=== PATIENT | male | born 1940 | race Two or more races ===

== ENCOUNTER 2020-05-15 23:28 | Inpatient (IN) | payer OTHER, MEDICAID ==
[~2020-05-15] VITALS: Ht 175.3 cm; Wt 99.8 kg
--- NOTE | 2020-05-15 23:41 | Emergency Room Report ---
History of Present Illness General Chief Complaint: Dyspnea/Respdistress Source: Patient, Medical Record, EMS Present Illness HPI 80-year-old male with a history of diabetes hypertension here with shortness of breath. Patient tested Positive for Covid 4 days ago. Says his initial s ymptoms were cough and congestion but says over the past 2 days he has been having worsening shortness of breath. He called paramedics because of shortness of breath acutely worsened tonight. When paramedics arrived patient had oxygen saturation of 80% on room air. He was placed on a nonrebreather at 15 L with resolution of his hypoxia. Patient also said that he felt subjectively better. Has had a productive cough. Denies headache, vision changes, focal numbness or weakness chills, chest pain, back pain, abdominal pain, nausea, vomiting, diarrhea, dysuria. Allergies: Coded Allergies: No Known Allergies (Unverified , 05/15/20) COVID-19 Screening Contact w/high risk pt: No Experienced COVID-19 symptoms?: Yes COVID-19 Testing performed TOE SEWER: No COVID-19 Screening: PUI COVID-19 Nursing Documentation-[facility] Past Medical History: No History, Except For Hx Hypertension: Yes Hx Diabetes: Yes Review of Systems All Other Systems: negative except mentioned in HPI Physical Exam Vital Signs Date Time Temp Pulse Resp B/P (MAP) Pulse Ox O2 Delivery O2 Flow Rate FiO2 05/15/20 23:31 99.9 116 22 149/61 (90) 96 Non-Rebreather 15.0 Sp02 EP Interpretation: reviewed, normal General Appearance: no apparent distress, alert, non-toxic Head: normocephalic, atraumatic Eyes: bilateral eye normal inspection, bilateral eye PERRL ENT: hearing grossly normal, normal pharynx, no angioedema, normal voice Neck: full range of motion, supple/symm/no masses Respiratory: chest non-tender, speaking full sentences, other - Diffuse rales in all lung zhang Cardiovascular #1: no edema, other - Tachycardic 105 bpm, regular rhythm Cardiovascular #2: 2+ carotid (R), 2+ carotid (L), 2+ radial (R), 2+ radial (L), 2+ dorsalis pedis (R), 2+ dorsalis pedis (L) Gastrointestinal: normal bowel sounds, non tender, soft, non-distended, no guarding, no rebound Rectal: deferred Genitourinary: normal inspection, no CVA tenderness Musculoskeletal: back normal, normal range of motion, gait/station normal, non- tender Neurologic: alert, motor strength/tone normal, oriented x3, sensory intact, responsive, speech normal Psychiatric: judgement/insight normal, memory normal, mood/affect normal, no suicidal/homicidal ideation Lymphatic: no adenopathy Medical Decision Making Diagnostic Impression: Primary Impression: Respiratory distress Additional Impressions: Dyspnea Pneumonia due to COVID-19 virus Septic shock ER Course Total critical care time: Approximately 45 minutes Due to a high probability of clinically significant, life threatening deterioration, the patient required the highest level of preparedness to intervene emergently and I personally spent this critical care time directly and personally managing the patient. This critical care time included obtaining a history, examining the patient, pulse oximetry, ordering and reviewing studies, ordering treatments, evaluating response to treatment and updating management plan as needed, frequent reassessment and discussion with other providers as well as arranging for ultimate disposition. This critical to care time was performed to assess and manage the high probability of life-threatening deterioration that could result in multiorgan failure. This critical care time is separate from the separately billable procedures and treating other patients. Chest x-ray: Diffuse infiltrates in all lung zhang worse in the right upper, right middle, right lower lobes. Right-sided pleural effusion. No pneumothorax. Cardiomegaly. No free air under diaphragm EKG: NSR, no ischemia, right bundle branch block. Rate 95 bpm. No ectopy Rhythm strip: patient monitored for arrhythmias - no malignant dysrhythmias, runs of PVCs, nor pauses noted 80-year-old male here with shortness of breath. Patient was found to be hypoxic on room air by paramedics and was placed on a nonrebreather. Patient was kept on nonrebreather and maintained a normal oxygen saturation throughout his stay in the emergency department. He said he felt subjectively much better. ABG l argely unremarkable. EKG showed right bundle branch block without any evidence of obvious acute ischemia. Lactate elevated 4.7. Patient received a 30 cc/kg fluid bolus based on ideal body weight. Repeat lactate pending. Patient Covid positive. Received azithromycin, ceftriaxone, Decadron, Lovenox in the emergency department. To be admitted to telemetry. Last Vital Signs Date Time Temp Pulse Resp B/P (MAP) Pulse Ox O2 Delivery O2 Flow Rate FiO2 05/15/20 23:31 99.9 116 22 149/61 (90) 96 Non-Rebreather 15.0 Michael Elizondo M.D. May 15, 2020 23:41
--- NOTE | 2020-05-15 23:58 | NUR ---
ED Nurse Note: Pt Brought by RA 29 due to Res distress. According the paramedics, pt wa satting 80% on RA. Pt is on 15L NRM at the moment and he is satting 97-98%. Pt stated; he got tested yesterday for covid and his result is postive. Pt is on Monitor, vitals are stable. Iv started; blood drawn and sent to the lab. All safty measures are met. We will keep monitoring the pt.
[2020-05-16] VITALS (7 sets, daily range): BP systolic 127–168; BP diastolic 61–89
[2020-05-16] MEDS ORDERED: GLIPIZIDE5 MG ORAL (00:05)
[2020-05-16] MEDS ORDERED: OMEPRAZOLE40 M1 ORAL (00:05)
[2020-05-16] MEDS ORDERED: DIOVAN HCT 1601 EACH ORAL (00:05)
[2020-05-16] MEDS ORDERED: CARVEDILOL3.125 MG ORAL (00:05)
[2020-05-16] MEDS ORDERED: AMLODIPINE BESYL5 MG ORAL (00:05)
[2020-05-16] MEDS ORDERED: FLOMAX0.4 MG ORAL (00:05)
[2020-05-16 00:15] LABS: HEMATOCRIT 40.5 % (42.0-52.0); HEMOGLOBIN 13.9 G/DL (14.2-18.0); MEAN CORPUSCULAR VOLUME 87 FL (80-99); PLATELET COUNT 259 K/UL (150-450); RED BLOOD COUNT 4.65 M/UL (4.70-6.10); RED CELL DISTRIBUTION WIDTH 11.1 % (11.6-14.8); WHITE BLOOD COUNT 14.9 K/UL (4.8-10.8)
[2020-05-16] MEDS ORDERED: Enoxaparin 40mg Inj SUBQ ONE (00:29)
[2020-05-16] MEDS ORDERED: Azithromycin 500 MG in NS 275 ML IVPB ONE (00:30)
[2020-05-16] MEDS ORDERED: cefTRIAXone 1 GM in NS 55 ML IV ONE (00:30)
[2020-05-16] MEDS ORDERED: dexAMETHasone 10mg/ml Inj IV ONE (00:30)
[2020-05-16 00:40] LABS: ALBUMIN 2.8 G/DL (3.4-5.0); ALBUMIN/GLOBULIN RATIO 0.8 (1.0-2.7); BILIRUBIN,TOTAL 0.7 MG/DL (0.2-1.0); CALCIUM 8.9 MG/DL (8.5-10.1); CKMB 4.3 NG/ML (0.0-3.6); CREATININE 1.3 MG/DL (0.55-1.30); POTASSIUM 3.5 MMOL/L (3.5-5.1)
--- NOTE | 2020-05-16 02:06 | NUR ---
ED Nurse Note: Pt is on the bed sleeping, no distress, and vitals are stable. We keep monitoring the pt
[2020-05-16 02:17] LABS: APPEARANCE,URINE SLIGHTLY CLOUDY; BILIRUBIN, URINE NEGATIVE (NEGATIVE); GLUCOSE, URINE (UA) 2+ (NEGATIVE); KETONES,URINE 1+ (NEGATIVE); LEUKOCYTE ESTERASE ,URINE 1+ (NEGATIVE); NITRITE,URINE NEGATIVE (NEGATIVE); PH,URINE 5 (4.5-8.0); PROTEIN,URINE 2+ (NEGATIVE); UROBILINOGEN,URINE NORMAL MG/DL (0.0-1.0)
[2020-05-16 02:32] LABS: COLOR,URINE PALE YELLOW
--- NOTE | 2020-05-16 05:35 | NUR ---
ED Nurse Note: pt is sleeping comfortably,vitals are stable, and no distress. We will keep monitoring the pt.
--- NOTE | 2020-05-16 06:20 | NUR ---
TRANSFER TO FLOOR: Patient transferred to [facility] as ordered, per Travon. Report given to Salazar Eagle. All Belongings and medications sent with the pt. RN transferred the pt on stable condition.
[2020-05-16] MEDS ORDERED: NovoLOG Insulin Flexpen SUBQ SCH ×2 (06:30)
--- NOTE | 2020-05-16 07:40 | NUR ---
NURSE HAND-OFF REPORT: Important Events on Shift:Pt admitted to tele. Oriented to room and admitting orders received. Patient Status: Stable Diet: CCHO Med Pending Orders: Pending Results/Labs: Pending MD notification: Latest Vital Signs: Temperature 98.5 , Pulse 83 , B/P 138 /75 , Respiratory Rate 23 , O2 SAT 99 , Non-Rebreather, O2 Flow Rate 15.0 . Vital Sign Comment: VSS EKG Rhythm: Sinus Rhythm Rhythm change?: MD Notified?: - MD Response: Latest Gregg Fall Score: Fall Risk: Safety Measures: Call light , Bed Alarm , Side Rails , Bed position . Fall Precautions: Report given to JADA Martínez.
--- NOTE | 2020-05-16 07:52 | NUR ---
NURSE NOTES: Patient seen in bed in semifowlers position on nonrebreather with oxygen saturation above 94%. The patient does not complain of any pain and is under no acuter signs of distress. The patient has a R 18G AC that is clean patent and intact and saline locked. All patients request have been met at this time. the patients bed is in lowest position, locked, side rails x3 and call light within reach. patient educated guest relations associate light for any further needs.
[2020-05-16] MEDS ORDERED: Enoxaparin 40mg Inj SUBQ SCH (09:00)
--- NOTE | 2020-05-16 09:30 | Diagnostic Imaging Report ---
EXAM: XR Chest, 1 View CLINICAL HISTORY: SOB TECHNIQUE: Frontal view of the chest. COMPARISON: No relevant prior studies available. FINDINGS/IMPRESSION: Extensive bilateral airspace consolidations, consistent with multifocal infiltrate. These findings preferentially involve the lower lung zhang. Follow-up 2 view chest radiograph recommended. No pneumothorax. Cardiomegaly.
[2020-05-16] MEDS: dexAMETHasone 10mg/ml Inj IV SCH (09:45)
[2020-05-16] MEDS: Enoxaparin 40mg Inj SUBQ SCH ×2 (10:00→17:57)
--- NOTE | 2020-05-16 12:25 | History & Physical ---
History and Physical History & Physicial Pulmonary Consultation HPI Patient is an 80-year-old male with a history of Diabetes Hypertension,admitted with Covid19 Pneumonia, complained of worsening shortness of breath for 2 days, cough and congestion. Tested positive for Covid 4 days ago. Noted to have oxygen saturation of 80% on room air, improved on a nonrebreather at 15 L with resolution of his hypoxia. Denies headache, vision changes, focal numbness or weakness chills, chest pain, back pain, abdominal pain, nausea, vomiting, diarrhea, dysuria. Past Medical History: Diabetes, Hypertension Allergies: No Known Allergies All Other Systems: negative except mentioned in HPI Physical Exam Vital SignsNoted Date Time Temp Pulse Resp B/P (MAP) Pulse Ox O2 Delivery O2 Flow Rate FiO2 05/15/20 23:31 99.9 116 22 149/61 (90) 96 Non-Rebreather 15.0 General Appearance: no apparent distress, alert, non-toxic Head: normocephalic, atraumatic Eyes: bilateral eye normal inspection, bilateral eye PERRL ENT: hearing grossly normal, normal pharynx, no angioedema, normal voice Neck: full range of motion, supple/symm/no masses Respiratory: chest non-tender, speaking full sentences, other - Diffuse rales in all lung zhang Cardiovascular: no edema, HS1,HS2 normal, regular rhythm Gastrointestinal: normal bowel sounds, non tender, soft, non-distended, no guarding, no rebound Genitourinary: normal inspection, no CVA tenderness Musculoskeletal: back normal, normal range of motion, gait/station normal, non- tender Neurologic: alert, motor strength/tone normal, oriented x3, sensory intact, responsive, speech normal Lymphatic: no adenopathy Impression: Pneumonia due to COVID-19 virus Hypoxic Respiratory Failure Hypertension Diabetes Septic shock Plan: -Dexamethasone -O2 PRN -IV AB -IVF -BD PRN -Monitor labs -[employer] medications -ST eval -ISS -PPX Chest x-ray: Diffuse infiltrates in all lung zhang worse in the right upper, right middle, right lower lobes. Right-sided pleural effusion. No pneumothorax. Cardiomegaly. No free air under diaphragm EKG: NSR, no ischemia, right bundle branch block. Rate 95 bpm. No ectopy Rhythm strip: patient monitored for arrhythmias - no malignant dysrhythmias, runs of PVCs, nor pauses noted Balfe,Tomas MD May 16, 2020 12:25
--- NOTE | 2020-05-16 12:55 | Consultation ---
History of Present Illness General Date patient seen: May 16, 2020 Reason for Hospitalization: Dyspnea/Respdistress Present Illness HPI 80-year-old male with a history of diabetes hypertension here with shortness of breath. Patient tested Positive for Covid 4 days ago. Says his initial symptoms were cough and congestion but says over the past 2 days he has been having worsening shortness of breath. He called paramedics because of shortness of breath acutely worsened tonight. When paramedics arrived patient had oxygen saturation of 80% on room air. He was placed on a nonrebreather at 15 L with resolution of his hypoxia. Patient also said that he felt subjectively better. Has had a productive cough. Denies headache, vision changes, focal numbness or weakness chills, chest pain, back pain, abdominal pain, nausea, vomiting, diarrhea, dysuria. leukocytosis lactic acidosis Allergies: Coded Allergies: No Known Allergies (Unverified , 05/15/20) COVID-19 Screening Contact w/high risk pt: No Experienced COVID-19 symptoms?: Yes Coronavirus symptoms experienc: Fatigue, Shortness of Breath, Cough, Diarrhea Medication History Scheduled Amlodipine Besylate* (Amlodipine Besylate*), 5 MG ORAL DAILY, (Reported) Carvedilol* (Carvedilol*), 3.125 MG ORAL EVERY 12 HOURS, (Reported) Glipizide* (Glipizide*), 5 MG ORAL BIDAC, (Reported) Omeprazole (Omeprazole), 40 MG ORAL DAILY, (Reported) Tamsulosin HCl (Flomax), 0.4 MG ORAL DAILY, (Reported) Valsartan/Hydrochlorothiazide 160-12.5MG (Diovan Hct 160-12.5 Mg Tab), 1 TAB ORAL DAILY, (Reported) Patient History History Provided By: Patient, Medical Record, PMD Healthcare decision maker Resuscitation status Advanced Directive on File Past Medical/Surgical History Past Medical/Surgical History: (1) Septic shock (2) Dyspnea (3) Respiratory distress (4) Pneumonia due to COVID-19 virus Review of Systems Review of Symptoms General ROS: no weight loss or fever Psychological ROS: no depression or mood changes, no memory loss Ophthalmic ROS: no visual changes or eye irritation ENT ROS: no nasal congestion, hearing loss, dizziness Allergy and Immunology ROS: no allergic symptoms or urticaria Hematological and Lymphatic ROS: no swollen glands, unusual bleeding or bruising Endocrine ROS: no polyuria, polydipsia, weight changes, temperature intolerance Respiratory ROS: no cough, shortness of breath, or wheezing Cardiovascular ROS: no chest pain or dyspnea on exertion Gastrointestinal ROS: denies abdominal pain, bright red blood in stool. Musculoskeletal ROS: no myalgias or arthralgias Neurological ROS: no TIA or stroke symptoms Dermatological ROS: no new or changing skin lesions, rashes or pruritis Physical Exam Physical Exam General appearance: alert, cooperative, no distress, appears stated age Head: Normocephalic, without obvious abnormality, atraumatic Eyes: conjunctivae/corneas clear. PERRL, EOM's intact. Fundi benign Throat: Lips, mucosa, and tongue normal. Teeth and gums normal Neck: supple, symmetrical, trachea midline, no adenopathy, thyroid: not enlarged, symmetric, no tenderness/mass/nodules, no carotid bruit and no JVD Lungs: clear to auscultation bilaterally Heart: regular rate and rhythm, S1, S2 normal, no murmur, click, rub or gallop Abdomen: soft, non-tender. Bowel sounds normal. No masses, no organomegaly Extremities: extremities normal, atraumatic, no cyanosis or edema Pulses: 2+ and symmetric Skin: Skin color, texture, turgor normal. No rashes or lesions Neurologic: Grossly normal Last 24 Hour Vital Signs Date Time Temp Pulse Resp B/P (MAP) Pulse Ox O2 Delivery O2 Flow Rate FiO2 05/16/20 10:27 Non-Rebreather 15.0 05/16/20 09:45 89 149/65 05/16/20 06:20 98.5 83 23 138/75 99 Non-Rebreather 15.0 05/16/20 05:40 98.1 82 23 132/69 98 Non-Rebreather 15.0 05/16/20 03:27 97.8 89 22 142/89 99 Non-Rebreather 15.0 05/16/20 02:40 97.9 98 22 139/78 99 Non-Rebreather 15.0 05/16/20 01:12 98.2 05/16/20 00:03 105 24 Non-Rebreather 15.0 05/16/20 00:03 99.8 105 24 149/61 97 Non-Rebreather 15.0 05/15/20 23:31 99.9 116 22 149/61 (90) 96 Non-Rebreather 15.0 Laboratory Tests Test 05/15/20 23:30 05/15/20 23:36 05/16/20 01:51 White Blood Count 14.9 K/UL (4.8-10.8) H Red Blood Count 4.65 M/UL (4.70-6.10) L Hemoglobin 13.9 G/DL (14.2-18.0) L Hematocrit 40.5 % (42.0-52.0) L Mean Corpuscular Volume 87 FL (80-99) Mean Corpuscular Hemoglobin 29.9 PG (27.0-31.0) Mean Corpuscular Hemoglobin Concent 34.2 G/DL (32.0-36.0) Red Cell Distribution Width 11.1 % (11.6-14.8) L Platelet Count 259 K/UL (150-450) Mean Platelet Volume 6.6 FL (6.5-10.1) Neutrophils (%) (Auto) % (45.0-75.0) Lymphocytes (%) (Auto) % (20.0-45.0) Monocytes (%) (Auto) % (1.0-10.0) Eosinophils (%) (Auto) % (0.0-3.0) Basophils (%) (Auto) % (0.0-2.0) Differential Total Cells Counted 100 Neutrophils % (Manual) 95 % (45-75) H Lymphocytes % (Manual) 2 % (20-45) L Monocytes % (Manual) 3 % (1-10) Eosinophils % (Manual) 0 % (0-3) Basophils % (Manual) 0 % (0-2) Band Neutrophils 0 % (0-8) Platelet Estimate Adequate Platelet Morphology Normal Red Blood Cell Morphology Normal Prothrombin Time 11.5 SEC (9.30-11.50) Prothromb Time International Ratio 1.0 (0.9-1.1) Activated Partial Thromboplast Time 33 SEC (23-33) D-Dimer 0.87 mg/L FEU (0.00-0.49) H Sodium Level 131 MMOL/L (136-145) L Potassium Level 3.5 MMOL/L (3.5-5.1) Chloride Level 93 MMOL/L (98-107) L Carbon Dioxide Level 23 MMOL/L (21-32) Anion Gap 15 mmol/L (5-15) Blood Urea Nitrogen 23 mg/dL (7-18) H Creatinine 1.3 MG/DL (0.55-1.30) Estimat Glomerular Filtration Rate 53.0 mL/min (>60) Glucose Level 229 MG/DL (74-106) H Lactic Acid Level 4.70 mmol/L (0.4-2.0) H 2.60 mmol/L (0.66-2.22) H Calcium Level 8.9 MG/DL (8.5-10.1) Magnesium Level 1.2 MG/DL (1.8-2.4) L Ferritin 373 NG/ML (8-388) Total Bilirubin 0.7 MG/DL (0.2-1.0) Aspartate Amino Transf (AST/SGOT) 34 U/L (15-37) Alanine Aminotransferase (ALT/SGPT) 22 U/L (12-78) Alkaline Phosphatase 87 U/L (46-116) Lactate Dehydrogenase 401 U/L (81-234) H Total Creatine Kinase 279 U/L (26-308) Creatine Kinase MB 4.3 NG/ML (0.0-3.6) H Creatine Kinase MB Relative Index 1.5 Troponin I 0.003 ng/mL (0.000-0.056) C-Reactive Protein, Quantitative Pending Pro-B-Type Natriuretic Peptide 500 pg/mL (0-125) H Total Protein 6.5 G/DL (6.4-8.2) Albumin 2.8 G/DL (3.4-5.0) L Globulin 3.7 g/dL Albumin/Globulin Ratio 0.8 (1.0-2.7) L Lipase 162 U/L (73-393) Arterial Blood pH 7.430 (7.350-7.450) Arterial Blood Partial Pressure CO2 29.1 mmHg (35.0-45.0) L Arterial Blood Partial Pressure O2 94.8 mmHg (75.0-100.0) Arterial Blood HCO3 18.9 mmol/L (22.0-26.0) L Arterial Blood Oxygen Saturation 97.0 % (95-100) Arterial Blood Base Excess -4.1 (-2-2) L Jose Test Positive Urine Color Pale yellow Urine Appearance Slightly cloudy Urine pH 5 (4.5-8.0) Urine Specific [place] 1.015 (1.005-1.035) Urine Protein 2+ (NEGATIVE) H Urine Glucose (UA) 2+ (NEGATIVE) H Urine Ketones 1+ (NEGATIVE) H Urine Blood 1+ (NEGATIVE) H Urine Nitrite Negative (NEGATIVE) Urine Bilirubin Negative (NEGATIVE) Urine Urobilinogen Normal MG/DL (0.0-1.0) Urine Leukocyte Esterase 1+ (NEGATIVE) H Urine RBC 0 /HPF (0 - 0) Urine WBC 0-2 /HPF (0 - 0) Urine Squamous Epithelial Cells Occasional /LPF Urine Amorphous Sediment Occasional /LPF (NONE) Urine Bacteria Many /HPF (NONE) H Urine Hyaline Casts 0-2 /LPF (NONE) H Microbiology Date/Time Source Procedure Growth Status 05/15/20 23:30 Nasopharynx SARS-CoV-2 RdRp Gene Assay - Final Complete Height (Feet): 5 Height (Inches): 9.00 Weight (Pounds): 220 Medications Current Medications Medications (Trade) Dose Ordered Sig/Baldo Route PRN Reason Start Time Stop Time Status Last Admin Dose Admin Acetaminophen (Tylenol) 650 mg EVERY 4 HOURS PRN ORAL fever/MINAYA 05/16/20 03:15 06/15/20 03:14 Acetaminophen (Tylenol) 650 mg Q4H PRN ORAL Mild Pain (Pain Scale 1-3) 05/16/20 12:15 06/15/20 12:14 Acetaminophen (Tylenol) 650 mg Q4H PRN ORAL fever 05/16/20 12:15 06/15/20 12:14 Albuterol Sulfate (Proventil MDI) 2 puff Q4H PRN INH Shortness of Breath 05/16/20 12:15 08/14/20 12:14 UNV Amlodipine Besylate (Norvasc) 5 mg DAILY ORAL 05/16/20 09:00 06/15/20 08:59 05/16/20 09:45 Azithromycin 500 mg/Dextrose 275 ml @ 275 mls/hr Q24H IV 05/16/20 13:15 05/21/20 13:14 UNV Ceftriaxone Sodium 1 gm/ Dextrose 55 ml @ 110 mls/hr Q24H IV 05/16/20 13:15 05/23/20 13:14 UNV Dexamethasone Sodium Phosphate (Decadron 10mg/ ml Inj) 6 mg DAILY IV 05/16/20 09:00 08/14/20 08:59 05/16/20 09:45 Dextrose (Dextrose 50%) 25 ml Q30M PRN IV Hypoglycemia 05/16/20 03:15 08/14/20 03:14 Dextrose (Dextrose 50%) 25 ml Q30M PRN IV Hypoglycemia 05/16/20 12:15 08/14/20 12:14 UNV Dextrose (Dextrose 50%) 50 ml Q30M PRN IV Hypoglycemia 05/16/20 03:15 08/14/20 03:14 Dextrose (Dextrose 50%) 50 ml Q30M PRN IV Hypoglycemia 05/16/20 12:15 08/14/20 12:14 UNV Enoxaparin Sodium (Lovenox) 40 mg BID SUBQ 05/16/20 10:00 08/14/20 09:59 Famotidine (Pepcid I.v.) 20 mg Q12HR IVP 05/16/20 21:00 06/15/20 20:59 UNV Insulin Aspart (NovoLOG) BEFORE MEALS AND HS SUBQ 05/16/20 06:30 08/14/20 06:29 Insulin Aspart (NovoLOG) BEFORE MEALS AND HS SUBQ 05/16/20 16:30 08/14/20 16:29 UNV Magnesium Sulfate 100 ml @ 100 mls/hr Q1H IVPB 05/16/20 11:30 05/16/20 15:29 05/16/20 11:30 Ondansetron HCl (Zofran) 4 mg Q6H PRN IVP Nausea & Vomiting 05/16/20 12:15 06/15/20 12:14 UNV Sodium Chloride 1,000 ml @ 75 mls/hr [id number] IV 05/16/20 06:00 06/15/20 05:59 Sodium Chloride 1,000 ml @ 75 mls/hr [id number] 05/16/20 13:15 06/15/20 13:14 UNV Assessment/Plan Problem List: (1) Septic shock Assessment & Plan: 80-year-old male Covid positive respiratory deficiency presented to [facility] for evaluation shortness of breath admitted care and manage identified to have leukocytosis lactic acidosis and shock. Resuscitation initiated. Full examination performed no acute infectious process noted inflammatory process likely related to respiratory. Continue with IV fluids. Hold on central line insertion. Labs noted imaging reviewed. Patient otherwise now stable under appropriate care plan. Continue with medications and antibiotics as ordered. Continue with IV fluid resuscitation. Trend labs. Will follow with recommendations. Thank you for let me participate patient's care ICD Codes: A41.9 - Sepsis, unspecified organism; R65.21 - Severe sepsis with septic shock SNOMED: 76200134 (2) Dyspnea ICD Codes: R06.00 - Dyspnea, unspecified SNOMED: 043144086 (3) Respiratory distress ICD Codes: R06.03 - Acute respiratory distress SNOMED: 159650383 (4) Pneumonia due to COVID-19 virus Assessment & Plan: ++ as per pulm and ID ICD Codes: U07.1 - COVID-19; J12.82 - Pneumonia due to coronavirus disease 2018 SNOMED: [id number] Gianni Guajardo May 16, 2020 12:55
--- NOTE | 2020-05-16 13:14 | Consultation ---
DATE OF CONSULTATION: 05/16/2020 INFECTIOUS DISEASES CONSULTATION This consult is for coverage of Dr. Buckner CONSULTING PHYSICIAN: Jamie Sullivan MD PRIMARY ATTENDING PHYSICIAN: Tomas Cool MD REASON FOR CONSULTATION: COVID-19 disease with pneumonia. HISTORY OF PRESENT ILLNESS: This is an 80-year-old male admitted today from home complaining of shortness of breath, cough, congestion for 4 days. When he was seen by paramedics, was very hypoxemic with O2 saturation of 80%, had tachycardia in the ER, had leukocytosis of 14.9. PAST MEDICAL HISTORY: Diabetes mellitus and hypertension. ALLERGIES: No known drug allergies. MEDICATIONS: Famotidine, insulin, ceftriaxone, azithromycin, sodium chloride, albuterol, Tylenol, dexamethasone, insulin aspart. SOCIAL HISTORY: Single. Nonsmoker. REVIEW OF SYSTEMS: Has shortness of breath, chest pain, dry cough, diarrhea. PHYSICAL EXAMINATION: VITAL SIGNS: Temperature is 98.5, pulse 89, blood pressure 149/65. GENERAL APPEARANCE: No acute distress, seems to be well developed, has some respiratory distress. HEAD AND NECK: [place] conjunctiva. HEART: Normal rate. LUNGS: The patient getting oxygen by non-rebreather mask 15 liters, has decreased sounds. ABDOMEN: Obese and soft. EXTREMITIES: No edema. NEUROLOGIC: Awake, alert, responsive. LABORATORY AND DIAGNOSTIC DATA: WBC 14.9, hemoglobin 13.9, hematocrit 40.5, platelets is 259. Lactic acid is 2.6. Lactic acid at the time of admission was 4.7. Sodium 131, potassium 3.5, chloride 93, bicarb 23, BUN 23, creatinine 1.3. LDH is 401. Albumin is 2.8. Chest x-ray showed bilateral infiltrate. COVID test was positive. IMPRESSION: Sepsis with tachycardia and leukocytosis, severe COVID-19 disease, has hypoxemia, diabetes mellitus with hyperglycemia, lactic acidosis, hyponatremia. RECOMMENDATION: Start Remdesivir. Continue dexamethasone. Continue Rocephin and Zithromax. If the patient has persistent diarrhea, we will stop Zithromax. We will follow up the clinical course. At the end of my exam, I thank Dr. Cool, for involving me in the care of this patient. Jamie Sullivan M.D. DR: Nadira JOB#: [id number] CC:
[2020-05-16] MEDS ORDERED: Enoxaparin 30mg Inj SUBQ SCH (13:15)
--- NOTE | 2020-05-16 13:30 | NUR ---
NURSE NOTES: Blood glucose level elevated at 450. Patient is asymptomatic and MD made aware of result. Insulin used to correct blood sugar and will be rechecked within 30 minutes.
[2020-05-16] MEDS ORDERED: Loading Dose:Remdesivir 200mg/NS 210ml IV SCH ×2 (16:00)
--- NOTE | 2020-05-16 16:00 | NUR ---
NURSE NOTES: Patient had elevated blood pressure 168/71 and MD was contacted and made aware. MD input orders for patients hypertension.
[2020-05-16] MEDS: Albuterol 90mcg Inhaler 8gm INH PRN (16:37)
[2020-05-16] MEDS: NovoLOG Insulin Flexpen SUBQ SCH ×2 (17:20→21:00)
--- NOTE | 2020-05-16 18:00 | History and Physical Report ---
DATE OF ADMISSION: 05/16/2020 REASON FOR ADMISSION: COVID-19 pneumonia with hypoxia. HISTORY OF PRESENT ILLNESS: This is an 80-year-old male who has had 2 days of progressive shortness of breath and congestion. He tested positive for COVID several days previously. He did not improve, rather worsened, came to the emergency room and was noted by paramedics en route to have an oxygen saturation of only 80% on room air. In the emergency room, he was given a nonrebreather mask and improved. He has not had any other constitutional symptoms. He does feel increasingly short of breath with chest tightness. PAST MEDICAL HISTORY: Type 2 diabetes mellitus and hypertension. MEDICATIONS: Reviewed. ALLERGIES: None. SOCIAL HISTORY: Nonsmoker. No alcohol or substance abuse. FAMILY HISTORY: Not contributory. REVIEW OF SYSTEMS: A 10-point review of systems was performed. All systems negative other than noted above. PHYSICAL EXAMINATION: VITAL SIGNS: Blood pressure 149/61, pulse 116, respirations 22, temperature 99.9. GENERAL: Moderately obese. Oropharynx clear. No thrush. NECK: Supple. Some accessory muscle use. LUNGS: Diminished breath sounds and rhonchi. CARDIAC: Regular rhythm. Rapid rate. Normal S1, S2 with no murmur. ABDOMEN: Soft, obese, and nontender. EXTREMITIES: Trace dependent edema. Good peripheral perfusion. NEUROLOGIC: Nonfocal. EKG with sinus rhythm at 95 and right bundle-branch block. Chest x-ray with bilateral infiltrates, right greater than left, and small pleural effusion. LABORATORY DATA: Reviewed with notable white count of 14.9, hemoglobin 13.9. Lactic acid 4.7, magnesium 1.2, sodium 131, potassium 3.5, chloride 92, bicarb 23, BUN 22, creatinine 1.3, albumin 2.8. Troponin negative and natriuretic peptide 500. IMPRESSION: 1. COVID-19 pneumonia. 2. Hypoxia. 3. Hyponatremia. 4. Hypochloremia. 5. Hypovolemia. 6. Lactic acidosis. 7. Type 2 diabetes mellitus. 8. Hypomagnesemia. 9. Acute diastolic congestive heart failure. 10. Moderate protein-calorie malnutrition. PLAN: 1. Cardiac monitoring. 2. Saline hydration. 3. IV steroids. 4. IV remdesivir. 5. Lovenox for anticoagulation. 6. Insulin coverage by sliding scale. 7. IV magnesium. 8. Follow up electrolytes, adjust saline hydration accordingly. 9. Monitor volume status and cardiovascular parameters. 10. Protein supplement as tolerated. 11. High risk. Tomas Cool M.D. DR: GLADIS JOB#: [id number] CC:
--- NOTE | 2020-05-16 19:34 | NUR ---
NURSE HAND-OFF REPORT: Important Events on Shift:[4Bags of Mag, started Remdesevir] Patient Status: [Full code] Diet: [CCHO medium low sodium] Pending Orders: [N/A] Pending Results/Labs:[N/A] Pending MD notification:[N/A] Latest Vital Signs: Temperature 99.5 , Pulse 102 , B/P 139 /71 , Respiratory Rate 21 , O2 SAT 91 , Non-Rebreather, O2 Flow Rate 15.0 . Vital Sign Comment: [] EKG Rhythm: ST with BBB Rhythm change?: N MD Notified?: Y -Dr. Travon MEJIA Response: Latest Gregg Fall Score: 45 Fall Risk: High Risk Safety Measures: Call light Within Reach, Bed Alarm Zone 1, Side Rails Side Rails x2, Bed position Low and Locked. Fall Precautions: Yellow Socks Patient Fall Education Report given to [Mega ELIAS].
--- NOTE | 2020-05-16 19:35 | NUR ---
NURSE NOTES: Important Events on Shift: Received report from Mauricio Henderson RN. Pt in stable condition since admission during AM shift. Pt admitted for respiratory distress r/t COVID +. Pt is Georgian speaking, denies pain, no signs or symptoms of distress noted at this time. Pt is to move from 212-1 to 220-1. All belongings accounted for per belongings list. COVID isolation precautions in place. Will continue plan of care and close monitoring. Patient Status: Full Code Diet: CCHO M Low Na Pending Orders: none Pending Results/Labs: cbc, cmp, HA1C Pending MD notification: none Latest Vital Signs: Temperature 97.4 , Pulse 102 , B/P 132 /72 , Respiratory Rate 18 , O2 SAT 91 , Non-Rebreather, O2 Flow Rate 15.0 . Vital Sign Comment: stable throughout shift per report. EKG Rhythm: ST w/BBB Rhythm change?: N Notified?: Matilde Cool MD Response: Latest Gregg Fall Score: 45 Fall Risk: High Risk Safety Measures: Call light Within Reach, Bed Alarm Zone 1, Side Rails Side Rails x2, Bed position Low and Locked. Fall Precautions: YES Yellow Socks YES Yellow Gown YES Door Sign YES Patient Fall Education YES
[2020-05-16] MEDS ORDERED: Levemir Flexpen SUBQ SCH (21:00)
[2020-05-17] VITALS: BP 132/72
[2020-05-17 04:00] VITALS: BP 130/65
[2020-05-17] MEDS: NovoLOG Insulin Flexpen SUBQ SCH ×4 (06:00→21:22)
--- NOTE | 2020-05-17 07:57 | NUR ---
NURSE HAND-OFF REPORT: Important Events on Shift: Pt to continue to titrate to >92% via NC 2 LPM. No complaints during shift. Endorsed plan of care and close monitoring. Patient Status: full code Diet: regular Pending Orders: none Pending Results/Labs: cbc, cmp, HA1C Pending MD notification: none Latest Vital Signs: Temperature 97.4 , Pulse 80 , B/P 132 /72 , Respiratory Rate 18 , O2 SAT 91 , Non-Rebreather, O2 Flow Rate 155.0 . Vital Sign Comment: EKG Rhythm: SR w/BBB Rhythm change?: N MD Notified?: Y -Dr. Travon MEJIA Response: Latest Gregg Fall Score: 45 Fall Risk: High Risk Safety Measures: Call light Within Reach, Bed Alarm Zone 1, Side Rails Side Rails x2, Bed position Low and Locked. Fall Precautions: YES Yellow Socks Yellow Gown Door Sign Patient Fall Education Report given to ALPHONSO Esqueda RN
[2020-05-17 08:00] VITALS: BP 152/68
--- NOTE | 2020-05-17 08:10 | NUR ---
NURSE NOTES: Received report from Debbie Radford RN. Patient sitting up at edge of bed, feet dangling, non-rebreather mask in place, IV in Right Antecubital in place, call light within reach, side rails up x2, bed in lowest position, call light within reach, awake and alert.
[2020-05-17 08:23] LABS: HEMATOCRIT 40.7 % (42.0-52.0); HEMOGLOBIN 13.6 G/DL (14.2-18.0); MEAN CORPUSCULAR VOLUME 88 FL (80-99); PLATELET COUNT 349 K/UL (150-450); RED BLOOD COUNT 4.61 M/UL (4.70-6.10); RED CELL DISTRIBUTION WIDTH 12.2 % (11.6-14.8); WHITE BLOOD COUNT 19.2 K/UL (4.8-10.8)
[2020-05-17 08:44] LABS: ALBUMIN 2.5 G/DL (3.4-5.0); ALBUMIN/GLOBULIN RATIO 0.6 (1.0-2.7); BILIRUBIN,TOTAL 0.4 MG/DL (0.2-1.0); CALCIUM 8.8 MG/DL (8.5-10.1); CREATININE 1.2 MG/DL (0.55-1.30); POTASSIUM 3.7 MMOL/L (3.5-5.1)
[2020-05-17] MEDS: dexAMETHasone 10mg/ml Inj IV SCH (09:25)
[2020-05-17] MEDS: Enoxaparin 40mg Inj SUBQ SCH ×2 (09:26→19:41)
[2020-05-17] MEDS: cefTRIAXone 1 GM in D5W 55 ML IVPB SCH (09:28)
--- NOTE | 2020-05-17 10:08 | Diagnostic Imaging Report ---
EXAM: XR Chest, 2 Views CLINICAL HISTORY: INFECT TECHNIQUE: Frontal and lateral views of the chest. COMPARISON: Chest radiograph May 16, 2020. FINDINGS/IMPRESSION: Multifocal airspace consolidations, consistent with severe multifocal infiltrate. Findings and increased when compared to May 16, 2020. Follow-up chest radiograph recommended. Small left effusion is suspected. No pneumothorax. Stable cardiomegaly. Calcified aorta.
[2020-05-17] MEDS: Azithromycin 500 MG in D5W 275 ML IV SCH (10:11)
[2020-05-17 12:00] VITALS: BP 153/81
--- NOTE | 2020-05-17 13:46 | Surgery Progress Note ---
Surgery Progress Note Subjective Additional Comments sitting up still requiring oxygen no n/v labs noted cxr reviewed worse Objective Last 24 Hour Vital Signs Date Time Temp Pulse Resp B/P (MAP) Pulse Ox O2 Delivery O2 Flow Rate FiO2 05/17/20 12:00 96 05/17/20 12:00 96.7 71 20 153/81 (105) 89 05/17/20 09:35 101 152/68 05/17/20 08:00 20 05/17/20 08:00 96.6 101 20 152/68 (96) 90 05/17/20 04:00 80 05/17/20 04:00 97.5 90 17 130/65 (86) 98 05/17/20 00:00 97.4 93 18 132/72 (92) 91 05/17/20 00:00 102 05/16/20 21:00 Non-Rebreather 155.0 05/16/20 20:14 97 Non-Rebreather 15.0 100 05/16/20 20:00 97.6 98 20 127/69 (88) 94 05/16/20 20:00 95 05/16/20 16:00 102 05/16/20 16:00 99.5 98 21 139/71 (93) 91 05/16/20 14:53 168/71 I&O Intake and Output 05/16/20 05/17/20 19:00 07:00 Intake Total 1125 ml 600 ml Balance 1125 ml 600 ml Intake Oral 750 ml 600 ml IV Total 375 ml # Voids 1 4 # Bowel Movements 4 Cardiovascular: RSR Respiratory: clear, decreased breath sounds, other Abdomen: soft, non-tender, present bowel sounds, non-distended Extremities: no edema, no tenderness, no cyanosis Laboratory Tests Test 05/16/20 23:22 05/17/20 05:45 05/17/20 07:35 05/17/20 11:26 POC Whole Blood Glucose 337 MG/DL (74-106) H 293 MG/DL (74-106) H 357 MG/DL (74-106) H White Blood Count 19.2 K/UL (4.8-10.8) H Red Blood Count 4.61 M/UL (4.70-6.10) L Hemoglobin 13.6 G/DL (14.2-18.0) L Hematocrit 40.7 % (42.0-52.0) L Mean Corpuscular Volume 88 FL (80-99) Mean Corpuscular Hemoglobin 29.5 PG (27.0-31.0) Mean Corpuscular Hemoglobin Concent 33.4 G/DL (32.0-36.0) Red Cell Distribution Width 12.2 % (11.6-14.8) Platelet Count 349 K/UL (150-450) Mean Platelet Volume 6.1 FL (6.5-10.1) L Neutrophils (%) (Auto) % (45.0-75.0) Lymphocytes (%) (Auto) % (20.0-45.0) Monocytes (%) (Auto) % (1.0-10.0) Eosinophils (%) (Auto) % (0.0-3.0) Basophils (%) (Auto) % (0.0-2.0) Differential Total Cells Counted 100 Neutrophils % (Manual) 95 % (45-75) H Lymphocytes % (Manual) 2 % (20-45) L Monocytes % (Manual) 3 % (1-10) Eosinophils % (Manual) 0 % (0-3) Basophils % (Manual) 0 % (0-2) Band Neutrophils 0 % (0-8) Platelet Estimate Adequate Platelet Morphology Normal Red Blood Cell Morphology Normal Sodium Level 133 MMOL/L (136-145) L Potassium Level 3.7 MMOL/L (3.5-5.1) Chloride Level 98 MMOL/L (98-107) Carbon Dioxide Level 25 MMOL/L (21-32) Anion Gap 10 mmol/L (5-15) Blood Urea Nitrogen 24 mg/dL (7-18) H Creatinine 1.2 MG/DL (0.55-1.30) Estimat Glomerular Filtration Rate 58.1 mL/min (>60) Glucose Level 303 MG/DL (74-106) H Calcium Level 8.8 MG/DL (8.5-10.1) Total Bilirubin 0.4 MG/DL (0.2-1.0) Aspartate Amino Transf (AST/SGOT) 31 U/L (15-37) Alanine Aminotransferase (ALT/SGPT) 24 U/L (12-78) Alkaline Phosphatase 91 U/L (46-116) Total Protein 6.7 G/DL (6.4-8.2) Albumin 2.5 G/DL (3.4-5.0) L Globulin 4.2 g/dL Albumin/Globulin Ratio 0.6 (1.0-2.7) L Plan Problems: (1) Septic shock Assessment & Plan: 80-year-old male Covid positive respiratory deficiency presented to [facility] for evaluation shortness of breath admitted care and manage identified to have leukocytosis lactic acidosis and shock. Resuscitation initiated. Full examination performed no acute infectious process noted inflammatory process likely related to respiratory. Continue with IV fluids. Hold on central line insertion. Labs noted imaging reviewed. Patient otherwise now stable under appropriate care plan. Continue with medications and antibiotics as ordered. Continue with IV fluid resuscitation. Trend labs. Will follow with recommendations. Thank you for let me participate patient's care Multifocal airspace consolidations, consistent with severe multifocal infiltrate. Findings and increased when compared to May 16, 2020. Follow-up chest radiograph recommended. Small left effusion is suspected. No pneumothorax. Stable cardiomegaly. Calcified aorta. (2) Dyspnea (3) Respiratory distress (4) Pneumonia due to COVID-19 virus Assessment & Plan: ++ as per pulm and Gianni Pal May 17, 2020 13:46
[2020-05-17] MEDS: Maintenance Dose:Remdesivir 100mg/NS 230ml x 4 Doses IV SCH ×2 (15:26)
[2020-05-17 16:00] VITALS: BP 151/70
--- NOTE | 2020-05-17 16:09 | Pulmonology Progress Note ---
Subjective ROS Limited/Unobtainable: No Allergies: Coded Allergies: No Known Allergies (Unverified , 05/15/20) Objective Last 24 Hour Vital Signs Date Time Temp Pulse Resp B/P (MAP) Pulse Ox O2 Delivery O2 Flow Rate FiO2 05/17/20 12:00 96 05/17/20 12:00 96.7 71 20 153/81 (105) 89 05/17/20 09:35 101 152/68 05/17/20 08:00 20 05/17/20 08:00 96.6 101 20 152/68 (96) 90 05/17/20 04:00 80 05/17/20 04:00 97.5 90 17 130/65 (86) 98 05/17/20 00:00 97.4 93 18 132/72 (92) 91 05/17/20 00:00 102 05/16/20 21:00 Non-Rebreather 155.0 05/16/20 20:14 97 Non-Rebreather 15.0 100 05/16/20 20:00 97.6 98 20 127/69 (88) 94 05/16/20 20:00 95 Intake and Output 05/16/20 05/17/20 19:00 07:00 Intake Total 1125 ml 600 ml Balance 1125 ml 600 ml Intake Oral 750 ml 600 ml IV Total 375 ml # Voids 1 4 # Bowel Movements 4 Microbiology Date/Time Source Procedure Growth Status 05/16/20 01:51 Urine,Clean Catch Urine Culture - Preliminary NO GROWTH Resulted 05/15/20 23:30 Nasopharynx SARS-CoV-2 RdRp Gene Assay - Final Complete 05/15/20 23:30 Blood Blood Culture - Preliminary NO GROWTH AFTER 24 HOURS Resulted 05/15/20 23:15 Blood Blood Culture - Preliminary NO GROWTH AFTER 24 HOURS Resulted Laboratory Tests 05/16/20 23:22: POC Whole Blood Glucose 337H 05/17/20 05:45: POC Whole Blood Glucose 293H 05/17/20 07:35: White Blood Count 19.2H, Red Blood Count 4.61L, Hemoglobin 13.6L, Hematocrit 40.7L, Mean Corpuscular Volume 88, Mean Corpuscular Hemoglobin 29.5, Mean Corpuscular Hemoglobin Concent 33.4, Red Cell Distribution Width 12.2, Platelet Count 349, Mean Platelet Volume 6.1L, Neutrophils (%) (Auto) , Lymphocytes (%) (Auto) , Monocytes (%) (Auto) , Eosinophils (%) (Auto) , Basophils (%) (Auto) , Differential Total Cells Counted 100, Neutrophils % (Manual) 95H, Lymphocytes % (Manual) 2L, Monocytes % (Manual) 3, Eosinophils % (Manual) 0, Basophils % (Manual) 0, Band Neutrophils 0, Platelet Estimate Adequate, Platelet Morphology Normal, Red Blood Cell Morphology Normal, Sodium Level 133L, Potassium Level 3.7, Chloride Level 98, Carbon Dioxide Level 25, Anion Gap 10, Blood Urea Nitrogen 24H, Creatinine 1.2, Estimat Glomerular Filtration Rate 58.1, Glucose Level 303H, Calcium Level 8.8, Total Bilirubin 0.4, Aspartate Amino Transf (AST/SGOT) 31, Alanine Aminotransferase (ALT/SGPT) 24, Alkaline Phosphatase 91, Total Protein 6.7, Albumin 2.5L, Globulin 4.2, Albumin/Globulin Ratio 0.6L 05/17/20 11:26: POC Whole Blood Glucose 357H Current Medications Medications (Trade) Dose Ordered Sig/Baldo Route PRN Reason Start Time Stop Time Status Last Admin Dose Admin Acetaminophen (Tylenol) 650 mg EVERY 4 HOURS PRN ORAL fever/MINAYA 05/16/20 03:15 06/15/20 03:14 Acetaminophen (Tylenol) 650 mg Q4H PRN ORAL Mild Pain (Pain Scale 1-3) 05/16/20 12:15 06/15/20 12:14 05/16/20 13:44 Acetaminophen (Tylenol) 650 mg Q4H PRN ORAL fever 05/16/20 12:15 06/15/20 12:14 Albuterol Sulfate (Proventil MDI) 2 puff Q4H PRN INH Shortness of Breath 05/16/20 14:00 08/14/20 13:59 05/16/20 16:37 Amlodipine Besylate (Norvasc) 5 mg DAILY ORAL 05/16/20 09:00 06/15/20 08:59 05/17/20 09:35 Azithromycin 500 mg/Dextrose 275 ml @ 275 mls/hr DAILY IV 05/17/20 09:00 05/22/20 08:59 05/17/20 10:11 Ceftriaxone Sodium 1 gm/ Dextrose 55 ml @ 110 mls/hr DAILY IVPB 05/17/20 09:00 05/24/20 08:59 05/17/20 09:28 Clonidine HCl (Catapres Tab) 0.1 mg Q4H PRN ORAL For High Blood Pressure 05/16/20 14:45 08/14/20 14:44 05/16/20 14:53 Dexamethasone Sodium Phosphate (Decadron 10mg/ ml Inj) 6 mg DAILY IV 05/16/20 09:00 05/25/20 12:00 05/17/20 09:25 Dextrose (Dextrose 50%) 25 ml Q30M PRN IV Hypoglycemia 05/16/20 12:15 08/14/20 12:14 Dextrose (Dextrose 50%) 50 ml Q30M PRN IV Hypoglycemia 05/16/20 12:15 08/14/20 12:14 Enoxaparin Sodium (Lovenox) 40 mg BID SUBQ 05/16/20 10:00 08/14/20 09:59 05/17/20 09:26 Famotidine (Pepcid I.v.) 20 mg DAILY IVP 05/17/20 09:00 06/16/20 08:59 05/17/20 09:26 Insulin Aspart (NovoLOG) BEFORE MEALS AND HS SUBQ 05/16/20 16:30 08/14/20 16:29 05/17/20 12:25 Ondansetron HCl (Zofran) 4 mg Q6H PRN IVP Nausea & Vomiting 05/16/20 12:15 06/15/20 12:14 Remdesivir 100 mg/ Sodium Chloride 250 ml @ 250 mls/hr Q24H IV 05/17/20 16:00 05/20/20 16:59 05/17/20 15:26 Sodium Chloride 1,000 ml @ 75 mls/hr [id number] IV 05/16/20 06:00 06/15/20 05:59 05/17/20 09:36 Sodium Chloride 1,000 ml @ 75 mls/hr [id number] IVLG 05/16/20 13:15 06/15/20 13:14 05/17/20 15:28 Assessment/Plan Assessment/Plan Pulmonary Progress Note HPI Patient is an 80-year-old male with a history of Diabetes Hypertension,admitted with Covid19 Pneumonia, complained of worsening shortness of breath for 2 days, cough,chest discomfort and congestion. Tested positive for Covid 4 days ago. Noted to have oxygen saturation of 80% on room air, improved on a nonrebreather at 15 L with resolution of his hypoxia. Remains on NRB - sats 90% Past Medical History: Diabetes, Hypertension Allergies: No Known Allergies All Other Systems: negative except mentioned in HPI Physical Exam Vital Signs Noted General Appearance: no apparent distress, alert, non-toxic Head: normocephalic, atraumatic Eyes: bilateral eye normal inspection, bilateral eye PERRL ENT: hearing grossly normal, normal pharynx, no angioedema, normal voice Neck: full range of motion, supple/symm/no masses Respiratory: chest non-tender, speaking full sentences, other - Diffuse rales in all lung zhang Cardiovascular: no edema, HS1,HS2 normal, regular rhythm Gastrointestinal: normal bowel sounds, non tender, soft, non-distended, no guarding, no rebound Genitourinary: normal inspection, no CVA tenderness Musculoskeletal: back normal, normal range of motion, gait/station normal, non- tender Neurologic: alert, motor strength/tone normal, oriented x3, sensory intact, responsive, speech normal Lymphatic: no adenopathy Impression: Pneumonia due to COVID-19 virus Hypoxic Respiratory Failure Hypertension Diabetes Septic shock Plan: -Dexamethasone -O2 PRN -IV AB -BD PRN -Monitor labs -[employer] medications -ST eval -ISS -PPX Chest x-ray: Diffuse infiltrates in all lung zhang worse in the right upper, right middle, right lower lobes. Right-sided pleural effusion. No pneumothorax. Cardiomegaly. Infiltrates worse on current CXR EKG: NSR, no ischemia, right bundle branch block. Rate 95 bpm. No ectopy Rhythm strip: patient monitored for arrhythmias - no malignant dysrhythmias, runs of PVCs, nor pauses noted Tomas Ye MD May 17, 2020 16:09
--- NOTE | 2020-05-17 19:15 | NUR ---
NURSE NOTES: Received patient from JADA Morel. Patient AAOx3, able to verbalize needs. IV site on RH#24, IVF running at a prescribed rate. On 15L nonbreather, saturating around 94%. Reinforced the importance of wearing the nonrebreather mask. No complaints of pain or discomfort at this time. Call light placed within reach. Bed in lowest position, brakes engaged and bed alarm on. will continue to monitor.
[2020-05-17 20:00] VITALS: BP 165/72
[2020-05-18] VITALS: BP 149/94
--- NOTE | 2020-05-18 00:23 | Cardiology Progress Note ---
Subjective DATE OF SERVICE: May 17, 2020 Remains SOB on high flow O2 CXR (05/17) worsening bilateral infiltrates Objective Last 24 Hour Vital Signs Date Time Temp Pulse Resp B/P (MAP) Pulse Ox O2 Delivery O2 Flow Rate FiO2 05/17/20 20:16 91 Non-Rebreather 15.0 100 05/17/20 20:00 98 05/17/20 20:00 97.7 94 20 165/72 (103) 88 05/17/20 19:00 Non-Rebreather 155.0 05/17/20 16:00 96 05/17/20 16:00 96.6 75 20 151/70 (97) 89 05/17/20 12:00 96 05/17/20 12:00 96.7 71 20 153/81 (105) 89 05/17/20 09:35 101 152/68 05/17/20 09:08 95 Non-Rebreather 15.0 100 05/17/20 08:00 20 05/17/20 08:00 96.6 101 20 152/68 (96) 90 05/17/20 04:00 80 05/17/20 04:00 97.5 90 17 130/65 (86) 98 ROS: unchanged from 05/16/20 HEENT: normal ENT inspection RHYTHM: NSR LUNGS: bilat. rhonchi and rales CARDIAC: normal rate, regular rhythm, normal S1 and S2 ABDOMEN: normal bowel sounds, non tender, soft, other - obese EXTREMITIES: normal range of motion, no calf tenderness, No edema Laboratory Tests Test 05/17/20 05:45 05/17/20 07:35 05/17/20 11:26 05/17/20 16:57 POC Whole Blood Glucose 293 MG/DL (74-106) H 357 MG/DL (74-106) H 397 MG/DL (74-106) H White Blood Count 19.2 K/UL (4.8-10.8) H Red Blood Count 4.61 M/UL (4.70-6.10) L Hemoglobin 13.6 G/DL (14.2-18.0) L Hematocrit 40.7 % (42.0-52.0) L Mean Corpuscular Volume 88 FL (80-99) Mean Corpuscular Hemoglobin 29.5 PG (27.0-31.0) Mean Corpuscular Hemoglobin Concent 33.4 G/DL (32.0-36.0) Red Cell Distribution Width 12.2 % (11.6-14.8) Platelet Count 349 K/UL (150-450) Mean Platelet Volume 6.1 FL (6.5-10.1) L Neutrophils (%) (Auto) % (45.0-75.0) Lymphocytes (%) (Auto) % (20.0-45.0) Monocytes (%) (Auto) % (1.0-10.0) Eosinophils (%) (Auto) % (0.0-3.0) Basophils (%) (Auto) % (0.0-2.0) Differential Total Cells Counted 100 Neutrophils % (Manual) 95 % (45-75) H Lymphocytes % (Manual) 2 % (20-45) L Monocytes % (Manual) 3 % (1-10) Eosinophils % (Manual) 0 % (0-3) Basophils % (Manual) 0 % (0-2) Band Neutrophils 0 % (0-8) Platelet Estimate Adequate Platelet Morphology Normal Red Blood Cell Morphology Normal Sodium Level 133 MMOL/L (136-145) L Potassium Level 3.7 MMOL/L (3.5-5.1) Chloride Level 98 MMOL/L (98-107) Carbon Dioxide Level 25 MMOL/L (21-32) Anion Gap 10 mmol/L (5-15) Blood Urea Nitrogen 24 mg/dL (7-18) H Creatinine 1.2 MG/DL (0.55-1.30) Estimat Glomerular Filtration Rate 58.1 mL/min (>60) Glucose Level 303 MG/DL (74-106) H Calcium Level 8.8 MG/DL (8.5-10.1) Total Bilirubin 0.4 MG/DL (0.2-1.0) Aspartate Amino Transf (AST/SGOT) 31 U/L (15-37) Alanine Aminotransferase (ALT/SGPT) 24 U/L (12-78) Alkaline Phosphatase 91 U/L (46-116) Total Protein 6.7 G/DL (6.4-8.2) Albumin 2.5 G/DL (3.4-5.0) L Globulin 4.2 g/dL Albumin/Globulin Ratio 0.6 (1.0-2.7) L Test 05/17/20 20:52 POC Whole Blood Glucose 348 MG/DL (74-106) H Microbiology Date/Time Source Procedure Growth Status 05/16/20 01:51 Urine,Clean Catch Urine Culture - Preliminary NO GROWTH Resulted 05/15/20 23:30 Nasopharynx SARS-CoV-2 RdRp Gene Assay - Final Complete 05/15/20 23:30 Blood Blood Culture - Preliminary NO GROWTH AFTER 24 HOURS Resulted 05/15/20 23:15 Blood Blood Culture - Preliminary NO GROWTH AFTER 24 HOURS Resulted Assessment/Plan Assessment/Plan Covid 19 PNA Hypoxia Steroid exacerbated diabetes mellitus Hypertension O2 Lovenox anticoag IV steroids Anti-viral rx Long acting insulin added to sliding scale cov'g Tomas Cool MD May 18, 2020 00:22
[2020-05-18] MEDS: Levemir Flexpen SUBQ SCH ×2 (00:30→21:23)
[2020-05-18 04:00] VITALS: BP 157/85
[2020-05-18] MEDS: NovoLOG Insulin Flexpen SUBQ SCH ×4 (06:06→21:23)
--- NOTE | 2020-05-18 07:27 | NUR ---
NURSE HAND-OFF REPORT: Important Events on Shift:[Patient desaturates to 88%. Reminded to keep his nonrebreather on] Patient Status: [Full code] Diet: [CCHo med, low NA] Pending Orders: [] Pending Results/Labs:[] Pending MD notification:[] Latest Vital Signs: Temperature 97.9 , Pulse 95 , B/P 157 /85 , Respiratory Rate 20 , O2 SAT 88 , Non-Rebreather, O2 Flow Rate 15.0 . Vital Sign Comment: [] EKG Rhythm: SR w/ BBB Rhythm change?: N MD Notified?: Y -Dr. Travon MEJIA Response: Latest Gregg Fall Score: 45 Fall Risk: High Risk Safety Measures: Call light Within Reach, Bed Alarm Zone 1, Side Rails Side Rails x2, Bed position Low and Locked. Fall Precautions: Yellow Socks Yellow Gown Door Sign Patient Fall Education Report given to [JADA Arana].
[2020-05-18 08:00] VITALS: BP 143/80
--- NOTE | 2020-05-18 08:30 | NUR ---
NURSE NOTES: Patient seen in bed in high fowlers position eating breakfast with no acute signs of distress and no complaints of pain. The patient is on NR with 15L and oxygen saturation is within normal limits. The patient has a right hand 24G IV receiving NS @75cc that is clean, patent and intact. The bed is in lowest position, locked, side rails x3, bed alarm in zone 1 and call light within reach.
--- NOTE | 2020-05-18 08:35 | Pulmonology Progress Note ---
Subjective ROS Limited/Unobtainable: No Allergies: Coded Allergies: No Known Allergies (Unverified , 05/15/20) Subjective care noted awake on NRB appears comfortable Objective Last 24 Hour Vital Signs Date Time Temp Pulse Resp B/P (MAP) Pulse Ox O2 Delivery O2 Flow Rate FiO2 05/18/20 04:00 75 05/18/20 04:00 97.9 95 20 157/85 (109) 88 05/18/20 00:00 91 05/18/20 00:00 98.0 108 20 149/94 (112) 94 05/17/20 20:16 91 Non-Rebreather 15.0 100 05/17/20 20:00 98 05/17/20 20:00 97.7 94 20 165/72 (103) 88 05/17/20 19:00 Non-Rebreather 155.0 05/17/20 16:00 96 05/17/20 16:00 96.6 75 20 151/70 (97) 89 05/17/20 12:00 96 05/17/20 12:00 96.7 71 20 153/81 (105) 89 05/17/20 09:35 101 152/68 05/17/20 09:08 95 Non-Rebreather 15.0 100 Intake and Output 05/17/20 05/18/20 19:00 07:00 Intake Total 4680 ml 360 ml Output Total 3200 ml Balance 1480 ml 360 ml Intake Oral 3200 ml IV Total 1480 ml Other 360 ml Output Urine Total 3200 ml # Voids 1 2 Objective deferred due to COVID Microbiology Date/Time Source Procedure Growth Status 05/16/20 01:51 Urine,Clean Catch Urine Culture - Preliminary NO GROWTH Resulted 05/15/20 23:30 Nasopharynx SARS-CoV-2 RdRp Gene Assay - Final Complete 05/15/20 23:30 Blood Blood Culture - Preliminary NO GROWTH AFTER 24 HOURS Resulted 05/15/20 23:15 Blood Blood Culture - Preliminary NO GROWTH AFTER 24 HOURS Resulted Laboratory Tests 05/17/20 11:26: POC Whole Blood Glucose 357H 05/17/20 16:57: POC Whole Blood Glucose 397H 05/17/20 20:52: POC Whole Blood Glucose 348H 05/18/20 04:00: Prothrombin Time 11.5, Prothromb Time International Ratio 1.0 Current Medications Medications (Trade) Dose Ordered Sig/Baldo Route PRN Reason Start Time Stop Time Status Last Admin Dose Admin Acetaminophen (Tylenol) 650 mg EVERY 4 HOURS PRN ORAL fever/MINAYA 05/16/20 03:15 06/15/20 03:14 Acetaminophen (Tylenol) 650 mg Q4H PRN ORAL Mild Pain (Pain Scale 1-3) 05/16/20 12:15 06/15/20 12:14 05/16/20 13:44 Acetaminophen (Tylenol) 650 mg Q4H PRN ORAL fever 05/16/20 12:15 06/15/20 12:14 Albuterol Sulfate (Proventil MDI) 2 puff Q4H PRN INH Shortness of Breath 05/16/20 14:00 08/14/20 13:59 05/16/20 16:37 Amlodipine Besylate (Norvasc) 5 mg DAILY ORAL 05/16/20 09:00 06/15/20 08:59 05/17/20 09:35 Azithromycin 500 mg/Dextrose 275 ml @ 275 mls/hr DAILY IV 05/17/20 09:00 05/22/20 08:59 05/17/20 10:11 Ceftriaxone Sodium 1 gm/ Dextrose 55 ml @ 110 mls/hr DAILY IVPB 05/17/20 09:00 05/24/20 08:59 05/17/20 09:28 Clonidine HCl (Catapres Tab) 0.1 mg Q4H PRN ORAL For High Blood Pressure 05/16/20 14:45 08/14/20 14:44 05/16/20 14:53 Dexamethasone Sodium Phosphate (Decadron 10mg/ ml Inj) 6 mg DAILY IV 05/16/20 09:00 05/25/20 12:00 05/17/20 09:25 Dextrose (Dextrose 50%) 25 ml Q30M PRN IV Hypoglycemia 05/16/20 12:15 08/14/20 12:14 Dextrose (Dextrose 50%) 50 ml Q30M PRN IV Hypoglycemia 05/16/20 12:15 08/14/20 12:14 Enoxaparin Sodium (Lovenox) 40 mg BID SUBQ 05/16/20 10:00 08/14/20 09:59 05/17/20 19:41 Famotidine (Pepcid I.v.) 20 mg DAILY IVP 05/17/20 09:00 2/9/21 08:59 05/17/20 09:26 Insulin Aspart (NovoLOG) BEFORE MEALS AND HS SUBQ 05/16/20 16:30 08/14/20 16:29 05/18/20 06:06 Insulin Detemir (Levemir) 10 units BEDTIME SUBQ 05/18/20 00:30 08/16/20 00:29 05/18/20 00:30 Insulin Detemir (Levemir) 10 units DAILY SUBQ 05/18/20 09:00 08/16/20 08:59 Ondansetron HCl (Zofran) 4 mg Q6H PRN IVP Nausea & Vomiting 05/16/20 12:15 06/15/20 12:14 Remdesivir 100 mg/ Sodium Chloride 250 ml @ 250 mls/hr Q24H IV 05/17/20 16:00 05/20/20 16:59 05/17/20 15:26 Sodium Chloride 1,000 ml @ 75 mls/hr [id number] IV 05/16/20 06:00 06/15/20 05:59 05/17/20 09:36 Sodium Chloride 1,000 ml @ 75 mls/hr [id number] IVLG 05/16/20 13:15 06/15/20 13:14 05/18/20 05:15 Assessment/Plan Assessment/Plan Impression: Pneumonia due to COVID-19 virus Hypoxic Respiratory Failure Hypertension Diabetes Septic shock Plan: -Dexamethasone -O2 taper as able -IV AB -albuterol PRN -Monitor labs -DVT prophylaxis -escalate care as needed -remains at risk for deterioration and intubation impression, plan, and exam edited and reviewed in detail care discussed with Rahul Dunn MD May 18, 2020 08:35
[2020-05-18] MEDS ORDERED: Levemir Flexpen SUBQ SCH (09:00)
[2020-05-18] MEDS: Azithromycin 500 MG in D5W 275 ML IV SCH (09:00)
[2020-05-18] MEDS: dexAMETHasone 10mg/ml Inj IV SCH (09:15)
[2020-05-18] MEDS: cefTRIAXone 1 GM in D5W 55 ML IVPB SCH (09:16)
[2020-05-18] MEDS: Enoxaparin 40mg Inj SUBQ SCH ×2 (09:16→18:03)
[2020-05-18 09:49] LABS: ANION GAP 10 mmol/L (5-15); BLOOD UREA NITROGEN 20 mg/dL (7-18); CALCIUM 7.9 MG/DL (8.5-10.1); CARBON DIOXIDE 24 MMOL/L (21-32); CHLORIDE 101 MMOL/L (98-107); CREATININE 0.9 MG/DL (0.55-1.30); POTASSIUM 4.2 MMOL/L (3.5-5.1); SODIUM 135 MMOL/L (136-145)
[2020-05-18 09:54] LABS: ALANINE AMINOTRANSFERASE 24 U/L (12-78); ALBUMIN 2.4 G/DL (3.4-5.0); ALBUMIN/GLOBULIN RATIO 0.8 (1.0-2.7); ALKALINE PHOSPHATASE 81 U/L (46-116); ASPARTATE AMINO TRANSFERASE 30 U/L (15-37); BILIRUBIN,DIRECT < 0.1 MG/DL (0.0-0.3); BILIRUBIN,TOTAL 0.4 MG/DL (0.2-1.0)
--- NOTE | 2020-05-18 10:17 | NUR ---
INSURANCE CLINICALS FAXED TO [facility] [phone]
[2020-05-18] MEDS ORDERED: METFORMIN HCL500 M1 ORAL (10:39)
--- NOTE | 2020-05-18 10:51 | Cardiology Report ---
APPROVED REPORT EKG Measurement Heart [id number] <Conclusion> Sinus tachycardia with premature atrial complexes Right bundle branch block Abnormal ECG
[2020-05-18 11:04] LABS: HEMATOCRIT 43.6 % (42.0-52.0); HEMOGLOBIN 14.5 G/DL (14.2-18.0); MEAN CORPUSCULAR VOLUME 88 FL (80-99); PLATELET COUNT 353 K/UL (150-450); RED BLOOD COUNT 4.93 M/UL (4.70-6.10); RED CELL DISTRIBUTION WIDTH 11.9 % (11.6-14.8); WHITE BLOOD COUNT 16.8 K/UL (4.8-10.8)
[2020-05-18 11:05] LABS: NEUTROPHILS % (AUTO) 92.5 % (45.0-75.0)
[2020-05-18 11:06] LABS: LYMPHOCYTES % (AUTO) 1.5 % (20.0-45.0)
--- NOTE | 2020-05-18 11:41 | Infectious Diseases Prog Note ---
Assessment/Plan Assessment/Plan antibiotics : ceftriaxone, azithromycin remdesivir A 1. covid 19 pneumonia on 15 liters O2 with 90 % saturation 2. diabetes mellitus 3. hypertension P 1. continue remdesivir day 3 2. continue dexamethasone day 3 3. continue isolation 4. d/c ceftriaxone, azithromycin Subjective Constitutional: Denies: fever, chills Respiratory: Reports: shortness of breath, dry cough Gastrointestinal/Abdominal: Denies: nausea, vomiting, diarrhea Musculoskeletal: Denies: pain Allergies: Coded Allergies: No Known Allergies (Unverified , 05/15/20) Objective Last 24 Hour Vital Signs Date Time Temp Pulse Resp B/P (MAP) Pulse Ox O2 Delivery O2 Flow Rate FiO2 05/18/20 09:17 100 143/68 05/18/20 09:00 Non-Rebreather 15.0 05/18/20 08:00 98.2 99 20 143/80 (101) 90 05/18/20 04:00 75 05/18/20 04:00 97.9 95 20 157/85 (109) 88 05/18/20 00:00 91 05/18/20 00:00 98.0 108 20 149/94 (112) 94 05/17/20 20:16 91 Non-Rebreather 15.0 100 05/17/20 20:00 98 05/17/20 20:00 97.7 94 20 165/72 (103) 88 05/17/20 19:00 Non-Rebreather 155.0 05/17/20 16:00 96 05/17/20 16:00 96.6 75 20 151/70 (97) 89 05/17/20 12:00 96 05/17/20 12:00 96.7 71 20 153/81 (105) 89 Height (Feet): 5 Height (Inches): 9.00 Weight (Pounds): 220 Microbiology Date/Time Source Procedure Growth Status 05/16/20 01:51 Urine,Clean Catch Urine Culture - Preliminary NO GROWTH Resulted 05/15/20 23:30 Nasopharynx SARS-CoV-2 RdRp Gene Assay - Final Complete 05/15/20 23:30 Blood Blood Culture - Preliminary NO GROWTH AFTER 24 HOURS Resulted 05/15/20 23:15 Blood Blood Culture - Preliminary NO GROWTH AFTER 24 HOURS Resulted Laboratory Tests Test 05/17/20 16:57 05/17/20 20:52 05/18/20 04:00 05/18/20 10:58 POC Whole Blood Glucose 397 MG/DL (74-106) H 348 MG/DL (74-106) H Prothrombin Time 11.5 SEC (9.30-11.50) Prothromb Time International Ratio 1.0 (0.9-1.1) Sodium Level 135 MMOL/L (136-145) L Potassium Level 4.2 MMOL/L (3.5-5.1) Chloride Level 101 MMOL/L (98-107) Carbon Dioxide Level 24 MMOL/L (21-32) Anion Gap 10 mmol/L (5-15) Blood Urea Nitrogen 20 mg/dL (7-18) H Creatinine 0.9 MG/DL (0.55-1.30) Estimat Glomerular Filtration Rate > 60 mL/min (>60) Glucose Level 250 MG/DL (74-106) H Calcium Level 7.9 MG/DL (8.5-10.1) L Total Bilirubin 0.4 MG/DL (0.2-1.0) Direct Bilirubin < 0.1 MG/DL (0.0-0.3) Aspartate Amino Transf (AST/SGOT) 30 U/L (15-37) Alanine Aminotransferase (ALT/SGPT) 24 U/L (12-78) Alkaline Phosphatase 81 U/L (46-116) Total Protein 5.4 G/DL (6.4-8.2) L Albumin 2.4 G/DL (3.4-5.0) L Globulin 3.0 g/dL Albumin/Globulin Ratio 0.8 (1.0-2.7) L White Blood Count 16.8 K/UL (4.8-10.8) H Red Blood Count 4.93 M/UL (4.70-6.10) Hemoglobin 14.5 G/DL (14.2-18.0) Hematocrit 43.6 % (42.0-52.0) Mean Corpuscular Volume 88 FL (80-99) Mean Corpuscular Hemoglobin 29.3 PG (27.0-31.0) Mean Corpuscular Hemoglobin Concent 33.2 G/DL (32.0-36.0) Red Cell Distribution Width 11.9 % (11.6-14.8) Platelet Count 353 K/UL (150-450) Mean Platelet Volume 5.7 FL (6.5-10.1) L Neutrophils (%) (Auto) 92.5 % (45.0-75.0) H Lymphocytes (%) (Auto) 1.5 % (20.0-45.0) L Monocytes (%) (Auto) 5.0 % (1.0-10.0) Eosinophils (%) (Auto) 0.0 % (0.0-3.0) Basophils (%) (Auto) 1.0 % (0.0-2.0) Test 05/18/20 11:28 POC Whole Blood Glucose 390 MG/DL (74-106) H Current Medications Medications (Trade) Dose Ordered Sig/Baldo Route PRN Reason Start Time Stop Time Status Last Admin Dose Admin Acetaminophen (Tylenol) 650 mg EVERY 4 HOURS PRN ORAL fever/MINAYA 05/16/20 03:15 06/15/20 03:14 Acetaminophen (Tylenol) 650 mg Q4H PRN ORAL Mild Pain (Pain Scale 1-3) 05/16/20 12:15 06/15/20 12:14 05/16/20 13:44 Acetaminophen (Tylenol) 650 mg Q4H PRN ORAL fever 05/16/20 12:15 06/15/20 12:14 Albuterol Sulfate (Proventil MDI) 2 puff Q4H PRN INH Shortness of Breath 05/16/20 14:00 08/14/20 13:59 05/16/20 16:37 Amlodipine Besylate (Norvasc) 5 mg DAILY ORAL 05/16/20 09:00 06/15/20 08:59 05/18/20 09:17 Azithromycin 500 mg/Dextrose 275 ml @ 275 mls/hr DAILY IV 05/17/20 09:00 05/22/20 08:59 05/18/20 09:00 Ceftriaxone Sodium 1 gm/ Dextrose 55 ml @ 110 mls/hr DAILY IVPB 05/17/20 09:00 05/24/20 08:59 05/18/20 09:16 Clonidine HCl (Catapres Tab) 0.1 mg Q4H PRN ORAL For High Blood Pressure 05/16/20 14:45 08/14/20 14:44 05/16/20 14:53 Dexamethasone Sodium Phosphate (Decadron 10mg/ ml Inj) 6 mg DAILY IV 05/16/20 09:00 05/25/20 12:00 05/18/20 09:15 Dextrose (Dextrose 50%) 25 ml Q30M PRN IV Hypoglycemia 05/16/20 12:15 08/14/20 12:14 Dextrose (Dextrose 50%) 50 ml Q30M PRN IV Hypoglycemia 05/16/20 12:15 08/14/20 12:14 Enoxaparin Sodium (Lovenox) 40 mg BID SUBQ 05/16/20 10:00 08/14/20 09:59 05/18/20 09:16 Famotidine (Pepcid I.v.) 20 mg DAILY IVP 05/17/20 09:00 06/16/20 08:59 05/18/20 09:16 Insulin Aspart (NovoLOG) BEFORE MEALS AND HS SUBQ 05/16/20 16:30 08/14/20 16:29 05/18/20 06:06 Insulin Detemir (Levemir) 10 units BEDTIME SUBQ 05/18/20 00:30 08/16/20 00:29 05/18/20 00:30 Insulin Detemir (Levemir) 10 units DAILY SUBQ 05/18/20 09:00 08/16/20 08:59 05/18/20 09:18 Ondansetron HCl (Zofran) 4 mg Q6H PRN IVP Nausea & Vomiting 05/16/20 12:15 06/15/20 12:14 Remdesivir 100 mg/ Sodium Chloride 250 ml @ 250 mls/hr Q24H IV 05/17/20 16:00 05/20/20 16:59 05/17/20 15:26 Sodium Chloride 1,000 ml @ 75 mls/hr [id number] IV 05/16/20 06:00 06/15/20 05:59 05/18/20 10:26 Sodium Chloride 1,000 ml @ 75 mls/hr [id number] IVLG 05/16/20 13:15 06/15/20 13:14 05/18/20 05:15 Ayaz Buckner MD May 18, 2020 11:41
[2020-05-18 12:00] VITALS: BP 152/74
--- NOTE | 2020-05-18 14:29 | NUR ---
CASE MANAGEMENT:INITIAL REVIEW 05/17/20 80 YR OLD MALE BIBA FROM HOME CC;DYSPNEA. RESPIRATORY DISTRESS. PMHx;DM. HTN. SI;HYPOXIA. COVID-19 VIRAL INFECTION. 99.3 116 22 149 /61 96% 15L NRB WBC 14.9 NA+ 131 BUN 23 GLU 229 LACTIC ACID 4.70 MAG 1.2 LDH 401 CK-2 4.3 CRP 291.3 BNP 500 ALB 2.5 D-DIMER 0.87 UA+ PROTEIN, GLU, KETONES, BLOOD, LEUKOCYTE ESTERASE, BACTERIA, HYALINE CASTS COVID RAPID ~ POSITIVE CXR ~ Extensive bilateral airspace consolidations, consistent with multifocal infiltrate. These findings preferentially involve the lower lung zhang. IS;IVF NS BOLUS ZITHROMAX IV LOVENOX SQ DECADRON IV ROCEPHIN IV TYLENOL PO ADMITTED TO TELEMETRY TELE STATUS DCP;FROM HOME CASE MANAGEMENT:CONCURRENT REVIEW 05/18/20 SI;COVID PNEUMONIA. 98.2 433 99 2859/85 88% 15L NRB WBC 16.8 NA+ 135 GLU 390 CA 7.9 ALB 2.4 IS;REMDESIVIR IV QD PEPCID IV QD ROCEPHIN IV QD ZITHROMAX IV QD IVF NS @ 75 ML/HR LOVENOX SQ BID IVF NS @ 75 ML/HR DECADRON IV QD TELE STATUS DCP;FROM HOME
[2020-05-18 16:00] VITALS: BP 166/85
[2020-05-18] MEDS: Maintenance Dose:Remdesivir 100mg/NS 230ml x 4 Doses IV SCH ×2 (16:37)
--- NOTE | 2020-05-18 18:59 | Surgery Progress Note ---
Surgery Progress Note Subjective Additional Comments leukocytosis improving pain resolved no n/v feels better Objective Last 24 Hour Vital Signs Date Time Temp Pulse Resp B/P (MAP) Pulse Ox O2 Delivery O2 Flow Rate FiO2 05/18/20 16:00 98.4 97 22 166/85 (112) 89 05/18/20 16:00 92 05/18/20 15:19 166/85 05/18/20 12:00 98.1 97 20 152/74 (100) 89 05/18/20 12:00 97 05/18/20 09:18 93 Non-Rebreather 15.0 100 05/18/20 09:17 100 143/68 05/18/20 09:00 Non-Rebreather 15.0 05/18/20 08:00 109 05/18/20 08:00 98.2 99 20 143/80 (101) 90 05/18/20 04:00 75 05/18/20 04:00 97.9 95 20 157/85 (109) 88 05/18/20 00:00 91 05/18/20 00:00 98.0 108 20 149/94 (112) 94 05/17/20 20:16 91 Non-Rebreather 15.0 100 05/17/20 20:00 98 05/17/20 20:00 97.7 94 20 165/72 (103) 88 05/17/20 19:00 Non-Rebreather 155.0 I&O Intake and Output 05/17/20 05/18/20 19:00 07:00 Intake Total 4680 ml 360 ml Output Total 3200 ml Balance 1480 ml 360 ml Intake Oral 3200 ml IV Total 1480 ml Other 360 ml Output Urine Total 3200 ml # Voids 1 2 Dressing: saturated Cardiovascular: RSR Respiratory: clear, decreased breath sounds Abdomen: soft, non-tender, present bowel sounds Extremities: no edema, no tenderness, no cyanosis Laboratory Tests Test 05/17/20 20:52 05/18/20 04:00 05/18/20 10:58 05/18/20 11:28 POC Whole Blood Glucose 348 MG/DL (74-106) H 390 MG/DL (74-106) H Prothrombin Time 11.5 SEC (9.30-11.50) Prothromb Time International Ratio 1.0 (0.9-1.1) Sodium Level 135 MMOL/L (136-145) L Potassium Level 4.2 MMOL/L (3.5-5.1) Chloride Level 101 MMOL/L (98-107) Carbon Dioxide Level 24 MMOL/L (21-32) Anion Gap 10 mmol/L (5-15) Blood Urea Nitrogen 20 mg/dL (7-18) H Creatinine 0.9 MG/DL (0.55-1.30) Estimat Glomerular Filtration Rate > 60 mL/min (>60) Glucose Level 250 MG/DL (74-106) H Calcium Level 7.9 MG/DL (8.5-10.1) L Total Bilirubin 0.4 MG/DL (0.2-1.0) Direct Bilirubin < 0.1 MG/DL (0.0-0.3) Aspartate Amino Transf (AST/SGOT) 30 U/L (15-37) Alanine Aminotransferase (ALT/SGPT) 24 U/L (12-78) Alkaline Phosphatase 81 U/L (46-116) Total Protein 5.4 G/DL (6.4-8.2) L Albumin 2.4 G/DL (3.4-5.0) L Globulin 3.0 g/dL Albumin/Globulin Ratio 0.8 (1.0-2.7) L White Blood Count 16.8 K/UL (4.8-10.8) H Red Blood Count 4.93 M/UL (4.70-6.10) Hemoglobin 14.5 G/DL (14.2-18.0) Hematocrit 43.6 % (42.0-52.0) Mean Corpuscular Volume 88 FL (80-99) Mean Corpuscular Hemoglobin 29.3 PG (27.0-31.0) Mean Corpuscular Hemoglobin Concent 33.2 G/DL (32.0-36.0) Red Cell Distribution Width 11.9 % (11.6-14.8) Platelet Count 353 K/UL (150-450) Mean Platelet Volume 5.7 FL (6.5-10.1) L Neutrophils (%) (Auto) 92.5 % (45.0-75.0) H Lymphocytes (%) (Auto) 1.5 % (20.0-45.0) L Monocytes (%) (Auto) 5.0 % (1.0-10.0) Eosinophils (%) (Auto) 0.0 % (0.0-3.0) Basophils (%) (Auto) 1.0 % (0.0-2.0) Test 05/18/20 15:38 POC Whole Blood Glucose 321 MG/DL (74-106) H Plan Problems: (1) Septic shock Assessment & Plan: 80-year-old male Covid positive respiratory deficiency presented to [facility] for evaluation shortness of breath admitted care and manage identified to have leukocytosis lactic acidosis and shock. Resuscitation initiated. Full examination performed no acute infectious process noted inflammatory process likely related to respiratory. Continue with IV fluids. Hold on central line insertion. Labs noted imaging reviewed. Patient otherwise now stable under appropriate care plan. Continue with medications and antibiotics as ordered. Continue with IV fluid resuscitation. Trend labs. Will follow with recommendations. Thank you for let me participate patient's care Multifocal airspace consolidations, consistent with severe multifocal infiltrate. Findings and increased when compared to May 16, 2020. Follow-up chest radiograph recommended. Small left effusion is suspected. No pneumothorax. Stable cardiomegaly. Calcified aorta. (2) Dyspnea (3) Respiratory distress (4) Pneumonia due to COVID-19 virus Assessment & Plan: ++ as per pulm and ID Gianni Guajardo May 18, 2020 18:59
--- NOTE | 2020-05-18 19:16 | NUR ---
NURSE NOTES: Received patient from JADA Martínez. AAO3, able to verbalize needs. IV site intact and flushed; On 15l nonrebreather, saturating between 90-92%. reinforced importance of keeping his mask on for his oxygenation. No complaints of pain at this time. Bed in lowest position, brakes engaged and bed alarm on. Call light placed within reach. Will continue to monitor.
[2020-05-18 20:00] VITALS: BP 150/72
--- NOTE | 2020-05-18 20:37 | NUR ---
NURSE HAND-OFF REPORT: Important Events on Shift:[ABX, remdesevir] Patient Status: [Full Code] Diet: [CCHO Medium low NA diet] Pending Orders: [N/A] Pending Results/Labs:[N/A] Pending MD notification:[N/A] Latest Vital Signs: Temperature 98.4 , Pulse 92 , B/P 166 /85 , Respiratory Rate 22 , O2 SAT 89 , Non-Rebreather, O2 Flow Rate 15.0 . Vital Sign Comment: [] EKG Rhythm: SR w/ BBB Rhythm change?: N MD Notified?: Y -Dr. Travon MEJIA Response: Latest Gregg Fall Score: 45 Fall Risk: High Risk Safety Measures: Call light Within Reach, Bed Alarm Zone 1, Side Rails Side Rails x2, Bed position Low and Locked. Fall Precautions: Yellow Socks Yellow Gown Door Sign Patient Fall Education Report given to [JADA Vallejo].
[2020-05-19] VITALS: BP 155/75
--- NOTE | 2020-05-19 00:27 | Cardiology Progress Note ---
Subjective DATE OF SERVICE: May 18, 2020 Appears more comfortable; still on high flow O2 CXR (05/17) worsening bilateral infiltrates Objective Last 24 Hour Vital Signs Date Time Temp Pulse Resp B/P (MAP) Pulse Ox O2 Delivery O2 Flow Rate FiO2 05/18/20 23:45 94 Non-Rebreather 15.0 100 05/18/20 21:00 Non-Rebreather 15.0 05/18/20 20:00 106 05/18/20 20:00 97.9 92 22 150/72 (98) 87 05/18/20 16:00 98.4 97 22 166/85 (112) 89 05/18/20 16:00 92 05/18/20 15:19 166/85 05/18/20 12:00 98.1 97 20 152/74 (100) 89 05/18/20 12:00 97 05/18/20 09:18 93 Non-Rebreather 15.0 100 05/18/20 09:17 100 143/68 05/18/20 09:00 Non-Rebreather 15.0 05/18/20 08:00 109 05/18/20 08:00 98.2 99 20 143/80 (101) 90 05/18/20 04:00 75 05/18/20 04:00 97.9 95 20 157/85 (109) 88 ROS: unchanged from 05/16/20 HEENT: normal ENT inspection RHYTHM: NSR LUNGS: bilat. rhonchi and rales CARDIAC: normal rate, regular rhythm, normal S1 and S2 ABDOMEN: normal bowel sounds, non tender, soft, other - obese EXTREMITIES: normal range of motion, no calf tenderness, No edema Laboratory Tests Test 05/18/20 04:00 05/18/20 10:58 05/18/20 11:28 05/18/20 15:38 Prothrombin Time 11.5 SEC (9.30-11.50) Prothromb Time International Ratio 1.0 (0.9-1.1) Sodium Level 135 MMOL/L (136-145) L Potassium Level 4.2 MMOL/L (3.5-5.1) Chloride Level 101 MMOL/L (98-107) Carbon Dioxide Level 24 MMOL/L (21-32) Anion Gap 10 mmol/L (5-15) Blood Urea Nitrogen 20 mg/dL (7-18) H Creatinine 0.9 MG/DL (0.55-1.30) Estimat Glomerular Filtration Rate > 60 mL/min (>60) Glucose Level 250 MG/DL (74-106) H Calcium Level 7.9 MG/DL (8.5-10.1) L Total Bilirubin 0.4 MG/DL (0.2-1.0) Direct Bilirubin < 0.1 MG/DL (0.0-0.3) Aspartate Amino Transf (AST/SGOT) 30 U/L (15-37) Alanine Aminotransferase (ALT/SGPT) 24 U/L (12-78) Alkaline Phosphatase 81 U/L (46-116) Total Protein 5.4 G/DL (6.4-8.2) L Albumin 2.4 G/DL (3.4-5.0) L Globulin 3.0 g/dL Albumin/Globulin Ratio 0.8 (1.0-2.7) L White Blood Count 16.8 K/UL (4.8-10.8) H Red Blood Count 4.93 M/UL (4.70-6.10) Hemoglobin 14.5 G/DL (14.2-18.0) Hematocrit 43.6 % (42.0-52.0) Mean Corpuscular Volume 88 FL (80-99) Mean Corpuscular Hemoglobin 29.3 PG (27.0-31.0) Mean Corpuscular Hemoglobin Concent 33.2 G/DL (32.0-36.0) Red Cell Distribution Width 11.9 % (11.6-14.8) Platelet Count 353 K/UL (150-450) Mean Platelet Volume 5.7 FL (6.5-10.1) L Neutrophils (%) (Auto) 92.5 % (45.0-75.0) H Lymphocytes (%) (Auto) 1.5 % (20.0-45.0) L Monocytes (%) (Auto) 5.0 % (1.0-10.0) Eosinophils (%) (Auto) 0.0 % (0.0-3.0) Basophils (%) (Auto) 1.0 % (0.0-2.0) POC Whole Blood Glucose 390 MG/DL (74-106) H 321 MG/DL (74-106) H Microbiology Date/Time Source Procedure Growth Status 05/16/20 01:51 Urine,Clean Catch Urine Culture - Final NO GROWTH AFTER 48 HOURS Complete Assessment/Plan Assessment/Plan Covid 19 PNA Hypoxia Steroid exacerbated diabetes mellitus Hypertension O2 Lovenox anticoag IV steroids Anti-viral rx Long acting insulin added to sliding scale cov'g Remains high risk for deterioration and intubation. Tomas Cool MD May 19, 2020 00:27
--- NOTE | 2020-05-19 00:37 | NUR ---
NURSE NOTES: Called RT regarding patient's oxygenation. Patient's on 15l nonrebreather saturating at 85%; Patient cannot tolerate being on prone; currently side lying. with flowmeter maxed. will continue to monitor.
[2020-05-19] MEDS ORDERED: Levemir Flexpen SUBQ ONE (00:45)
[2020-05-19] MEDS: Albuterol 90mcg Inhaler 8gm INH PRN (01:01)
--- NOTE | 2020-05-19 01:23 | NUR ---
NURSE NOTES: Patient still on side lying; flowmeter maxed per RT; 15l nonrebreather. SpO2: 92%
[2020-05-19 04:00] VITALS: BP 173/82
[2020-05-19 05:34] LABS: HEMATOCRIT 39.3 % (42.0-52.0); HEMOGLOBIN 13.4 G/DL (14.2-18.0); MEAN CORPUSCULAR VOLUME 87 FL (80-99); PLATELET COUNT 363 K/UL (150-450); RED BLOOD COUNT 4.53 M/UL (4.70-6.10); WHITE BLOOD COUNT 12.7 K/UL (4.8-10.8)
[2020-05-19] MEDS: NovoLOG Insulin Flexpen SUBQ SCH ×4 (05:46→20:23)
[2020-05-19 06:01] LABS: ALANINE AMINOTRANSFERASE 24 U/L (12-78); ALBUMIN 2.5 G/DL (3.4-5.0); ALBUMIN/GLOBULIN RATIO 0.6 (1.0-2.7); ALKALINE PHOSPHATASE 87 U/L (46-116); ANION GAP 9 mmol/L (5-15); ASPARTATE AMINO TRANSFERASE 28 U/L (15-37); BILIRUBIN,DIRECT 0.1 MG/DL (0.0-0.3); BILIRUBIN,TOTAL 0.4 MG/DL (0.2-1.0); BLOOD UREA NITROGEN 18 mg/dL (7-18); CALCIUM 8.3 MG/DL (8.5-10.1); CARBON DIOXIDE 26 MMOL/L (21-32); CHLORIDE 101 MMOL/L (98-107); POTASSIUM 3.8 MMOL/L (3.5-5.1); SODIUM 136 MMOL/L (136-145)
--- NOTE | 2020-05-19 07:38 | NUR ---
NURSE HAND-OFF REPORT: Important Events on Shift:[Pt desaturating; Maxed flowmeter; SpO2 range from 88-93%] Patient Status: [Full code] Diet: [CCHO medium, Low Na] Pending Orders: [] Pending Results/Labs:[] Pending MD notification:[] Latest Vital Signs: Temperature 97.9 , Pulse 95 , B/P 173 /82 , Respiratory Rate 32 , O2 SAT 91 , Non-Rebreather, O2 Flow Rate 15.0 . Vital Sign Comment: [] EKG Rhythm: ST w/ BBB Rhythm change?: N MD Notified?: Y -Dr. Travon MEJIA Response: Latest Gregg Fall Score: 45 Fall Risk: High Risk Safety Measures: Call light Within Reach, Bed Alarm Zone 1, Side Rails Side Rails x2, Bed position Low and Locked. Fall Precautions: Yellow Socks Yellow Gown Door Sign Patient Fall Education Report given to [Jacinda, RN].
[2020-05-19 08:00] VITALS: BP 133/76
[2020-05-19] MEDS ORDERED: Levemir Flexpen SUBQ SCH ×2 (09:00→21:00)
--- NOTE | 2020-05-19 09:48 | Cardiology Progress Note ---
Subjective DATE OF SERVICE: May 19, 2020 Appeared uncomfortable this morning while on high flow O2; now better on bipap. CXR (05/17) worsening bilateral infiltrates Objective Last 24 Hour Vital Signs Date Time Temp Pulse Resp B/P (MAP) Pulse Ox O2 Delivery O2 Flow Rate FiO2 05/19/20 04:33 173/82 05/19/20 04:00 97.9 95 32 173/82 (112) 91 05/19/20 03:34 103 05/19/20 00:00 100 05/19/20 00:00 97.7 94 32 155/75 (101) 87 05/18/20 23:45 94 Non-Rebreather 15.0 100 05/18/20 21:00 Non-Rebreather 15.0 05/18/20 20:00 106 05/18/20 20:00 97.9 92 22 150/72 (98) 87 05/18/20 16:00 98.4 97 22 166/85 (112) 89 05/18/20 16:00 92 05/18/20 15:19 166/85 05/18/20 12:00 98.1 97 20 152/74 (100) 89 05/18/20 12:00 97 ROS: unchanged from 05/16/20 HEENT: normal ENT inspection RHYTHM: NSR LUNGS: bilat. rhonchi and rales CARDIAC: normal rate, regular rhythm, normal S1 and S2 ABDOMEN: normal bowel sounds, non tender, soft, other - obese EXTREMITIES: normal range of motion, no calf tenderness, No edema Laboratory Tests Test 05/18/20 10:58 05/18/20 11:28 05/18/20 15:38 05/19/20 04:30 White Blood Count 16.8 K/UL (4.8-10.8) H 12.7 K/UL (4.8-10.8) H Red Blood Count 4.93 M/UL (4.70-6.10) 4.53 M/UL (4.70-6.10) L Hemoglobin 14.5 G/DL (14.2-18.0) 13.4 G/DL (14.2-18.0) L Hematocrit 43.6 % (42.0-52.0) 39.3 % (42.0-52.0) L Mean Corpuscular Volume 88 FL (80-99) 87 FL (80-99) Mean Corpuscular Hemoglobin 29.3 PG (27.0-31.0) 29.5 PG (27.0-31.0) Mean Corpuscular Hemoglobin Concent 33.2 G/DL (32.0-36.0) 34.0 G/DL (32.0-36.0) Red Cell Distribution Width 11.9 % (11.6-14.8) 12.0 % (11.6-14.8) Platelet Count 353 K/UL (150-450) 363 K/UL (150-450) Mean Platelet Volume 5.7 FL (6.5-10.1) L 6.0 FL (6.5-10.1) L Neutrophils (%) (Auto) 92.5 % (45.0-75.0) H % (45.0-75.0) Lymphocytes (%) (Auto) 1.5 % (20.0-45.0) L % (20.0-45.0) Monocytes (%) (Auto) 5.0 % (1.0-10.0) % (1.0-10.0) Eosinophils (%) (Auto) 0.0 % (0.0-3.0) % (0.0-3.0) Basophils (%) (Auto) 1.0 % (0.0-2.0) % (0.0-2.0) POC Whole Blood Glucose 390 MG/DL (74-106) H 321 MG/DL (74-106) H Prothrombin Time 11.5 SEC (9.30-11.50) Prothromb Time International Ratio 1.0 (0.9-1.1) Sodium Level 136 MMOL/L (136-145) Potassium Level 3.8 MMOL/L (3.5-5.1) Chloride Level 101 MMOL/L (98-107) Carbon Dioxide Level 26 MMOL/L (21-32) Anion Gap 9 mmol/L (5-15) Blood Urea Nitrogen 18 mg/dL (7-18) Creatinine 1.0 MG/DL (0.55-1.30) Estimat Glomerular Filtration Rate > 60 mL/min (>60) Glucose Level 215 MG/DL (74-106) H Calcium Level 8.3 MG/DL (8.5-10.1) L Total Bilirubin 0.4 MG/DL (0.2-1.0) Direct Bilirubin 0.1 MG/DL (0.0-0.3) Aspartate Amino Transf (AST/SGOT) 28 U/L (15-37) Alanine Aminotransferase (ALT/SGPT) 24 U/L (12-78) Alkaline Phosphatase 87 U/L (46-116) Total Protein 6.5 G/DL (6.4-8.2) Albumin 2.5 G/DL (3.4-5.0) L Globulin 4.0 g/dL Albumin/Globulin Ratio 0.6 (1.0-2.7) L Test 05/19/20 05:12 POC Whole Blood Glucose 185 MG/DL (74-106) H Assessment/Plan Assessment/Plan Covid 19 PNA Hypoxia Steroid exacerbated diabetes mellitus Hypertension O2 Bipap support Lovenox anticoag IV steroids Anti-viral rx Long acting insulin added to sliding scale cov'g Remains high risk for deterioration and intubation. Tomas Cool MD May 19, 2020 09:48
[2020-05-19] MEDS: Enoxaparin 40mg Inj SUBQ SCH ×2 (10:09→17:30)
[2020-05-19] MEDS: dexAMETHasone 10mg/ml Inj IV SCH (10:10)
--- NOTE | 2020-05-19 10:44 | NUR ---
NURSE NOTES: O2 going down to 81, RT Nicolle requesting for ABG. Dr Robles notified, left message, awaiting orders. Patient in pleasant disposition, SOB noted.
--- NOTE | 2020-05-19 11:45 | Infectious Diseases Prog Note ---
Assessment/Plan Assessment/Plan A 1. COVID19 pneumonia 2. diabetes mellitus 3. hypertension 4. Hypoxemia 5. Leukocytosis improving P 1. continue remdesivir day 4 2. continue dexamethasone day 4 3. continue isolation Subjective ROS Limited/Unobtainable: Yes Constitutional: Denies: fever Respiratory: Reports: shortness of breath, dry cough Allergies: Coded Allergies: No Known Allergies (Unverified , 05/15/20) Objective Last 24 Hour Vital Signs Date Time Temp Pulse Resp B/P (MAP) Pulse Ox O2 Delivery O2 Flow Rate FiO2 05/19/20 10:10 91 133/76 05/19/20 08:00 98.8 91 20 133/76 (95) 94 05/19/20 04:33 173/82 05/19/20 04:00 97.9 95 32 173/82 (112) 91 05/19/20 03:34 103 05/19/20 00:00 100 05/19/20 00:00 97.7 94 32 155/75 (101) 87 05/18/20 23:45 94 Non-Rebreather 15.0 100 05/18/20 21:00 Non-Rebreather 15.0 05/18/20 20:00 106 05/18/20 20:00 97.9 92 22 150/72 (98) 87 05/18/20 16:00 98.4 97 22 166/85 (112) 89 05/18/20 16:00 92 05/18/20 15:19 166/85 05/18/20 12:00 98.1 97 20 152/74 (100) 89 05/18/20 12:00 97 Height (Feet): 5 Height (Inches): 9.00 Weight (Pounds): 220 HEENT: mucous membranes moist Respiratory/Chest: other - Oxygen by NRB mask Cardiovascular: normal rate Abdomen: soft, non tender Extremities: no edema Neurologic/Psychiatric: alert, responsive Laboratory Tests Test 05/18/20 15:38 05/19/20 04:30 05/19/20 05:12 05/19/20 08:30 POC Whole Blood Glucose 321 MG/DL (74-106) H 185 MG/DL (74-106) H White Blood Count 12.7 K/UL (4.8-10.8) H Red Blood Count 4.53 M/UL (4.70-6.10) L Hemoglobin 13.4 G/DL (14.2-18.0) L Hematocrit 39.3 % (42.0-52.0) L Mean Corpuscular Volume 87 FL (80-99) Mean Corpuscular Hemoglobin 29.5 PG (27.0-31.0) Mean Corpuscular Hemoglobin Concent 34.0 G/DL (32.0-36.0) Red Cell Distribution Width 12.0 % (11.6-14.8) Platelet Count 363 K/UL (150-450) Mean Platelet Volume 6.0 FL (6.5-10.1) L Neutrophils (%) (Auto) % (45.0-75.0) Lymphocytes (%) (Auto) % (20.0-45.0) Monocytes (%) (Auto) % (1.0-10.0) Eosinophils (%) (Auto) % (0.0-3.0) Basophils (%) (Auto) % (0.0-2.0) Prothrombin Time 11.5 SEC (9.30-11.50) Prothromb Time International Ratio 1.0 (0.9-1.1) Sodium Level 136 MMOL/L (136-145) Potassium Level 3.8 MMOL/L (3.5-5.1) Chloride Level 101 MMOL/L (98-107) Carbon Dioxide Level 26 MMOL/L (21-32) Anion Gap 9 mmol/L (5-15) Blood Urea Nitrogen 18 mg/dL (7-18) Creatinine 1.0 MG/DL (0.55-1.30) Estimat Glomerular Filtration Rate > 60 mL/min (>60) Glucose Level 215 MG/DL (74-106) H Calcium Level 8.3 MG/DL (8.5-10.1) L Total Bilirubin 0.4 MG/DL (0.2-1.0) Direct Bilirubin 0.1 MG/DL (0.0-0.3) Aspartate Amino Transf (AST/SGOT) 28 U/L (15-37) Alanine Aminotransferase (ALT/SGPT) 24 U/L (12-78) Alkaline Phosphatase 87 U/L (46-116) Total Protein 6.5 G/DL (6.4-8.2) Albumin 2.5 G/DL (3.4-5.0) L Globulin 4.0 g/dL Albumin/Globulin Ratio 0.6 (1.0-2.7) L C-Reactive Protein, Quantitative 18.1 mg/dL (0.00-0.90) H Test 05/19/20 11:15 Arterial Blood pH 7.452 (7.350-7.450) Arterial Blood Partial Pressure CO2 36.3 mmHg (35.0-45.0) Arterial Blood Partial Pressure O2 46.7 mmHg (75.0-100.0) Arterial Blood HCO3 24.8 mmol/L (22.0-26.0) Arterial Blood Oxygen Saturation 83.7 % (95-100) *L Arterial Blood Base Excess 1.2 (-2-2) Jose Test Positive Current Medications Medications (Trade) Dose Ordered Sig/Baldo Route PRN Reason Start Time Stop Time Status Last Admin Dose Admin Acetaminophen (Tylenol) 650 mg EVERY 4 HOURS PRN ORAL fever/MINAYA 05/16/20 03:15 06/15/20 03:14 Acetaminophen (Tylenol) 650 mg Q4H PRN ORAL Mild Pain (Pain Scale 1-3) 05/16/20 12:15 06/15/20 12:14 05/16/20 13:44 Acetaminophen (Tylenol) 650 mg Q4H PRN ORAL fever 05/16/20 12:15 06/15/20 12:14 Albuterol Sulfate (Proventil MDI) 2 puff Q4H PRN INH Shortness of Breath 05/16/20 14:00 08/14/20 13:59 05/19/20 01:01 Amlodipine Besylate (Norvasc) 5 mg DAILY ORAL 05/16/20 09:00 06/15/20 08:59 05/19/20 10:10 Clonidine HCl (Catapres Tab) 0.1 mg Q4H PRN ORAL For High Blood Pressure 05/16/20 14:45 08/14/20 14:44 05/19/20 04:33 Dexamethasone Sodium Phosphate (Decadron 10mg/ ml Inj) 6 mg DAILY IV 05/16/20 09:00 05/25/20 12:00 05/19/20 10:10 Dextrose (Dextrose 50%) 25 ml Q30M PRN IV Hypoglycemia 05/16/20 12:15 08/14/20 12:14 Dextrose (Dextrose 50%) 50 ml Q30M PRN IV Hypoglycemia 05/16/20 12:15 08/14/20 12:14 Enoxaparin Sodium (Lovenox) 40 mg BID SUBQ 05/16/20 10:00 08/14/20 09:59 05/19/20 10:09 Famotidine (Pepcid I.v.) 20 mg DAILY IVP 05/17/20 09:00 06/16/20 08:59 05/19/20 10:08 Insulin Aspart (NovoLOG) BEFORE MEALS AND HS SUBQ 05/16/20 16:30 08/14/20 16:29 05/19/20 05:46 Insulin Detemir (Levemir) 18 units BEDTIME SUBQ 05/19/20 21:00 08/16/20 20:59 Insulin Detemir (Levemir) 18 units DAILY SUBQ 05/19/20 09:00 08/16/20 08:59 05/19/20 10:20 Ondansetron HCl (Zofran) 4 mg Q6H PRN IVP Nausea & Vomiting 05/16/20 12:15 06/15/20 12:14 Remdesivir 100 mg/ Sodium Chloride 250 ml @ 250 mls/hr Q24H IV 05/17/20 16:00 05/20/20 16:59 05/18/20 16:37 Sodium Chloride 1,000 ml @ 75 mls/hr [id number] IVLG 05/16/20 13:15 06/15/20 13:14 05/19/20 10:10 Jamie Sullivan MD May 19, 2020 11:45
--- NOTE | 2020-05-19 11:51 | NUR ---
NURSE NOTES: ABG result relayed to Dr Robles, orders for bipap noted and carried out. RT Foreign jain.
[2020-05-19 12:00] VITALS: BP 176/90
--- NOTE | 2020-05-19 14:57 | NUR ---
NURSE NOTES: Patient transferred to [facility]– [place], RT setting up bipap
[2020-05-19] MEDS: Maintenance Dose:Remdesivir 100mg/NS 230ml x 4 Doses IV SCH ×2 (15:29)
[2020-05-19 16:00] VITALS: BP 177/87
--- NOTE | 2020-05-19 16:32 | NUR ---
CASE MANAGEMENT:REVIEW 05/19/20 SI: COVID PNEUMONIA. RESPIRATORY FAILURE 97.9 102 30 176/90 93% ON BIPAP W/100% FIO2 WBC+12.7 IS: IV REMDESIVIR Q24 IV DECADRON QD IVF@75/HR IV PEPCID QD LEVEMIR SQ QHS LEVEMIR SQ QD LOVENOX SQ BID NORVASC PO QD : TELEMETRY STATUS DCP: FROM HOME
--- NOTE | 2020-05-19 16:44 | Pulmonology Progress Note ---
Subjective ROS Limited/Unobtainable: Yes Constitutional: Denies: fever Gastrointestinal/Abdominal: Denies: nausea, vomiting, diarrhea Musculoskeletal: Denies: pain Allergies: Coded Allergies: No Known Allergies (Unverified , 05/15/20) Subjective care noted awake on NRB when seen d/w nursing- now on BIPAP appears comfortable Objective Last 24 Hour Vital Signs Date Time Temp Pulse Resp B/P (MAP) Pulse Ox O2 Delivery O2 Flow Rate FiO2 05/19/20 14:55 75 30 100 100 05/19/20 14:55 75 30 100 Bi-Pap 100 05/19/20 12:00 104 05/19/20 12:00 97.9 102 20 176/90 (118) 93 05/19/20 10:10 91 133/76 05/19/20 09:00 Non-Rebreather 15.0 05/19/20 08:00 98.8 91 20 133/76 (95) 94 05/19/20 08:00 88 05/19/20 04:33 173/82 05/19/20 04:00 97.9 95 32 173/82 (112) 91 05/19/20 03:34 103 05/19/20 00:00 100 05/19/20 00:00 97.7 94 32 155/75 (101) 87 05/18/20 23:45 94 Non-Rebreather 15.0 100 05/18/20 21:00 Non-Rebreather 15.0 05/18/20 20:00 106 05/18/20 20:00 97.9 92 22 150/72 (98) 87 Intake and Output 05/18/20 05/19/20 19:00 07:00 Intake Total 1775 ml 1000 ml Output Total 1200 ml 900 ml Balance 575 ml 100 ml Intake Oral 800 ml 250 ml IV Total 975 ml 750 ml Output Urine Total 1200 ml 900 ml # Voids 3 3 Objective deferred due to COVID Laboratory Tests 05/19/20 04:30: White Blood Count 12.7H, Red Blood Count 4.53L, Hemoglobin 13.4L, Hematocrit 39.3L, Mean Corpuscular Volume 87, Mean Corpuscular Hemoglobin 29.5, Mean Corpuscular Hemoglobin Concent 34.0, Red Cell Distribution Width 12.0, Platelet Count 363, Mean Platelet Volume 6.0L, Neutrophils (%) (Auto) , Lymphocytes (%) ( Auto) , Monocytes (%) (Auto) , Eosinophils (%) (Auto) , Basophils (%) (Auto) , Prothrombin Time 11.5, Prothromb Time International Ratio 1.0, Sodium Level 136, Potassium Level 3.8, Chloride Level 101, Carbon Dioxide Level 26, Anion Gap 9, Blood Urea Nitrogen 18, Creatinine 1.0, Estimat Glomerular Filtration Rate > 60, Glucose Level 215H, Calcium Level 8.3L, Total Bilirubin 0.4, Direct Bilirubin 0.1, Aspartate Amino Transf (AST/SGOT) 28, Alanine Aminotransferase (ALT/SGPT) 24, Alkaline Phosphatase 87, Total Protein 6.5, Albumin 2.5L, Globulin 4.0, Albumin/Globulin Ratio 0.6L 05/19/20 05:12: POC Whole Blood Glucose 185H 05/19/20 08:30: C-Reactive Protein, Quantitative 18.1H 05/19/20 11:15: Arterial Blood pH 7.452H, Arterial Blood Partial Pressure CO2 36.3, Arterial Blood Partial Pressure O2 46.7*L, Arterial Blood HCO3 24.8, Arterial Blood Oxygen Saturation 83.7*L, Arterial Blood Base Excess 1.2, Jose Test Positive Current Medications Medications (Trade) Dose Ordered Sig/Baldo Route PRN Reason Start Time Stop Time Status Last Admin Dose Admin Acetaminophen (Tylenol) 650 mg EVERY 4 HOURS PRN ORAL fever/MINAYA 05/16/20 03:15 06/15/20 03:14 Acetaminophen (Tylenol) 650 mg Q4H PRN ORAL Mild Pain (Pain Scale 1-3) 05/16/20 12:15 06/15/20 12:14 05/16/20 13:44 Acetaminophen (Tylenol) 650 mg Q4H PRN ORAL fever 05/16/20 12:15 06/15/20 12:14 Albuterol Sulfate (Proventil MDI) 2 puff Q4H PRN INH Shortness of Breath 05/16/20 14:00 08/14/20 13:59 05/19/20 01:01 Amlodipine Besylate (Norvasc) 5 mg DAILY ORAL 05/16/20 09:00 06/15/20 08:59 05/19/20 10:10 Clonidine HCl (Catapres Tab) 0.1 mg Q4H PRN ORAL For High Blood Pressure 05/16/20 14:45 08/14/20 14:44 05/19/20 04:33 Dexamethasone Sodium Phosphate (Decadron 10mg/ ml Inj) 6 mg DAILY IV 05/16/20 09:00 05/25/20 12:00 05/19/20 10:10 Dextrose (Dextrose 50%) 25 ml Q30M PRN IV Hypoglycemia 05/16/20 12:15 08/14/20 12:14 Dextrose (Dextrose 50%) 50 ml Q30M PRN IV Hypoglycemia 05/16/20 12:15 08/14/20 12:14 Enoxaparin Sodium (Lovenox) 40 mg BID SUBQ 05/16/20 10:00 08/14/20 09:59 05/19/20 10:09 Famotidine (Pepcid I.v.) 20 mg DAILY IVP 05/17/20 09:00 06/16/20 08:59 05/19/20 10:08 Insulin Aspart (NovoLOG) BEFORE MEALS AND HS SUBQ 05/16/20 16:30 08/14/20 16:29 05/19/20 12:25 Insulin Detemir (Levemir) 18 units BEDTIME SUBQ 05/19/20 21:00 08/16/20 20:59 Insulin Detemir (Levemir) 18 units DAILY SUBQ 05/19/20 09:00 08/16/20 08:59 05/19/20 10:20 Ondansetron HCl (Zofran) 4 mg Q6H PRN IVP Nausea & Vomiting 05/16/20 12:15 06/15/20 12:14 Remdesivir 100 mg/ Sodium Chloride 250 ml @ 250 mls/hr Q24H IV 05/17/20 16:00 05/20/20 16:59 05/19/20 15:29 Sodium Chloride 1,000 ml @ 75 mls/hr [id number] IVLG 05/16/20 13:15 06/15/20 13:14 05/19/20 10:10 Assessment/Plan Assessment/Plan Impression: Pneumonia due to COVID-19 virus Hypoxic Respiratory Failure Hypertension Diabetes Septic shock Plan: -Dexamethasone -O2 at 100% and now on BIPAP -IV AB -albuterol PRN -Monitor labs -DVT prophylaxis -escalate care as needed to ICU if needed -remains at risk for deterioration and intubation impression, plan, and exam edited and reviewed in detail care discussed with Rahul Dunn MD May 19, 2020 16:44
--- NOTE | 2020-05-19 19:44 | NUR ---
NURSE HAND-OFF REPORT: Important Events on Shift:on bipap; moved to rm [id number] Patient Status: alert Diet: ccho med, low Na. Held meal due to high risk of aspiration on bipap Pending Orders: Pending Results/Labs: Pending MD notification: Latest Vital Signs: Temperature 96.3 , Pulse 98 , B/P 177 /87 , Respiratory Rate 26 , O2 SAT 92 , Non-Rebreather, O2 Flow Rate 15.0 . Vital Sign Comment: EKG Rhythm: SR w/ BBB Rhythm change?: N MD Notified?: MD Response: Latest Gregg Fall Score: 45 Fall Risk: High Risk Safety Measures: Call light Within Reach, Bed Alarm Zone 1, Side Rails Side Rails x2, Bed position Low and Locked. Fall Precautions: Yellow Socks Yellow Gown Door Sign Patient Fall Education Report given to Conchis ELIAS.
--- NOTE | 2020-05-19 19:49 | NUR ---
NURSE NOTES: Received report from JADA Monaco. Patient in bed, awake and able to make needs known. On Bipap at this time - O2 sat 91-94%. engine monitor in place. Sinus rhythm w/BBB. IV intact and patent. Bed locked and in lowest position. Call light in reach. Will continue plan of care.
[2020-05-19 20:00] VITALS: BP 171/81
--- NOTE | 2020-05-19 20:47 | Surgery Progress Note ---
Surgery Progress Note Subjective Additional Comments no acute events Objective Last 24 Hour Vital Signs Date Time Temp Pulse Resp B/P (MAP) Pulse Ox O2 Delivery O2 Flow Rate FiO2 05/19/20 20:41 171/81 05/19/20 19:58 96 Bi-Pap 100 05/19/20 19:58 79 26 96 100 05/19/20 16:00 98 05/19/20 16:00 96.3 105 26 177/87 (117) 92 05/19/20 14:55 75 30 100 100 05/19/20 14:55 75 30 100 Bi-Pap 100 05/19/20 12:00 104 05/19/20 12:00 97.9 102 20 176/90 (118) 93 05/19/20 10:10 91 133/76 05/19/20 09:00 Non-Rebreather 15.0 05/19/20 08:00 98.8 91 20 133/76 (95) 94 05/19/20 08:00 88 05/19/20 07:00 91 Non-Rebreather 15.0 100 05/19/20 04:33 173/82 05/19/20 04:00 97.9 95 32 173/82 (112) 91 05/19/20 03:34 103 05/19/20 00:00 100 05/19/20 00:00 97.7 94 32 155/75 (101) 87 05/18/20 23:45 94 Non-Rebreather 15.0 100 05/18/20 21:00 Non-Rebreather 15.0 I&O Intake and Output 05/18/20 05/19/20 19:00 07:00 Intake Total 1775 ml 1000 ml Output Total 1200 ml 900 ml Balance 575 ml 100 ml Intake Oral 800 ml 250 ml IV Total 975 ml 750 ml Output Urine Total 1200 ml 900 ml # Voids 3 3 Dressing: saturated Cardiovascular: RSR Respiratory: decreased breath sounds Abdomen: soft, non-tender, present bowel sounds, non-distended Extremities: no edema, no tenderness, no cyanosis Laboratory Tests Test 05/19/20 04:30 05/19/20 05:12 05/19/20 08:30 05/19/20 11:15 White Blood Count 12.7 K/UL (4.8-10.8) H Red Blood Count 4.53 M/UL (4.70-6.10) L Hemoglobin 13.4 G/DL (14.2-18.0) L Hematocrit 39.3 % (42.0-52.0) L Mean Corpuscular Volume 87 FL (80-99) Mean Corpuscular Hemoglobin 29.5 PG (27.0-31.0) Mean Corpuscular Hemoglobin Concent 34.0 G/DL (32.0-36.0) Red Cell Distribution Width 12.0 % (11.6-14.8) Platelet Count 363 K/UL (150-450) Mean Platelet Volume 6.0 FL (6.5-10.1) L Neutrophils (%) (Auto) % (45.0-75.0) Lymphocytes (%) (Auto) % (20.0-45.0) Monocytes (%) (Auto) % (1.0-10.0) Eosinophils (%) (Auto) % (0.0-3.0) Basophils (%) (Auto) % (0.0-2.0) Prothrombin Time 11.5 SEC (9.30-11.50) Prothromb Time International Ratio 1.0 (0.9-1.1) Sodium Level 136 MMOL/L (136-145) Potassium Level 3.8 MMOL/L (3.5-5.1) Chloride Level 101 MMOL/L (98-107) Carbon Dioxide Level 26 MMOL/L (21-32) Anion Gap 9 mmol/L (5-15) Blood Urea Nitrogen 18 mg/dL (7-18) Creatinine 1.0 MG/DL (0.55-1.30) Estimat Glomerular Filtration Rate > 60 mL/min (>60) Glucose Level 215 MG/DL (74-106) H Calcium Level 8.3 MG/DL (8.5-10.1) L Total Bilirubin 0.4 MG/DL (0.2-1.0) Direct Bilirubin 0.1 MG/DL (0.0-0.3) Aspartate Amino Transf (AST/SGOT) 28 U/L (15-37) Alanine Aminotransferase (ALT/SGPT) 24 U/L (12-78) Alkaline Phosphatase 87 U/L (46-116) Total Protein 6.5 G/DL (6.4-8.2) Albumin 2.5 G/DL (3.4-5.0) L Globulin 4.0 g/dL Albumin/Globulin Ratio 0.6 (1.0-2.7) L POC Whole Blood Glucose 185 MG/DL (74-106) H C-Reactive Protein, Quantitative 18.1 mg/dL (0.00-0.90) H Arterial Blood pH 7.452 (7.350-7.450) Arterial Blood Partial Pressure CO2 36.3 mmHg (35.0-45.0) Arterial Blood Partial Pressure O2 46.7 mmHg (75.0-100.0) Arterial Blood HCO3 24.8 mmol/L (22.0-26.0) Arterial Blood Oxygen Saturation 83.7 % (95-100) *L Arterial Blood Base Excess 1.2 (-2-2) Jose Test Positive Test 05/19/20 17:15 POC Whole Blood Glucose 244 MG/DL (74-106) H Plan Problems: (1) Septic shock Assessment & Plan: 80-year-old male Covid positive respiratory deficiency presented to [facility] for evaluation shortness of breath admitted care and manage identified to have leukocytosis lactic acidosis and shock. Resuscitation initiated. Full examination performed no acute infectious process noted inflammatory process likely related to respiratory. Continue with IV fluids. Hold on central line insertion. Labs noted imaging reviewed. Patient otherwise now stable under appropriate care plan. Continue with medications and antibiotics as ordered. Continue with IV fluid resuscitation. Trend labs. Will follow with recommendations. Thank you for let me participate patient's care Multifocal airspace consolidations, consistent with severe multifocal infiltrate. Findings and increased when compared to May 16, 2020. Follow-up chest radiograph recommended. Small left effusion is suspected. No pneumothorax. Stable cardiomegaly. Calcified aorta. (2) Dyspnea (3) Respiratory distress (4) Pneumonia due to COVID-19 virus Assessment & Plan: ++ as per pulm and ID iGanni Guajardo May 19, 2020 20:47
[2020-05-20] VITALS (7 sets, daily range): BP systolic 132–165; BP diastolic 69–95
--- NOTE | 2020-05-20 02:02 | Cardiology Progress Note ---
Subjective DATE OF SERVICE: May 20, 2020 Has been on bipap since yesterday due to respiratory distress. CXR (05/17) worsening bilateral infiltrates Insulin continues to be adjusted for high glucose Objective Last 24 Hour Vital Signs Date Time Temp Pulse Resp B/P (MAP) Pulse Ox O2 Delivery O2 Flow Rate FiO2 05/20/20 00:50 165/87 05/20/20 00:00 80 05/20/20 00:00 98.1 82 20 165/87 (113) 95 05/19/20 22:59 84 29 95 100 05/19/20 21:12 92 05/19/20 21:00 Non-Rebreather 15.0 05/19/20 20:41 171/81 05/19/20 20:00 98.1 85 26 171/81 (111) 94 05/19/20 19:58 96 Bi-Pap 100 05/19/20 19:58 79 26 96 100 05/19/20 16:00 98 05/19/20 16:00 96.3 105 26 177/87 (117) 92 05/19/20 14:55 75 30 100 100 05/19/20 14:55 75 30 100 Bi-Pap 100 05/19/20 12:00 104 05/19/20 12:00 97.9 102 20 176/90 (118) 93 05/19/20 10:10 91 133/76 05/19/20 09:00 Non-Rebreather 15.0 05/19/20 08:00 98.8 91 20 133/76 (95) 94 05/19/20 08:00 88 05/19/20 07:00 91 Non-Rebreather 15.0 100 05/19/20 04:33 173/82 05/19/20 04:00 97.9 95 32 173/82 (112) 91 05/19/20 03:34 103 ROS: unchanged from 05/16/20 HEENT: normal ENT inspection RHYTHM: NSR LUNGS: bilat. rhonchi and rales CARDIAC: normal rate, regular rhythm, normal S1 and S2 ABDOMEN: normal bowel sounds, non tender, soft, other - obese EXTREMITIES: normal range of motion, no calf tenderness, No edema Laboratory Tests Test 05/19/20 04:30 05/19/20 05:12 05/19/20 08:30 05/19/20 11:15 White Blood Count 12.7 K/UL (4.8-10.8) H Red Blood Count 4.53 M/UL (4.70-6.10) L Hemoglobin 13.4 G/DL (14.2-18.0) L Hematocrit 39.3 % (42.0-52.0) L Mean Corpuscular Volume 87 FL (80-99) Mean Corpuscular Hemoglobin 29.5 PG (27.0-31.0) Mean Corpuscular Hemoglobin Concent 34.0 G/DL (32.0-36.0) Red Cell Distribution Width 12.0 % (11.6-14.8) Platelet Count 363 K/UL (150-450) Mean Platelet Volume 6.0 FL (6.5-10.1) L Neutrophils (%) (Auto) % (45.0-75.0) Lymphocytes (%) (Auto) % (20.0-45.0) Monocytes (%) (Auto) % (1.0-10.0) Eosinophils (%) (Auto) % (0.0-3.0) Basophils (%) (Auto) % (0.0-2.0) Prothrombin Time 11.5 SEC (9.30-11.50) Prothromb Time International Ratio 1.0 (0.9-1.1) Sodium Level 136 MMOL/L (136-145) Potassium Level 3.8 MMOL/L (3.5-5.1) Chloride Level 101 MMOL/L (98-107) Carbon Dioxide Level 26 MMOL/L (21-32) Anion Gap 9 mmol/L (5-15) Blood Urea Nitrogen 18 mg/dL (7-18) Creatinine 1.0 MG/DL (0.55-1.30) Estimat Glomerular Filtration Rate > 60 mL/min (>60) Glucose Level 215 MG/DL (74-106) H Calcium Level 8.3 MG/DL (8.5-10.1) L Total Bilirubin 0.4 MG/DL (0.2-1.0) Direct Bilirubin 0.1 MG/DL (0.0-0.3) Aspartate Amino Transf (AST/SGOT) 28 U/L (15-37) Alanine Aminotransferase (ALT/SGPT) 24 U/L (12-78) Alkaline Phosphatase 87 U/L (46-116) Total Protein 6.5 G/DL (6.4-8.2) Albumin 2.5 G/DL (3.4-5.0) L Globulin 4.0 g/dL Albumin/Globulin Ratio 0.6 (1.0-2.7) L POC Whole Blood Glucose 185 MG/DL (74-106) H C-Reactive Protein, Quantitative 18.1 mg/dL (0.00-0.90) H Arterial Blood pH 7.452 (7.350-7.450) Arterial Blood Partial Pressure CO2 36.3 mmHg (35.0-45.0) Arterial Blood Partial Pressure O2 46.7 mmHg (75.0-100.0) Arterial Blood HCO3 24.8 mmol/L (22.0-26.0) Arterial Blood Oxygen Saturation 83.7 % (95-100) *L Arterial Blood Base Excess 1.2 (-2-2) Jose Test Positive Test 05/19/20 17:15 POC Whole Blood Glucose 244 MG/DL (74-106) H Assessment/Plan Assessment/Plan Covid 19 PNA Hypoxia Steroid exacerbated diabetes mellitus Hypertension O2 Bipap support Lovenox anticoag IV steroids Anti-viral rx Long acting insulin advanced, with cont'd sliding scale cov'g Remains high risk for deterioration and intubation. Tomas Cool MD May 20, 2020 02:02
[2020-05-20] MEDS: NovoLOG Insulin Flexpen SUBQ SCH ×4 (05:12→20:42)
[2020-05-20 06:03] LABS: HEMATOCRIT 39.7 % (42.0-52.0); HEMOGLOBIN 13.4 G/DL (14.2-18.0); MEAN CORPUSCULAR VOLUME 83 FL (80-99); PLATELET COUNT 302 K/UL (150-450); RED BLOOD COUNT 4.78 M/UL (4.70-6.10); RED CELL DISTRIBUTION WIDTH 11.9 % (11.6-14.8); WHITE BLOOD COUNT 13.1 K/UL (4.8-10.8)
[2020-05-20 06:09] LABS: INR 1.2 (0.9-1.1)
--- NOTE | 2020-05-20 06:38 | NUR ---
NURSE HAND-OFF REPORT: Important Events on Shift: On BiPAP @ 100% FIO2 - O2 sat 92% Patient Status: Stable Diet: [facility] [place]-soft chopped/Low sodium Pending Orders: N/A Pending Results/Labs: Bilirubin, CMP, CBC, PT, blood culture x2, urine culture Pending notification: N/A Latest Vital Signs: Temperature 98.0 , Pulse 80 , B/P 159 /79 , Respiratory Rate 19 , O2 SAT 92 , Non-Rebreather, O2 Flow Rate 15.0 . Vital Sign Comment: N/A EKG Rhythm: Sinus Rhythm Rhythm change?: N Notified?: Matilde Cool MD Response: Latest Gregg Fall Score: 45 Fall Risk: High Risk Safety Measures: Call light Within Reach, Bed Alarm Zone 1, Side Rails Side Rails x2, Bed position Low and Locked. Fall Precautions: Yellow Socks Yellow Gown Door Sign Patient Fall Education Addendum: 05/20/20 at 0717 by RIGO SAWANT RN Report given to JADA Kwok
[2020-05-20 06:39] LABS: ALANINE AMINOTRANSFERASE 19 U/L (12-78); ALBUMIN 2.1 G/DL (3.4-5.0); ALBUMIN/GLOBULIN RATIO 0.6 (1.0-2.7); ALKALINE PHOSPHATASE 72 U/L (46-116); ANION GAP 8 mmol/L (5-15); ASPARTATE AMINO TRANSFERASE 28 U/L (15-37); BILIRUBIN,DIRECT 0.2 MG/DL (0.0-0.3); BILIRUBIN,TOTAL 0.5 MG/DL (0.2-1.0); BLOOD UREA NITROGEN 16 mg/dL (7-18); CALCIUM 8.6 MG/DL (8.5-10.1); CARBON DIOXIDE 28 MMOL/L (21-32); CHLORIDE 102 MMOL/L (98-107); CREATININE 0.8 MG/DL (0.55-1.30); POTASSIUM 3.7 MMOL/L (3.5-5.1); SODIUM 138 MMOL/L (136-145)
--- NOTE | 2020-05-20 07:40 | NUR ---
NURSE NOTES: Report received from Yamilex/Conchis RN. Patient seen on rounds, awake and up in bed, on O2 via Bipap since yesterday settings Fio2 100%, 20/12, sats 92%. Pt has SOB and desats to low 80's. Dr. Mensah is aware, will clarify if patient needs to be transferred to SDU for continuous BIPAP monitoring. PIV on right hand patent and infusing NS @ 75ml/hr. Condom cath secured and draining well. Bed low and locked, siderails up x2, call light placed within reach and instructed to call nurse for assistance. Will continue to monitor.
--- NOTE | 2020-05-20 08:07 | NUR ---
NURSE NOTES: Left urgent message with Dr. Cool re: orders to transfer to SDU as patient has been on continuous BIPAP. Received orders to administer Lasix 20mg IV x1, and transfer to SDU once bed is available. Orders noted and carried out.
--- NOTE | 2020-05-20 08:18 | NUR ---
CASE MANAGEMENT:REVIEW 05/20/20 SI: COVID PNEUMONIA. RESPIRATORY FAILURE 98.0 82 19 159/79 92% ON BIPAP W/100% FIO2 WBC+13.1 IS: IV REMDESIVIR Q24 IV DECADRON QD IVF@75/HR IV PEPCID QD LEVEMIR SQ QHS LEVEMIR SQ QD LOVENOX SQ BID NORVASC PO QD : TELEMETRY STATUS DCP: FROM HOME PLAN: UPGRADE TO STEP DOWN UNIT
[2020-05-20] MEDS: dexAMETHasone 10mg/ml Inj IV SCH (08:26)
[2020-05-20] MEDS: Enoxaparin 40mg Inj SUBQ SCH ×2 (08:27→17:08)
[2020-05-20] MEDS: Levemir Flexpen SUBQ SCH ×2 (08:30→20:41)
--- NOTE | 2020-05-20 09:00 | NUR ---
NURSE NOTES: Received pt from agriculture instructorJADA Peters, pt is awake and alert, pt has bipap 15/8 fio2 100% spo2 89%, pt is on continues heart monitoring, pt has intact iv access RH 22G is running well. pt has condom cath in place is working well. all needs attended, bed is locked and is in the lowest position, call light within easy reach. will continue to monitor.
--- NOTE | 2020-05-20 09:05 | NUR ---
TRANSFER TO FLOOR: Patient transferred to SDU, per Dr. Cool. Report given to Afsoon. Belongings and medications given to Afsoon. Family and or S/O informed of transfer.
--- NOTE | 2020-05-20 10:15 | Infectious Diseases Prog Note ---
Assessment/Plan Assessment/Plan antibiotics : remdesivir A 1. covid 19 pneumonia on 100 FiO2 liters O2 with 92 % saturation 2. diabetes mellitus 3. hypertension P 1. complete remdesivir day 5 2. d/c dexamethasone 3. start solumedrol 4. continue isolation Subjective ROS Limited/Unobtainable: Yes Allergies: Coded Allergies: No Known Allergies (Unverified , 05/15/20) Objective Last 24 Hour Vital Signs Date Time Temp Pulse Resp B/P (MAP) Pulse Ox O2 Delivery O2 Flow Rate FiO2 05/20/20 08:26 80 159/79 05/20/20 08:00 91 05/20/20 08:00 98.3 80 22 155/73 (100) 92 05/20/20 07:30 90 28 92 100 05/20/20 04:00 98.0 80 19 159/79 (105) 92 05/20/20 04:00 98.0 82 19 159/79 (105) 92 05/20/20 03:16 80 26 93 100 05/20/20 03:12 82 05/20/20 00:50 165/87 05/20/20 00:00 80 05/20/20 00:00 98.1 82 20 165/87 (113) 95 05/19/20 22:59 84 29 95 100 05/19/20 21:12 92 05/19/20 21:00 Non-Rebreather 15.0 05/19/20 20:41 171/81 05/19/20 20:00 98.1 85 26 171/81 (111) 94 05/19/20 19:58 96 Bi-Pap 100 05/19/20 19:58 79 26 96 100 05/19/20 16:00 98 05/19/20 16:00 96.3 105 26 177/87 (117) 92 05/19/20 14:55 75 30 100 100 05/19/20 14:55 75 30 100 Bi-Pap 100 05/19/20 12:00 104 05/19/20 12:00 97.9 102 20 176/90 (118) 93 Height (Feet): 5 Height (Inches): 9.00 Weight (Pounds): 220 HEENT: other - bipap Laboratory Tests Test 05/19/20 11:15 05/19/20 17:15 05/20/20 04:00 05/20/20 05:11 Arterial Blood pH 7.452 (7.350-7.450) Arterial Blood Partial Pressure CO2 36.3 mmHg (35.0-45.0) Arterial Blood Partial Pressure O2 46.7 mmHg (75.0-100.0) Arterial Blood HCO3 24.8 mmol/L (22.0-26.0) Arterial Blood Oxygen Saturation 83.7 % (95-100) *L Arterial Blood Base Excess 1.2 (-2-2) Jose Test Positive POC Whole Blood Glucose 244 MG/DL (74-106) H 93 MG/DL (74-106) White Blood Count 13.1 K/UL (4.8-10.8) H Red Blood Count 4.78 M/UL (4.70-6.10) Hemoglobin 13.4 G/DL (14.2-18.0) L Hematocrit 39.7 % (42.0-52.0) L Mean Corpuscular Volume 83 FL (80-99) Mean Corpuscular Hemoglobin 28.1 PG (27.0-31.0) Mean Corpuscular Hemoglobin Concent 33.8 G/DL (32.0-36.0) Red Cell Distribution Width 11.9 % (11.6-14.8) Platelet Count 302 K/UL (150-450) Mean Platelet Volume 5.8 FL (6.5-10.1) L Neutrophils (%) (Auto) % (45.0-75.0) Lymphocytes (%) (Auto) % (20.0-45.0) Monocytes (%) (Auto) % (1.0-10.0) Eosinophils (%) (Auto) % (0.0-3.0) Basophils (%) (Auto) % (0.0-2.0) Differential Total Cells Counted 100 Neutrophils % (Manual) 93 % (45-75) H Lymphocytes % (Manual) 3 % (20-45) L Monocytes % (Manual) 4 % (1-10) Eosinophils % (Manual) 0 % (0-3) Basophils % (Manual) 0 % (0-2) Band Neutrophils 0 % (0-8) Platelet Estimate Adequate Platelet Morphology Normal Red Blood Cell Morphology Normal Prothrombin Time 12.9 SEC (9.30-11.50) H Prothromb Time International Ratio 1.2 (0.9-1.1) H Sodium Level 138 MMOL/L (136-145) Potassium Level 3.7 MMOL/L (3.5-5.1) Chloride Level 102 MMOL/L (98-107) Carbon Dioxide Level 28 MMOL/L (21-32) Anion Gap 8 mmol/L (5-15) Blood Urea Nitrogen 16 mg/dL (7-18) Creatinine 0.8 MG/DL (0.55-1.30) Estimat Glomerular Filtration Rate > 60 mL/min (>60) Glucose Level 90 MG/DL (74-106) # Calcium Level 8.6 MG/DL (8.5-10.1) Total Bilirubin 0.5 MG/DL (0.2-1.0) Direct Bilirubin 0.2 MG/DL (0.0-0.3) Aspartate Amino Transf (AST/SGOT) 28 U/L (15-37) Alanine Aminotransferase (ALT/SGPT) 19 U/L (12-78) Alkaline Phosphatase 72 U/L (46-116) Total Protein 5.7 G/DL (6.4-8.2) L Albumin 2.1 G/DL (3.4-5.0) L Globulin 3.6 g/dL Albumin/Globulin Ratio 0.6 (1.0-2.7) L Current Medications Medications (Trade) Dose Ordered Sig/Baldo Route PRN Reason Start Time Stop Time Status Last Admin Dose Admin Acetaminophen (Tylenol) 650 mg EVERY 4 HOURS PRN ORAL fever/MINAYA 05/16/20 03:15 06/15/20 03:14 Acetaminophen (Tylenol) 650 mg Q4H PRN ORAL Mild Pain (Pain Scale 1-3) 05/16/20 12:15 06/15/20 12:14 05/16/20 13:44 Acetaminophen (Tylenol) 650 mg Q4H PRN ORAL fever 05/16/20 12:15 06/15/20 12:14 Albuterol Sulfate (Proventil MDI) 2 puff Q4H PRN INH Shortness of Breath 05/16/20 14:00 08/14/20 13:59 05/19/20 01:01 Amlodipine Besylate (Norvasc) 5 mg DAILY ORAL 05/16/20 09:00 06/15/20 08:59 05/20/20 08:26 Clonidine HCl (Catapres Tab) 0.1 mg Q4H PRN ORAL For High Blood Pressure 05/16/20 14:45 08/14/20 14:44 05/20/20 00:50 Dexamethasone Sodium Phosphate (Decadron 10mg/ ml Inj) 6 mg DAILY IV 05/16/20 09:00 05/25/20 12:00 05/20/20 08:26 Dextrose (Dextrose 50%) 25 ml Q30M PRN IV Hypoglycemia 05/16/20 12:15 08/14/20 12:14 Dextrose (Dextrose 50%) 50 ml Q30M PRN IV Hypoglycemia 05/16/20 12:15 08/14/20 12:14 Enoxaparin Sodium (Lovenox) 40 mg BID SUBQ 05/16/20 10:00 08/14/20 09:59 05/20/20 08:27 Famotidine (Pepcid I.v.) 20 mg DAILY IVP 05/17/20 09:00 06/16/20 08:59 05/20/20 08:26 Insulin Aspart (NovoLOG) BEFORE MEALS AND HS SUBQ 05/16/20 16:30 08/14/20 16:29 05/19/20 20:23 Insulin Detemir (Levemir) 20 units BEDTIME SUBQ 05/20/20 21:00 08/16/20 20:59 Insulin Detemir (Levemir) 22 units DAILY SUBQ 05/20/20 09:00 08/16/20 08:59 Ondansetron HCl (Zofran) 4 mg Q6H PRN IVP Nausea & Vomiting 05/16/20 12:15 06/15/20 12:14 Remdesivir 100 mg/ Sodium Chloride 250 ml @ 250 mls/hr Q24H IV 05/17/20 16:00 05/20/20 16:59 05/19/20 15:29 Sodium Chloride 1,000 ml @ 75 mls/hr [id number] IVLG 05/16/20 13:15 06/15/20 13:14 05/20/20 02:00 Ayaz Buckner MD May 20, 2020 10:15
--- NOTE | 2020-05-20 10:26 | Pulmonology Progress Note ---
Subjective ROS Limited/Unobtainable: Yes Constitutional: Denies: fever Gastrointestinal/Abdominal: Denies: nausea, vomiting, diarrhea Musculoskeletal: Denies: pain Allergies: Coded Allergies: No Known Allergies (Unverified , 05/15/20) Subjective care noted awake on BIPAP on 100% Objective Last 24 Hour Vital Signs Date Time Temp Pulse Resp B/P (MAP) Pulse Ox O2 Delivery O2 Flow Rate FiO2 05/20/20 08:26 80 159/79 05/20/20 08:00 91 05/20/20 08:00 98.3 80 22 155/73 (100) 92 05/20/20 07:30 90 28 92 100 05/20/20 04:00 98.0 80 19 159/79 (105) 92 05/20/20 04:00 98.0 82 19 159/79 (105) 92 05/20/20 03:16 80 26 93 100 05/20/20 03:12 82 05/20/20 00:50 165/87 05/20/20 00:00 80 05/20/20 00:00 98.1 82 20 165/87 (113) 95 05/19/20 22:59 84 29 95 100 05/19/20 21:12 92 05/19/20 21:00 Non-Rebreather 15.0 05/19/20 20:41 171/81 05/19/20 20:00 98.1 85 26 171/81 (111) 94 05/19/20 19:58 96 Bi-Pap 100 05/19/20 19:58 79 26 96 100 05/19/20 16:00 98 05/19/20 16:00 96.3 105 26 177/87 (117) 92 05/19/20 14:55 75 30 100 100 05/19/20 14:55 75 30 100 Bi-Pap 100 05/19/20 12:00 104 05/19/20 12:00 97.9 102 20 176/90 (118) 93 Intake and Output 05/19/20 05/20/20 19:00 07:00 Intake Total 490 ml 240 ml Output Total 1800 ml 600 ml Balance -1310 ml -360 ml Intake Oral 490 ml 240 ml Output Urine Total 1800 ml 600 ml # Voids 2 Objective deferred due to COVID Laboratory Tests 05/19/20 11:15: Arterial Blood pH 7.452H, Arterial Blood Partial Pressure CO2 36.3, Arterial Blood Partial Pressure O2 46.7*L, Arterial Blood HCO3 24.8, Arterial Blood Oxygen Saturation 83.7*L, Arterial Blood Base Excess 1.2, Jose Test Positive 05/19/20 17:15: POC Whole Blood Glucose 244H 05/20/20 04:00: White Blood Count 13.1H, Red Blood Count 4.78, Hemoglobin 13.4L, Hematocrit 39.7L, Mean Corpuscular Volume 83, Mean Corpuscular Hemoglobin 28.1, Mean Corpuscular Hemoglobin Concent 33.8, Red Cell Distribution Width 11.9, Platelet Count 302, Mean Platelet Volume 5.8L, Neutrophils (%) (Auto) , Lymphocytes (%) (Auto) , Monocytes (%) (Auto) , Eosinophils (%) (Auto) , Basophils (%) (Auto) , Differential Total Cells Counted 100, Neutrophils % (Manual) 93H, Lymphocytes % (Manual) 3L, Monocytes % (Manual) 4, Eosinophils % (Manual) 0, Basophils % (Manu al) 0, Band Neutrophils 0, Platelet Estimate Adequate, Platelet Morphology Normal, Red Blood Cell Morphology Normal, Prothrombin Time 12.9H, Prothromb Time International Ratio 1.2H, Sodium Level 138, Potassium Level 3.7, Chloride Level 102, Carbon Dioxide Level 28, Anion Gap 8, Blood Urea Nitrogen 16, Creatinine 0.8, Estimat Glomerular Filtration Rate > 60, Glucose Level 90#, Calcium Level 8.6, Total Bilirubin 0.5, Direct Bilirubin 0.2, Aspartate Amino Transf (AST/S GOT) 28, Alanine Aminotransferase (ALT/SGPT) 19, Alkaline Phosphatase 72, Total Protein 5.7L, Albumin 2.1L, Globulin 3.6, Albumin/Globulin Ratio 0.6L 05/20/20 05:11: POC Whole Blood Glucose 93 Current Medications Medications (Trade) Dose Ordered Sig/Baldo Route PRN Reason Start Time Stop Time Status Last Admin Dose Admin Acetaminophen (Tylenol) 650 mg EVERY 4 HOURS PRN ORAL fever/MINAYA 05/16/20 03:15 06/15/20 03:14 Acetaminophen (Tylenol) 650 mg Q4H PRN ORAL Mild Pain (Pain Scale 1-3) 05/16/20 12:15 06/15/20 12:14 05/16/20 13:44 Acetaminophen (Tylenol) 650 mg Q4H PRN ORAL fever 05/16/20 12:15 06/15/20 12:14 Albuterol Sulfate (Proventil MDI) 2 puff Q4H PRN INH Shortness of Breath 05/16/20 14:00 08/14/20 13:59 05/19/20 01:01 Amlodipine Besylate (Norvasc) 5 mg DAILY ORAL 05/16/20 09:00 06/15/20 08:59 05/20/20 08:26 Clonidine HCl (Catapres Tab) 0.1 mg Q4H PRN ORAL For High Blood Pressure 05/16/20 14:45 08/14/20 14:44 05/20/20 00:50 Dextrose (Dextrose 50%) 25 ml Q30M PRN IV Hypoglycemia 05/16/20 12:15 08/14/20 12:14 Dextrose (Dextrose 50%) 50 ml Q30M PRN IV Hypoglycemia 05/16/20 12:15 08/14/20 12:14 Enoxaparin Sodium (Lovenox) 40 mg BID SUBQ 05/16/20 10:00 08/14/20 09:59 05/20/20 08:27 Famotidine (Pepcid I.v.) 20 mg DAILY IVP 05/17/20 09:00 06/16/20 08:59 05/20/20 08:26 Insulin Aspart (NovoLOG) BEFORE MEALS AND HS SUBQ 05/16/20 16:30 08/14/20 16:29 05/19/20 20:23 Insulin Detemir (Levemir) 20 units BEDTIME SUBQ 05/20/20 21:00 08/16/20 20:59 Insulin Detemir (Levemir) 22 units DAILY SUBQ 05/20/20 09:00 08/16/20 08:59 Methylprednisolone Sodium Succinate (Solu-MEDROL) 40 mg EVERY 12 HOURS IVP 05/20/20 10:15 08/18/20 10:14 UNV Ondansetron HCl (Zofran) 4 mg Q6H PRN IVP Nausea & Vomiting 05/16/20 12:15 06/15/20 12:14 Remdesivir 100 mg/ Sodium Chloride 250 ml @ 250 mls/hr Q24H IV 05/17/20 16:00 05/20/20 16:59 05/19/20 15:29 Sodium Chloride 1,000 ml @ 75 mls/hr [id number] IVLG 05/16/20 13:15 06/15/20 13:14 05/20/20 02:00 Assessment/Plan Assessment/Plan Impression: Pneumonia due to COVID-19 virus Hypoxic Respiratory Failure Hypertension Diabetes Septic shock Plan: -Dexamethasone -O2 at 100% and on BIPAP -IV AB -albuterol PRN -Monitor labs -DVT prophylaxis -escalate care as needed to ICU if needed -remains at risk for deterioration and intubation impression, plan, and exam edited and reviewed in detail care discussed with Rahul Dunn MD May 20, 2020 10:26
[2020-05-20] MEDS: Solu-MEDROL 40mg Inj IVP SCH ×2 (11:08→20:26)
[2020-05-20] MEDS: Maintenance Dose:Remdesivir 100mg/NS 230ml x 4 Doses IV SCH ×2 (15:46)
--- NOTE | 2020-05-20 16:12 | NUR ---
INSURANCE CLINICALS/REVIEWS FAXED TO [facility] (05/16-05/20) [phone]
--- NOTE | 2020-05-20 16:59 | Surgery Progress Note ---
Surgery Progress Note Subjective Additional Comments stable comfortable no n/v labs noted exam unchanged Objective Last 24 Hour Vital Signs Date Time Temp Pulse Resp B/P (MAP) Pulse Ox O2 Delivery O2 Flow Rate FiO2 05/20/20 16:00 96.8 100 19 132/69 (90) 93 05/20/20 15:15 99 05/20/20 14:49 89 26 94 100 05/20/20 12:00 97.9 100 20 149/80 (103) 90 05/20/20 11:42 103 05/20/20 10:55 86 24 93 100 05/20/20 09:00 97.7 96 21 158/89 (112) 90 05/20/20 09:00 Bi-pap 05/20/20 08:26 80 159/79 05/20/20 08:00 91 05/20/20 08:00 98.3 80 22 155/73 (100) 92 05/20/20 07:30 90 28 92 100 05/20/20 04:00 98.0 80 19 159/79 (105) 92 05/20/20 04:00 98.0 82 19 159/79 (105) 92 05/20/20 03:16 80 26 93 100 05/20/20 03:12 82 05/20/20 00:50 165/87 05/20/20 00:00 80 05/20/20 00:00 98.1 82 20 165/87 (113) 95 05/19/20 22:59 84 29 95 100 05/19/20 21:12 92 05/19/20 21:00 Non-Rebreather 15.0 05/19/20 20:41 171/81 05/19/20 20:00 98.1 85 26 171/81 (111) 94 05/19/20 19:58 96 Bi-Pap 100 05/19/20 19:58 79 26 96 100 I&O Intake and Output 05/19/20 05/20/20 19:00 07:00 Intake Total 490 ml 315 ml Output Total 1800 ml 600 ml Balance -1310 ml -285 ml Intake Oral 490 ml 240 ml IV Total 75 ml Output Urine Total 1800 ml 600 ml # Voids 2 Dressing: saturated Cardiovascular: RSR Respiratory: decreased breath sounds Abdomen: non-tender, present bowel sounds Extremities: no tenderness, no cyanosis Laboratory Tests Test 05/19/20 17:15 05/20/20 04:00 05/20/20 05:11 05/20/20 11:15 POC Whole Blood Glucose 244 MG/DL (74-106) H 93 MG/DL (74-106) Pending White Blood Count 13.1 K/UL (4.8-10.8) H Red Blood Count 4.78 M/UL (4.70-6.10) Hemoglobin 13.4 G/DL (14.2-18.0) L Hematocrit 39.7 % (42.0-52.0) L Mean Corpuscular Volume 83 FL (80-99) Mean Corpuscular Hemoglobin 28.1 PG (27.0-31.0) Mean Corpuscular Hemoglobin Concent 33.8 G/DL (32.0-36.0) Red Cell Distribution Width 11.9 % (11.6-14.8) Platelet Count 302 K/UL (150-450) Mean Platelet Volume 5.8 FL (6.5-10.1) L Neutrophils (%) (Auto) % (45.0-75.0) Lymphocytes (%) (Auto) % (20.0-45.0) Monocytes (%) (Auto) % (1.0-10.0) Eosinophils (%) (Auto) % (0.0-3.0) Basophils (%) (Auto) % (0.0-2.0) Differential Total Cells Counted 100 Neutrophils % (Manual) 93 % (45-75) H Lymphocytes % (Manual) 3 % (20-45) L Monocytes % (Manual) 4 % (1-10) Eosinophils % (Manual) 0 % (0-3) Basophils % (Manual) 0 % (0-2) Band Neutrophils 0 % (0-8) Platelet Estimate Adequate Platelet Morphology Normal Red Blood Cell Morphology Normal Prothrombin Time 12.9 SEC (9.30-11.50) H Prothromb Time International Ratio 1.2 (0.9-1.1) H Sodium Level 138 MMOL/L (136-145) Potassium Level 3.7 MMOL/L (3.5-5.1) Chloride Level 102 MMOL/L (98-107) Carbon Dioxide Level 28 MMOL/L (21-32) Anion Gap 8 mmol/L (5-15) Blood Urea Nitrogen 16 mg/dL (7-18) Creatinine 0.8 MG/DL (0.55-1.30) Estimat Glomerular Filtration Rate > 60 mL/min (>60) Glucose Level 90 MG/DL (74-106) # Calcium Level 8.6 MG/DL (8.5-10.1) Total Bilirubin 0.5 MG/DL (0.2-1.0) Direct Bilirubin 0.2 MG/DL (0.0-0.3) Aspartate Amino Transf (AST/SGOT) 28 U/L (15-37) Alanine Aminotransferase (ALT/SGPT) 19 U/L (12-78) Alkaline Phosphatase 72 U/L (46-116) Total Protein 5.7 G/DL (6.4-8.2) L Albumin 2.1 G/DL (3.4-5.0) L Globulin 3.6 g/dL Albumin/Globulin Ratio 0.6 (1.0-2.7) L Test 05/20/20 15:56 POC Whole Blood Glucose Pending Plan Problems: (1) Septic shock Assessment & Plan: 80-year-old male Covid positive respiratory deficiency presented to [facility] for evaluation shortness of breath admitted care and manage identified to have leukocytosis lactic acidosis and shock. Resuscitation initiated. Full examination performed no acute infectious process noted inflammatory process likely related to respiratory. Continue with IV fluids. Hold on central line insertion. Labs noted imaging reviewed. Patient otherwise now stable under appropriate care plan. Continue with medications and antibiotics as ordered. Continue with IV fluid resuscitation. Trend labs. Will follow with recommendations. Thank you for let me participate patient's care Multifocal airspace consolidations, consistent with severe multifocal infiltrate. Findings and increased when compared to May 16, 2020. Follow-up chest radiograph recommended. Small left effusion is suspected. No pneumothorax. Stable cardiomegaly. Calcified aorta. (2) Dyspnea (3) Respiratory distress (4) Pneumonia due to COVID-19 virus Assessment & Plan: ++ as per pulm and ID Gianni Guajardo May 20, 2020 16:59
--- NOTE | 2020-05-20 19:20 | NUR ---
NURSE NOTES: Received report from JADA Kapadia. Pt is alert, oriented x 3with confusion. Pt able to verbalized concern, pt on BIPAP 15/8 fio2-100%. Pt per AM nurse is on Consistent carb, but will clarify to if needed NPo as pt on BIPAP. Pt has Right hand g22 intact and patent. running NS @75ml/hr. With condom cath patent and intact. Pt is verbalizing to remove the BIPAP, education provided. o2 sat-94-95%. Bed in lowest position, call light within reach. call light within reach. Continue to plan of care.
--- NOTE | 2020-05-20 19:24 | NUR ---
NURSE HAND-OFF REPORT: Important Events on Shift: Patient Status: Diet: Pending Orders: Pending Results/Labs: Pending MD notification: Latest Vital Signs: Temperature 96.8 , Pulse 100 , B/P 132 /69 , Respiratory Rate 19 , O2 SAT 93 , Non-Rebreather, O2 Flow Rate 15.0 . Vital Sign Comment: EKG Rhythm: SR w/ BBB Rhythm change?: N MD Notified?: Y -Dr. Travon MEJIA Response: Latest Gregg Fall Score: 45 Fall Risk: High Risk Safety Measures: Call light Within Reach, Bed Alarm Zone 1, Side Rails Side Rails x2, Bed position Low and Locked. Fall Precautions: Yellow Socks Yellow Gown Door Sign Patient Fall Education Report given to . pt is sleeping and stable, no stress noted, endorsed plan of care, endorsed to monitor spo2. spo2 93% now.
--- NOTE | 2020-05-20 21:49 | NUR ---
NURSE NOTES: Sponge bath given, vomited x 1, pt on high membreno's position. ON IVF running at 75ml/ hr. oral care done. O2 sat- 94%. Large bowel movement noted x 1. Continue to monitor pt closely.
--- NOTE | 2020-05-20 23:53 | NUR ---
NURSE NOTES: Noted Bp- 172/78. No pain noted. Not in respiratory distress. o2 sast- 92%. Catapres given as ordered.
[2020-05-21] VITALS: BP 172/78
--- NOTE | 2020-05-21 01:15 | NUR ---
NURSE NOTES: Rechecked bP- 150/75. Pt o2 sat- 95%. Continue to monitor pt.
--- NOTE | 2020-05-21 01:56 | NUR ---
NURSE NOTES: Pt is sleeping with BIPAP on- o2 sat- 96%, not in any respiratory distress. Bed in lowest position, call light within reach. Continue to plan of care.
[2020-05-21 04:00] VITALS: BP 136/81
--- NOTE | 2020-05-21 04:05 | NUR ---
NURSE NOTES: Oral care done. BIPAP fixex by RT. 02 at 92% fio2- 100%. Pt is guarded and stable. Continue to monitor pt.
[2020-05-21] MEDS: NovoLOG Insulin Flexpen SUBQ SCH ×4 (05:37→21:00)
--- NOTE | 2020-05-21 05:38 | NUR ---
NURSE NOTES: Novolog not given, pt was put in NPO, pt vomited earlier and pt on BIPAP, risk for aspiration. Will notify MD. Will refer to AM.
[2020-05-21 05:56] LABS: HEMATOCRIT 41.6 % (42.0-52.0); HEMOGLOBIN 14.2 G/DL (14.2-18.0); MEAN CORPUSCULAR VOLUME 84 FL (80-99); PLATELET COUNT 235 K/UL (150-450); RED BLOOD COUNT 4.96 M/UL (4.70-6.10); RED CELL DISTRIBUTION WIDTH 11.6 % (11.6-14.8); WHITE BLOOD COUNT 16.1 K/UL (4.8-10.8)
[2020-05-21 06:38] LABS: ALANINE AMINOTRANSFERASE 24 U/L (12-78); ALBUMIN 1.9 G/DL (3.4-5.0); ALBUMIN/GLOBULIN RATIO 0.5 (1.0-2.7); ALKALINE PHOSPHATASE 83 U/L (46-116); ANION GAP 11 mmol/L (5-15); ASPARTATE AMINO TRANSFERASE 25 U/L (15-37); BILIRUBIN,TOTAL 0.6 MG/DL (0.2-1.0); BLOOD UREA NITROGEN 25 mg/dL (7-18); CALCIUM 8.4 MG/DL (8.5-10.1); CARBON DIOXIDE 26 MMOL/L (21-32); CHLORIDE 100 MMOL/L (98-107); CREATININE 0.9 MG/DL (0.55-1.30); POTASSIUM 3.9 MMOL/L (3.5-5.1); SODIUM 137 MMOL/L (136-145)
--- NOTE | 2020-05-21 07:11 | NUR ---
NURSE HAND-OFF REPORT: Important Events on Shift: Pt 1x vomited- Dr. leslie aware. O2 sat- 92-95% on BIPAP, high blood pressure 170's- meds given PRN Patient Status: Guarded and critical Diet: consistent carb Pending Orders: None Pending Results/Labs: None Pending MD notification: None Latest Vital Signs: Temperature 97.0 , Pulse 83 , B/P 136 /81 , Respiratory Rate 25 , O2 SAT 96 , Non-Rebreather, O2 Flow Rate 15.0 . Vital Sign Comment: WNL EKG Rhythm: SR w/ BBB Rhythm change?: N MD Notified?: Y -Dr. Travon MEJIA Response: Latest Gregg Fall Score: 45 Fall Risk: High Risk Safety Measures: Call light Within Reach, Bed Alarm Zone 1, Side Rails Side Rails x2, Bed position Low and Locked. Fall Precautions: Yellow Socks Yellow Gown Door Sign Patient Fall Education Report given to [Tru Smiley RN].
--- NOTE | 2020-05-21 07:30 | NUR ---
NURSE NOTES: Received patient in bed. Awake, A/O x3, chilean speaking only. On BiPAP with settings as ordered. IV in the Right hand, infusing IVf as ordered. Bed low and locked, side rails up x2, call light within reach with return demonstration.
--- NOTE | 2020-05-21 07:43 | NUR ---
NURSE NOTES: Seen by Dr. Mensah, informed that pt vomited x1, in moderate amount and made him aware pt on BIPAP with consistent carb diet, per Dr. Mensah okay to feed him in small amount and 1:1 feeding. pt has good gag reflex. Ordered noted.
[2020-05-21 08:00] VITALS: BP 139/82
--- NOTE | 2020-05-21 09:10 | NUR ---
RADIOLOGY DEPT., CHEST X-RAY DONE.-P.DYE
[2020-05-21] MEDS: Solu-MEDROL 40mg Inj IVP SCH ×2 (09:22→21:28)
[2020-05-21] MEDS: Levemir Flexpen SUBQ SCH ×2 (09:32→21:00)
[2020-05-21] MEDS: Enoxaparin 40mg Inj SUBQ SCH ×2 (09:32→17:39)
--- NOTE | 2020-05-21 10:02 | NUR ---
RD ASSESSMENT & RECOMMENDATIONS SEE CARE ACTIVITY FOR COMPLETE ASSESSMENT DAILY ESTIMATED NEEDS: Needs based on Pulmonary, DM/ 80kg abw 25-30 kcals/kg 3988-9080 total kcals 1-1.5 g protein/kg 80-120 g total protein 25-30 mL/kg 9794-7402 total fluid mLs NUTRITION DIAGNOSIS: Swallowing difficulty R/T respiratory status as evidenced by pt on mech soft chopped texture diet, now on BIPAP. CURRENT DIET:CCHO MED, LOW NA/ mech soft chopped PO DIET RECOMMENDATIONS: CCHO MED, LOW NA/ texture per MARKET RESEARCH EXECUTIVE ADDITIONAL RECOMMENDATIONS: * Calibrated bedscale wt * MARKET RESEARCH EXECUTIVE eval for appropriate texture while on BIPAP * Monitor PO tolerance while on BIPAP (on BIPAP since 05/19) -> Glucerna TID added at this time to maximize kcal/prot intake during limited time while off BIPAP * Monitor BGs closely for hypoglycemia w/ reduced Po intake, need to adjust insulin
--- NOTE | 2020-05-21 10:17 | Infectious Diseases Prog Note ---
Assessment/Plan Assessment/Plan A 1. COVID19 pneumonia 2. diabetes mellitus 3. hypertension 4. Hypoxemia 5. Leukocytosis P 1. Finished remdesivir course 2. continue Solumedrol 3. continue isolation Subjective ROS Limited/Unobtainable: Yes Respiratory: Reports: shortness of breath Allergies: Coded Allergies: No Known Allergies (Unverified , 05/15/20) Objective Last 24 Hour Vital Signs Date Time Temp Pulse Resp B/P (MAP) Pulse Ox O2 Delivery O2 Flow Rate FiO2 05/21/20 09:24 83 139/82 05/21/20 09:00 Bi-pap 05/21/20 08:00 97.6 75 22 139/82 (101) 95 05/21/20 07:47 89 05/21/20 07:25 84 27 96 100 05/21/20 04:00 97.0 82 25 136/81 (99) 96 05/21/20 04:00 83 05/21/20 03:30 86 33 93 100 05/21/20 00:00 85 05/21/20 00:00 98.2 81 23 172/78 (109) 95 05/20/20 23:36 172/70 05/20/20 23:30 91 27 94 100 05/20/20 21:00 Bi-pap 05/20/20 20:00 93 05/20/20 20:00 96.3 93 24 160/95 (116) 94 05/20/20 19:30 92 27 92 100 05/20/20 16:00 96.8 100 19 132/69 (90) 93 05/20/20 15:15 99 05/20/20 14:49 89 26 94 100 05/20/20 12:00 97.9 100 20 149/80 (103) 90 05/20/20 11:42 103 05/20/20 10:55 86 24 93 100 Height (Feet): 5 Height (Inches): 9.00 Weight (Pounds): 220 HEENT: mucous membranes moist Respiratory/Chest: other - on BIPAP, OAT3=596% Cardiovascular: normal rate Abdomen: soft, non tender Extremities: no edema Neurologic/Psychiatric: alert, responsive Laboratory Tests Test 05/20/20 11:15 05/20/20 15:56 05/21/20 03:00 05/21/20 04:00 POC Whole Blood Glucose Pending Pending White Blood Count 16.1 K/UL (4.8-10.8) H Red Blood Count 4.96 M/UL (4.70-6.10) Hemoglobin 14.2 G/DL (14.2-18.0) Hematocrit 41.6 % (42.0-52.0) L Mean Corpuscular Volume 84 FL (80-99) Mean Corpuscular Hemoglobin 28.5 PG (27.0-31.0) Mean Corpuscular Hemoglobin Concent 34.1 G/DL (32.0-36.0) Red Cell Distribution Width 11.6 % (11.6-14.8) Platelet Count 235 K/UL (150-450) Mean Platelet Volume 6.1 FL (6.5-10.1) L Neutrophils (%) (Auto) % (45.0-75.0) Lymphocytes (%) (Auto) % (20.0-45.0) Monocytes (%) (Auto) % (1.0-10.0) Eosinophils (%) (Auto) % (0.0-3.0) Basophils (%) (Auto) % (0.0-2.0) Differential Total Cells Counted 100 Neutrophils % (Manual) 96 % (45-75) H Lymphocytes % (Manual) 1 % (20-45) L Monocytes % (Manual) 3 % (1-10) Eosinophils % (Manual) 0 % (0-3) Basophils % (Manual) 0 % (0-2) Band Neutrophils 0 % (0-8) Platelet Estimate Adequate Platelet Morphology Normal Red Blood Cell Morphology Normal Sodium Level 137 MMOL/L (136-145) Potassium Level 3.9 MMOL/L (3.5-5.1) Chloride Level 100 MMOL/L (98-107) Carbon Dioxide Level 26 MMOL/L (21-32) Anion Gap 11 mmol/L (5-15) Blood Urea Nitrogen 25 mg/dL (7-18) H Creatinine 0.9 MG/DL (0.55-1.30) Estimat Glomerular Filtration Rate > 60 mL/min (>60) Glucose Level 245 MG/DL (74-106) #H Calcium Level 8.4 MG/DL (8.5-10.1) L Total Bilirubin 0.6 MG/DL (0.2-1.0) Aspartate Amino Transf (AST/SGOT) 25 U/L (15-37) Alanine Aminotransferase (ALT/SGPT) 24 U/L (12-78) Alkaline Phosphatase 83 U/L (46-116) Total Protein 5.7 G/DL (6.4-8.2) L Albumin 1.9 G/DL (3.4-5.0) L Globulin 3.8 g/dL Albumin/Globulin Ratio 0.5 (1.0-2.7) L Arterial Blood pH 7.457 (7.350-7.450) Arterial Blood Partial Pressure CO2 39.0 mmHg (35.0-45.0) Arterial Blood Partial Pressure O2 64.2 mmHg (75.0-100.0) L Arterial Blood HCO3 26.9 mmol/L (22.0-26.0) H Arterial Blood Oxygen Saturation 92.3 % (95-100) L Arterial Blood Base Excess 3 (-2-2) H Jose Test Positive Test 05/21/20 09:22 POC Whole Blood Glucose Pending Current Medications Medications (Trade) Dose Ordered Sig/Baldo Route PRN Reason Start Time Stop Time Status Last Admin Dose Admin Acetaminophen (Tylenol) 650 mg EVERY 4 HOURS PRN ORAL fever/MINAYA 05/16/20 03:15 06/15/20 03:14 Acetaminophen (Tylenol) 650 mg Q4H PRN ORAL Mild Pain (Pain Scale 1-3) 05/16/20 12:15 06/15/20 12:14 05/16/20 13:44 Acetaminophen (Tylenol) 650 mg Q4H PRN ORAL fever 05/16/20 12:15 06/15/20 12:14 Albuterol Sulfate (Proventil MDI) 2 puff Q4H PRN INH Shortness of Breath 05/16/20 14:00 08/14/20 13:59 05/19/20 01:01 Amlodipine Besylate (Norvasc) 5 mg DAILY ORAL 05/16/20 09:00 06/15/20 08:59 05/21/20 09:24 Clonidine HCl (Catapres Tab) 0.1 mg Q4H PRN ORAL For High Blood Pressure 05/16/20 14:45 08/14/20 14:44 05/20/20 23:36 Dextrose (Dextrose 50%) 25 ml Q30M PRN IV Hypoglycemia 05/16/20 12:15 08/14/20 12:14 Dextrose (Dextrose 50%) 50 ml Q30M PRN IV Hypoglycemia 05/16/20 12:15 08/14/20 12:14 Enoxaparin Sodium (Lovenox) 40 mg BID SUBQ 05/16/20 10:00 08/14/20 09:59 05/21/20 09:32 Famotidine (Pepcid I.v.) 20 mg DAILY IVP 05/17/20 09:00 06/16/20 08:59 05/21/20 09:22 Insulin Aspart (NovoLOG) BEFORE MEALS AND HS SUBQ 05/16/20 16:30 08/14/20 16:29 05/20/20 20:42 Insulin Detemir (Levemir) 20 units BEDTIME SUBQ 05/20/20 21:00 08/16/20 20:59 05/20/20 20:41 Insulin Detemir (Levemir) 22 units DAILY SUBQ 05/20/20 09:00 08/16/20 08:59 05/21/20 09:32 Methylprednisolone Sodium Succinate (Solu-MEDROL) 40 mg EVERY 12 HOURS IVP 05/20/20 11:00 08/18/20 10:59 05/21/20 09:22 Ondansetron HCl (Zofran) 4 mg Q6H PRN IVP Nausea & Vomiting 05/16/20 12:15 06/15/20 12:14 Sodium Chloride 1,000 ml @ 75 mls/hr [id number] IVLG 05/21/20 04:00 06/20/20 03:59 05/21/20 04:00 Jamie Sullivan MD May 21, 2020 10:17
[2020-05-21 12:00] VITALS: BP 156/88
--- NOTE | 2020-05-21 12:22 | General Progress Note ---
Subjective ROS Limited/Unobtainable: No Constitutional: Reports: malaise, weakness HEENT: Reports: no symptoms Cardiovascular: Reports: no symptoms Respiratory: Reports: cough Gastrointestinal/Abdominal: Reports: nausea, vomiting Genitourinary: Reports: no symptoms Neurologic/Psychiatric: Reports: no symptoms Endocrine: Reports: no symptoms Hematologic/Lymphatic: Reports: no symptoms Allergies: Coded Allergies: No Known Allergies (Unverified , 05/15/20) All Systems: reviewed and negative except above Subjective no change. remains on bipap. unable to wean. one episode of vomiting. Objective Last 24 Hour Vital Signs Date Time Temp Pulse Resp B/P (MAP) Pulse Ox O2 Delivery O2 Flow Rate FiO2 05/21/20 11:30 84 27 96 100 05/21/20 09:24 83 139/82 05/21/20 09:00 Bi-pap 05/21/20 08:00 97.6 75 22 139/82 (101) 95 05/21/20 07:47 89 05/21/20 07:25 84 27 96 100 05/21/20 04:00 97.0 82 25 136/81 (99) 96 05/21/20 04:00 83 05/21/20 03:30 86 33 93 100 05/21/20 00:00 85 05/21/20 00:00 98.2 81 23 172/78 (109) 95 05/20/20 23:36 172/70 05/20/20 23:30 91 27 94 100 05/20/20 21:00 Bi-pap 05/20/20 20:00 93 05/20/20 20:00 96.3 93 24 160/95 (116) 94 05/20/20 19:30 92 27 92 100 05/20/20 16:00 96.8 100 19 132/69 (90) 93 05/20/20 15:15 99 05/20/20 14:49 89 26 94 100 Intake and Output 05/20/20 05/21/20 19:00 07:00 Intake Total 1000 ml 950 ml Output Total 1450 ml 900 ml Balance -450 ml 50 ml Intake Oral 50 ml IV Total 1000 ml 900 ml Output Urine Total 1450 ml 900 ml # Bowel Movements 2 1 Laboratory Tests 05/20/20 15:56: POC Whole Blood Glucose [Pending] 05/21/20 03:00: White Blood Count 16.1H, Red Blood Count 4.96, Hemoglobin 14.2, Hematocrit 41.6L , Mean Corpuscular Volume 84, Mean Corpuscular Hemoglobin 28.5, Mean Corpuscular Hemoglobin Concent 34.1, Red Cell Distribution Width 11.6, Platelet Count 235, Mean Platelet Volume 6.1L, Neutrophils (%) (Auto) , Lymphocytes (%) (Auto) , Monocytes (%) (Auto) , Eosinophils (%) (Auto) , Basophils (%) (Auto) , Differential Total Cells Counted 100, Neutrophils % (Manual) 96H, Lymphocytes % (Manual) 1L, Monocytes % (Manual) 3, Eosinophils % (Manual) 0, Basophils % (Manual) 0, Band Neutrophils 0, Platelet Estimate Adequate, Platelet Morphology Normal, Red Blood Cell Morphology Normal, Sodium Level 137, Potassium Level 3.9, Chloride Level 100, Carbon Dioxide Level 26, Anion Gap 11, Blood Urea Nitrogen 25H, Creatinine 0.9, Estimat Glomerular Filtration Rate > 60, Glucose Level 245#H, Calcium Level 8.4L, Total Bilirubin 0.6, Aspartate Amino Transf (AST/SGOT) 25, Alanine Aminotransferase (ALT/SGPT) 24, Alkaline Phosphatase 83, Total Protein 5.7L, Albumin 1.9L, Globulin 3.8, Albumin/Globulin Ratio 0.5L 05/21/20 04:00: Arterial Blood pH 7.457H, Arterial Blood Partial Pressure CO2 39.0, Arterial Blood Partial Pressure O2 64.2L, Arterial Blood HCO3 26.9H, Arterial Blood Oxygen Saturation 92.3L, Arterial Blood Base Excess 3H, Jose Test Positive 05/21/20 09:22: POC Whole Blood Glucose [Pending] 05/21/20 12:06: POC Whole Blood Glucose 258H Height (Feet): 5 Height (Inches): 9.00 Weight (Pounds): 220 Objective deferred Assessment/Plan Status: stable, not improved Assessment/Plan: bipap wean as able remdesivir and steroids zofran for nausea monitor labs Job Mensah MD May 21, 2020 12:22
--- NOTE | 2020-05-21 12:44 | Surgery Progress Note ---
Surgery Progress Note Subjective Additional Comments leukocytosis on bipap lft's improving no n/v Objective Last 24 Hour Vital Signs Date Time Temp Pulse Resp B/P (MAP) Pulse Ox O2 Delivery O2 Flow Rate FiO2 05/21/20 11:30 84 27 96 100 05/21/20 09:24 83 139/82 05/21/20 09:00 Bi-pap 05/21/20 08:00 97.6 75 22 139/82 (101) 95 05/21/20 07:47 89 05/21/20 07:25 84 27 96 100 05/21/20 04:00 97.0 82 25 136/81 (99) 96 05/21/20 04:00 83 05/21/20 03:30 86 33 93 100 05/21/20 00:00 85 05/21/20 00:00 98.2 81 23 172/78 (109) 95 05/20/20 23:36 172/70 05/20/20 23:30 91 27 94 100 05/20/20 21:00 Bi-pap 05/20/20 20:00 93 05/20/20 20:00 96.3 93 24 160/95 (116) 94 05/20/20 19:30 92 27 92 100 05/20/20 16:00 96.8 100 19 132/69 (90) 93 05/20/20 15:15 99 05/20/20 14:49 89 26 94 100 I&O Intake and Output 05/20/20 05/21/20 19:00 07:00 Intake Total 1000 ml 950 ml Output Total 1450 ml 900 ml Balance -450 ml 50 ml Intake Oral 50 ml IV Total 1000 ml 900 ml Output Urine Total 1450 ml 900 ml # Bowel Movements 2 1 Dressing: other Wound: other Cardiovascular: RSR Respiratory: decreased breath sounds Abdomen: soft, non-tender, present bowel sounds Extremities: no tenderness, no cyanosis Laboratory Tests Test 05/20/20 15:56 05/21/20 03:00 05/21/20 04:00 05/21/20 09:22 POC Whole Blood Glucose Pending Pending White Blood Count 16.1 K/UL (4.8-10.8) H Red Blood Count 4.96 M/UL (4.70-6.10) Hemoglobin 14.2 G/DL (14.2-18.0) Hematocrit 41.6 % (42.0-52.0) L Mean Corpuscular Volume 84 FL (80-99) Mean Corpuscular Hemoglobin 28.5 PG (27.0-31.0) Mean Corpuscular Hemoglobin Concent 34.1 G/DL (32.0-36.0) Red Cell Distribution Width 11.6 % (11.6-14.8) Platelet Count 235 K/UL (150-450) Mean Platelet Volume 6.1 FL (6.5-10.1) L Neutrophils (%) (Auto) % (45.0-75.0) Lymphocytes (%) (Auto) % (20.0-45.0) Monocytes (%) (Auto) % (1.0-10.0) Eosinophils (%) (Auto) % (0.0-3.0) Basophils (%) (Auto) % (0.0-2.0) Differential Total Cells Counted 100 Neutrophils % (Manual) 96 % (45-75) H Lymphocytes % (Manual) 1 % (20-45) L Monocytes % (Manual) 3 % (1-10) Eosinophils % (Manual) 0 % (0-3) Basophils % (Manual) 0 % (0-2) Band Neutrophils 0 % (0-8) Platelet Estimate Adequate Platelet Morphology Normal Red Blood Cell Morphology Normal Sodium Level 137 MMOL/L (136-145) Potassium Level 3.9 MMOL/L (3.5-5.1) Chloride Level 100 MMOL/L (98-107) Carbon Dioxide Level 26 MMOL/L (21-32) Anion Gap 11 mmol/L (5-15) Blood Urea Nitrogen 25 mg/dL (7-18) H Creatinine 0.9 MG/DL (0.55-1.30) Estimat Glomerular Filtration Rate > 60 mL/min (>60) Glucose Level 245 MG/DL (74-106) #H Calcium Level 8.4 MG/DL (8.5-10.1) L Total Bilirubin 0.6 MG/DL (0.2-1.0) Aspartate Amino Transf (AST/SGOT) 25 U/L (15-37) Alanine Aminotransferase (ALT/SGPT) 24 U/L (12-78) Alkaline Phosphatase 83 U/L (46-116) Total Protein 5.7 G/DL (6.4-8.2) L Albumin 1.9 G/DL (3.4-5.0) L Globulin 3.8 g/dL Albumin/Globulin Ratio 0.5 (1.0-2.7) L Arterial Blood pH 7.457 (7.350-7.450) Arterial Blood Partial Pressure CO2 39.0 mmHg (35.0-45.0) Arterial Blood Partial Pressure O2 64.2 mmHg (75.0-100.0) L Arterial Blood HCO3 26.9 mmol/L (22.0-26.0) H Arterial Blood Oxygen Saturation 92.3 % (95-100) L Arterial Blood Base Excess 3 (-2-2) H Jose Test Positive Test 05/21/20 12:06 POC Whole Blood Glucose 258 MG/DL (74-106) H Plan Problems: (1) Septic shock Assessment & Plan: 80-year-old male Covid positive respiratory deficiency presented to [facility] for evaluation shortness of breath admitted care and manage identified to have leukocytosis lactic acidosis and shock. Resuscitation initiated. Full examination performed no acute infectious process noted inflammatory process likely related to respiratory. Continue with IV fluids. Hold on central line insertion. Labs noted imaging reviewed. Patient otherwise now stable under appropriate care plan. Continue with medications and antibiotics as ordered. Continue with IV fluid resuscitation. Trend labs. Will follow with recommendations. Thank you for let me participate patient's care Multifocal airspace consolidations, consistent with severe multifocal infiltrate. Findings and increased when compared to May 16, 2020. Follow-up chest radiograph recommended. Small left effusion is suspected. No pneumothorax. Stable cardiomegaly. Calcified aorta. (2) Dyspnea (3) Respiratory distress (4) Pneumonia due to COVID-19 virus Assessment & Plan: ++ as per pulm and ID Gianni Guajardo May 21, 2020 12:44
--- NOTE | 2020-05-21 13:25 | Diagnostic Imaging Report ---
Indication: Shortness of breath Technique: One view of the chest Comparison: 05/17/2020 Findings: Better inspiration currently. Bilateral infiltrates appear stable or minimally improved. The heart is borderline enlarged. Impression: Stable to slightly improved bilateral infiltrates.
--- NOTE | 2020-05-21 14:19 | NUR ---
CASE MANAGEMENT:REVIEW 05/21/20 SI: COVID PNEUMONIA. RESPIRATORY FAILURE 97.9 98 24 156/88 91% ON BIPAP W/100% FIO2 WBC+16.1 BUN+25 PH+7.45 PO2-64.2 HCO3+26.9 IS: IV SOLUMEDROL Q12 IV DECADRON QD IVF@75/HR IV PEPCID QD LEVEMIR SQ QHS LOVENOX SQ BID NORVASC PO QD : TELEMETRY STATUS DCP: FROM HOME PLAN: COMPLETED REMDESIVIR
[2020-05-21 16:00] VITALS: BP 143/82
--- NOTE | 2020-05-21 16:13 | Pulmonology Progress Note ---
Subjective ROS Limited/Unobtainable: Yes Constitutional: Denies: fever Gastrointestinal/Abdominal: Reports: nausea, vomiting, diarrhea Musculoskeletal: Reports: pain Allergies: Coded Allergies: No Known Allergies (Unverified , 05/15/20) All Systems: reviewed and negative except above Subjective care noted awake on BIPAP on 100% Objective Last 24 Hour Vital Signs Date Time Temp Pulse Resp B/P (MAP) Pulse Ox O2 Delivery O2 Flow Rate FiO2 05/21/20 14:40 80 21 92 100 05/21/20 12:00 97.9 98 24 156/88 (110) 91 05/21/20 11:30 84 27 96 100 05/21/20 11:27 79 05/21/20 09:24 83 139/82 05/21/20 09:00 Bi-pap 05/21/20 08:00 97.6 75 22 139/82 (101) 95 05/21/20 07:47 89 05/21/20 07:25 84 27 96 100 05/21/20 04:00 97.0 82 25 136/81 (99) 96 05/21/20 04:00 83 05/21/20 03:30 86 33 93 100 05/21/20 00:00 85 05/21/20 00:00 98.2 81 23 172/78 (109) 95 05/20/20 23:36 172/70 05/20/20 23:30 91 27 94 100 05/20/20 21:00 Bi-pap 05/20/20 20:00 93 05/20/20 20:00 96.3 93 24 160/95 (116) 94 05/20/20 19:30 92 27 92 100 Intake and Output 05/20/20 05/21/20 19:00 07:00 Intake Total 1000 ml 950 ml Output Total 1450 ml 900 ml Balance -450 ml 50 ml Intake Oral 50 ml IV Total 1000 ml 900 ml Output Urine Total 1450 ml 900 ml # Bowel Movements 2 1 Objective deferred due to COVID Laboratory Tests 05/21/20 03:00: White Blood Count 16.1H, Red Blood Count 4.96, Hemoglobin 14.2, Hematocrit 41.6L , Mean Corpuscular Volume 84, Mean Corpuscular Hemoglobin 28.5, Mean Corpuscular Hemoglobin Concent 34.1, Red Cell Distribution Width 11.6, Platelet Count 235, Mean Platelet Volume 6.1L, Neutrophils (%) (Auto) , Lymphocytes (%) (Auto) , Monocytes (%) (Auto) , Eosinophils (%) (Auto) , Basophils (%) (Auto) , Differential Total Cells Counted 100, Neutrophils % (Manual) 96H, Lymphocytes % (Manual) 1L, Monocytes % (Manual) 3, Eosinophils % (Manual) 0, Basophils % (Manual) 0, Band Neutrophils 0, Platelet Estimate Adequate, Platelet Morphology Normal, Red Blood Cell Morphology Normal, Sodium Level 137, Potassium Level 3.9, Chloride Level 100, Carbon Dioxide Level 26, Anion Gap 11, Blood Urea Nitrogen 25H, Creatinine 0.9, Estimat Glomerular Filtration Rate > 60, Glucose Level 245#H, Calcium Level 8.4L, Total Bilirubin 0.6, Aspartate Amino Transf (AST/SGOT) 25, Alanine Aminotransferase (ALT/SGPT) 24, Alkaline Phosphatase 83, Total Protein 5.7L, Albumin 1.9L, Globulin 3.8, Albumin/Globulin Ratio 0.5L 05/21/20 04:00: Arterial Blood pH 7.457H, Arterial Blood Partial Pressure CO2 39.0, Arterial Blood Partial Pressure O2 64.2L, Arterial Blood HCO3 26.9H, Arterial Blood Oxygen Saturation 92.3L, Arterial Blood Base Excess 3H, Jose Test Positive 05/21/20 09:22: POC Whole Blood Glucose [Pending] 05/21/20 12:06: POC Whole Blood Glucose 258H Current Medications Medications (Trade) Dose Ordered Sig/Baldo Route PRN Reason Start Time Stop Time Status Last Admin Dose Admin Acetaminophen (Tylenol) 650 mg EVERY 4 HOURS PRN ORAL fever/MINAYA 05/16/20 03:15 06/15/20 03:14 Acetaminophen (Tylenol) 650 mg Q4H PRN ORAL Mild Pain (Pain Scale 1-3) 05/16/20 12:15 06/15/20 12:14 05/16/20 13:44 Acetaminophen (Tylenol) 650 mg Q4H PRN ORAL fever 05/16/20 12:15 06/15/20 12:14 Albuterol Sulfate (Proventil MDI) 2 puff Q4H PRN INH Shortness of Breath 05/16/20 14:00 08/14/20 13:59 05/19/20 01:01 Amlodipine Besylate (Norvasc) 5 mg DAILY ORAL 05/16/20 09:00 06/15/20 08:59 05/21/20 09:24 Clonidine HCl (Catapres Tab) 0.1 mg Q4H PRN ORAL For High Blood Pressure 05/16/20 14:45 08/14/20 14:44 05/20/20 23:36 Dextrose (Dextrose 50%) 25 ml Q30M PRN IV Hypoglycemia 05/16/20 12:15 08/14/20 12:14 Dextrose (Dextrose 50%) 50 ml Q30M PRN IV Hypoglycemia 05/16/20 12:15 08/14/20 12:14 Enoxaparin Sodium (Lovenox) 40 mg BID SUBQ 05/16/20 10:00 08/14/20 09:59 05/21/20 09:32 Famotidine (Pepcid I.v.) 20 mg DAILY IVP 05/17/20 09:00 06/16/20 08:59 05/21/20 09:22 Insulin Aspart (NovoLOG) BEFORE MEALS AND HS SUBQ 05/16/20 16:30 08/14/20 16:29 05/21/20 13:15 Insulin Detemir (Levemir) 20 units BEDTIME SUBQ 05/20/20 21:00 08/16/20 20:59 05/20/20 20:41 Insulin Detemir (Levemir) 22 units DAILY SUBQ 05/20/20 09:00 08/16/20 08:59 05/21/20 09:32 Methylprednisolone Sodium Succinate (Solu-MEDROL) 40 mg EVERY 12 HOURS IVP 05/20/20 11:00 08/18/20 10:59 05/21/20 09:22 Ondansetron HCl (Zofran) 4 mg Q6H PRN IVP Nausea & Vomiting 05/21/20 12:30 06/20/20 12:29 Sodium Chloride 1,000 ml @ 75 mls/hr [id number] IVLG 05/21/20 04:00 06/20/20 03:59 05/21/20 04:00 Assessment/Plan Assessment/Plan Impression: Pneumonia due to COVID-19 virus Hypoxic Respiratory Failure Hypertension Diabetes Septic shock Plan: -Dexamethasone -O2 at 100% and on BIPAP -IV AB -albuterol PRN -Monitor labs -DVT prophylaxis -escalate care as needed to ICU if needed -remains at risk for deterioration and intubation impression, plan, and exam edited and reviewed in detail care discussed with Rahul Dunn MD May 21, 2020 16:13
--- NOTE | 2020-05-21 19:07 | NUR ---
NURSE HAND-OFF REPORT: Important Events on Shift:[] Patient Status: [FULL CODE/stable] Diet: [CCHO medium] Pending Orders: [] Pending Results/Labs:[] Pending MD notification:[] Latest Vital Signs: Temperature 97.6 , Pulse 80 , B/P 143 /82 , Respiratory Rate 25 , O2 SAT 94 , Non-Rebreather, O2 Flow Rate 15.0 . Vital Sign Comment: [] EKG Rhythm: SR,BBB Rhythm change?: N MD Notified?: Y -Dr. Travon MEJIA Response: Latest Gregg Fall Score: 45 Fall Risk: High Risk Safety Measures: Call light Within Reach, Bed Alarm Zone 1, Side Rails Side Rails x2, Bed position Low and Locked. Fall Precautions: Yellow Socks Yellow Gown Door Sign Patient Fall Education Report given to [Dante RN].
--- NOTE | 2020-05-21 19:54 | NUR ---
NURSE NOTES: Received report from Baljit Ott RN. pt is seen semi -membreno's position. Pt is alert x 3-4. No signs of confusion. With Right hand g22 patent and intact, running NS @75ml/hr. With condom cath intact and patent. Not in repsiratory distress. On BIPAP 15/8 fio2-100%.o2 sat-95%. No pain noted at this time. Bed in lowest position, call light within reach. Continue to plan of care.
[2020-05-21 20:00] VITALS: BP 133/73
[2020-05-22] VITALS: BP 141/82
--- NOTE | 2020-05-22 01:58 | NUR ---
NURSE NOTES: Sponge bath given, no BM noted. Oral care done. Able to sip apple juice with no problem in swallowing, but pt desat easily. No pain noted. Bed in lowest position, call light within reach. Continue to plan of care.
[2020-05-22 04:00] VITALS: BP 158/82
[2020-05-22 05:31] LABS: HEMATOCRIT 43.1 % (42.0-52.0); HEMOGLOBIN 14.5 G/DL (14.2-18.0); MEAN CORPUSCULAR VOLUME 85 FL (80-99); PLATELET COUNT 187 K/UL (150-450); RED BLOOD COUNT 5.09 M/UL (4.70-6.10); WHITE BLOOD COUNT 19.3 K/UL (4.8-10.8)
[2020-05-22 05:51] LABS: ALANINE AMINOTRANSFERASE 18 U/L (12-78); ALBUMIN 1.9 G/DL (3.4-5.0); ALBUMIN/GLOBULIN RATIO 0.5 (1.0-2.7); ALKALINE PHOSPHATASE 99 U/L (46-116); ANION GAP 8 mmol/L (5-15); ASPARTATE AMINO TRANSFERASE 18 U/L (15-37); BILIRUBIN,TOTAL 0.5 MG/DL (0.2-1.0); BLOOD UREA NITROGEN 28 mg/dL (7-18); CALCIUM 8.7 MG/DL (8.5-10.1); CARBON DIOXIDE 28 MMOL/L (21-32); CHLORIDE 104 MMOL/L (98-107); CREATININE 0.9 MG/DL (0.55-1.30); POTASSIUM 3.9 MMOL/L (3.5-5.1); SODIUM 140 MMOL/L (136-145)
[2020-05-22] MEDS: NovoLOG Insulin Flexpen SUBQ SCH ×4 (05:51→21:03)
--- NOTE | 2020-05-22 06:17 | NUR ---
NURSE NOTES: Oral care, Performed and offered Apple juice in small amount. Tolerated. O2 sat-90%. Rt Notified to checked BIPAP, reinforced BIPAP. Spoke to RT Rob.
--- NOTE | 2020-05-22 06:35 | NUR ---
NURSE NOTES: Called Rt to rpelace the BIPAP facemask. Called thrice.
--- NOTE | 2020-05-22 06:36 | NUR ---
NURSE NOTES: Re- inforce the the bipap. Rt is still not on bedside.
--- NOTE | 2020-05-22 06:40 | NUR ---
RESPIRATORY NOTE: PT received on BiPAP 20/12 RR:14 100%. Alarms are on and audible. PT was changed from full face mask to facial mask. Facial Tape was replaced and no wounds were found. Will continue to closely monitor.
--- NOTE | 2020-05-22 07:20 | NUR ---
NURSE HAND-OFF REPORT: Important Events on Shift: pt on fio2- 100% on BIPAP o2 sat- 93%, pt is restless. Patient Status: Critical and guarded Diet: Consistent carb,Dr. Mensah aware about the poor intake. Pending Orders: None Pending Results/Labs: None Pending MD notification: none Latest Vital Signs: Temperature 97.8 , Pulse 76 , B/P 158 /82 , Respiratory Rate 25 , O2 SAT 93 , Non-Rebreather, O2 Flow Rate 15.0 . Vital Sign Comment: WNL EKG Rhythm: SR,BBB Rhythm change?: Y MD Notified?: N -Dr. Travon MEJIA Response: Latest Gregg Fall Score: 45 Fall Risk: High Risk Safety Measures: Call light Within Reach, Bed Alarm Zone 2, Side Rails Side Rails x2, Bed position Low and Locked. Fall Precautions: Yellow Socks Yellow Gown Door Sign Patient Fall Education Report given to [Baljit OttRN].
[2020-05-22 08:00] VITALS: BP 164/85
[2020-05-22] MEDS: Solu-MEDROL 40mg Inj IVP SCH ×2 (09:08→20:40)
[2020-05-22] MEDS: Levemir Flexpen SUBQ SCH ×2 (09:12→21:02)
[2020-05-22] MEDS: Enoxaparin 40mg Inj SUBQ SCH ×2 (09:13→17:49)
--- NOTE | 2020-05-22 11:18 | Infectious Diseases Prog Note ---
Assessment/Plan Assessment/Plan antibiotics : none A 1. covid 19 pneumonia on 100 FiO2 liters O2 with 92 % saturation 2. diabetes mellitus 3. hypertension P 1. continue solumedrol 2. continue isolation Subjective ROS Limited/Unobtainable: Yes Allergies: Coded Allergies: No Known Allergies (Unverified , 05/15/20) Objective Last 24 Hour Vital Signs Date Time Temp Pulse Resp B/P (MAP) Pulse Ox O2 Delivery O2 Flow Rate FiO2 05/22/20 09:10 84 164/85 05/22/20 09:00 Bi-pap 05/22/20 08:00 100 05/22/20 08:00 96.8 84 24 164/85 (111) 92 05/22/20 08:00 87 05/22/20 04:00 100 05/22/20 04:00 76 05/22/20 04:00 97.8 86 25 158/82 (107) 93 05/22/20 03:25 98 33 92 100 05/22/20 00:00 86 05/22/20 00:00 97.5 86 25 141/82 (101) 94 05/21/20 23:30 78 38 94 100 05/21/20 21:00 Bi-pap 05/21/20 20:00 97.5 84 27 133/73 (93) 94 05/21/20 20:00 83 05/21/20 19:30 86 32 97 100 05/21/20 16:00 97.6 85 25 143/82 (102) 94 05/21/20 16:00 80 05/21/20 14:40 80 21 92 100 05/21/20 12:00 97.9 98 24 156/88 (110) 91 05/21/20 11:30 84 27 96 100 05/21/20 11:27 79 Height (Feet): 5 Height (Inches): 9.00 Weight (Pounds): 220 HEENT: other - on bipap Laboratory Tests Test 05/21/20 12:06 05/22/20 04:20 POC Whole Blood Glucose 258 MG/DL (74-106) H White Blood Count 19.3 K/UL (4.8-10.8) H Red Blood Count 5.09 M/UL (4.70-6.10) Hemoglobin 14.5 G/DL (14.2-18.0) Hematocrit 43.1 % (42.0-52.0) Mean Corpuscular Volume 85 FL (80-99) Mean Corpuscular Hemoglobin 28.5 PG (27.0-31.0) Mean Corpuscular Hemoglobin Concent 33.6 G/DL (32.0-36.0) Red Cell Distribution Width 12.0 % (11.6-14.8) Platelet Count 187 K/UL (150-450) Mean Platelet Volume 6.6 FL (6.5-10.1) Neutrophils (%) (Auto) % (45.0-75.0) Lymphocytes (%) (Auto) % (20.0-45.0) Monocytes (%) (Auto) % (1.0-10.0) Eosinophils (%) (Auto) % (0.0-3.0) Basophils (%) (Auto) % (0.0-2.0) Differential Total Cells Counted 100 Neutrophils % (Manual) 93 % (45-75) H Lymphocytes % (Manual) 3 % (20-45) L Monocytes % (Manual) 4 % (1-10) Eosinophils % (Manual) 0 % (0-3) Basophils % (Manual) 0 % (0-2) Band Neutrophils 0 % (0-8) Platelet Estimate Adequate Platelet Morphology Normal Red Blood Cell Morphology Normal Sodium Level 140 MMOL/L (136-145) Potassium Level 3.9 MMOL/L (3.5-5.1) Chloride Level 104 MMOL/L (98-107) Carbon Dioxide Level 28 MMOL/L (21-32) Anion Gap 8 mmol/L (5-15) Blood Urea Nitrogen 28 mg/dL (7-18) H Creatinine 0.9 MG/DL (0.55-1.30) Estimat Glomerular Filtration Rate > 60 mL/min (>60) Glucose Level 251 MG/DL (74-106) H Calcium Level 8.7 MG/DL (8.5-10.1) Total Bilirubin 0.5 MG/DL (0.2-1.0) Aspartate Amino Transf (AST/SGOT) 18 U/L (15-37) Alanine Aminotransferase (ALT/SGPT) 18 U/L (12-78) Alkaline Phosphatase 99 U/L (46-116) Total Protein 5.7 G/DL (6.4-8.2) L Albumin 1.9 G/DL (3.4-5.0) L Globulin 3.8 g/dL Albumin/Globulin Ratio 0.5 (1.0-2.7) L Current Medications Medications (Trade) Dose Ordered Sig/Baldo Route PRN Reason Start Time Stop Time Status Last Admin Dose Admin Acetaminophen (Tylenol) 650 mg EVERY 4 HOURS PRN ORAL fever/MINAYA 05/16/20 03:15 06/15/20 03:14 Acetaminophen (Tylenol) 650 mg Q4H PRN ORAL Mild Pain (Pain Scale 1-3) 05/16/20 12:15 06/15/20 12:14 05/16/20 13:44 Acetaminophen (Tylenol) 650 mg Q4H PRN ORAL fever 05/16/20 12:15 06/15/20 12:14 Albuterol Sulfate (Proventil MDI) 2 puff Q4H PRN INH Shortness of Breath 05/16/20 14:00 08/14/20 13:59 05/19/20 01:01 Amlodipine Besylate (Norvasc) 5 mg DAILY ORAL 05/16/20 09:00 06/15/20 08:59 05/22/20 09:10 Clonidine HCl (Catapres Tab) 0.1 mg Q4H PRN ORAL For High Blood Pressure 05/16/20 14:45 08/14/20 14:44 05/20/20 23:36 Dextrose (Dextrose 50%) 25 ml Q30M PRN IV Hypoglycemia 05/16/20 12:15 08/14/20 12:14 Dextrose (Dextrose 50%) 50 ml Q30M PRN IV Hypoglycemia 05/16/20 12:15 08/14/20 12:14 Enoxaparin Sodium (Lovenox) 40 mg BID SUBQ 05/16/20 10:00 08/14/20 09:59 05/22/20 09:13 Famotidine (Pepcid I.v.) 20 mg DAILY IVP 05/17/20 09:00 06/16/20 08:59 05/22/20 09:08 Insulin Aspart (NovoLOG) BEFORE MEALS AND HS SUBQ 05/16/20 16:30 08/14/20 16:29 05/22/20 05:51 Insulin Detemir (Levemir) 20 units BEDTIME SUBQ 05/20/20 21:00 08/16/20 20:59 05/20/20 20:41 Insulin Detemir (Levemir) 22 units DAILY SUBQ 05/20/20 09:00 08/16/20 08:59 05/22/20 09:12 Methylprednisolone Sodium Succinate (Solu-MEDROL) 40 mg EVERY 12 HOURS IVP 05/20/20 11:00 08/18/20 10:59 05/22/20 09:08 Ondansetron HCl (Zofran) 4 mg Q6H PRN IVP Nausea & Vomiting 05/21/20 12:30 06/20/20 12:29 Sodium Chloride 1,000 ml @ 75 mls/hr [id number] IVLG 05/21/20 04:00 06/20/20 03:59 05/22/20 05:52 Ayaz Buckner MD May 22, 2020 11:18
--- NOTE | 2020-05-22 11:37 | Pulmonology Progress Note ---
Subjective ROS Limited/Unobtainable: Yes Constitutional: Denies: fever Gastrointestinal/Abdominal: Reports: nausea, vomiting, diarrhea Musculoskeletal: Reports: pain Allergies: Coded Allergies: No Known Allergies (Unverified , 05/15/20) All Systems: reviewed and negative except above Subjective care noted awake and resting in bed on BIPAP on 100% Objective Last 24 Hour Vital Signs Date Time Temp Pulse Resp B/P (MAP) Pulse Ox O2 Delivery O2 Flow Rate FiO2 05/22/20 09:10 84 164/85 05/22/20 09:00 Bi-pap 05/22/20 08:00 100 05/22/20 08:00 96.8 84 24 164/85 (111) 92 05/22/20 08:00 87 05/22/20 04:00 100 05/22/20 04:00 76 05/22/20 04:00 97.8 86 25 158/82 (107) 93 05/22/20 03:25 98 33 92 100 05/22/20 00:00 86 05/22/20 00:00 97.5 86 25 141/82 (101) 94 05/21/20 23:30 78 38 94 100 05/21/20 21:00 Bi-pap 05/21/20 20:00 97.5 84 27 133/73 (93) 94 05/21/20 20:00 83 05/21/20 19:30 86 32 97 100 05/21/20 16:00 97.6 85 25 143/82 (102) 94 05/21/20 16:00 80 05/21/20 14:40 80 21 92 100 05/21/20 12:00 97.9 98 24 156/88 (110) 91 Intake and Output 05/21/20 05/22/20 19:00 07:00 Intake Total 1200 ml 925 ml Output Total 500 ml 200 ml Balance 700 ml 725 ml Intake Oral 300 ml 100 ml IV Total 900 ml 825 ml Output Urine Total 500 ml 200 ml # Voids 2 Objective deferred due to COVID Laboratory Tests 05/21/20 12:06: POC Whole Blood Glucose 258H 05/22/20 04:20: White Blood Count 19.3H, Red Blood Count 5.09, Hemoglobin 14.5, Hematocrit 43.1, Mean Corpuscular Volume 85, Mean Corpuscular Hemoglobin 28.5, Mean Corpuscular Hemoglobin Concent 33.6, Red Cell Distribution Width 12.0, Platelet Count 187, Mean Platelet Volume 6.6, Neutrophils (%) (Auto) , Lymphocytes (%) (Auto) , Monocytes (%) (Auto) , Eosinophils (%) (Auto) , Basophils (%) (Auto) , Differential Total Cells Counted 100, Neutrophils % (Manual) 93H, Lymphocytes % (Manual) 3L, Monocytes % (Manual) 4, Eosinophils % (Manual) 0, Basophils % (Manual) 0, Band Neutrophils 0, Platelet Estimate Adequate, Platelet Morphology Normal, Red Blood Cell Morphology Normal, Sodium Level 140, Potassium Level 3.9, Chloride Level 104, Carbon Dioxide Level 28, Anion Gap 8, Blood Urea Nitrogen 28H, Creatinine 0.9, Estimat Glomerular Filtration Rate > 60, Glucose Level 251H , Calcium Level 8.7, Total Bilirubin 0.5, Aspartate Amino Transf (AST/SGOT) 18, Alanine Aminotransferase (ALT/SGPT) 18, Alkaline Phosphatase 99, Total Protein 5.7L, Albumin 1.9L, Globulin 3.8, Albumin/Globulin Ratio 0.5L Current Medications Medications (Trade) Dose Ordered Sig/Baldo Route PRN Reason Start Time Stop Time Status Last Admin Dose Admin Acetaminophen (Tylenol) 650 mg EVERY 4 HOURS PRN ORAL fever/MNIAYA 05/16/20 03:15 06/15/20 03:14 Acetaminophen (Tylenol) 650 mg Q4H PRN ORAL Mild Pain (Pain Scale 1-3) 05/16/20 12:15 06/15/20 12:14 05/16/20 13:44 Acetaminophen (Tylenol) 650 mg Q4H PRN ORAL fever 05/16/20 12:15 06/15/20 12:14 Albuterol Sulfate (Proventil MDI) 2 puff Q4H PRN INH Shortness of Breath 05/16/20 14:00 08/14/20 13:59 05/19/20 01:01 Amlodipine Besylate (Norvasc) 5 mg DAILY ORAL 05/16/20 09:00 06/15/20 08:59 05/22/20 09:10 Clonidine HCl (Catapres Tab) 0.1 mg Q4H PRN ORAL For High Blood Pressure 05/16/20 14:45 08/14/20 14:44 05/20/20 23:36 Dextrose (Dextrose 50%) 25 ml Q30M PRN IV Hypoglycemia 05/16/20 12:15 08/14/20 12:14 Dextrose (Dextrose 50%) 50 ml Q30M PRN IV Hypoglycemia 05/16/20 12:15 08/14/20 12:14 Enoxaparin Sodium (Lovenox) 40 mg BID SUBQ 05/16/20 10:00 08/14/20 09:59 05/22/20 09:13 Famotidine (Pepcid I.v.) 20 mg DAILY IVP 05/17/20 09:00 06/16/20 08:59 05/22/20 09:08 Insulin Aspart (NovoLOG) BEFORE MEALS AND HS SUBQ 05/16/20 16:30 08/14/20 16:29 05/22/20 05:51 Insulin Detemir (Levemir) 20 units BEDTIME SUBQ 05/20/20 21:00 08/16/20 20:59 05/20/20 20:41 Insulin Detemir (Levemir) 22 units DAILY SUBQ 05/20/20 09:00 08/16/20 08:59 05/22/20 09:12 Methylprednisolone Sodium Succinate (Solu-MEDROL) 40 mg EVERY 12 HOURS IVP 05/20/20 11:00 08/18/20 10:59 05/22/20 09:08 Ondansetron HCl (Zofran) 4 mg Q6H PRN IVP Nausea & Vomiting 05/21/20 12:30 06/20/20 12:29 Sodium Chloride 1,000 ml @ 75 mls/hr [id number] IVLG 05/21/20 04:00 06/20/20 03:59 05/22/20 05:52 Assessment/Plan Assessment/Plan Impression: Pneumonia due to COVID-19 virus Hypoxic Respiratory Failure Hypertension Diabetes Septic shock Pulmonary infiltrates Plan: -Dexamethasone -O2 at 100% and on BIPAP -IV ABx per ID -albuterol PRN -Monitor labs -DVT prophylaxis -escalate care as needed to ICU if needed -remains at risk for deterioration and intubation impression, plan, and exam edited and reviewed in detail care discussed with Rahul Dunn MD May 22, 2020 11:37
[2020-05-22 12:00] VITALS: BP 161/93
--- NOTE | 2020-05-22 14:24 | NUR ---
CASE MANAGEMENT:REVIEW 05/22/20 SI: COVID PNEUMONIA. RESPIRATORY FAILURE 97.7 97 25 161/93 92% ON BIPAP W/100% FIO2 WBC+19.3 BUN+28 IS: IV SOLUMEDROL Q12 IVF@75/HR IV PEPCID QD LEVEMIR SQ QHS LOVENOX SQ BID NORVASC PO QD : TELEMETRY STATUS DCP: FROM HOME PLAN: COMPLETED REMDESIVIR WEAN OXYGEN IF ABLE
--- NOTE | 2020-05-22 14:46 | General Progress Note ---
Subjective ROS Limited/Unobtainable: No Constitutional: Reports: malaise, weakness HEENT: Reports: no symptoms Cardiovascular: Reports: no symptoms Respiratory: Reports: cough Gastrointestinal/Abdominal: Reports: no symptoms Genitourinary: Reports: no symptoms Neurologic/Psychiatric: Reports: no symptoms Endocrine: Reports: no symptoms Hematologic/Lymphatic: Reports: anemia Allergies: Coded Allergies: No Known Allergies (Unverified , 05/15/20) All Systems: reviewed and negative except above Subjective no change. remains on bipap. unable to wean. tolerating small meals. no vomiting Objective Last 24 Hour Vital Signs Date Time Temp Pulse Resp B/P (MAP) Pulse Ox O2 Delivery O2 Flow Rate FiO2 05/22/20 12:35 161/93 05/22/20 12:00 100 05/22/20 12:00 97.7 97 25 161/93 (115) 92 05/22/20 11:35 85 05/22/20 09:10 84 164/85 05/22/20 09:00 Bi-pap 05/22/20 08:00 100 05/22/20 08:00 96.8 84 24 164/85 (111) 92 05/22/20 08:00 87 05/22/20 04:00 100 05/22/20 04:00 76 05/22/20 04:00 97.8 86 25 158/82 (107) 93 05/22/20 03:25 98 33 92 100 05/22/20 00:00 86 05/22/20 00:00 97.5 86 25 141/82 (101) 94 05/21/20 23:30 78 38 94 100 05/21/20 21:00 Bi-pap 05/21/20 20:00 97.5 84 27 133/73 (93) 94 05/21/20 20:00 83 05/21/20 19:30 86 32 97 100 05/21/20 16:00 97.6 85 25 143/82 (102) 94 05/21/20 16:00 80 Intake and Output 05/21/20 05/22/20 19:00 07:00 Intake Total 1200 ml 1000 ml Output Total 500 ml 200 ml Balance 700 ml 800 ml Intake Oral 300 ml 100 ml IV Total 900 ml 900 ml Output Urine Total 500 ml 200 ml # Voids 2 Laboratory Tests 05/22/20 04:20: White Blood Count 19.3H, Red Blood Count 5.09, Hemoglobin 14.5, Hematocrit 43.1, Mean Corpuscular Volume 85, Mean Corpuscular Hemoglobin 28.5, Mean Corpuscular Hemoglobin Concent 33.6, Red Cell Distribution Width 12.0, Platelet Count 187, Mean Platelet Volume 6.6, Neutrophils (%) (Auto) , Lymphocytes (%) (Auto) , Monocytes (%) (Auto) , Eosinophils (%) (Auto) , Basophils (%) (Auto) , Differential Total Cells Counted 100, Neutrophils % (Manual) 93H, Lymphocytes % (Manual) 3L, Monocytes % (Manual) 4, Eosinophils % (Manual) 0, Basophils % (Manual) 0, Band Neutrophils 0, Platelet Estimate Adequate, Platelet Morphology Normal, Red Blood Cell Morphology Normal, Sodium Level 140, Potassium Level 3.9, Chloride Level 104, Carbon Dioxide Level 28, Anion Gap 8, Blood Urea Nitrogen 28H, Creatinine 0.9, Estimat Glomerular Filtration Rate > 60, Glucose Level 251H , Calcium Level 8.7, Total Bilirubin 0.5, Aspartate Amino Transf (AST/SGOT) 18, Alanine Aminotransferase (ALT/SGPT) 18, Alkaline Phosphatase 99, Total Protein 5.7L, Albumin 1.9L, Globulin 3.8, Albumin/Globulin Ratio 0.5L Height (Feet): 5 Height (Inches): 9.00 Weight (Pounds): 220 Objective deferred Assessment/Plan Status: stable, not improved Assessment/Plan: bipap wean as able remdesivir and steroids zofran for nausea monitor labs Job Mensah MD May 22, 2020 14:46
[2020-05-22 16:00] VITALS: BP 156/86
--- NOTE | 2020-05-22 16:45 | Surgery Progress Note ---
Surgery Progress Note Subjective Additional Comments no acute events Objective Last 24 Hour Vital Signs Date Time Temp Pulse Resp B/P (MAP) Pulse Ox O2 Delivery O2 Flow Rate FiO2 05/22/20 16:00 97.9 96 24 156/86 (109) 91 05/22/20 12:35 161/93 05/22/20 12:00 100 05/22/20 12:00 97.7 97 25 161/93 (115) 92 05/22/20 11:35 85 05/22/20 11:05 97 36 94 100 05/22/20 09:10 84 164/85 05/22/20 09:00 Bi-pap 05/22/20 08:00 100 05/22/20 08:00 96.8 84 24 164/85 (111) 92 05/22/20 08:00 87 05/22/20 06:40 96 34 92 100 05/22/20 04:00 100 05/22/20 04:00 76 05/22/20 04:00 97.8 86 25 158/82 (107) 93 05/22/20 03:25 98 33 92 100 05/22/20 00:00 86 05/22/20 00:00 97.5 86 25 141/82 (101) 94 05/21/20 23:30 78 38 94 100 05/21/20 21:00 Bi-pap 05/21/20 20:00 97.5 84 27 133/73 (93) 94 05/21/20 20:00 83 05/21/20 19:30 86 32 97 100 I&O Intake and Output 05/21/20 05/22/20 19:00 07:00 Intake Total 1200 ml 1000 ml Output Total 500 ml 200 ml Balance 700 ml 800 ml Intake Oral 300 ml 100 ml IV Total 900 ml 900 ml Output Urine Total 500 ml 200 ml # Voids 2 Dressing: saturated Cardiovascular: RSR Respiratory: decreased breath sounds Abdomen: soft, non-tender, present bowel sounds Extremities: no tenderness, no cyanosis Laboratory Tests Test 05/22/20 04:20 White Blood Count 19.3 K/UL (4.8-10.8) H Red Blood Count 5.09 M/UL (4.70-6.10) Hemoglobin 14.5 G/DL (14.2-18.0) Hematocrit 43.1 % (42.0-52.0) Mean Corpuscular Volume 85 FL (80-99) Mean Corpuscular Hemoglobin 28.5 PG (27.0-31.0) Mean Corpuscular Hemoglobin Concent 33.6 G/DL (32.0-36.0) Red Cell Distribution Width 12.0 % (11.6-14.8) Platelet Count 187 K/UL (150-450) Mean Platelet Volume 6.6 FL (6.5-10.1) Neutrophils (%) (Auto) % (45.0-75.0) Lymphocytes (%) (Auto) % (20.0-45.0) Monocytes (%) (Auto) % (1.0-10.0) Eosinophils (%) (Auto) % (0.0-3.0) Basophils (%) (Auto) % (0.0-2.0) Differential Total Cells Counted 100 Neutrophils % (Manual) 93 % (45-75) H Lymphocytes % (Manual) 3 % (20-45) L Monocytes % (Manual) 4 % (1-10) Eosinophils % (Manual) 0 % (0-3) Basophils % (Manual) 0 % (0-2) Band Neutrophils 0 % (0-8) Platelet Estimate Adequate Platelet Morphology Normal Red Blood Cell Morphology Normal Sodium Level 140 MMOL/L (136-145) Potassium Level 3.9 MMOL/L (3.5-5.1) Chloride Level 104 MMOL/L (98-107) Carbon Dioxide Level 28 MMOL/L (21-32) Anion Gap 8 mmol/L (5-15) Blood Urea Nitrogen 28 mg/dL (7-18) H Creatinine 0.9 MG/DL (0.55-1.30) Estimat Glomerular Filtration Rate > 60 mL/min (>60) Glucose Level 251 MG/DL (74-106) H Calcium Level 8.7 MG/DL (8.5-10.1) Total Bilirubin 0.5 MG/DL (0.2-1.0) Aspartate Amino Transf (AST/SGOT) 18 U/L (15-37) Alanine Aminotransferase (ALT/SGPT) 18 U/L (12-78) Alkaline Phosphatase 99 U/L (46-116) Total Protein 5.7 G/DL (6.4-8.2) L Albumin 1.9 G/DL (3.4-5.0) L Globulin 3.8 g/dL Albumin/Globulin Ratio 0.5 (1.0-2.7) L Plan Problems: (1) Septic shock Assessment & Plan: 80-year-old male Covid positive respiratory deficiency presented to [facility] for evaluation shortness of breath admitted care and manage identified to have leukocytosis lactic acidosis and shock. Resuscitation initiated. Full examination performed no acute infectious process noted inflammatory process likely related to respiratory. Continue with IV fluids. Hold on central line insertion. Labs noted imaging reviewed. Patient otherwise now stable under appropriate care plan. Continue with medications and antibiotics as ordered. Continue with IV fluid resuscitation. Trend labs. Will follow with recommendations. Thank you for let me participate patient's care Multifocal airspace consolidations, consistent with severe multifocal infiltrate. Findings and increased when compared to May 16, 2020. Follow-up chest radiograph recommended. Small left effusion is suspected. No pneumothorax. Stable cardiomegaly. Calcified aorta. (2) Dyspnea (3) Respiratory distress (4) Pneumonia due to COVID-19 virus Assessment & Plan: ++ as per pulm and ID Gianni Guajardo May 22, 2020 16:45
--- NOTE | 2020-05-22 19:15 | NUR ---
NURSE NOTES: Received report from JADA bills. Patient awake in bed, afebrile and no respiratory distress noted. on Bipap 15/8 and saturating at 993-94%. with left hand and right hand 22g IV lines intact, patent and asymptomatic. With Fc to urine bag via gravity below bladder draining yellowish urine. HOB elevated. Call light within reach. Bed wheels are locked and side rails are up. Alarm is on and working. Continue plan of care
--- NOTE | 2020-05-22 19:23 | NUR ---
NURSE HAND-OFF REPORT: Important Events on Shift:[] Patient Status: [FULL CODE] Diet: [CCHO medium, low sodium] Pending Orders: [] Pending Results/Labs:[] Pending MD notification:[] Latest Vital Signs: Temperature 97.9 , Pulse 86 , B/P 156 /86 , Respiratory Rate 24 , O2 SAT 91 , Non-Rebreather, O2 Flow Rate 15.0 . Vital Sign Comment: [] EKG Rhythm: SR,BBB Rhythm change?: N Notified?: N -Dr. Travon MEJIA Response: Latest Gregg Fall Score: 45 Fall Risk: High Risk Safety Measures: Call light Within Reach, Bed Alarm Zone 2, Side Rails Side Rails x2, Bed position Low and Locked. Fall Precautions: Yellow Socks Yellow Gown Door Sign Patient Fall Education Report given to [Alycia ELIAS].
[2020-05-22 20:00] VITALS: BP 164/80
[2020-05-23] VITALS: BP 152/64
--- NOTE | 2020-05-23 01:30 | NUR ---
NURSE NOTES: Pt asleep in bed. HOB elevated. Pt saturating 98% on Bipap. PT tolerated well. Gown and linen were changed as requested. Pt went back to sleep.
[2020-05-23 04:00] VITALS: BP 170/100
[2020-05-23] MEDS: NovoLOG Insulin Flexpen SUBQ SCH ×4 (06:02→20:43)
--- NOTE | 2020-05-23 07:10 | NUR ---
NURSE HAND-OFF REPORT: Important Events on Shift: stable oxygenation Patient Status: stable Diet: ccho medium Pending Orders: n Pending Results/Labs:n Pending notification:n Latest Vital Signs: Temperature 97.9 , Pulse 80 , B/P 170 /100 , Respiratory Rate 21 , O2 SAT 98 , Non-Rebreather, O2 Flow Rate 15.0 . Vital Sign Comment: n EKG Rhythm: SR,BBB Rhythm change?: N MD Notified?: N -Dr. Travon MEJIA Response: Latest Gregg Fall Score: 45 Fall Risk: High Risk Safety Measures: Call light Within Reach, Bed Alarm Zone 2, Side Rails Side Rails x2, Bed position Low and Locked. Fall Precautions: Yellow Socks Yellow Gown Door Sign Patient Fall Education Report given to JADA Mccallum. Pt stable in bed. pt saturating 96-97%
[2020-05-23 08:00] VITALS: BP 161/77
--- NOTE | 2020-05-23 08:00 | NUR ---
NURSE NOTES: Pt awake/alert in bed, breathing comfortably on BIPAP, denies pain at this time. Vital signs stable with SR @ 77 on monitor. IV access LW with NS @ 75 ml/hr. Condom cath in place. Pt asking for oral care due to severe mouth dryness. Bed left in low position, side rails up x 2 and call light left near pt's hand.
[2020-05-23] MEDS: Levemir Flexpen SUBQ SCH ×2 (09:00→20:43)
[2020-05-23] MEDS: Solu-MEDROL 40mg Inj IVP SCH ×2 (09:00→20:42)
[2020-05-23] MEDS: Enoxaparin 40mg Inj SUBQ SCH ×2 (09:00→18:00)
--- NOTE | 2020-05-23 11:49 | Surgery Progress Note ---
Surgery Progress Note Subjective Additional Comments no acute events labs noted exam stable dressings going well respiratory unchanged Objective Last 24 Hour Vital Signs Date Time Temp Pulse Resp B/P (MAP) Pulse Ox O2 Delivery O2 Flow Rate FiO2 05/23/20 09:00 78 161/77 05/23/20 08:00 97.5 77 30 161/77 (105) 92 05/23/20 08:00 100 05/23/20 08:00 78 05/23/20 08:00 Bi-pap 05/23/20 04:00 97.9 80 21 170/100 (123) 98 05/23/20 04:00 Bi-pap 05/23/20 04:00 100 05/23/20 03:53 86 05/23/20 03:48 170/100 05/23/20 01:15 66 21 96 100 05/23/20 00:00 Bi-pap 05/23/20 00:00 97.6 79 21 152/64 (93) 96 05/23/20 00:00 78 05/22/20 21:00 Bi-pap 05/22/20 20:40 164/80 05/22/20 20:00 97.5 80 21 164/80 (108) 96 05/22/20 20:00 100 05/22/20 20:00 Bi-pap 05/22/20 19:28 77 05/22/20 19:10 72 26 98 100 05/22/20 16:00 100 05/22/20 16:00 86 05/22/20 16:00 97.9 96 24 156/86 (109) 91 05/22/20 15:12 84 31 93 100 05/22/20 12:35 161/93 05/22/20 12:00 100 05/22/20 12:00 97.7 97 25 161/93 (115) 92 I&O Intake and Output 05/22/20 05/23/20 19:00 07:00 Intake Total 925 ml 1075 ml Output Total 400 ml 200 ml Balance 525 ml 875 ml Intake Oral 400 ml 250 ml IV Total 525 ml 825 ml Output Urine Total 400 ml 200 ml # Voids 1 2 # Bowel Movements 1 Dressing: saturated Cardiovascular: RSR Respiratory: decreased breath sounds Abdomen: non-tender, present bowel sounds, non-distended Extremities: no tenderness, no cyanosis Laboratory Tests Test 05/22/20 20:45 05/23/20 05:55 POC Whole Blood Glucose 181 MG/DL (74-106) H 209 MG/DL (74-106) H Plan Problems: (1) Septic shock Assessment & Plan: 80-year-old male Covid positive respiratory deficiency pres ented to [facility] for evaluation shortness of breath admitted care and manage identified to have leukocytosis lactic acidosis and shock. Resuscitation initiated. Full examination performed no acute infectious process noted inflammatory process likely related to respiratory. Continue with IV fluids. Hold on central line insertion. Labs noted imaging reviewed. Patient otherwise now stable under appropriate care plan. Continue with medications and antibiotics as ordered. Continue with IV fluid resuscitation. Trend labs. Will follow with recommendations. Thank you for let me participate patient's care Multifocal airspace consolidations, consistent with severe multifocal infiltrate. Findings and increased when compared to May 16, 2020. Follow-up chest radiograph recommended. Small left effusion is suspected. No pneumothorax. Stable cardiomegaly. Calcified aorta. (2) Dyspnea (3) Respiratory distress (4) Pneumonia due to COVID-19 virus Assessment & Plan: ++ as per pulm and Gianni Pal May 23, 2020 11:49
[2020-05-23 12:00] VITALS: BP 152/81
--- NOTE | 2020-05-23 14:19 | Infectious Diseases Prog Note ---
Assessment/Plan Assessment/Plan A 1. COVID19 pneumonia 2. diabetes mellitus 3. hypertension 4. Hypoxemia 5. Leukocytosis P 1. Finished remdesivir course 2. continue Solumedrol tapering 3. continue isolation Subjective ROS Limited/Unobtainable: Yes Constitutional: Denies: fever Allergies: Coded Allergies: No Known Allergies (Unverified , 05/15/20) Objective Last 24 Hour Vital Signs Date Time Temp Pulse Resp B/P (MAP) Pulse Ox O2 Delivery O2 Flow Rate FiO2 05/23/20 12:00 94 05/23/20 12:00 100 05/23/20 12:00 97.5 86 26 152/81 (104) 90 05/23/20 12:00 Bi-pap 05/23/20 09:00 78 161/77 05/23/20 08:00 97.5 77 30 161/77 (105) 92 05/23/20 08:00 100 05/23/20 08:00 78 05/23/20 08:00 Bi-pap 05/23/20 04:00 97.9 80 21 170/100 (123) 98 05/23/20 04:00 Bi-pap 05/23/20 04:00 100 05/23/20 03:53 86 05/23/20 03:48 170/100 05/23/20 01:15 66 21 96 100 05/23/20 00:00 Bi-pap 05/23/20 00:00 97.6 79 21 152/64 (93) 96 05/23/20 00:00 78 05/22/20 21:00 Bi-pap 05/22/20 20:40 164/80 05/22/20 20:00 97.5 80 21 164/80 (108) 96 05/22/20 20:00 100 05/22/20 20:00 Bi-pap 05/22/20 19:28 77 05/22/20 19:10 72 26 98 100 05/22/20 16:00 100 05/22/20 16:00 86 05/22/20 16:00 97.9 96 24 156/86 (109) 91 05/22/20 15:12 84 31 93 100 Height (Feet): 5 Height (Inches): 9.00 Weight (Pounds): 220 HEENT: mucous membranes moist Respiratory/Chest: other - on BIPAP, [id number]=099% Cardiovascular: normal rate Abdomen: soft, non tender Neurologic/Psychiatric: other - sleeping Laboratory Tests Test 05/22/20 20:45 05/23/20 05:55 POC Whole Blood Glucose 181 MG/DL (74-106) H 209 MG/DL (74-106) H Current Medications Medications (Trade) Dose Ordered Sig/Baldo Route PRN Reason Start Time Stop Time Status Last Admin Dose Admin Acetaminophen (Tylenol) 650 mg EVERY 4 HOURS PRN ORAL fever/MINAYA 05/16/20 03:15 06/15/20 03:14 Acetaminophen (Tylenol) 650 mg Q4H PRN ORAL Mild Pain (Pain Scale 1-3) 05/16/20 12:15 06/15/20 12:14 05/16/20 13:44 Acetaminophen (Tylenol) 650 mg Q4H PRN ORAL fever 05/16/20 12:15 06/15/20 12:14 Albuterol Sulfate (Proventil MDI) 2 puff Q4H PRN INH Shortness of Breath 05/16/20 14:00 08/14/20 13:59 05/19/20 01:01 Amlodipine Besylate (Norvasc) 5 mg DAILY ORAL 05/16/20 09:00 06/15/20 08:59 05/23/20 09:00 Clonidine HCl (Catapres Tab) 0.1 mg Q4H PRN ORAL For High Blood Pressure 05/16/20 14:45 08/14/20 14:44 05/23/20 03:48 Dextrose (Dextrose 50%) 25 ml Q30M PRN IV Hypoglycemia 05/16/20 12:15 08/14/20 12:14 Dextrose (Dextrose 50%) 50 ml Q30M PRN IV Hypoglycemia 05/16/20 12:15 08/14/20 12:14 Enoxaparin Sodium (Lovenox) 40 mg BID SUBQ 05/16/20 10:00 08/14/20 09:59 05/23/20 09:00 Famotidine (Pepcid I.v.) 20 mg DAILY IVP 05/17/20 09:00 06/16/20 08:59 05/23/20 09:00 Insulin Aspart (NovoLOG) BEFORE MEALS AND HS SUBQ 05/16/20 16:30 08/14/20 16:29 05/23/20 06:02 Insulin Detemir (Levemir) 20 units BEDTIME SUBQ 05/20/20 21:00 08/16/20 20:59 05/22/20 21:02 Insulin Detemir (Levemir) 22 units DAILY SUBQ 05/20/20 09:00 08/16/20 08:59 05/23/20 09:00 Methylprednisolone Sodium Succinate (Solu-MEDROL) 40 mg EVERY 12 HOURS IVP 05/20/20 11:00 08/18/20 10:59 05/23/20 09:00 Ondansetron HCl (Zofran) 4 mg Q6H PRN IVP Nausea & Vomiting 05/21/20 12:30 06/20/20 12:29 Sodium Chloride 1,000 ml @ 75 mls/hr [id number] IVLG 05/21/20 04:00 06/20/20 03:59 05/23/20 08:03 Jamie Sullivan MD May 23, 2020 14:19
--- NOTE | 2020-05-23 14:34 | General Progress Note ---
Subjective ROS Limited/Unobtainable: No Constitutional: Reports: malaise, weakness HEENT: Reports: no symptoms Cardiovascular: Reports: no symptoms Respiratory: Reports: shortness of breath Gastrointestinal/Abdominal: Reports: no symptoms Genitourinary: Reports: no symptoms Neurologic/Psychiatric: Reports: no symptoms Endocrine: Reports: no symptoms Hematologic/Lymphatic: Reports: no symptoms Allergies: Coded Allergies: No Known Allergies (Unverified , 05/15/20) All Systems: reviewed and negative except above Subjective no change. remains on bipap. unable to wean. tolerating small meals. no vomiting Objective Last 24 Hour Vital Signs Date Time Temp Pulse Resp B/P (MAP) Pulse Ox O2 Delivery O2 Flow Rate FiO2 05/23/20 12:00 94 05/23/20 12:00 100 05/23/20 12:00 97.5 86 26 152/81 (104) 90 05/23/20 12:00 Bi-pap 05/23/20 09:00 78 161/77 05/23/20 08:00 97.5 77 30 161/77 (105) 92 05/23/20 08:00 100 05/23/20 08:00 78 05/23/20 08:00 Bi-pap 05/23/20 04:00 97.9 80 21 170/100 (123) 98 05/23/20 04:00 Bi-pap 05/23/20 04:00 100 05/23/20 03:53 86 05/23/20 03:48 170/100 05/23/20 01:15 66 21 96 100 05/23/20 00:00 Bi-pap 05/23/20 00:00 97.6 79 21 152/64 (93) 96 05/23/20 00:00 78 05/22/20 21:00 Bi-pap 05/22/20 20:40 164/80 05/22/20 20:00 97.5 80 21 164/80 (108) 96 05/22/20 20:00 100 05/22/20 20:00 Bi-pap 05/22/20 19:28 77 05/22/20 19:10 72 26 98 100 05/22/20 16:00 100 05/22/20 16:00 86 05/22/20 16:00 97.9 96 24 156/86 (109) 91 1/15/21 15:12 84 31 93 100 Intake and Output 05/22/20 05/23/20 19:00 07:00 Intake Total 925 ml 1075 ml Output Total 400 ml 200 ml Balance 525 ml 875 ml Intake Oral 400 ml 250 ml IV Total 525 ml 825 ml Output Urine Total 400 ml 200 ml # Voids 1 2 # Bowel Movements 1 Laboratory Tests 05/22/20 20:45: POC Whole Blood Glucose 181H 05/23/20 05:55: POC Whole Blood Glucose 209H Height (Feet): 5 Height (Inches): 9.00 Weight (Pounds): 220 Objective deferred Assessment/Plan Status: stable, not improved Assessment/Plan: bipap wean as able remdesivir and steroids zofran for nausea monitor labs Job Mensah MD May 23, 2020 14:34
--- NOTE | 2020-05-23 15:34 | Pulmonology Progress Note ---
Subjective ROS Limited/Unobtainable: No Allergies: Coded Allergies: No Known Allergies (Unverified , 05/15/20) All Systems: reviewed and negative except above Subjective care noted awake and resting in bed on BIPAP on 100% not improved Objective Last 24 Hour Vital Signs Date Time Temp Pulse Resp B/P (MAP) Pulse Ox O2 Delivery O2 Flow Rate FiO2 05/23/20 12:00 94 05/23/20 12:00 100 05/23/20 12:00 97.5 86 26 152/81 (104) 90 05/23/20 12:00 Bi-pap 05/23/20 09:00 78 161/77 05/23/20 08:00 97.5 77 30 161/77 (105) 92 05/23/20 08:00 100 05/23/20 08:00 78 05/23/20 08:00 Bi-pap 05/23/20 07:16 79 34 94 100 05/23/20 04:00 97.9 80 21 170/100 (123) 98 05/23/20 04:00 Bi-pap 05/23/20 04:00 100 05/23/20 03:53 86 05/23/20 03:48 170/100 05/23/20 01:15 66 21 96 100 05/23/20 00:00 Bi-pap 05/23/20 00:00 97.6 79 21 152/64 (93) 96 05/23/20 00:00 78 05/22/20 21:00 Bi-pap 05/22/20 20:40 164/80 05/22/20 20:00 97.5 80 21 164/80 (108) 96 05/22/20 20:00 100 05/22/20 20:00 Bi-pap 05/22/20 19:28 77 05/22/20 19:10 72 26 98 100 05/22/20 16:00 100 05/22/20 16:00 86 05/22/20 16:00 97.9 96 24 156/86 (109) 91 Intake and Output 05/22/20 05/23/20 19:00 07:00 Intake Total 925 ml 1075 ml Output Total 400 ml 200 ml Balance 525 ml 875 ml Intake Oral 400 ml 250 ml IV Total 525 ml 825 ml Output Urine Total 400 ml 200 ml # Voids 1 2 # Bowel Movements 1 Objective deferred due to COVID Laboratory Tests 05/22/20 20:45: POC Whole Blood Glucose 181H 05/23/20 05:55: POC Whole Blood Glucose 209H Current Medications Medications (Trade) Dose Ordered Sig/Baldo Route PRN Reason Start Time Stop Time Status Last Admin Dose Admin Acetaminophen (Tylenol) 650 mg EVERY 4 HOURS PRN ORAL fever/MINAYA 05/16/20 03:15 06/15/20 03:14 Acetaminophen (Tylenol) 650 mg Q4H PRN ORAL Mild Pain (Pain Scale 1-3) 05/16/20 12:15 06/15/20 12:14 05/16/20 13:44 Acetaminophen (Tylenol) 650 mg Q4H PRN ORAL fever 05/16/20 12:15 06/15/20 12:14 Albuterol Sulfate (Proventil MDI) 2 puff Q4H PRN INH Shortness of Breath 05/16/20 14:00 08/14/20 13:59 05/19/20 01:01 Amlodipine Besylate (Norvasc) 5 mg DAILY ORAL 05/16/20 09:00 06/15/20 08:59 05/23/20 09:00 Clonidine HCl (Catapres Tab) 0.1 mg Q4H PRN ORAL For High Blood Pressure 05/16/20 14:45 08/14/20 14:44 05/23/20 03:48 Dextrose (Dextrose 50%) 25 ml Q30M PRN IV Hypoglycemia 05/16/20 12:15 08/14/20 12:14 Dextrose (Dextrose 50%) 50 ml Q30M PRN IV Hypoglycemia 05/16/20 12:15 08/14/20 12:14 Enoxaparin Sodium (Lovenox) 40 mg BID SUBQ 05/16/20 10:00 08/14/20 09:59 05/23/20 09:00 Famotidine (Pepcid I.v.) 20 mg DAILY IVP 05/17/20 09:00 06/16/20 08:59 05/23/20 09:00 Insulin Aspart (NovoLOG) BEFORE MEALS AND HS SUBQ 05/16/20 16:30 08/14/20 16:29 05/23/20 06:02 Insulin Detemir (Levemir) 20 units BEDTIME SUBQ 1/13/21 21:00 08/16/20 20:59 05/22/20 21:02 Insulin Detemir (Levemir) 22 units DAILY SUBQ 05/20/20 09:00 08/16/20 08:59 05/23/20 09:00 Methylprednisolone Sodium Succinate (Solu-MEDROL) 40 mg EVERY 12 HOURS IVP 05/20/20 11:00 08/18/20 10:59 05/23/20 09:00 Ondansetron HCl (Zofran) 4 mg Q6H PRN IVP Nausea & Vomiting 05/21/20 12:30 06/20/20 12:29 Sodium Chloride 1,000 ml @ 75 mls/hr [id number] IVLG 05/21/20 04:00 06/20/20 03:59 05/23/20 08:03 Assessment/Plan Assessment/Plan Impression: Pneumonia due to COVID-19 virus Hypoxic Respiratory Failure Hypertension Diabetes Septic shock Pulmonary infiltrates Plan: -Dexamethasone -O2 at 100% and on BIPAP -IV ABx currently off ??? need for coverage -albuterol PRN -Monitor labs -DVT prophylaxis; obtain venous US -escalate care as needed to ICU if needed -remains at risk for deterioration and intubation - repeat CXR and ABG impression, plan, and exam edited and reviewed in detail care discussed with Rahul Dunn MD May 23, 2020 15:34
[2020-05-23 16:00] VITALS: BP 144/88
--- NOTE | 2020-05-23 16:14 | Diagnostic Imaging Report ---
History: DVT Exam: US VENOUS BILATERAL LOWER EXTREMITIES Comparison: FINDINGS: The deep venous system of the right and left lower extremity appear patent and compressible with spontaneous flow without intraluminal echoes. IMPRESSION: No evidence of DVT within the right or left lower extremity.
--- NOTE | 2020-05-23 19:49 | NUR ---
NURSE NOTES: Received report from JADA Mccallum. Pt is A/O x3 and verbally responsive. Pt shows no signs of pain noted. Pt is on Bipap 15/8 with Fio 100% with saturation of 97%. Pt has IV on LW 22G with NS @ 75 ml which is patent. Pt has a condom cath in place which is draining well. Pt asking for oral care due to severe mouth dryness. Will do as much as possible as patient tolerates. Bed left in low position, side rails up x 2 and bed alarm on. Placed call light within in reach. Will continue plan of care.
[2020-05-23 20:00] VITALS: BP 151/80
--- NOTE | 2020-05-23 23:00 | NUR ---
NURSE NOTES: Pt requested oral care which was completed and pt tolerated well. PM care was also done and linens and gown were changed. Will continue to monitor.
[2020-05-24] VITALS: BP 142/84
--- NOTE | 2020-05-24 02:00 | NUR ---
NURSE NOTES: Oral care completed again and pt tolerated well.
[2020-05-24 04:00] VITALS: BP 146/85
--- NOTE | 2020-05-24 05:25 | NUR ---
NURSE NOTES: Contacted Dr. Robles regarding pt keeps desaturating and changing the setting from 15/8 to 15/10 with Fio still at 100%. Dr Robles agreed but additionally ordered ABG and CXR for the pt. Which were carried out and RT was informed.
[2020-05-24] MEDS: NovoLOG Insulin Flexpen SUBQ SCH ×4 (05:49→20:32)
--- NOTE | 2020-05-24 06:52 | NUR ---
NURSE HAND-OFF REPORT: Important Events on Shift: Continues to want Oral Care. Bipap settings changed from 20/12 to 19/02. CXR and ABg ordered. Patient Status: Stable Diet: Cardiac Pending Orders: Pending Results/Labs: Pending MD notification: Latest Vital Signs: Temperature 97.9 , Pulse 68 , B/P 146 /85 , Respiratory Rate 22 , O2 SAT 93 , Non-Rebreather, O2 Flow Rate 15.0 . Vital Sign Comment: EKG Rhythm: SR,BBB Rhythm change?: N MD Notified?: N -Dr. Travon MEJIA Response: Latest Gregg Fall Score: 45 Fall Risk: High Risk Safety Measures: Call light Within Reach, Bed Alarm Zone 2, Side Rails Side Rails x2, Bed position Low and Locked. Fall Precautions: Yellow Socks Yellow Gown Door Sign Patient Fall Education Report given to
[2020-05-24 07:29] LABS: HEMATOCRIT 43.3 % (42.0-52.0); HEMOGLOBIN 14.3 G/DL (14.2-18.0); MEAN CORPUSCULAR VOLUME 85 FL (80-99); PLATELET COUNT 151 K/UL (150-450); RED BLOOD COUNT 5.11 M/UL (4.70-6.10); WHITE BLOOD COUNT 18.2 K/UL (4.8-10.8)
[2020-05-24 07:56] LABS: ALANINE AMINOTRANSFERASE 13 U/L (12-78); ALBUMIN 1.9 G/DL (3.4-5.0); ALBUMIN/GLOBULIN RATIO 0.5 (1.0-2.7); ALKALINE PHOSPHATASE 108 U/L (46-116); ANION GAP 8 mmol/L (5-15); ASPARTATE AMINO TRANSFERASE 25 U/L (15-37); BILIRUBIN,TOTAL 0.4 MG/DL (0.2-1.0); BLOOD UREA NITROGEN 22 mg/dL (7-18); CALCIUM 8.5 MG/DL (8.5-10.1); CARBON DIOXIDE 27 MMOL/L (21-32); CHLORIDE 107 MMOL/L (98-107); CREATININE 0.7 MG/DL (0.55-1.30); POTASSIUM 3.7 MMOL/L (3.5-5.1); SODIUM 142 MMOL/L (136-145)
[2020-05-24 08:00] VITALS: BP 181/86
[2020-05-24] MEDS: Solu-MEDROL 40mg Inj IVP SCH ×2 (08:30→20:16)
[2020-05-24] MEDS: Enoxaparin 40mg Inj SUBQ SCH ×2 (08:30→17:05)
[2020-05-24] MEDS: Levemir Flexpen SUBQ SCH ×2 (08:47→20:32)
--- NOTE | 2020-05-24 09:25 | General Progress Note ---
Subjective ROS Limited/Unobtainable: No Constitutional: Reports: malaise, weakness HEENT: Reports: no symptoms Cardiovascular: Reports: irregular heart rate Respiratory: Reports: shortness of breath Gastrointestinal/Abdominal: Reports: no symptoms Genitourinary: Reports: no symptoms Neurologic/Psychiatric: Reports: no symptoms Endocrine: Reports: no symptoms Hematologic/Lymphatic: Reports: no symptoms Allergies: Coded Allergies: No Known Allergies (Unverified , 05/15/20) All Systems: reviewed and negative except above Subjective svt/afib last might. improved currently- hr low 100s. remains on bipap. unable to wean. tolerating small meals. no vomiting Objective Last 24 Hour Vital Signs Date Time Temp Pulse Resp B/P (MAP) Pulse Ox O2 Delivery O2 Flow Rate FiO2 05/24/20 09:06 181/87 05/24/20 08:31 68 146/85 05/24/20 08:00 97.7 88 25 181/86 (117) 98 05/24/20 08:00 100 05/24/20 08:00 Bi-pap 05/24/20 04:00 68 05/24/20 04:00 100 05/24/20 04:00 97.9 84 22 146/85 (105) 93 05/24/20 04:00 Bi-pap 05/24/20 03:00 68 25 98 100 05/24/20 00:00 97.8 86 22 142/84 (103) 94 05/24/20 00:00 Bi-pap 05/24/20 00:00 67 05/24/20 00:00 100 05/23/20 23:00 79 25 93 100 05/23/20 20:00 100 05/23/20 20:00 97.9 82 24 151/80 (103) 92 05/23/20 20:00 Bi-pap 05/23/20 20:00 74 05/23/20 19:00 93 31 95 100 05/23/20 16:00 86 05/23/20 16:00 97.9 87 24 144/88 (106) 92 05/23/20 16:00 100 05/23/20 16:00 Bi-pap 05/23/20 15:32 88 34 90 100 05/23/20 12:00 94 05/23/20 12:00 100 05/23/20 12:00 97.5 86 26 152/81 (104) 90 05/23/20 12:00 Bi-pap 05/23/20 11:15 79 34 94 100 05/23/20 11:15 94 33 90 100 Intake and Output 05/23/20 05/24/20 19:00 07:00 Intake Total 315 ml 450 ml Output Total 500 ml 500 ml Balance -185 ml -50 ml Intake Oral 240 ml IV Total 75 ml 450 ml Output Urine Total 500 ml 500 ml Laboratory Tests 05/23/20 20:33: POC Whole Blood Glucose 211H 05/24/20 04:48: White Blood Count 18.2H, Red Blood Count 5.11, Hemoglobin 14.3, Hematocrit 43.3, Mean Corpuscular Volume 85, Mean Corpuscular Hemoglobin 27.9, Mean Corpuscular Hemoglobin Concent 32.9, Red Cell Distribution Width 12.0, Platelet Count 151, Mean Platelet Volume 6.8, Neutrophils (%) (Auto) , Lymphocytes (%) (Auto) , Monocytes (%) (Auto) , Eosinophils (%) (Auto) , Basophils (%) (Auto) , Differential Total Cells Counted 100, Neutrophils % (Manual) 95H, Lymphocytes % (Manual) 1L, Monocytes % (Manual) 4, Eosinophils % (Manual) 0, Basophils % (Manual) 0, Band Neutrophils 0, Platelet Estimate Adequate, Platelet Morphology Normal, Red Blood Cell Morphology Normal, Sodium Level 142, Potassium Level 3.7, Chloride Level 107, Carbon Dioxide Level 27, Anion Gap 8, Blood Urea Nitrogen 22H, Creatinine 0.7, Estimat Glomerular Filtration Rate > 60, Glucose Level 78, Calcium Level 8.5, Total Bilirubin 0.4, Aspartate Amino Transf (AST/SGOT) 25, Alanine Aminotransferase (ALT/SGPT) 13, Alkaline Phosphatase 108, Total Protein 5.7L, Albumin 1.9L, Globulin 3.8, Albumin/Globulin Ratio 0.5L 05/24/20 05:28: POC Whole Blood Glucose 135H 05/24/20 07:02: Arterial Blood pH 7.482H, Arterial Blood Partial Pressure CO2 40.4, Arterial Blood Partial Pressure O2 47.2*L, Arterial Blood HCO3 29.5H, Arterial Blood Oxygen Saturation 84.5*L, Arterial Blood Base Excess 5.6H, Jose Test Positive 05/24/20 08:42: POC Whole Blood Glucose 110H Height (Feet): 5 Height (Inches): 9.00 Weight (Pounds): 220 Objective deferred Assessment/Plan Status: stable, not improved Assessment/Plan: bipap wean as able remdesivir and steroids zofran for nausea monitor labs Job Mensah MD May 24, 2020 09:25
--- NOTE | 2020-05-24 10:29 | Diagnostic Imaging Report ---
EXAM: XR Chest, 1 View CLINICAL HISTORY: SOB TECHNIQUE: Frontal view of the chest. COMPARISON: Chest radiograph on 05/21/2020 FINDINGS: Hardware: None. Lungs/pleura: Slightly increased opacities in right greater than left lungs. Possible small left pleural effusion. Heart/mediastinum: Stable enlargement of the cardiac silhouette. Soft tissues: Unremarkable. Bones: No acute fracture. Degenerative changes of the spine. Upper abdomen: Normal. IMPRESSION: Slightly increased opacities in right greater than left lungs. Possible small left pleural effusion.
[2020-05-24 12:00] VITALS: BP 145/79
--- NOTE | 2020-05-24 13:33 | Pulmonology Progress Note ---
Subjective ROS Limited/Unobtainable: Yes Allergies: Coded Allergies: No Known Allergies (Unverified , 05/15/20) All Systems: reviewed and negative except above Subjective care noted awake and resting in bed on BIPAP on 100% not improved Objective Last 24 Hour Vital Signs Date Time Temp Pulse Resp B/P (MAP) Pulse Ox O2 Delivery O2 Flow Rate FiO2 05/24/20 12:00 96.9 98 28 145/79 (101) 92 05/24/20 12:00 97 05/24/20 12:00 Bi-pap 05/24/20 12:00 100 05/24/20 11:00 102 32 92 100 05/24/20 09:06 181/87 05/24/20 08:31 68 146/85 05/24/20 08:00 97.7 88 25 181/86 (117) 98 05/24/20 08:00 90 05/24/20 08:00 100 05/24/20 08:00 Bi-pap 05/24/20 07:00 102 32 88 100 05/24/20 04:00 68 05/24/20 04:00 100 05/24/20 04:00 97.9 84 22 146/85 (105) 93 05/24/20 04:00 Bi-pap 05/24/20 03:00 68 25 98 100 05/24/20 00:00 97.8 86 22 142/84 (103) 94 05/24/20 00:00 Bi-pap 05/24/20 00:00 67 05/24/20 00:00 100 05/23/20 23:00 79 25 93 100 05/23/20 20:00 100 05/23/20 20:00 97.9 82 24 151/80 (103) 92 05/23/20 20:00 Bi-pap 05/23/20 20:00 74 05/23/20 19:00 93 31 95 100 05/23/20 16:00 86 05/23/20 16:00 97.9 87 24 144/88 (106) 92 05/23/20 16:00 100 05/23/20 16:00 Bi-pap 05/23/20 15:32 88 34 90 100 Intake and Output 05/23/20 05/24/20 19:00 07:00 Intake Total 315 ml 450 ml Output Total 500 ml 500 ml Balance -185 ml -50 ml Intake Oral 240 ml IV Total 75 ml 450 ml Output Urine Total 500 ml 500 ml Objective deferred due to COVID Laboratory Tests 05/23/20 20:33: POC Whole Blood Glucose 211H 05/24/20 04:48: White Blood Count 18.2H, Red Blood Count 5.11, Hemoglobin 14.3, Hematocrit 43.3, Mean Corpuscular Volume 85, Mean Corpuscular Hemoglobin 27.9, Mean Corpuscular Hemoglobin Concent 32.9, Red Cell Distribution Width 12.0, Platelet Count 151, Mean Platelet Volume 6.8, Neutrophils (%) (Auto) , Lymphocytes (%) (Auto) , Monocytes (%) (Auto) , Eosinophils (%) (Auto) , Basophils (%) (Auto) , Differential Total Cells Counted 100, Neutrophils % (Manual) 95H, Lymphocytes % (Manual) 1L, Monocytes % (Manual) 4, Eosinophils % (Manual) 0, Basophils % (Manual) 0, Band Neutrophils 0, Platelet Estimate Adequate, Platelet Morphology Normal, Red Blood Cell Morphology Normal, Sodium Level 142, Potassium Level 3.7, Chloride Level 107, Carbon Dioxide Level 27, Anion Gap 8, Blood Urea Nitrogen 22H, Creatinine 0.7, Estimat Glomerular Filtration Rate > 60, Glucose Level 78, Calcium Level 8.5, Total Bilirubin 0.4, Aspartate Amino Transf (AST/SGOT) 25, Alanine Aminotransferase (ALT/SGPT) 13, Alkaline Phosphatase 108, Total Protein 5.7L, Albumin 1.9L, Globulin 3.8, Albumin/Globulin Ratio 0.5L 05/24/20 05:28: POC Whole Blood Glucose 135H 05/24/20 07:02: Arterial Blood pH 7.482H, Arterial Blood Partial Pressure CO2 40.4, Arterial Blood Partial Pressure O2 47.2*L, Arterial Blood HCO3 29.5H, Arterial Blood Oxygen Saturation 84.5*L, Arterial Blood Base Excess 5.6H, Jose Test Positive 05/24/20 08:42: POC Whole Blood Glucose 110H 05/24/20 11:17: POC Whole Blood Glucose 129H 05/24/20 11:35: Arterial Blood pH 7.451H, Arterial Blood Partial Pressure CO2 42.3, Arterial Blood Partial Pressure O2 58.7L, Arterial Blood HCO3 28.8H, Arterial Blood Oxygen Saturation 90.4L, Arterial Blood Base Excess 4.3H, Jose Test Positive Current Medications Medications (Trade) Dose Ordered Sig/Baldo Route PRN Reason Start Time Stop Time Status Last Admin Dose Admin Acetaminophen (Tylenol) 650 mg EVERY 4 HOURS PRN ORAL fever/MINAYA 05/16/20 03:15 06/15/20 03:14 Acetaminophen (Tylenol) 650 mg Q4H PRN ORAL Mild Pain (Pain Scale 1-3) 05/16/20 12:15 06/15/20 12:14 05/16/20 13:44 Acetaminophen (Tylenol) 650 mg Q4H PRN ORAL fever 05/16/20 12:15 06/15/20 12:14 Albuterol Sulfate (Proventil MDI) 2 puff Q4H PRN INH Shortness of Breath 05/16/20 14:00 08/14/20 13:59 05/19/20 01:01 Amlodipine Besylate (Norvasc) 5 mg DAILY ORAL 05/16/20 09:00 06/15/20 08:59 05/24/20 08:31 Clonidine HCl (Catapres Tab) 0.1 mg Q4H PRN ORAL For High Blood Pressure 05/16/20 14:45 08/14/20 14:44 05/24/20 09:06 Dextrose (Dextrose 50%) 25 ml Q30M PRN IV Hypoglycemia 05/16/20 12:15 08/14/20 12:14 Dextrose (Dextrose 50%) 50 ml Q30M PRN IV Hypoglycemia 05/16/20 12:15 08/14/20 12:14 Enoxaparin Sodium (Lovenox) 40 mg BID SUBQ 05/16/20 10:00 08/14/20 09:59 05/24/20 08:30 Famotidine (Pepcid I.v.) 20 mg DAILY IVP 05/17/20 09:00 06/16/20 08:59 05/24/20 08:30 Insulin Aspart (NovoLOG) BEFORE MEALS AND HS SUBQ 05/16/20 16:30 08/14/20 16:29 05/23/20 20:43 Insulin Detemir (Levemir) 20 units BEDTIME SUBQ 05/20/20 21:00 08/16/20 20:59 05/23/20 20:43 Insulin Detemir (Levemir) 22 units DAILY SUBQ 05/20/20 09:00 08/16/20 08:59 05/24/20 08:47 Methylprednisolone Sodium Succinate (Solu-MEDROL) 40 mg EVERY 12 HOURS IVP 05/20/20 11:00 08/18/20 10:59 05/24/20 08:30 Ondansetron HCl (Zofran) 4 mg Q6H PRN IVP Nausea & Vomiting 05/21/20 12:30 06/20/20 12:29 05/24/20 09:06 Sodium Chloride 1,000 ml @ 75 mls/hr [id number] IVLG 05/21/20 04:00 06/20/20 03:59 05/24/20 11:14 Assessment/Plan Assessment/Plan Impression: Pneumonia due to COVID-19 virus Hypoxic Respiratory Failure Hypertension Diabetes Septic shock Pulmonary infiltrates Plan: -Dexamethasone -O2 at 100% and on BIPAP -IV ABx currently off ??? need for coverage -albuterol PRN -Monitor labs -DVT prophylaxis; obtain venous US -escalate care as needed to ICU if needed -remains at risk for deterioration and intubation and may need ICU - repeat CXR and ABG impression, plan, and exam edited and reviewed in detail care discussed with Rahul Dunn MD May 24, 2020 13:33
--- NOTE | 2020-05-24 13:44 | Surgery Progress Note ---
Surgery Progress Note Subjective Additional Comments no acute events Objective Last 24 Hour Vital Signs Date Time Temp Pulse Resp B/P (MAP) Pulse Ox O2 Delivery O2 Flow Rate FiO2 05/24/20 12:00 96.9 98 28 145/79 (101) 92 05/24/20 12:00 97 05/24/20 12:00 Bi-pap 05/24/20 12:00 100 05/24/20 11:00 102 32 92 100 05/24/20 09:06 181/87 05/24/20 08:31 68 146/85 05/24/20 08:00 97.7 88 25 181/86 (117) 98 05/24/20 08:00 90 05/24/20 08:00 100 05/24/20 08:00 Bi-pap 05/24/20 07:00 102 32 88 100 05/24/20 04:00 68 05/24/20 04:00 100 05/24/20 04:00 97.9 84 22 146/85 (105) 93 05/24/20 04:00 Bi-pap 05/24/20 03:00 68 25 98 100 05/24/20 00:00 97.8 86 22 142/84 (103) 94 05/24/20 00:00 Bi-pap 05/24/20 00:00 67 05/24/20 00:00 100 05/23/20 23:00 79 25 93 100 05/23/20 20:00 100 05/23/20 20:00 97.9 82 24 151/80 (103) 92 05/23/20 20:00 Bi-pap 05/23/20 20:00 74 05/23/20 19:00 93 31 95 100 05/23/20 16:00 86 05/23/20 16:00 97.9 87 24 144/88 (106) 92 05/23/20 16:00 100 05/23/20 16:00 Bi-pap 05/23/20 15:32 88 34 90 100 I&O Intake and Output 05/23/20 05/24/20 19:00 07:00 Intake Total 315 ml 450 ml Output Total 500 ml 500 ml Balance -185 ml -50 ml Intake Oral 240 ml IV Total 75 ml 450 ml Output Urine Total 500 ml 500 ml Dressing: saturated Cardiovascular: RSR Respiratory: decreased breath sounds Abdomen: soft, non-tender, present bowel sounds Extremities: no tenderness, no cyanosis Laboratory Tests Test 05/23/20 20:33 05/24/20 04:48 05/24/20 05:28 05/24/20 07:02 POC Whole Blood Glucose 211 MG/DL (74-106) H 135 MG/DL (74-106) H White Blood Count 18.2 K/UL (4.8-10.8) H Red Blood Count 5.11 M/UL (4.70-6.10) Hemoglobin 14.3 G/DL (14.2-18.0) Hematocrit 43.3 % (42.0-52.0) Mean Corpuscular Volume 85 FL (80-99) Mean Corpuscular Hemoglobin 27.9 PG (27.0-31.0) Mean Corpuscular Hemoglobin Concent 32.9 G/DL (32.0-36.0) Red Cell Distribution Width 12.0 % (11.6-14.8) Platelet Count 151 K/UL (150-450) Mean Platelet Volume 6.8 FL (6.5-10.1) Neutrophils (%) (Auto) % (45.0-75.0) Lymphocytes (%) (Auto) % (20.0-45.0) Monocytes (%) (Auto) % (1.0-10.0) Eosinophils (%) (Auto) % (0.0-3.0) Basophils (%) (Auto) % (0.0-2.0) Differential Total Cells Counted 100 Neutrophils % (Manual) 95 % (45-75) H Lymphocytes % (Manual) 1 % (20-45) L Monocytes % (Manual) 4 % (1-10) Eosinophils % (Manual) 0 % (0-3) Basophils % (Manual) 0 % (0-2) Band Neutrophils 0 % (0-8) Platelet Estimate Adequate Platelet Morphology Normal Red Blood Cell Morphology Normal Sodium Level 142 MMOL/L (136-145) Potassium Level 3.7 MMOL/L (3.5-5.1) Chloride Level 107 MMOL/L (98-107) Carbon Dioxide Level 27 MMOL/L (21-32) Anion Gap 8 mmol/L (5-15) Blood Urea Nitrogen 22 mg/dL (7-18) H Creatinine 0.7 MG/DL (0.55-1.30) Estimat Glomerular Filtration Rate > 60 mL/min (>60) Glucose Level 78 MG/DL (74-106) Calcium Level 8.5 MG/DL (8.5-10.1) Total Bilirubin 0.4 MG/DL (0.2-1.0) Aspartate Amino Transf (AST/SGOT) 25 U/L (15-37) Alanine Aminotransferase (ALT/SGPT) 13 U/L (12-78) Alkaline Phosphatase 108 U/L (46-116) Total Protein 5.7 G/DL (6.4-8.2) L Albumin 1.9 G/DL (3.4-5.0) L Globulin 3.8 g/dL Albumin/Globulin Ratio 0.5 (1.0-2.7) L Arterial Blood pH 7.482 (7.350-7.450) Arterial Blood Partial Pressure CO2 40.4 mmHg (35.0-45.0) Arterial Blood Partial Pressure O2 47.2 mmHg (75.0-100.0) Arterial Blood HCO3 29.5 mmol/L (22.0-26.0) H Arterial Blood Oxygen Saturation 84.5 % (95-100) *L Arterial Blood Base Excess 5.6 (-2-2) H Jose Test Positive Test 05/24/20 08:42 05/24/20 11:17 05/24/20 11:35 POC Whole Blood Glucose 110 MG/DL (74-106) H 129 MG/DL (74-106) H Arterial Blood pH 7.451 (7.350-7.450) Arterial Blood Partial Pressure CO2 42.3 mmHg (35.0-45.0) Arterial Blood Partial Pressure O2 58.7 mmHg (75.0-100.0) L Arterial Blood HCO3 28.8 mmol/L (22.0-26.0) H Arterial Blood Oxygen Saturation 90.4 % (95-100) L Arterial Blood Base Excess 4.3 (-2-2) H Jose Test Positive Plan Problems: (1) Septic shock Assessment & Plan: 80-year-old male Covid positive respiratory deficiency presented to [facility] for evaluation shortness of breath admitted care and manage identified to have leukocytosis lactic acidosis and shock. Resuscitation initiated. Full examination performed no acute infectious process noted inflammatory process likely related to respiratory. Continue with IV fluids. Hold on central line insertion. Labs noted imaging reviewed. Patient otherwise now stable under appropriate care plan. Continue with medications and antibiotics as ordered. Continue with IV fluid resuscitation. Trend labs. Will follow with recommendations. Thank you for let me participate patient's c are Multifocal airspace consolidations, consistent with severe multifocal infiltrate. Findings and increased when compared to May 16, 2020. Follow-up chest radiograph recommended. Small left effusion is suspected. No pneumothorax. Stable cardiomegaly. Calcified aorta. (2) Dyspnea (3) Respiratory distress (4) Pneumonia due to COVID-19 virus Assessment & Plan: ++ as per pulm and ID Gianni Guajardo May 24, 2020 13:44
[2020-05-24 16:00] VITALS: BP 158/67
--- NOTE | 2020-05-24 19:12 | NUR ---
NURSE HAND-OFF REPORT: Important Events on Shift:stable Patient Status: full code Diet: ccho sec Pending Orders: [] Pending Results/Labs:[] Pending MD notification:[] Latest Vital Signs: Temperature 96.8 , Pulse 70 , B/P 158 /67 , Respiratory Rate 24 , O2 SAT 93 , Non-Rebreather, O2 Flow Rate 15.0 . Vital Sign Comment: stable EKG Rhythm: SR,BBB Rhythm change?: N MD Notified?: N -Dr. Travon MEJIA Response: Latest Gregg Fall Score: 45 Fall Risk: High Risk Safety Measures: Call light Within Reach, Bed Alarm Zone 2, Side Rails Side Rails x2, Bed position Low and Locked. Fall Precautions: Yellow Socks Yellow Gown Door Sign Patient Fall Education Report given to tiara schultz. Addendum: 05/24/20 at 1916 by YADIRA AGUILAR RN disregard note above
--- NOTE | 2020-05-24 19:17 | NUR ---
NURSE HAND-OFF REPORT: Important Events on Shift:stabel Patient Status: full code Diet: ccho sec Pending Orders: [] Pending Results/Labs:[] Pending MD notification:[] Latest Vital Signs: Temperature 96.8 , Pulse 70 , B/P 158 /67 , Respiratory Rate 24 , O2 SAT 93 , Non-Rebreather, O2 Flow Rate 15.0 . Vital Sign Comment: [] EKG Rhythm: SR,BBB Rhythm change?: N MD Notified?: N -Dr. Travon MEJIA Response: Latest Gregg Fall Score: 45 Fall Risk: High Risk Safety Measures: Call light Within Reach, Bed Alarm Zone 2, Side Rails Side Rails x2, Bed position Low and Locked. Fall Precautions: Yellow Socks Yellow Gown Door Sign Patient Fall Education Report given to princess schultz.
--- NOTE | 2020-05-24 19:20 | NUR ---
NURSE NOTES: Received report from JADA Gandhi. Pt is alert oriented x 3, anxious. Pt is on BIPAP with 20/12 fio2 -100%, not in respiratory distress at this time. Oral care done. O2 sat- 93%. Pt is continent. With Right hand g22 running NS at 75ml/hr, patent and intact. Pt denies pain. Bed in lowest position, call light within reach. Continue to plan of care.
[2020-05-24 20:00] VITALS: BP 151/78
[2020-05-25] VITALS (7 sets, daily range): BP systolic 140–152; BP diastolic 68–83
--- NOTE | 2020-05-25 01:33 | NUR ---
NURSE NOTES: Sponge bath given, pt desat easily when turned and exerting effort. When at rest o2 sat- 93%. No bowel movement noted. No bowel distention noted. Bed in lowest position, call light within reach. Continue to plan of care.
[2020-05-25] MEDS: NovoLOG Insulin Flexpen SUBQ SCH ×4 (05:55→21:00)
--- NOTE | 2020-05-25 06:07 | NUR ---
NURSE NOTES: Pt sleeping in calm and comfortable manner, o2 sat- 94%. Will continue to monitor.
--- NOTE | 2020-05-25 06:36 | NUR ---
NURSE NOTES: Changed pt, 1x BM noted. large amount brown in color.
--- NOTE | 2020-05-25 07:15 | NUR ---
NURSE HAND-OFF REPORT: Important Events on Shift: pt is anxious, still on BIPAP o2 sat- 93%. ABG o2 sat- 90.4 Patient Status: Critical and guarded Diet: CCHO diet Pending Orders: None Pending Results/Labs: None Pending MD notification: None Latest Vital Signs: Temperature 98.1 , Pulse 97 , B/P 143 /72 , Respiratory Rate 16 , O2 SAT 91 , Non-Rebreather, O2 Flow Rate 15.0 . Vital Sign Comment: WNL EKG Rhythm: Sinus Rhythm Rhythm change?: N Notified?: N -Dr. Travon MEJIA Response: Latest Gregg Fall Score: 45 Fall Risk: High Risk Safety Measures: Call light Within Reach, Bed Alarm Zone 2, Side Rails Side Rails x2, Bed position Low and Locked. Fall Precautions: Yellow Socks Yellow Gown Door Sign Patient Fall Education Report given to [JADA Kapadia].
[2020-05-25] MEDS: Solu-MEDROL 40mg Inj IVP SCH ×2 (09:01→22:43)
[2020-05-25] MEDS: Enoxaparin 40mg Inj SUBQ SCH ×2 (09:02→17:28)
[2020-05-25] MEDS: Levemir Flexpen SUBQ SCH ×2 (09:10→21:00)
--- NOTE | 2020-05-25 09:32 | NUR ---
CASE MANAGEMENT:REVIEW 05/25/20 SI: COVID PNEUMONIA. RESPIRATORY FAILURE 97.9 21 142/83 92% ON BIPAP W/100% FIO2 WBC+18.2 BUN+22 IS: IV SOLUMEDROL Q12 IVF@75/HR IV PEPCID QD LEVEMIR SQ QHS LOVENOX SQ BID NORVASC PO QD : TELEMETRY STATUS DCP: FROM HOME PLAN: COMPLETED REMDESIVIR WEAN OXYGEN IF ABLE
--- NOTE | 2020-05-25 11:11 | Infectious Diseases Prog Note ---
Assessment/Plan Assessment/Plan antibiotics : none A 1. covid 19 pneumonia on 100 FiO2 with 92 % saturation 2. diabetes mellitus 3. hypertension P 1. continue solumedrol 2. continue isolation Subjective ROS Limited/Unobtainable: Yes Allergies: Coded Allergies: No Known Allergies (Unverified , 05/15/20) Objective Last 24 Hour Vital Signs Date Time Temp Pulse Resp B/P (MAP) Pulse Ox O2 Delivery O2 Flow Rate FiO2 05/25/20 09:01 97 143/72 05/25/20 08:00 97.9 21 142/83 (102) 92 05/25/20 08:00 Bi-pap 05/25/20 07:55 100 05/25/20 07:28 102 05/25/20 07:15 97 33 92 100 05/25/20 04:00 98.1 16 143/72 (95) 91 05/25/20 04:00 100 05/25/20 04:00 Bi-pap 05/25/20 04:00 97 05/25/20 03:00 92 33 91 100 05/25/20 01:32 97.7 24 140/75 (96) 91 05/25/20 00:00 99 05/25/20 00:00 100 05/25/20 00:00 98.1 98 22 151/78 (102) 93 05/25/20 00:00 Bi-pap 05/24/20 22:30 103 29 94 100 05/24/20 20:00 98.1 98 22 151/78 (102) 93 05/24/20 20:00 Bi-pap 05/24/20 20:00 100 05/24/20 20:00 101 05/24/20 19:00 96 32 93 100 05/24/20 16:01 70 05/24/20 16:00 96.8 96 24 158/67 (97) 93 05/24/20 16:00 Bi-pap 05/24/20 16:00 100 05/24/20 15:03 98 30 95 Bi-Pap 100 05/24/20 15:00 98 20 95 100 05/24/20 12:00 96.9 98 28 145/79 (101) 92 05/24/20 12:00 97 05/24/20 12:00 Bi-pap 05/24/20 12:00 100 Height (Feet): 5 Height (Inches): 9.00 Weight (Pounds): 220 HEENT: other - on bipap Laboratory Tests Test 05/24/20 11:17 05/24/20 11:35 05/24/20 17:14 05/25/20 09:08 POC Whole Blood Glucose 129 MG/DL (74-106) H Pending Pending Arterial Blood pH 7.451 (7.350-7.450) Arterial Blood Partial Pressure CO2 42.3 mmHg (35.0-45.0) Arterial Blood Partial Pressure O2 58.7 mmHg (75.0-100.0) L Arterial Blood HCO3 28.8 mmol/L (22.0-26.0) H Arterial Blood Oxygen Saturation 90.4 % (95-100) L Arterial Blood Base Excess 4.3 (-2-2) H Jose Test Positive Current Medications Medications (Trade) Dose Ordered Sig/Baldo Route PRN Reason Start Time Stop Time Status Last Admin Dose Admin Acetaminophen (Tylenol) 650 mg EVERY 4 HOURS PRN ORAL fever/MINAYA 05/16/20 03:15 06/15/20 03:14 05/24/20 22:08 Acetaminophen (Tylenol) 650 mg Q4H PRN ORAL Mild Pain (Pain Scale 1-3) 05/16/20 12:15 06/15/20 12:14 05/16/20 13:44 Acetaminophen (Tylenol) 650 mg Q4H PRN ORAL fever 05/16/20 12:15 06/15/20 12:14 Albuterol Sulfate (Proventil MDI) 2 puff Q4H PRN INH Shortness of Breath 05/16/20 14:00 08/14/20 13:59 05/19/20 01:01 Amlodipine Besylate (Norvasc) 5 mg DAILY ORAL 05/16/20 09:00 06/15/20 08:59 05/25/20 09:01 Clonidine HCl (Catapres Tab) 0.1 mg Q4H PRN ORAL For High Blood Pressure 05/16/20 14:45 08/14/20 14:44 05/24/20 09:06 Dextrose (Dextrose 50%) 25 ml Q30M PRN IV Hypoglycemia 05/16/20 12:15 08/14/20 12:14 Dextrose (Dextrose 50%) 50 ml Q30M PRN IV Hypoglycemia 05/16/20 12:15 08/14/20 12:14 Enoxaparin Sodium (Lovenox) 40 mg BID SUBQ 05/16/20 10:00 08/14/20 09:59 05/25/20 09:02 Famotidine (Pepcid I.v.) 20 mg DAILY IVP 05/17/20 09:00 06/16/20 08:59 05/25/20 09:03 Insulin Aspart (NovoLOG) BEFORE MEALS AND HS SUBQ 05/16/20 16:30 08/14/20 16:29 05/23/20 20:43 Insulin Detemir (Levemir) 20 units BEDTIME SUBQ 05/20/20 21:00 08/16/20 20:59 05/23/20 20:43 Insulin Detemir (Levemir) 22 units DAILY SUBQ 05/20/20 09:00 08/16/20 08:59 05/25/20 09:10 Methylprednisolone Sodium Succinate (Solu-MEDROL) 40 mg EVERY 12 HOURS IVP 05/20/20 11:00 08/18/20 10:59 05/25/20 09:01 Ondansetron HCl (Zofran) 4 mg Q6H PRN IVP Nausea & Vomiting 05/21/20 12:30 06/20/20 12:29 05/24/20 22:08 Sodium Chloride 1,000 ml @ 75 mls/hr [id number] IVLG 05/21/20 04:00 06/20/20 03:59 05/25/20 00:25 Ayaz Buckner MD May 25, 2020 11:11
--- NOTE | 2020-05-25 12:08 | Surgery Progress Note ---
Surgery Progress Note Subjective Additional Comments persistent leukocytosis cxr noted small effusion worsening infiltrates Objective Last 24 Hour Vital Signs Date Time Temp Pulse Resp B/P (MAP) Pulse Ox O2 Delivery O2 Flow Rate FiO2 05/25/20 11:48 96.2 28 152/74 (100) 91 05/25/20 09:01 97 143/72 05/25/20 08:00 97.9 21 142/83 (102) 92 05/25/20 08:00 Bi-pap 05/25/20 07:55 100 05/25/20 07:28 102 05/25/20 07:15 97 33 92 100 05/25/20 04:00 98.1 16 143/72 (95) 91 05/25/20 04:00 100 05/25/20 04:00 Bi-pap 05/25/20 04:00 97 05/25/20 03:00 92 33 91 100 05/25/20 01:32 97.7 24 140/75 (96) 91 05/25/20 00:00 99 05/25/20 00:00 100 05/25/20 00:00 98.1 98 22 151/78 (102) 93 05/25/20 00:00 Bi-pap 05/24/20 22:30 103 29 94 100 05/24/20 20:00 98.1 98 22 151/78 (102) 93 05/24/20 20:00 Bi-pap 05/24/20 20:00 100 05/24/20 20:00 101 05/24/20 19:00 96 32 93 100 05/24/20 16:01 70 05/24/20 16:00 96.8 96 24 158/67 (97) 93 05/24/20 16:00 Bi-pap 05/24/20 16:00 100 05/24/20 15:03 98 30 95 Bi-Pap 100 05/24/20 15:00 98 20 95 100 I&O Intake and Output 05/24/20 05/25/20 19:00 07:00 Intake Total 775 ml 1325 ml Balance 775 ml 1325 ml Intake Oral 250 ml 500 ml IV Total 525 ml 825 ml # Voids 5 3 # Bowel Movements 1 1 Dressing: saturated Cardiovascular: RSR Respiratory: decreased breath sounds Abdomen: soft, non-tender, present bowel sounds Extremities: no tenderness, no cyanosis Laboratory Tests Test 05/24/20 17:14 05/25/20 09:08 05/25/20 11:32 POC Whole Blood Glucose Pending Pending 163 MG/DL (74-106) H Plan Problems: (1) Septic shock Assessment & Plan: 80-year-old male Covid positive respiratory deficiency presented to [facility] for evaluation shortness of breath admitted care and manage identified to have leukocytosis lactic acidosis and shock. Resuscitation initiated. Full examination performed no acute infectious process noted inflammatory process likely related to respiratory. Continue with IV fluids. Hold on central line insertion. Labs noted imaging reviewed. Patient otherwise now stable under appropriate care plan. Continue with medications and antibiotics as ordered. Continue with IV fluid resuscitation. Trend labs. Will follow with recommendations. Thank you for let me participate patient's care Multifocal airspace consolidations, consistent with severe multifocal infiltrate. Findings and increased when compared to May 16, 2020. Follow-up chest radiograph recommended. Small left effusion is suspected. No pneumothorax. Stable cardiomegaly. Calcified aorta. (2) Dyspnea (3) Respiratory distress (4) Pneumonia due to COVID-19 virus Assessment & Plan: ++ as per pulm and ID Gianni Guajardo May 25, 2020 12:08
--- NOTE | 2020-05-25 14:10 | Pulmonology Progress Note ---
Subjective ROS Limited/Unobtainable: Yes Allergies: Coded Allergies: No Known Allergies (Unverified , 05/15/20) All Systems: reviewed and negative except above Subjective care noted awake and resting in bed on BIPAP on 100% not improved Objective Last 24 Hour Vital Signs Date Time Temp Pulse Resp B/P (MAP) Pulse Ox O2 Delivery O2 Flow Rate FiO2 05/25/20 12:00 Bi-pap 05/25/20 12:00 100 05/25/20 11:48 96.2 28 152/74 (100) 91 05/25/20 09:01 97 143/72 05/25/20 08:00 97.9 21 142/83 (102) 92 05/25/20 08:00 Bi-pap 05/25/20 07:55 100 05/25/20 07:28 102 05/25/20 07:15 97 33 92 100 05/25/20 04:00 98.1 16 143/72 (95) 91 05/25/20 04:00 100 05/25/20 04:00 Bi-pap 05/25/20 04:00 97 05/25/20 03:00 92 33 91 100 05/25/20 01:32 97.7 24 140/75 (96) 91 05/25/20 00:00 99 05/25/20 00:00 100 05/25/20 00:00 98.1 98 22 151/78 (102) 93 05/25/20 00:00 Bi-pap 05/24/20 22:30 103 29 94 100 05/24/20 20:00 98.1 98 22 151/78 (102) 93 05/24/20 20:00 Bi-pap 05/24/20 20:00 100 05/24/20 20:00 101 05/24/20 19:00 96 32 93 100 05/24/20 16:01 70 05/24/20 16:00 96.8 96 24 158/67 (97) 93 05/24/20 16:00 Bi-pap 05/24/20 16:00 100 05/24/20 15:03 98 30 95 Bi-Pap 100 05/24/20 15:00 98 20 95 100 Intake and Output 05/24/20 05/25/20 19:00 07:00 Intake Total 775 ml 1325 ml Balance 775 ml 1325 ml Intake Oral 250 ml 500 ml IV Total 525 ml 825 ml # Voids 5 3 # Bowel Movements 1 1 Objective deferred due to COVID Laboratory Tests 05/24/20 17:14: POC Whole Blood Glucose [Pending] 05/25/20 09:08: POC Whole Blood Glucose [Pending] 05/25/20 11:32: POC Whole Blood Glucose 163H Current Medications Medications (Trade) Dose Ordered Sig/Baldo Route PRN Reason Start Time Stop Time Status Last Admin Dose Admin Acetaminophen (Tylenol) 650 mg EVERY 4 HOURS PRN ORAL fever/MINAYA 05/16/20 03:15 06/15/20 03:14 05/24/20 22:08 Acetaminophen (Tylenol) 650 mg Q4H PRN ORAL Mild Pain (Pain Scale 1-3) 05/16/20 12:15 06/15/20 12:14 05/16/20 13:44 Acetaminophen (Tylenol) 650 mg Q4H PRN ORAL fever 05/16/20 12:15 06/15/20 12:14 Albuterol Sulfate (Proventil MDI) 2 puff Q4H PRN INH Shortness of Breath 05/16/20 14:00 08/14/20 13:59 05/19/20 01:01 Amlodipine Besylate (Norvasc) 5 mg DAILY ORAL 05/16/20 09:00 06/15/20 08:59 05/25/20 09:01 Clonidine HCl (Catapres Tab) 0.1 mg Q4H PRN ORAL For High Blood Pressure 05/16/20 14:45 08/14/20 14:44 05/24/20 09:06 Dextrose (Dextrose 50%) 25 ml Q30M PRN IV Hypoglycemia 05/16/20 12:15 08/14/20 12:14 Dextrose (Dextrose 50%) 50 ml Q30M PRN IV Hypoglycemia 05/16/20 12:15 08/14/20 12:14 Enoxaparin Sodium (Lovenox) 40 mg BID SUBQ 05/16/20 10:00 08/14/20 09:59 05/25/20 09:02 Famotidine (Pepcid I.v.) 20 mg DAILY IVP 05/17/20 09:00 06/16/20 08:59 05/25/20 09:03 Insulin Aspart (NovoLOG) BEFORE MEALS AND HS SUBQ 05/16/20 16:30 08/14/20 16:29 05/25/20 11:52 Insulin Detemir (Levemir) 20 units BEDTIME SUBQ 05/20/20 21:00 08/16/20 20:59 05/23/20 20:43 Insulin Detemir (Levemir) 22 units DAILY SUBQ 05/20/20 09:00 08/16/20 08:59 05/25/20 09:10 Methylprednisolone Sodium Succinate (Solu-MEDROL) 40 mg EVERY 12 HOURS IVP 05/20/20 11:00 08/18/20 10:59 05/25/20 09:01 Ondansetron HCl (Zofran) 4 mg Q6H PRN IVP Nausea & Vomiting 05/21/20 12:30 06/20/20 12:29 05/25/20 12:58 Sodium Chloride 1,000 ml @ 75 mls/hr [id number] IVLG 05/21/20 04:00 06/20/20 03:59 05/25/20 13:34 Assessment/Plan Assessment/Plan Impression: Pneumonia due to COVID-19 virus Hypoxic Respiratory Failure Hypertension Diabetes Septic shock Pulmonary infiltrates Plan: -Dexamethasone -O2 at 100% and on BIPAP -IV ABx currently off ??? need for coverage -albuterol PRN -Monitor labs -DVT prophylaxis; obtain venous US -escalate care as needed to ICU if needed -remains at risk for deterioration and intubation and may need ICU - repeat CXR and ABG impression, plan, and exam edited and reviewed in detail care discussed with Rahul Dunn MD May 25, 2020 14:10
--- NOTE | 2020-05-25 14:22 | General Progress Note ---
Subjective ROS Limited/Unobtainable: No Constitutional: Reports: malaise, weakness HEENT: Reports: no symptoms Cardiovascular: Reports: no symptoms Respiratory: Reports: cough, shortness of breath Gastrointestinal/Abdominal: Reports: no symptoms Genitourinary: Reports: no symptoms Neurologic/Psychiatric: Reports: no symptoms Endocrine: Reports: no symptoms Hematologic/Lymphatic: Reports: no symptoms Allergies: Coded Allergies: No Known Allergies (Unverified , 05/15/20) All Systems: reviewed and negative except above Subjective no events. stable on bipap. staff unable to wean. no svt. Objective Last 24 Hour Vital Signs Date Time Temp Pulse Resp B/P (MAP) Pulse Ox O2 Delivery O2 Flow Rate FiO2 05/25/20 14:11 89 34 94 100 05/25/20 12:00 Bi-pap 05/25/20 12:00 100 05/25/20 11:48 96.2 28 152/74 (100) 91 05/25/20 11:40 61 05/25/20 09:01 97 143/72 05/25/20 08:00 97.9 21 142/83 (102) 92 05/25/20 08:00 Bi-pap 05/25/20 07:55 100 05/25/20 07:28 102 05/25/20 07:15 97 33 92 100 05/25/20 04:00 98.1 16 143/72 (95) 91 05/25/20 04:00 100 05/25/20 04:00 Bi-pap 05/25/20 04:00 97 05/25/20 03:00 92 33 91 100 05/25/20 01:32 97.7 24 140/75 (96) 91 05/25/20 00:00 99 05/25/20 00:00 100 05/25/20 00:00 98.1 98 22 151/78 (102) 93 05/25/20 00:00 Bi-pap 05/24/20 22:30 103 29 94 100 05/24/20 20:00 98.1 98 22 151/78 (102) 93 05/24/20 20:00 Bi-pap 05/24/20 20:00 100 05/24/20 20:00 101 05/24/20 19:00 96 32 93 100 05/24/20 16:01 70 05/24/20 16:00 96.8 96 24 158/67 (97) 93 05/24/20 16:00 Bi-pap 05/24/20 16:00 100 05/24/20 15:03 98 30 95 Bi-Pap 100 05/24/20 15:00 98 20 95 100 Intake and Output 05/24/20 05/25/20 19:00 07:00 Intake Total 775 ml 1325 ml Balance 775 ml 1325 ml Intake Oral 250 ml 500 ml IV Total 525 ml 825 ml # Voids 5 3 # Bowel Movements 1 1 Laboratory Tests 05/24/20 17:14: POC Whole Blood Glucose [Pending] 05/25/20 09:08: POC Whole Blood Glucose [Pending] 05/25/20 11:32: POC Whole Blood Glucose 163H Height (Feet): 5 Height (Inches): 9.00 Weight (Pounds): 220 Objective deferred Assessment/Plan Status: stable, not improved Assessment/Plan: bipap wean as able remdesivir and steroids zofran for nausea monitor labs Job Mensah MD May 25, 2020 14:22
--- NOTE | 2020-05-25 19:30 | NUR ---
NURSE HAND-OFF REPORT: Important Events on Shift: Received report from Whitney Holland RN. Will continue to monitor closely. Will continue plan of care. Patient Status: FC Diet: CCHO SEC Pending Orders: NONE Pending Results/Labs: NONE Pending MD notification: NONE Latest Vital Signs: Temperature 98.1 , Pulse 95 , B/P 147 /80 , Respiratory Rate 24 , O2 SAT 90 , Non-Rebreather, O2 Flow Rate 15.0 . Vital Sign Comment: EKG Rhythm: SR Rhythm change?: N Notified?: N -Dr. Travon MEJIA Response: Latest Gregg Fall Score: 45 Fall Risk: High Risk Safety Measures: Call light Within Reach, Bed Alarm Zone 2, Side Rails Side Rails x2, Bed position Low and Locked. Fall Precautions: YES Yellow Socks Yellow Gown Door Sign Patient Fall Education
--- NOTE | 2020-05-25 19:31 | NUR ---
NURSE HAND-OFF REPORT: Important Events on Shift:stable Patient Status: full code Diet: tube feeds Pending Orders: [] Pending Results/Labs:[] Pending MD notification:[] Latest Vital Signs: Temperature 97.2 , Pulse 95 , B/P 147 /68 , Respiratory Rate 28 , O2 SAT 93 , Non-Rebreather, O2 Flow Rate 15.0 . Vital Sign Comment: stable EKG Rhythm: sr with BBB Rhythm change?: N MD Notified?: N -Dr. Travon MEJIA Response: Latest Gregg Fall Score: 45 Fall Risk: High Risk Safety Measures: Call light Within Reach, Bed Alarm Zone 2, Side Rails Side Rails x2, Bed position Low and Locked. Fall Precautions: Yellow Socks Yellow Gown Door Sign Patient Fall Education Report given to denae schultz.
[2020-05-26] VITALS (7 sets, daily range): BP systolic 147–169; BP diastolic 65–88
--- NOTE | 2020-05-26 01:11 | Cardiology Progress Note ---
Subjective DATE OF SERVICE: May 25, 2020 Remains on bipap due to hypoxia. CXR (05/24) bilateral infiltrates with sm left eff'n Insulin continues to be adjusted for high glucose Objective Last 24 Hour Vital Signs Date Time Temp Pulse Resp B/P (MAP) Pulse Ox O2 Delivery O2 Flow Rate FiO2 05/26/20 00:00 97.5 89 25 151/78 (102) 97 05/26/20 00:00 100 05/26/20 00:00 Bi-pap 05/25/20 23:05 91 32 92 100 05/25/20 20:00 97.5 82 25 149/71 (97) 96 05/25/20 20:00 102 05/25/20 20:00 100 05/25/20 20:00 Bi-pap 05/25/20 19:26 95 28 93 100 05/25/20 16:00 97.2 25 147/68 (94) 93 05/25/20 16:00 100 05/25/20 16:00 95 05/25/20 16:00 Bi-pap 05/25/20 14:11 89 34 94 100 05/25/20 12:00 Bi-pap 05/25/20 12:00 100 05/25/20 11:48 96.2 28 152/74 (100) 91 05/25/20 11:40 61 05/25/20 09:01 97 143/72 05/25/20 08:00 97.9 21 142/83 (102) 92 05/25/20 08:00 Bi-pap 05/25/20 07:55 100 05/25/20 07:28 102 05/25/20 07:15 97 33 92 100 05/25/20 04:00 98.1 16 143/72 (95) 91 05/25/20 04:00 100 05/25/20 04:00 Bi-pap 05/25/20 04:00 97 05/25/20 03:00 92 33 91 100 05/25/20 01:32 97.7 24 140/75 (96) 91 ROS: unchanged from 05/16/20 HEENT: normal ENT inspection RHYTHM: NSR LUNGS: bilat. rhonchi and rales CARDIAC: normal rate, regular rhythm, normal S1 and S2 ABDOMEN: normal bowel sounds, non tender, soft, other - obese EXTREMITIES: normal range of motion, no calf tenderness, No edema Laboratory Tests Test 05/25/20 09:08 05/25/20 11:32 05/25/20 16:09 05/25/20 22:23 POC Whole Blood Glucose Pending 163 MG/DL (74-106) H Pending 261 MG/DL (74-106) H Assessment/Plan Assessment/Plan Covid 19 PNA Hypoxia Steroid exacerbated diabetes mellitus Hypertension O2 Bipap support Lovenox anticoag IV steroids with taper Anti-viral rx completed. Long acting insulin advanced, with cont'd sliding scale cov'g Remains high risk for deterioration and intubation. Tomas Cool MD May 26, 2020 01:11
[2020-05-26] MEDS: NovoLOG Insulin Flexpen SUBQ SCH ×4 (06:26→21:00)
[2020-05-26 06:54] LABS: HEMATOCRIT 42.8 % (42.0-52.0); HEMOGLOBIN 13.8 G/DL (14.2-18.0); MEAN CORPUSCULAR VOLUME 86 FL (80-99); PLATELET COUNT 135 K/UL (150-450); RED BLOOD COUNT 4.95 M/UL (4.70-6.10); RED CELL DISTRIBUTION WIDTH 11.9 % (11.6-14.8); WHITE BLOOD COUNT 21.6 K/UL (4.8-10.8)
--- NOTE | 2020-05-26 06:55 | NUR ---
CASE MANAGEMENT:REVIEW 05/26/20 SI: COVID PNEUMONIA. RESPIRATORY FAILURE 98.1 87 30 147/80 97% ON BIPAP W/100% FIO2 LABS PENDING AT THIS TIME IS: IV SOLUMEDROL 40MG Q12 IVF@75/HR IV PEPCID QD LEVEMIR SQ QHS IV PEPCID QD SS INSULIN AC+HS LOVENOX SQ BID NORVASC PO QD : TELEMETRY STATUS DCP: FROM HOME PLAN: COMPLETED REMDESIVIR WEAN OXYGEN TOLERATED TAPER STEROIDS
[2020-05-26 07:52] LABS: ALANINE AMINOTRANSFERASE 19 U/L (12-78); ALBUMIN 1.8 G/DL (3.4-5.0); ALBUMIN/GLOBULIN RATIO 0.5 (1.0-2.7); ALKALINE PHOSPHATASE 115 U/L (46-116); ANION GAP 7 mmol/L (5-15); ASPARTATE AMINO TRANSFERASE 22 U/L (15-37); BILIRUBIN,TOTAL 0.7 MG/DL (0.2-1.0); BLOOD UREA NITROGEN 26 mg/dL (7-18); CARBON DIOXIDE 29 MMOL/L (21-32); CHLORIDE 102 MMOL/L (98-107); CREATININE 0.8 MG/DL (0.55-1.30); POTASSIUM 4.3 MMOL/L (3.5-5.1); SODIUM 138 MMOL/L (136-145)
--- NOTE | 2020-05-26 08:01 | NUR ---
NURSE HAND-OFF REPORT: Important Events on Shift: [place] made aware of increased pain in R arm with IV infiltrattion, new tender lump noted on R bicep. Increase in upper ABD pain. Patient Status: FC Diet: ccho SEC Pending Orders: none Pending Results/Labs: none Pending MD notification: none Latest Vital Signs: Temperature 98.1 , Pulse 95 , B/P 147 /80 , Respiratory Rate 24 , O2 SAT 90 , Non-Rebreather, O2 Flow Rate 15.0 . Vital Sign Comment: EKG Rhythm: SR Rhythm change?: N Notified?: N -Dr. Travon MEJIA Response: Latest Gregg Fall Score: 45 Fall Risk: High Risk Safety Measures: Call light Within Reach, Bed Alarm Zone 2, Side Rails Side Rails x2, Bed position Low and Locked. Fall Precautions: YES Yellow Socks Yellow Gown Door Sign Patient Fall Education Report given to Kang Pimentel RN.
--- NOTE | 2020-05-26 08:04 | NUR ---
NURSE NOTES: Received pt from JADA Burnham, pt is awake and alert and anxious, Dr Cool is aware waiting to call back. pt has Bipap 20/12 fio2 100%, Pt is on continues heart monitoring. pt has intact iv access LH 22G is running well. All needs attended, bed is locked and is in the lowest position, call light within easy reach. will continue to monitor.
--- NOTE | 2020-05-26 08:20 | Surgery Progress Note ---
Surgery Progress Note Subjective Additional Comments leukocytosis on steroids bipap abg ordered pending cxr ? trach Objective Last 24 Hour Vital Signs Date Time Temp Pulse Resp B/P (MAP) Pulse Ox O2 Delivery O2 Flow Rate FiO2 05/26/20 07:51 95 24 90 100 05/26/20 04:00 98.1 87 25 147/80 (102) 97 05/26/20 04:00 100 05/26/20 04:00 91 05/26/20 04:00 Bi-pap 05/26/20 03:05 94 30 94 100 05/26/20 00:00 97.5 89 25 151/78 (102) 97 05/26/20 00:00 100 05/26/20 00:00 86 05/26/20 00:00 Bi-pap 05/25/20 23:05 91 32 92 100 05/25/20 20:00 97.5 82 25 149/71 (97) 96 05/25/20 20:00 102 05/25/20 20:00 100 05/25/20 20:00 Bi-pap 05/25/20 19:26 95 28 93 100 05/25/20 16:00 97.2 25 147/68 (94) 93 05/25/20 16:00 100 05/25/20 16:00 95 05/25/20 16:00 Bi-pap 05/25/20 14:11 89 34 94 100 05/25/20 12:00 Bi-pap 05/25/20 12:00 100 05/25/20 11:48 96.2 28 152/74 (100) 91 05/25/20 11:40 61 05/25/20 09:01 97 143/72 I&O Intake and Output 05/25/20 05/26/20 19:00 07:00 Intake Total 375 ml 450 ml Balance 375 ml 450 ml Intake Oral 300 ml 450 ml IV Total 75 ml # Voids 3 3 Dressing: saturated Cardiovascular: RSR Respiratory: decreased breath sounds Abdomen: soft, non-tender, present bowel sounds, non-distended Extremities: no edema, no tenderness, no cyanosis Laboratory Tests Test 05/25/20 09:08 05/25/20 11:32 05/25/20 16:09 05/25/20 22:23 POC Whole Blood Glucose Pending 163 MG/DL (74-106) H Pending 261 MG/DL (74-106) H Test 05/26/20 05:08 05/26/20 06:06 White Blood Count 21.6 K/UL (4.8-10.8) H Red Blood Count 4.95 M/UL (4.70-6.10) Hemoglobin 13.8 G/DL (14.2-18.0) L Hematocrit 42.8 % (42.0-52.0) Mean Corpuscular Volume 86 FL (80-99) Mean Corpuscular Hemoglobin 27.8 PG (27.0-31.0) Mean Corpuscular Hemoglobin Concent 32.2 G/DL (32.0-36.0) Red Cell Distribution Width 11.9 % (11.6-14.8) Platelet Count 135 K/UL (150-450) L Mean Platelet Volume 6.8 FL (6.5-10.1) Neutrophils (%) (Auto) % (45.0-75.0) Lymphocytes (%) (Auto) % (20.0-45.0) Monocytes (%) (Auto) % (1.0-10.0) Eosinophils (%) (Auto) % (0.0-3.0) Basophils (%) (Auto) % (0.0-2.0) Neutrophils % (Manual) Pending Lymphocytes % (Manual) Pending Platelet Estimate Pending Platelet Morphology Pending Sodium Level Pending Potassium Level Pending Chloride Level Pending Carbon Dioxide Level Pending Blood Urea Nitrogen Pending Creatinine Pending Estimat Glomerular Filtration Rate Pending Glucose Level Pending Calcium Level Pending Total Bilirubin Pending Aspartate Amino Transf (AST/SGOT) Pending Alanine Aminotransferase (ALT/SGPT) Pending Alkaline Phosphatase Pending Total Protein Pending Albumin Pending Globulin Pending POC Whole Blood Glucose 327 MG/DL (74-106) H Plan Problems: (1) Septic shock Assessment & Plan: 80-year-old male Covid positive respiratory deficiency presented to [facility] for evaluation shortness of breath admitted care and manage identified to have leukocytosis lactic acidosis and shock. Resuscitation initiated. Full examination performed no acute infectious process noted inflammatory process likely related to respiratory. Continue with IV fluids. Hold on central line insertion. Labs noted imaging reviewed. Patient otherwise now stable under appropriate care plan. Continue with medications and antibiotics as ordered. Continue with IV fluid resuscitation. Trend labs. Will follow with recommendations. Thank you for let me participate patient's care on support not able to wean may need intubation may need trach? Multifocal airspace consolidations, consistent with severe multifocal infiltrate. Findings and increased when compared to May 16, 2020. Follow-up chest radiograph recommended. Small left effusion is suspected. No pneumothorax. Stable cardiomegaly. Calcified aorta. (2) Dyspnea (3) Respiratory distress (4) Pneumonia due to COVID-19 virus Assessment & Plan: ++ as per pulm and ID Gianni Guajardo May 26, 2020 08:20
[2020-05-26] MEDS: Enoxaparin 40mg Inj SUBQ SCH ×2 (09:00→17:01)
[2020-05-26] MEDS: Levemir Flexpen SUBQ SCH ×2 (09:00→20:57)
[2020-05-26] MEDS: Solu-MEDROL 40mg Inj IVP SCH ×2 (09:08→20:57)
--- NOTE | 2020-05-26 09:34 | NUR ---
RD ASSESSMENT & RECOMMENDATIONS SEE CARE ACTIVITY FOR COMPLETE ASSESSMENT DAILY ESTIMATED NEEDS: Needs based on Pulmonary, DM/ 80kg abw 25-30 kcals/kg 9630-6544 total kcals 1-1.5 g protein/kg 80-120 g total protein 25-30 mL/kg 7291-8281 total fluid mLs NUTRITION DIAGNOSIS: Swallowing difficulty R/T respiratory status as evidenced by pt on mech soft chopped texture diet, now on BIPAP. CURRENT DIET:CCHO MED, LOW NA/ mech soft chopped PO DIET RECOMMENDATIONS: Liberalized Regular diet w/ current poor po intake (texture per LUMBER PRESS OPERATOR) ADDITIONAL RECOMMENDATIONS: * Calibrated bedscale wt * LUMBER PRESS OPERATOR eval for appropriate texture while on BIPAP * Monitor PO tolerance while on BIPAP (on BIPAP since 05/19) -> Glucerna TID added at this time to maximize kcal/prot intake during limited time while off BIPAP * Monitor BGs closely for hypoglycemia w/ reduced Po intake, need to adjust insulin
--- NOTE | 2020-05-26 10:00 | NUR ---
NURSE NOTES: Dr Jay Sullivan visited pt and is aware about WBC 21.6 and other lab results and V/S, NNO. Will continue to monitor.
--- NOTE | 2020-05-26 10:48 | Pulmonology Progress Note ---
Subjective ROS Limited/Unobtainable: No Allergies: Coded Allergies: No Known Allergies (Unverified , 05/15/20) All Systems: reviewed and negative except above Subjective care noted awake and resting in bed on BIPAP on 100% and not doing well not improved Objective Last 24 Hour Vital Signs Date Time Temp Pulse Resp B/P (MAP) Pulse Ox O2 Delivery O2 Flow Rate FiO2 05/26/20 09:47 169/86 05/26/20 09:00 92 169/86 05/26/20 08:39 92 05/26/20 08:00 97.0 96 25 169/86 (113) 90 05/26/20 07:51 95 24 90 100 05/26/20 04:00 98.1 87 25 147/80 (102) 97 05/26/20 04:00 100 05/26/20 04:00 91 05/26/20 04:00 Bi-pap 05/26/20 03:05 94 30 94 100 05/26/20 00:00 97.5 89 25 151/78 (102) 97 05/26/20 00:00 100 05/26/20 00:00 86 05/26/20 00:00 Bi-pap 05/25/20 23:05 91 32 92 100 05/25/20 20:00 97.5 82 25 149/71 (97) 96 05/25/20 20:00 102 05/25/20 20:00 100 05/25/20 20:00 Bi-pap 05/25/20 19:26 95 28 93 100 05/25/20 16:00 97.2 25 147/68 (94) 93 05/25/20 16:00 100 05/25/20 16:00 95 05/25/20 16:00 Bi-pap 05/25/20 14:11 89 34 94 100 05/25/20 12:00 Bi-pap 05/25/20 12:00 100 05/25/20 11:48 96.2 28 152/74 (100) 91 05/25/20 11:40 61 Intake and Output 05/25/20 05/26/20 19:00 07:00 Intake Total 375 ml 450 ml Balance 375 ml 450 ml Intake Oral 300 ml 450 ml IV Total 75 ml # Voids 3 3 Objective deferred due to COVID Laboratory Tests 05/25/20 11:32: POC Whole Blood Glucose 163H 05/25/20 16:09: POC Whole Blood Glucose [Pending] 05/25/20 22:23: POC Whole Blood Glucose 261H 05/26/20 05:08: White Blood Count 21.6H, Red Blood Count 4.95, Hemoglobin 13.8L, Hematocrit 42.8, Mean Corpuscular Volume 86, Mean Corpuscular Hemoglobin 27.8, Mean Corpuscular Hemoglobin Concent 32.2, Red Cell Distribution Width 11.9, Platelet Count 135L, Mean Platelet Volume 6.8, Neutrophils (%) (Auto) , Lymphocytes (%) (Auto) , Monocytes (%) (Auto) , Eosinophils (%) (Auto) , Basophils (%) (Auto) , Differential Total Cells Counted 100, Neutrophils % (Manual) 97H, Lymphocytes % (Manual) 2L, Monocytes % (Manual) 1, Eosinophils % (Manual) 0, Basophils % (Ma nual) 0, Band Neutrophils 0, Platelet Estimate DecreasedL, Platelet Morphology Normal, Red Blood Cell Morphology Normal, Sodium Level 138, Potassium Level 4.3, Chloride Level 102, Carbon Dioxide Level 29, Anion Gap 7, Blood Urea Nitrogen 26H, Creatinine 0.8, Estimat Glomerular Filtration Rate > 60, Glucose Level 327H , Calcium Level 8.0L, Total Bilirubin 0.7, Aspartate Amino Transf (AST/SGOT) 22, Alanine Aminotransferase (ALT/SGPT) 19, Alkaline Phosphatase 115, Total Protein 5.6L, Albumin 1.8L, Globulin 3.8, Albumin/Globulin Ratio 0.5L 05/26/20 06:06: POC Whole Blood Glucose 327H 05/26/20 09:49: Arterial Blood pH 7.436, Arterial Blood Partial Pressure CO2 42.2, Arterial Blood Partial Pressure O2 49.2*L, Arterial Blood HCO3 27.8H, Arterial Blood Oxygen Saturation 85.0*L, Arterial Blood Base Excess 3.2H, Jose Test Positive Current Medications Medications (Trade) Dose Ordered Sig/Baldo Route PRN Reason Start Time Stop Time Status Last Admin Dose Admin Acetaminophen (Tylenol) 650 mg EVERY 4 HOURS PRN ORAL fever/MINAYA 05/16/20 03:15 06/15/20 03:14 05/24/20 22:08 Acetaminophen (Tylenol) 650 mg Q4H PRN ORAL Mild Pain (Pain Scale 1-3) 05/16/20 12:15 06/15/20 12:14 05/26/20 08:59 Acetaminophen (Tylenol) 650 mg Q4H PRN ORAL fever 05/16/20 12:15 06/15/20 12:14 Albuterol Sulfate (Proventil MDI) 2 puff Q4H PRN INH Shortness of Breath 05/16/20 14:00 08/14/20 13:59 05/19/20 01:01 Amlodipine Besylate (Norvasc) 5 mg DAILY ORAL 05/16/20 09:00 06/15/20 08:59 05/26/20 09:00 Clonidine HCl (Catapres Tab) 0.1 mg Q4H PRN ORAL For High Blood Pressure 05/16/20 14:45 08/14/20 14:44 05/26/20 09:47 Dextrose (Dextrose 50%) 25 ml Q30M PRN IV Hypoglycemia 05/16/20 12:15 08/14/20 12:14 Dextrose (Dextrose 50%) 50 ml Q30M PRN IV Hypoglycemia 05/16/20 12:15 08/14/20 12:14 Enoxaparin Sodium (Lovenox) 40 mg BID SUBQ 05/16/20 10:00 08/14/20 09:59 05/26/20 09:00 Famotidine (Pepcid I.v.) 20 mg DAILY IVP 05/17/20 09:00 06/16/20 08:59 05/26/20 08:59 Insulin Aspart (NovoLOG) BEFORE MEALS AND HS SUBQ 05/16/20 16:30 08/14/20 16:29 05/26/20 06:26 Insulin Detemir (Levemir) 26 units BEDTIME SUBQ 05/26/20 21:00 08/16/20 20:59 Insulin Detemir (Levemir) 28 units DAILY SUBQ 05/27/20 09:00 08/16/20 08:59 Methylprednisolone Sodium Succinate (Solu-MEDROL) 40 mg EVERY 12 HOURS IVP 05/20/20 11:00 08/18/20 10:59 05/26/20 09:08 Ondansetron HCl (Zofran) 4 mg Q6H PRN IVP Nausea & Vomiting 05/21/20 12:30 2/13/21 12:29 05/25/20 12:58 Sodium Chloride 1,000 ml @ 75 mls/hr [id number] IVLG 05/21/20 04:00 06/20/20 03:59 05/26/20 04:00 Assessment/Plan Assessment/Plan Impression: Pneumonia due to COVID-19 virus Hypoxic Respiratory Failure Hypertension Diabetes Septic shock Pulmonary infiltrates Plan: -Dexamethasone -O2 at 100% and on BIPAP -IV ABx currently off ??? need for coverage -albuterol PRN -Monitor labs -DVT prophylaxis; obtain venous US -escalate care as needed to ICU if needed -remains at risk for deterioration and intubation and may need ICU; borderline oxygen saturations at present - repeat CXR and ABG noted impression, plan, and exam edited and reviewed in detail care discussed with Rahul Dunn MD May 26, 2020 10:48
--- NOTE | 2020-05-26 11:01 | NUR ---
NURSE NOTES: Dr Cool and Travis are notified about ABG result, waiting to call back. will continue to monitor.
--- NOTE | 2020-05-26 12:18 | NUR ---
NURSE NOTES: Dr Robles called back regarding ABG result, no new order received. will continue to close monitoring.
--- NOTE | 2020-05-26 12:23 | Infectious Diseases Prog Note ---
Assessment/Plan Assessment/Plan A 1. COVID19 pneumonia 2. diabetes mellitus 3. hypertension 4. Hypoxemia 5. Leukocytosis P 1. Finished remdesivir course 2. continue Solumedrol tapering 3. continue isolation Subjective ROS Limited/Unobtainable: Yes Constitutional: Denies: fever Allergies: Coded Allergies: No Known Allergies (Unverified , 05/15/20) Objective Last 24 Hour Vital Signs Date Time Temp Pulse Resp B/P (MAP) Pulse Ox O2 Delivery O2 Flow Rate FiO2 05/26/20 11:44 106 24 90 100 05/26/20 09:47 169/86 05/26/20 09:00 92 169/86 05/26/20 08:39 92 05/26/20 08:00 97.0 96 25 169/86 (113) 90 05/26/20 07:51 95 24 90 100 05/26/20 04:00 98.1 87 25 147/80 (102) 97 05/26/20 04:00 100 05/26/20 04:00 91 05/26/20 04:00 Bi-pap 05/26/20 03:05 94 30 94 100 05/26/20 00:00 97.5 89 25 151/78 (102) 97 05/26/20 00:00 100 05/26/20 00:00 86 05/26/20 00:00 Bi-pap 05/25/20 23:05 91 32 92 100 05/25/20 20:00 97.5 82 25 149/71 (97) 96 05/25/20 20:00 102 05/25/20 20:00 100 05/25/20 20:00 Bi-pap 05/25/20 19:26 95 28 93 100 05/25/20 16:00 97.2 25 147/68 (94) 93 05/25/20 16:00 100 05/25/20 16:00 95 05/25/20 16:00 Bi-pap 05/25/20 14:11 89 34 94 100 Height (Feet): 5 Height (Inches): 9.00 Weight (Pounds): 220 HEENT: mucous membranes moist Respiratory/Chest: other - on BIPAP, EQS3=141% Cardiovascular: tachycardia Abdomen: soft, non tender Extremities: no edema Neurologic/Psychiatric: other - sleeping Laboratory Tests Test 05/25/20 16:09 05/25/20 22:23 05/26/20 05:08 05/26/20 06:06 POC Whole Blood Glucose Pending 261 MG/DL (74-106) H 327 MG/DL (74-106) H White Blood Count 21.6 K/UL (4.8-10.8) H Red Blood Count 4.95 M/UL (4.70-6.10) Hemoglobin 13.8 G/DL (14.2-18.0) L Hematocrit 42.8 % (42.0-52.0) Mean Corpuscular Volume 86 FL (80-99) Mean Corpuscular Hemoglobin 27.8 PG (27.0-31.0) Mean Corpuscular Hemoglobin Concent 32.2 G/DL (32.0-36.0) Red Cell Distribution Width 11.9 % (11.6-14.8) Platelet Count 135 K/UL (150-450) L Mean Platelet Volume 6.8 FL (6.5-10.1) Neutrophils (%) (Auto) % (45.0-75.0) Lymphocytes (%) (Auto) % (20.0-45.0) Monocytes (%) (Auto) % (1.0-10.0) Eosinophils (%) (Auto) % (0.0-3.0) Basophils (%) (Auto) % (0.0-2.0) Differential Total Cells Counted 100 Neutrophils % (Manual) 97 % (45-75) H Lymphocytes % (Manual) 2 % (20-45) L Monocytes % (Manual) 1 % (1-10) Eosinophils % (Manual) 0 % (0-3) Basophils % (Manual) 0 % (0-2) Band Neutrophils 0 % (0-8) Platelet Estimate Decreased L Platelet Morphology Normal Red Blood Cell Morphology Normal Sodium Level 138 MMOL/L (136-145) Potassium Level 4.3 MMOL/L (3.5-5.1) Chloride Level 102 MMOL/L (98-107) Carbon Dioxide Level 29 MMOL/L (21-32) Anion Gap 7 mmol/L (5-15) Blood Urea Nitrogen 26 mg/dL (7-18) H Creatinine 0.8 MG/DL (0.55-1.30) Estimat Glomerular Filtration Rate > 60 mL/min (>60) Glucose Level 327 MG/DL (74-106) H Calcium Level 8.0 MG/DL (8.5-10.1) L Total Bilirubin 0.7 MG/DL (0.2-1.0) Aspartate Amino Transf (AST/SGOT) 22 U/L (15-37) Alanine Aminotransferase (ALT/SGPT) 19 U/L (12-78) Alkaline Phosphatase 115 U/L (46-116) Total Protein 5.6 G/DL (6.4-8.2) L Albumin 1.8 G/DL (3.4-5.0) L Globulin 3.8 g/dL Albumin/Globulin Ratio 0.5 (1.0-2.7) L Test 05/26/20 09:49 05/26/20 11:49 Arterial Blood pH 7.436 (7.350-7.450) Arterial Blood Partial Pressure CO2 42.2 mmHg (35.0-45.0) Arterial Blood Partial Pressure O2 49.2 mmHg (75.0-100.0) Arterial Blood HCO3 27.8 mmol/L (22.0-26.0) H Arterial Blood Oxygen Saturation 85.0 % (95-100) *L Arterial Blood Base Excess 3.2 (-2-2) H Jose Test Positive POC Whole Blood Glucose Pending Current Medications Medications (Trade) Dose Ordered Sig/Baldo Route PRN Reason Start Time Stop Time Status Last Admin Dose Admin Acetaminophen (Tylenol) 650 mg EVERY 4 HOURS PRN ORAL fever/MINAYA 05/16/20 03:15 06/15/20 03:14 05/24/20 22:08 Acetaminophen (Tylenol) 650 mg Q4H PRN ORAL Mild Pain (Pain Scale 1-3) 05/16/20 12:15 06/15/20 12:14 05/26/20 08:59 Acetaminophen (Tylenol) 650 mg Q4H PRN ORAL fever 05/16/20 12:15 06/15/20 12:14 Albuterol Sulfate (Proventil MDI) 2 puff Q4H PRN INH Shortness of Breath 05/16/20 14:00 08/14/20 13:59 05/19/20 01:01 Amlodipine Besylate (Norvasc) 5 mg DAILY ORAL 05/16/20 09:00 06/15/20 08:59 05/26/20 09:00 Clonidine HCl (Catapres Tab) 0.1 mg Q4H PRN ORAL For High Blood Pressure 05/16/20 14:45 08/14/20 14:44 05/26/20 09:47 Dextrose (Dextrose 50%) 25 ml Q30M PRN IV Hypoglycemia 05/16/20 12:15 08/14/20 12:14 Dextrose (Dextrose 50%) 50 ml Q30M PRN IV Hypoglycemia 05/16/20 12:15 08/14/20 12:14 Enoxaparin Sodium (Lovenox) 40 mg BID SUBQ 05/16/20 10:00 08/14/20 09:59 05/26/20 09:00 Famotidine (Pepcid I.v.) 20 mg DAILY IVP 05/17/20 09:00 06/16/20 08:59 05/26/20 08:59 Insulin Aspart (NovoLOG) BEFORE MEALS AND HS SUBQ 05/16/20 16:30 08/14/20 16:29 05/26/20 06:26 Insulin Detemir (Levemir) 26 units BEDTIME SUBQ 05/26/20 21:00 08/16/20 20:59 Insulin Detemir (Levemir) 28 units DAILY SUBQ 05/27/20 09:00 08/16/20 08:59 Methylprednisolone Sodium Succinate (Solu-MEDROL) 40 mg EVERY 12 HOURS IVP 05/20/20 11:00 08/18/20 10:59 05/26/20 09:08 Ondansetron HCl (Zofran) 4 mg Q6H PRN IVP Nausea & Vomiting 05/21/20 12:30 06/20/20 12:29 05/25/20 12:58 Sodium Chloride 1,000 ml @ 75 mls/hr [id number] IVLG 05/21/20 04:00 06/20/20 03:59 05/26/20 04:00 Jamie Sullivan MD May 26, 2020 12:23
--- NOTE | 2020-05-26 19:19 | NUR ---
NURSE HAND-OFF REPORT: Important Events on Shift: Patient Status: Diet: Pending Orders: Pending Results/Labs: Pending MD notification: Latest Vital Signs: Temperature 97.5 , Pulse 97 , B/P 157 /65 , Respiratory Rate 19 , O2 SAT 90 , Non-Rebreather, O2 Flow Rate 15.0 . Vital Sign Comment: EKG Rhythm: Sinus Rhythm Rhythm change?: N MD Notified?: N -Dr. Travon MEJIA Response: Latest Gregg Fall Score: 45 Fall Risk: High Risk Safety Measures: Call light Within Reach, Bed Alarm Zone 2, Side Rails Side Rails x2, Bed position Low and Locked. Fall Precautions: Yellow Socks Yellow Gown Door Sign Patient Fall Education Report given to . Pt is sleeping, no stress noted, spo2 89% HR 92, endorsed plan of care, endorsed to monitor spo2 and if he starting to desat, let Dr Robles know.
--- NOTE | 2020-05-26 19:35 | NUR ---
NURSE NOTES: Received report from JADA Kapadia. Pt is awake, fatigued, A/Ox4. SpO2 90% on BiPAP 20/12 FiO2 100%, RR 27. library monitor shows SR. Denies pain. No signs of acute distress noted. Condom cath on, draining well to gravity. L hand 22g running NS 75ml/hr, flushing well, L wrist 22g saline locked, flushing well. HOB elevated, call light within reach, side rails x2, bed alarmed, locked, and in lowest position. Will continue plan of care. WIll continue to monitor.
--- NOTE | 2020-05-26 21:37 | NUR ---
NURSE NOTES: Administered PM meds. SpO2 currently at 93% on BiPAP 20/12 FiO2 100%. No acute distress noted. Will continue to closely monitor.
--- NOTE | 2020-05-26 22:25 | Cardiology Progress Note ---
Subjective DATE OF SERVICE: May 26, 2020 Remains on bipap; increasingly hypoxic today. ABG (05/26) 7.44/42/49 CXR (05/24) bilateral infiltrates with sm left eff'n Insulin continues to be adjusted for high glucose Objective Last 24 Hour Vital Signs Date Time Temp Pulse Resp B/P (MAP) Pulse Ox O2 Delivery O2 Flow Rate FiO2 05/26/20 20:00 96.8 86 27 148/77 (100) 90 05/26/20 20:00 100 05/26/20 20:00 Bi-pap 05/26/20 20:00 84 05/26/20 19:29 96 27 86 100 05/26/20 18:00 157/65 (95) 05/26/20 16:54 169/69 05/26/20 16:06 97 05/26/20 16:00 100 05/26/20 16:00 97.5 94 19 169/69 (102) 90 05/26/20 16:00 Bi-pap 05/26/20 15:30 108 25 93 100 05/26/20 12:08 104 05/26/20 12:00 Bi-pap 05/26/20 12:00 100 05/26/20 12:00 96.8 95 20 152/88 (109) 92 05/26/20 11:44 106 24 90 100 05/26/20 09:47 169/86 05/26/20 09:00 92 169/86 05/26/20 08:39 92 05/26/20 08:00 100 05/26/20 08:00 97.0 96 25 169/86 (113) 90 05/26/20 08:00 Bi-pap 05/26/20 07:51 95 24 90 100 05/26/20 04:00 98.1 87 25 147/80 (102) 97 05/26/20 04:00 100 05/26/20 04:00 91 05/26/20 04:00 Bi-pap 05/26/20 03:05 94 30 94 100 05/26/20 00:00 97.5 89 25 151/78 (102) 97 05/26/20 00:00 100 05/26/20 00:00 86 05/26/20 00:00 Bi-pap 05/25/20 23:05 91 32 92 100 ROS: unchanged from 05/16/20 HEENT: normal ENT inspection RHYTHM: NSR LUNGS: bilat. rhonchi and rales CARDIAC: normal rate, regular rhythm, normal S1 and S2 ABDOMEN: normal bowel sounds, non tender, soft, other - obese EXTREMITIES: normal range of motion, no calf tenderness, No edema Laboratory Tests Test 05/25/20 22:23 05/26/20 05:08 05/26/20 06:06 05/26/20 09:49 POC Whole Blood Glucose 261 MG/DL (74-106) H 327 MG/DL (74-106) H White Blood Count 21.6 K/UL (4.8-10.8) H Red Blood Count 4.95 M/UL (4.70-6.10) Hemoglobin 13.8 G/DL (14.2-18.0) L Hematocrit 42.8 % (42.0-52.0) Mean Corpuscular Volume 86 FL (80-99) Mean Corpuscular Hemoglobin 27.8 PG (27.0-31.0) Mean Corpuscular Hemoglobin Concent 32.2 G/DL (32.0-36.0) Red Cell Distribution Width 11.9 % (11.6-14.8) Platelet Count 135 K/UL (150-450) L Mean Platelet Volume 6.8 FL (6.5-10.1) Neutrophils (%) (Auto) % (45.0-75.0) Lymphocytes (%) (Auto) % (20.0-45.0) Monocytes (%) (Auto) % (1.0-10.0) Eosinophils (%) (Auto) % (0.0-3.0) Basophils (%) (Auto) % (0.0-2.0) Differential Total Cells Counted 100 Neutrophils % (Manual) 97 % (45-75) H Lymphocytes % (Manual) 2 % (20-45) L Monocytes % (Manual) 1 % (1-10) Eosinophils % (Manual) 0 % (0-3) Basophils % (Manual) 0 % (0-2) Band Neutrophils 0 % (0-8) Platelet Estimate Decreased L Platelet Morphology Normal Red Blood Cell Morphology Normal Sodium Level 138 MMOL/L (136-145) Potassium Level 4.3 MMOL/L (3.5-5.1) Chloride Level 102 MMOL/L (98-107) Carbon Dioxide Level 29 MMOL/L (21-32) Anion Gap 7 mmol/L (5-15) Blood Urea Nitrogen 26 mg/dL (7-18) H Creatinine 0.8 MG/DL (0.55-1.30) Estimat Glomerular Filtration Rate > 60 mL/min (>60) Glucose Level 327 MG/DL (74-106) H Calcium Level 8.0 MG/DL (8.5-10.1) L Total Bilirubin 0.7 MG/DL (0.2-1.0) Aspartate Amino Transf (AST/SGOT) 22 U/L (15-37) Alanine Aminotransferase (ALT/SGPT) 19 U/L (12-78) Alkaline Phosphatase 115 U/L (46-116) Total Protein 5.6 G/DL (6.4-8.2) L Albumin 1.8 G/DL (3.4-5.0) L Globulin 3.8 g/dL Albumin/Globulin Ratio 0.5 (1.0-2.7) L Arterial Blood pH 7.436 (7.350-7.450) Arterial Blood Partial Pressure CO2 42.2 mmHg (35.0-45.0) Arterial Blood Partial Pressure O2 49.2 mmHg (75.0-100.0) Arterial Blood HCO3 27.8 mmol/L (22.0-26.0) H Arterial Blood Oxygen Saturation 85.0 % (95-100) *L Arterial Blood Base Excess 3.2 (-2-2) H Jose Test Positive Test 05/26/20 11:49 05/26/20 16:39 05/26/20 20:52 POC Whole Blood Glucose Pending Pending 230 MG/DL (74-106) H Assessment/Plan Assessment/Plan Covid 19 PNA Hypoxia Steroid exacerbated diabetes mellitus Hypertension O2 Bipap support Lovenox anticoag IV steroids with taper Anti-viral rx completed. Long acting insulin advanced, with cont'd sliding scale cov'g Remains high risk for deterioration and intubation. Tomas Cool MD May 26, 2020 22:25
[2020-05-27] VITALS: BP 158/74
--- NOTE | 2020-05-27 01:44 | NUR ---
NURSE NOTES: Pt is asleep, SpO2 90% on BiPAP FiO2 100%. radiation monitor shows SR. Will continue to closely monitor.
[2020-05-27 04:00] VITALS: BP 162/96
[2020-05-27 04:09] LABS: HEMATOCRIT 41.8 % (42.0-52.0); HEMOGLOBIN 13.6 G/DL (14.2-18.0); MEAN CORPUSCULAR VOLUME 85 FL (80-99); PLATELET COUNT 146 K/UL (150-450); RED BLOOD COUNT 4.92 M/UL (4.70-6.10); RED CELL DISTRIBUTION WIDTH 11.8 % (11.6-14.8)
--- NOTE | 2020-05-27 04:10 | NUR ---
NURSE NOTES: Gave pt bed bath. No BM noted, urine output is good. Pt desaturates to 80% when turning. Changed linens and gown. SBP >160, clonidine PRN given. Pt complained of nausea, zofran PRN given. No other complaints from pt. Will continue to closely monitor. Will continue plan of care.
[2020-05-27 04:37] LABS: WHITE BLOOD COUNT 22.2 K/UL (4.8-10.8)
[2020-05-27 04:39] LABS: ALANINE AMINOTRANSFERASE 15 U/L (12-78); ALBUMIN 1.7 G/DL (3.4-5.0); ALBUMIN/GLOBULIN RATIO 0.5 (1.0-2.7); ALKALINE PHOSPHATASE 106 U/L (46-116); ANION GAP 4 mmol/L (5-15); ASPARTATE AMINO TRANSFERASE 23 U/L (15-37); BILIRUBIN,TOTAL 0.5 MG/DL (0.2-1.0); BLOOD UREA NITROGEN 25 mg/dL (7-18); CALCIUM 8.2 MG/DL (8.5-10.1); CARBON DIOXIDE 31 MMOL/L (21-32); CHLORIDE 106 MMOL/L (98-107); CREATININE 0.6 MG/DL (0.55-1.30); SODIUM 141 MMOL/L (136-145)
[2020-05-27] MEDS: NovoLOG Insulin Flexpen SUBQ SCH ×4 (05:38→21:00)
--- NOTE | 2020-05-27 06:54 | NUR ---
CASE MANAGEMENT:REVIEW 05/27/20 SI: COVID PNEUMONIA. RESPIRATORY FAILURE 97.0 88 27 162/96 SATS 89% ON 100% FIO2 VIA BIPAP WBC+22.2 BUN+25 GLUCOSE+172 BNP+1054 IS: IV SOLUMEDROL 40MG Q12 IV PEPCID QD LEVEMIR SQ QHS AND QD IV PEPCID QD SS INSULIN AC+HS LOVENOX SQ BID NORVASC PO QD : TELEMETRY STATUS DCP: FROM HOME PLAN: COMPLETED REMDESIVIR MONITOR OXYGEN NEEDS AND ADJUST ACCORDINGLY TAPER STEROIDS
--- NOTE | 2020-05-27 07:18 | NUR ---
NURSE HAND-OFF REPORT: Important Events on Shift:[Desats to 70s when BiPAP is off within 10s] Patient Status: [Poor] Diet: [CCHO medium, Low salt] Pending Orders: [NA] Pending Results/Labs:[NA] Pending MD notification:[NA] Latest Vital Signs: Temperature 97.0 , Pulse 80 , B/P 162 /96 , Respiratory Rate 27 , O2 SAT 89 , Non-Rebreather, O2 Flow Rate 15.0 . Vital Sign Comment: [Stable] EKG Rhythm: SR, BBB Rhythm change?: N Notified?: N -Dr. Travon MEJIA Response: Latest Gregg Fall Score: 45 Fall Risk: High Risk Safety Measures: Call light Within Reach, Bed Alarm Zone 2, Side Rails Side Rails x2, Bed position Low and Locked. Fall Precautions: Yellow Socks Yellow Gown Door Sign Patient Fall Education Report given to [JADA Ott].
--- NOTE | 2020-05-27 07:20 | NUR ---
NURSE NOTES: Received patient in bed. Awake, A/O x4. On BiPAP. Patient denies pain at this time. IV in the Left hand, site intact. Bed low and locked, side rails up x2, call light within reach with return demonstration.
[2020-05-27 08:00] VITALS: BP 157/85
[2020-05-27] MEDS: Solu-MEDROL 40mg Inj IVP SCH (09:14)
[2020-05-27] MEDS: Levemir Flexpen SUBQ SCH ×2 (09:36→21:00)
[2020-05-27] MEDS: Enoxaparin 40mg Inj SUBQ SCH ×2 (09:37→17:20)
--- NOTE | 2020-05-27 11:07 | Infectious Diseases Prog Note ---
Assessment/Plan Assessment/Plan antibiotics : none A 1. covid 19 pneumonia on 100 FiO2 with 90 % saturation 2. diabetes mellitus 3. hypertension P 1. continue solumedrol taper dose 2. continue isolation Subjective ROS Limited/Unobtainable: Yes Allergies: Coded Allergies: No Known Allergies (Unverified , 05/15/20) Objective Last 24 Hour Vital Signs Date Time Temp Pulse Resp B/P (MAP) Pulse Ox O2 Delivery O2 Flow Rate FiO2 05/27/20 09:21 89 157/85 05/27/20 08:00 Bi-pap 05/27/20 08:00 100 05/27/20 08:00 97.8 89 25 157/85 (109) 91 05/27/20 07:44 82 05/27/20 07:15 96 27 86 100 05/27/20 04:00 Bi-pap 05/27/20 04:00 100 05/27/20 04:00 80 05/27/20 04:00 97.0 88 27 162/96 (118) 89 05/27/20 03:40 161/96 05/27/20 03:19 94 29 90 100 05/27/20 00:00 96 05/27/20 00:00 100 05/27/20 00:00 Bi-pap 05/27/20 00:00 96.6 95 26 158/74 (102) 92 05/26/20 23:25 76 23 90 100 05/26/20 20:00 96.8 86 27 148/77 (100) 90 05/26/20 20:00 100 05/26/20 20:00 Bi-pap 05/26/20 20:00 84 05/26/20 19:29 96 27 86 100 05/26/20 18:00 157/65 (95) 05/26/20 16:54 169/69 05/26/20 16:06 97 05/26/20 16:00 100 05/26/20 16:00 97.5 94 19 169/69 (102) 90 05/26/20 16:00 Bi-pap 05/26/20 15:30 108 25 93 100 05/26/20 12:08 104 05/26/20 12:00 Bi-pap 05/26/20 12:00 100 05/26/20 12:00 96.8 95 20 152/88 (109) 92 05/26/20 11:44 106 24 90 100 Height (Feet): 5 Height (Inches): 9.00 Weight (Pounds): 220 HEENT: other - on bipap Laboratory Tests Test 05/26/20 11:49 05/26/20 16:39 05/26/20 20:52 05/27/20 02:40 POC Whole Blood Glucose Pending Pending 230 MG/DL (74-106) H White Blood Count 22.2 K/UL (4.8-10.8) *H Red Blood Count 4.92 M/UL (4.70-6.10) Hemoglobin 13.6 G/DL (14.2-18.0) L Hematocrit 41.8 % (42.0-52.0) L Mean Corpuscular Volume 85 FL (80-99) Mean Corpuscular Hemoglobin 27.7 PG (27.0-31.0) Mean Corpuscular Hemoglobin Concent 32.6 G/DL (32.0-36.0) Red Cell Distribution Width 11.8 % (11.6-14.8) Platelet Count 146 K/UL (150-450) L Mean Platelet Volume 6.9 FL (6.5-10.1) Neutrophils (%) (Auto) % (45.0-75.0) Lymphocytes (%) (Auto) % (20.0-45.0) Monocytes (%) (Auto) % (1.0-10.0) Eosinophils (%) (Auto) % (0.0-3.0) Basophils (%) (Auto) % (0.0-2.0) Differential Total Cells Counted 100 Neutrophils % (Manual) 97 % (45-75) H Lymphocytes % (Manual) 1 % (20-45) L Monocytes % (Manual) 2 % (1-10) Eosinophils % (Manual) 0 % (0-3) Basophils % (Manual) 0 % (0-2) Band Neutrophils 0 % (0-8) Platelet Estimate Decreased L Platelet Morphology Normal Red Blood Cell Morphology Normal Sodium Level 141 MMOL/L (136-145) Potassium Level 4.0 MMOL/L (3.5-5.1) Chloride Level 106 MMOL/L (98-107) Carbon Dioxide Level 31 MMOL/L (21-32) Anion Gap 4 mmol/L (5-15) L Blood Urea Nitrogen 25 mg/dL (7-18) H Creatinine 0.6 MG/DL (0.55-1.30) Estimat Glomerular Filtration Rate > 60 mL/min (>60) Glucose Level 187 MG/DL (74-106) #H Calcium Level 8.2 MG/DL (8.5-10.1) L Magnesium Level 2.1 MG/DL (1.8-2.4) Total Bilirubin 0.5 MG/DL (0.2-1.0) Aspartate Amino Transf (AST/SGOT) 23 U/L (15-37) Alanine Aminotransferase (ALT/SGPT) 15 U/L (12-78) Alkaline Phosphatase 106 U/L (46-116) C-Reactive Protein, Quantitative 9.0 mg/dL (0.00-0.90) H Pro-B-Type Natriuretic Peptide 1054 pg/mL (0-125) H Total Protein 5.3 G/DL (6.4-8.2) L Albumin 1.7 G/DL (3.4-5.0) L Globulin 3.6 g/dL Albumin/Globulin Ratio 0.5 (1.0-2.7) L Test 05/27/20 05:36 05/27/20 09:16 POC Whole Blood Glucose 172 MG/DL (74-106) H Pending Current Medications Medications (Trade) Dose Ordered Sig/Baldo Route PRN Reason Start Time Stop Time Status Last Admin Dose Admin Acetaminophen (Tylenol) 650 mg EVERY 4 HOURS PRN ORAL fever/MINAYA 05/16/20 03:15 06/15/20 03:14 05/24/20 22:08 Acetaminophen (Tylenol) 650 mg Q4H PRN ORAL Mild Pain (Pain Scale 1-3) 05/16/20 12:15 06/15/20 12:14 05/26/20 08:59 Acetaminophen (Tylenol) 650 mg Q4H PRN ORAL fever 05/16/20 12:15 06/15/20 12:14 Albuterol Sulfate (Proventil MDI) 2 puff Q4H PRN INH Shortness of Breath 05/16/20 14:00 08/14/20 13:59 05/19/20 01:01 Amlodipine Besylate (Norvasc) 5 mg DAILY ORAL 05/16/20 09:00 06/15/20 08:59 05/27/20 09:21 Clonidine HCl (Catapres Tab) 0.1 mg Q4H PRN ORAL For High Blood Pressure 05/16/20 14:45 08/14/20 14:44 05/27/20 03:40 Dextrose (Dextrose 50%) 25 ml Q30M PRN IV Hypoglycemia 05/16/20 12:15 08/14/20 12:14 Dextrose (Dextrose 50%) 50 ml Q30M PRN IV Hypoglycemia 05/16/20 12:15 08/14/20 12:14 Enoxaparin Sodium (Lovenox) 40 mg BID SUBQ 05/16/20 10:00 08/14/20 09:59 05/27/20 09:37 Famotidine (Pepcid I.v.) 20 mg DAILY IVP 05/17/20 09:00 06/16/20 08:59 05/27/20 09:17 Insulin Aspart (NovoLOG) BEFORE MEALS AND HS SUBQ 05/16/20 16:30 08/14/20 16:29 05/27/20 05:38 Insulin Detemir (Levemir) 26 units BEDTIME SUBQ 05/26/20 21:00 08/16/20 20:59 05/26/20 20:57 Insulin Detemir (Levemir) 28 units DAILY SUBQ 05/27/20 09:00 08/16/20 08:59 05/27/20 09:36 Methylprednisolone Sodium Succinate (Solu-MEDROL) 40 mg EVERY 12 HOURS IVP 05/20/20 11:00 08/18/20 10:59 05/27/20 09:14 Ondansetron HCl (Zofran) 4 mg Q6H PRN IVP Nausea & Vomiting 05/21/20 12:30 06/20/20 12:29 05/27/20 03:40 Ayaz Buckner MD May 27, 2020 11:07
[2020-05-27 12:00] VITALS: BP 133/85
--- NOTE | 2020-05-27 12:44 | Surgery Progress Note ---
Surgery Progress Note Subjective Additional Comments leukocytosis abg noted on bipap not doing well may need intubation Objective Last 24 Hour Vital Signs Date Time Temp Pulse Resp B/P (MAP) Pulse Ox O2 Delivery O2 Flow Rate FiO2 05/27/20 09:21 89 157/85 05/27/20 08:00 Bi-pap 05/27/20 08:00 100 05/27/20 08:00 97.8 89 25 157/85 (109) 91 05/27/20 07:44 82 05/27/20 07:15 96 27 86 100 05/27/20 04:00 Bi-pap 05/27/20 04:00 100 05/27/20 04:00 80 05/27/20 04:00 97.0 88 27 162/96 (118) 89 05/27/20 03:40 161/96 05/27/20 03:19 94 29 90 100 05/27/20 00:00 96 05/27/20 00:00 100 05/27/20 00:00 Bi-pap 05/27/20 00:00 96.6 95 26 158/74 (102) 92 05/26/20 23:25 76 23 90 100 05/26/20 20:00 96.8 86 27 148/77 (100) 90 05/26/20 20:00 100 05/26/20 20:00 Bi-pap 05/26/20 20:00 84 05/26/20 19:29 96 27 86 100 05/26/20 18:00 157/65 (95) 05/26/20 16:54 169/69 05/26/20 16:06 97 05/26/20 16:00 100 05/26/20 16:00 97.5 94 19 169/69 (102) 90 05/26/20 16:00 Bi-pap 05/26/20 15:30 108 25 93 100 I&O Intake and Output 05/26/20 05/27/20 19:00 07:00 Intake Total 1005 ml 250 ml Output Total 350 ml 450 ml Balance 655 ml -200 ml Intake Oral 180 ml 250 ml IV Total 825 ml Output Urine Total 350 ml 450 ml # Bowel Movements 1 Dressing: saturated Cardiovascular: RSR Respiratory: decreased breath sounds Abdomen: soft, non-tender, present bowel sounds, non-distended Extremities: no edema, no tenderness, no cyanosis Laboratory Tests Test 05/26/20 16:39 05/26/20 20:52 05/27/20 02:40 05/27/20 05:36 POC Whole Blood Glucose Pending 230 MG/DL (74-106) H 172 MG/DL (74-106) H White Blood Count 22.2 K/UL (4.8-10.8) *H Red Blood Count 4.92 M/UL (4.70-6.10) Hemoglobin 13.6 G/DL (14.2-18.0) L Hematocrit 41.8 % (42.0-52.0) L Mean Corpuscular Volume 85 FL (80-99) Mean Corpuscular Hemoglobin 27.7 PG (27.0-31.0) Mean Corpuscular Hemoglobin Concent 32.6 G/DL (32.0-36.0) Red Cell Distribution Width 11.8 % (11.6-14.8) Platelet Count 146 K/UL (150-450) L Mean Platelet Volume 6.9 FL (6.5-10.1) Neutrophils (%) (Auto) % (45.0-75.0) Lymphocytes (%) (Auto) % (20.0-45.0) Monocytes (%) (Auto) % (1.0-10.0) Eosinophils (%) (Auto) % (0.0-3.0) Basophils (%) (Auto) % (0.0-2.0) Differential Total Cells Counted 100 Neutrophils % (Manual) 97 % (45-75) H Lymphocytes % (Manual) 1 % (20-45) L Monocytes % (Manual) 2 % (1-10) Eosinophils % (Manual) 0 % (0-3) Basophils % (Manual) 0 % (0-2) Band Neutrophils 0 % (0-8) Platelet Estimate Decreased L Platelet Morphology Normal Red Blood Cell Morphology Normal Sodium Level 141 MMOL/L (136-145) Potassium Level 4.0 MMOL/L (3.5-5.1) Chloride Level 106 MMOL/L (98-107) Carbon Dioxide Level 31 MMOL/L (21-32) Anion Gap 4 mmol/L (5-15) L Blood Urea Nitrogen 25 mg/dL (7-18) H Creatinine 0.6 MG/DL (0.55-1.30) Estimat Glomerular Filtration Rate > 60 mL/min (>60) Glucose Level 187 MG/DL (74-106) #H Calcium Level 8.2 MG/DL (8.5-10.1) L Magnesium Level 2.1 MG/DL (1.8-2.4) Total Bilirubin 0.5 MG/DL (0.2-1.0) Aspartate Amino Transf (AST/SGOT) 23 U/L (15-37) Alanine Aminotransferase (ALT/SGPT) 15 U/L (12-78) Alkaline Phosphatase 106 U/L (46-116) C-Reactive Protein, Quantitative 9.0 mg/dL (0.00-0.90) H Pro-B-Type Natriuretic Peptide 1054 pg/mL (0-125) H Total Protein 5.3 G/DL (6.4-8.2) L Albumin 1.7 G/DL (3.4-5.0) L Globulin 3.6 g/dL Albumin/Globulin Ratio 0.5 (1.0-2.7) L Test 05/27/20 09:16 POC Whole Blood Glucose Pending Plan Problems: (1) Septic shock Assessment & Plan: 80-year-old male Covid positive respiratory deficiency presented to [facility] for evaluation shortness of breath admitted care and manage identified to have leukocytosis lactic acidosis and shock. Resuscitation initiated. Full examination performed no acute infectious process noted inflammatory process likely related to respiratory. Continue with IV fluids. Hold on central line insertion. Labs noted imaging reviewed. Patient otherwise now stable under appropriate care plan. Continue with medications and antibiotics as ordered. Continue with IV fluid resuscitation. Trend labs. Will follow with recommendations. Thank you for let me participate patient's care on support not able to wean may need intubation may need trach? Multifocal airspace consolidations, consistent with severe multifocal infiltrate. Findings and increased when compared to May 16, 2020. Follow-up chest radiograph recommended. Small left effusion is suspected. No pneumothorax. Stable cardiomegaly. Calcified aorta. (2) Dyspnea (3) Respiratory distress (4) Pneumonia due to COVID-19 virus Assessment & Plan: ++ as per pulm and ID Gianni Guajardo May 27, 2020 12:44
--- NOTE | 2020-05-27 12:50 | Diagnostic Imaging Report ---
Indication: Bilateral upper extremity edema Technique: Grayscale and duplex images of the bilateral upper extremity veins Comparison: none Findings: Bilaterally, grayscale and duplex images demonstrate no evidence of intraluminal thrombus. Normal phasic Doppler waveforms and normal compressibility. Impression: Negative for evidence of upper extremity venous thrombosis
--- NOTE | 2020-05-27 13:02 | Diagnostic Imaging Report ---
Indication: Dyspnea Technique: One view of the chest Comparison: 05/24/2020 Findings: Interim slight worsening of previously demonstrated bilateral infiltrates. The left lung base appears increasingly obscured, suspect developing pleural fluid. There may be a small amount of pleural fluid on the right as well. Impression: Increasing bilateral infiltrates, likely new or increasing bilateral pleural fluid
--- NOTE | 2020-05-27 13:07 | NUR ---
RADIOLOGY DEPT., CHEST X-RAY DONE.-P.DYE
[2020-05-27 16:00] VITALS: BP 138/79
--- NOTE | 2020-05-27 16:55 | Pulmonology Progress Note ---
Subjective ROS Limited/Unobtainable: Yes Constitutional: Denies: fever Allergies: Coded Allergies: No Known Allergies (Unverified , 05/15/20) All Systems: reviewed and negative except above Subjective care noted awake and resting in bed on BIPAP on 100% and not doing well with borderline oxygen saturation not improved Objective Last 24 Hour Vital Signs Date Time Temp Pulse Resp B/P (MAP) Pulse Ox O2 Delivery O2 Flow Rate FiO2 05/27/20 16:00 100 05/27/20 16:00 Bi-pap 05/27/20 12:00 Bi-pap 05/27/20 12:00 100 05/27/20 12:00 97.5 89 26 133/85 (101) 91 05/27/20 11:38 89 05/27/20 11:20 89 28 91 100 05/27/20 09:21 89 157/85 05/27/20 08:00 Bi-pap 05/27/20 08:00 100 05/27/20 08:00 97.8 89 25 157/85 (109) 91 05/27/20 07:44 82 05/27/20 07:15 96 27 92 100 05/27/20 04:00 Bi-pap 05/27/20 04:00 100 05/27/20 04:00 80 05/27/20 04:00 97.0 88 27 162/96 (118) 89 05/27/20 03:40 161/96 05/27/20 03:19 94 29 90 100 05/27/20 00:00 96 05/27/20 00:00 100 05/27/20 00:00 Bi-pap 05/27/20 00:00 96.6 95 26 158/74 (102) 92 05/26/20 23:25 76 23 90 100 05/26/20 20:00 96.8 86 27 148/77 (100) 90 05/26/20 20:00 100 05/26/20 20:00 Bi-pap 05/26/20 20:00 84 05/26/20 19:29 96 27 86 100 05/26/20 18:00 157/65 (95) 05/26/20 16:54 169/69 Intake and Output 05/26/20 05/27/20 19:00 07:00 Intake Total 1005 ml 250 ml Output Total 350 ml 450 ml Balance 655 ml -200 ml Intake Oral 180 ml 250 ml IV Total 825 ml Output Urine Total 350 ml 450 ml # Bowel Movements 1 Objective deferred due to COVID Microbiology Date/Time Source Procedure Growth Status 05/26/20 17:45 Sputum Gram Stain - Final Resulted 05/26/20 17:45 Sputum Sputum Culture Pending Resulted Laboratory Tests 05/26/20 20:52: POC Whole Blood Glucose 230H 05/27/20 02:40: White Blood Count 22.2*H, Red Blood Count 4.92, Hemoglobin 13.6L, Hematocrit 41.8L, Mean Corpuscular Volume 85, Mean Corpuscular Hemoglobin 27.7, Mean Corpuscular Hemoglobin Concent 32.6, Red Cell Distribution Width 11.8, Platelet Count 146L, Mean Platelet Volume 6.9, Neutrophils (%) (Auto) , Lymphocytes (%) (Auto) , Monocytes (%) (Auto) , Eosinophils (%) (Auto) , Basophils (%) (Auto) , Differential Total Cells Counted 100, Neutrophils % (Manual) 97H, Lymphocytes % (Manual) 1L, Monocytes % (Manual) 2, Eosinophils % (Manual) 0, Basophils % (Manual) 0, Band Neutrophils 0, Platelet Estimate DecreasedL, Platelet Morphology Normal, Red Blood Cell Morphology Normal, Sodium Level 141, Potassium Level 4.0, Chloride Level 106, Carbon Dioxide Level 31, Anion Gap 4L, Blood Urea Nitrogen 25H, Creatinine 0.6, Estimat Glomerular Filtration Rate > 60, Glucose Level 187#H, Calcium Level 8.2L, Magnesium Level 2.1, Total Bilirubin 0.5, Aspartate Amino Transf (AST/SGOT) 23, Alanine Aminotransferase (ALT/SGPT) 15, Alkaline Phosphatase 106, C-Reactive Protein, Quantitative 9.0H, Pro-B-Type Natriuretic Peptide 1054H, Total Protein 5.3L, Albumin 1.7L, Globulin 3.6, Albumin/Globulin Ratio 0.5L 05/27/20 05:36: POC Whole Blood Glucose 172H 05/27/20 09:16: POC Whole Blood Glucose [Pending] 05/27/20 15:39: Arterial Blood pH 7.449, Arterial Blood Partial Pressure CO2 46.6H, Arterial Blood Partial Pressure O2 52.2L, Arterial Blood HCO3 31.6H, Arterial Blood Oxygen Saturation 88.0*L, Arterial Blood Base Excess 6.6H, Jose Test Positive Current Medications Medications (Trade) Dose Ordered Sig/Baldo Route PRN Reason Start Time Stop Time Status Last Admin Dose Admin Acetaminophen (Tylenol) 650 mg EVERY 4 HOURS PRN ORAL fever/MINAYA 05/16/20 03:15 06/15/20 03:14 05/24/20 22:08 Acetaminophen (Tylenol) 650 mg Q4H PRN ORAL Mild Pain (Pain Scale 1-3) 05/16/20 12:15 06/15/20 12:14 05/26/20 08:59 Acetaminophen (Tylenol) 650 mg Q4H PRN ORAL fever 05/16/20 12:15 06/15/20 12:14 Albuterol Sulfate (Proventil MDI) 2 puff Q4H PRN INH Shortness of Breath 05/16/20 14:00 08/14/20 13:59 05/19/20 01:01 Amlodipine Besylate (Norvasc) 5 mg DAILY ORAL 05/16/20 09:00 06/15/20 08:59 05/27/20 09:21 Clonidine HCl (Catapres Tab) 0.1 mg Q4H PRN ORAL For High Blood Pressure 05/16/20 14:45 08/14/20 14:44 05/27/20 03:40 Dextrose (Dextrose 50%) 25 ml Q30M PRN IV Hypoglycemia 05/16/20 12:15 08/14/20 12:14 Dextrose (Dextrose 50%) 50 ml Q30M PRN IV Hypoglycemia 05/16/20 12:15 08/14/20 12:14 Enoxaparin Sodium (Lovenox) 40 mg BID SUBQ 05/16/20 10:00 08/14/20 09:59 05/27/20 09:37 Famotidine (Pepcid I.v.) 20 mg DAILY IVP 05/17/20 09:00 06/16/20 08:59 05/27/20 09:17 Insulin Aspart (NovoLOG) BEFORE MEALS AND HS SUBQ 05/16/20 16:30 08/14/20 16:29 05/27/20 05:38 Insulin Detemir (Levemir) 26 units BEDTIME SUBQ 05/26/20 21:00 08/16/20 20:59 05/26/20 20:57 Insulin Detemir (Levemir) 28 units DAILY SUBQ 05/27/20 09:00 08/16/20 08:59 05/27/20 09:36 Methylprednisolone Sodium Succinate (Solu-MEDROL) 40 mg DAILY IVP 05/28/20 09:00 08/26/20 08:59 Ondansetron HCl (Zofran) 4 mg Q6H PRN IVP Nausea & Vomiting 05/21/20 12:30 06/20/20 12:29 05/27/20 03:40 Assessment/Plan Assessment/Plan Impression: Pneumonia due to COVID-19 virus Hypoxic Respiratory Failure Hypertension Diabetes Septic shock Pulmonary infiltrates Plan: -O2 at 100% and on BIPAP -albuterol PRN -Monitor labs -DVT prophylaxis; obtain venous US -escalate care as needed to ICU if needed -remains at risk for deterioration and intubation and may need ICU; borderline oxygen saturations at present - repeat CXR and ABG noted impression, plan, and exam edited and reviewed in detail care discussed with Rahul Dunn MD May 27, 2020 16:55
--- NOTE | 2020-05-27 19:28 | NUR ---
NURSE HAND-OFF REPORT: Important Events on Shift:[STAT ABG] Patient Status: [FULL CODE] Diet: [CCHO, Low sodium] Pending Orders: [] Pending Results/Labs:[] Pending MD notification:[] Latest Vital Signs: Temperature 97.5 , Pulse 88 , B/P 138 /79 , Respiratory Rate 26 , O2 SAT 91 , Non-Rebreather, O2 Flow Rate 15.0 . Vital Sign Comment: [] EKG Rhythm: SR, BBB Rhythm change?: N Notified?: N -Dr. Travon MEJIA Response: Latest Gregg Fall Score: 45 Fall Risk: High Risk Safety Measures: Call light Within Reach, Bed Alarm Zone 1, Side Rails Side Rails x2, Bed position Low and Locked. Fall Precautions: Yellow Socks Yellow Gown Door Sign Patient Fall Education Report given to [Linn ELIAS].
--- NOTE | 2020-05-27 19:29 | NUR ---
NURSE NOTES: Received patient from [facility] under the care of Dr. Cool for the admitting dx. of hypoxia and Covid(+). No allergies noted. Full code. Aspiration and isolation precautions observed and maintained at all times. Patient noted awake and alert and oriented x 4 able to communicate in [place]. Tolerating O2 settings well. Will continue with current plan of care.
[2020-05-27 20:00] VITALS: BP 146/77
--- NOTE | 2020-05-27 21:00 | NUR ---
NURSE NOTES: Patient awake, No distress noted. Assisted patient with drinking. Denies pain at this time. Will continue to monitor.
--- NOTE | 2020-05-27 21:29 | Cardiology Progress Note ---
Subjective DATE OF SERVICE: May 27, 2019 Remains on bipap; increasingly hypoxic today. ABG (05/27) 7.45/46/52 CXR (05/27) worsening bilateral infiltrates and eff'ns Insulin continues to be adjusted for high glucose Objective Last 24 Hour Vital Signs Date Time Temp Pulse Resp B/P (MAP) Pulse Ox O2 Delivery O2 Flow Rate FiO2 05/27/20 20:00 Bi-pap 05/27/20 20:00 100 05/27/20 20:00 97.3 97 26 146/77 (100) 97 05/27/20 16:00 100 05/27/20 16:00 88 05/27/20 16:00 97.5 94 26 138/79 (98) 91 05/27/20 16:00 Bi-pap 05/27/20 14:45 90 24 92 100 05/27/20 12:00 Bi-pap 05/27/20 12:00 100 05/27/20 12:00 97.5 89 26 133/85 (101) 91 05/27/20 11:38 89 05/27/20 11:20 89 28 91 100 05/27/20 09:21 89 157/85 05/27/20 08:00 Bi-pap 05/27/20 08:00 100 05/27/20 08:00 97.8 89 25 157/85 (109) 91 05/27/20 07:44 82 05/27/20 07:15 96 27 92 100 05/27/20 04:00 Bi-pap 05/27/20 04:00 100 05/27/20 04:00 80 05/27/20 04:00 97.0 88 27 162/96 (118) 89 05/27/20 03:40 161/96 05/27/20 03:19 94 29 90 100 05/27/20 00:00 96 05/27/20 00:00 100 05/27/20 00:00 Bi-pap 05/27/20 00:00 96.6 95 26 158/74 (102) 92 05/26/20 23:25 76 23 90 100 ROS: unchanged from 05/16/20 HEENT: normal ENT inspection RHYTHM: NSR LUNGS: bilat. rhonchi and rales CARDIAC: normal rate, regular rhythm, normal S1 and S2 ABDOMEN: normal bowel sounds, non tender, soft, other - obese EXTREMITIES: normal range of motion, no calf tenderness, No edema Laboratory Tests Test 05/27/20 02:40 05/27/20 05:36 05/27/20 09:16 05/27/20 15:39 White Blood Count 22.2 K/UL (4.8-10.8) *H Red Blood Count 4.92 M/UL (4.70-6.10) Hemoglobin 13.6 G/DL (14.2-18.0) L Hematocrit 41.8 % (42.0-52.0) L Mean Corpuscular Volume 85 FL (80-99) Mean Corpuscular Hemoglobin 27.7 PG (27.0-31.0) Mean Corpuscular Hemoglobin Concent 32.6 G/DL (32.0-36.0) Red Cell Distribution Width 11.8 % (11.6-14.8) Platelet Count 146 K/UL (150-450) L Mean Platelet Volume 6.9 FL (6.5-10.1) Neutrophils (%) (Auto) % (45.0-75.0) Lymphocytes (%) (Auto) % (20.0-45.0) Monocytes (%) (Auto) % (1.0-10.0) Eosinophils (%) (Auto) % (0.0-3.0) Basophils (%) (Auto) % (0.0-2.0) Differential Total Cells Counted 100 Neutrophils % (Manual) 97 % (45-75) H Lymphocytes % (Manual) 1 % (20-45) L Monocytes % (Manual) 2 % (1-10) Eosinophils % (Manual) 0 % (0-3) Basophils % (Manual) 0 % (0-2) Band Neutrophils 0 % (0-8) Platelet Estimate Decreased L Platelet Morphology Normal Red Blood Cell Morphology Normal Sodium Level 141 MMOL/L (136-145) Potassium Level 4.0 MMOL/L (3.5-5.1) Chloride Level 106 MMOL/L (98-107) Carbon Dioxide Level 31 MMOL/L (21-32) Anion Gap 4 mmol/L (5-15) L Blood Urea Nitrogen 25 mg/dL (7-18) H Creatinine 0.6 MG/DL (0.55-1.30) Estimat Glomerular Filtration Rate > 60 mL/min (>60) Glucose Level 187 MG/DL (74-106) #H Calcium Level 8.2 MG/DL (8.5-10.1) L Magnesium Level 2.1 MG/DL (1.8-2.4) Total Bilirubin 0.5 MG/DL (0.2-1.0) Aspartate Amino Transf (AST/SGOT) 23 U/L (15-37) Alanine Aminotransferase (ALT/SGPT) 15 U/L (12-78) Alkaline Phosphatase 106 U/L (46-116) C-Reactive Protein, Quantitative 9.0 mg/dL (0.00-0.90) H Pro-B-Type Natriuretic Peptide 1054 pg/mL (0-125) H Total Protein 5.3 G/DL (6.4-8.2) L Albumin 1.7 G/DL (3.4-5.0) L Globulin 3.6 g/dL Albumin/Globulin Ratio 0.5 (1.0-2.7) L POC Whole Blood Glucose 172 MG/DL (74-106) H Pending Arterial Blood pH 7.449 (7.350-7.450) Arterial Blood Partial Pressure CO2 46.6 mmHg (35.0-45.0) H Arterial Blood Partial Pressure O2 52.2 mmHg (75.0-100.0) L Arterial Blood HCO3 31.6 mmol/L (22.0-26.0) H Arterial Blood Oxygen Saturation 88.0 % (95-100) *L Arterial Blood Base Excess 6.6 (-2-2) H Jose Test Positive Microbiology Date/Time Source Procedure Growth Status 05/26/20 17:45 Sputum Gram Stain - Final Resulted 05/26/20 17:45 Sputum Sputum Culture Pending Resulted Assessment/Plan Assessment/Plan Covid 19 PNA Hypoxia worse Steroid exacerbated diabetes mellitus Hypertension Ac diast CHF component with pleural effn's O2 Bipap support Lovenox anticoag IV steroids with taper Anti-viral rx completed. Long acting insulin advanced, with cont'd sliding scale cov'g Diuresis trial Remains high risk for deterioration and intubation. Tomas Cool MD May 27, 2020 21:29
[2020-05-28] VITALS (8 sets, daily range): BP systolic 134–158; BP diastolic 62–85
--- NOTE | 2020-05-28 | NUR ---
NURSE NOTES: Patient requested orange juice and water. Assisted with drinking, and repositioned BiPAP. Oral care performed. Will continue to monitor.
--- NOTE | 2020-05-28 03:00 | NUR ---
NURSE NOTES: Patient noted asleep. No acute distress noted. Tolerating O2 settings well. Will continue to monitor.
[2020-05-28 05:34] LABS: HEMATOCRIT 41.6 % (42.0-52.0); HEMOGLOBIN 13.7 G/DL (14.2-18.0); MEAN CORPUSCULAR VOLUME 85 FL (80-99); PLATELET COUNT 173 K/UL (150-450); RED CELL DISTRIBUTION WIDTH 11.8 % (11.6-14.8); WHITE BLOOD COUNT 18.5 K/UL (4.8-10.8)
[2020-05-28 05:54] LABS: ALANINE AMINOTRANSFERASE 16 U/L (12-78); ALBUMIN 1.8 G/DL (3.4-5.0); ALBUMIN/GLOBULIN RATIO 0.5 (1.0-2.7); ALKALINE PHOSPHATASE 100 U/L (46-116); ANION GAP 3 mmol/L (5-15); ASPARTATE AMINO TRANSFERASE 23 U/L (15-37); BILIRUBIN,TOTAL 0.6 MG/DL (0.2-1.0); BLOOD UREA NITROGEN 24 mg/dL (7-18); CARBON DIOXIDE 35 MMOL/L (21-32); CHLORIDE 102 MMOL/L (98-107); CREATININE 0.7 MG/DL (0.55-1.30); POTASSIUM 3.1 MMOL/L (3.5-5.1); SODIUM 140 MMOL/L (136-145)
[2020-05-28] MEDS: NovoLOG Insulin Flexpen SUBQ SCH ×4 (06:30→20:39)
--- NOTE | 2020-05-28 07:07 | NUR ---
NURSE HAND-OFF REPORT: Important Events on Shift: Patient Status: Diet: CCHO Pending Orders: Pending Results/Labs: Pending MD notification: Latest Vital Signs: Temperature 97.9 , Pulse 89 , B/P 140 /74 , Respiratory Rate 28 , O2 SAT 95 , Non-Rebreather, O2 Flow Rate 15.0 . Vital Sign Comment: EKG Rhythm: Sinus Rhythm Rhythm change?: N MD Notified?: N -Dr. Travon MEJIA Response: Latest Gregg Fall Score: 45 Fall Risk: High Risk Safety Measures: Call light Within Reach, Bed Alarm Zone 1, Side Rails Side Rails x2, Bed position Low and Locked. Fall Precautions: Yellow Socks Yellow Gown Door Sign Patient Fall Education Report given to JADA Kapadia.
--- NOTE | 2020-05-28 07:30 | NUR ---
NURSE NOTES: Received pt from JADA Burnham, pt is awake and alert. pt has Bipap 20/12 fio2 100%, Pt is on continues heart monitoring. pt has intact iv access LH 22G is running well. pt is complaining CP, Dr Mensah is visiting pt and ordered ECG, noted and ECG sent to Dr Cool, waiting to call back. Dr Mensah is aware about K 3.1, F/U. All needs attended, bed is locked and is in the lowest position, call light within easy reach. will continue to monitor.
[2020-05-28] MEDS: Solu-MEDROL 40mg Inj IVP SCH (08:42)
[2020-05-28] MEDS: Levemir Flexpen SUBQ SCH ×2 (08:44→20:40)
[2020-05-28] MEDS: Enoxaparin 40mg Inj SUBQ SCH ×2 (08:44→18:35)
--- NOTE | 2020-05-28 08:47 | NUR ---
NURSE NOTES: 14unit levemir given to pt as order to NPO.
--- NOTE | 2020-05-28 09:02 | NUR ---
NURSE NOTES: still waiting for Dr Cool, Dr Mensah is aware and ordered nitroglycerin SL, noted and carried out. will continue to monitor.
[2020-05-28] MEDS: Nitroglycerin Subl 0.4mg tab SL PRN ×2 (09:23→09:29)
--- NOTE | 2020-05-28 10:33 | Pulmonology Progress Note ---
Subjective ROS Limited/Unobtainable: Yes Constitutional: Denies: fever Allergies: Coded Allergies: No Known Allergies (Unverified , 05/15/20) All Systems: reviewed and negative except above Subjective care noted in bed on BIPAP on 100% not improved Objective Last 24 Hour Vital Signs Date Time Temp Pulse Resp B/P (MAP) Pulse Ox O2 Delivery O2 Flow Rate FiO2 05/28/20 09:29 140/75 05/28/20 09:23 145/74 05/28/20 09:23 100 145/74 05/28/20 08:00 97.9 100 28 145/74 (97) 90 05/28/20 07:43 90 05/28/20 04:00 97.9 89 28 140/74 (96) 95 05/28/20 04:00 83 05/28/20 04:00 100 05/28/20 04:00 Bi-pap 05/28/20 03:34 85 27 100 100 05/28/20 03:30 88 21 91 100 05/28/20 00:00 95 05/28/20 00:00 100 05/28/20 00:00 Bi-pap 05/28/20 00:00 96.6 89 28 147/70 (95) 92 05/27/20 20:16 83 05/27/20 20:00 Bi-pap 05/27/20 20:00 100 05/27/20 20:00 97.3 97 26 146/77 (100) 97 05/27/20 19:30 82 26 95 100 05/27/20 16:00 100 05/27/20 16:00 88 05/27/20 16:00 97.5 94 26 138/79 (98) 91 05/27/20 16:00 Bi-pap 05/27/20 14:45 90 24 92 100 05/27/20 12:00 Bi-pap 05/27/20 12:00 100 05/27/20 12:00 97.5 89 26 133/85 (101) 91 05/27/20 11:38 89 05/27/20 11:20 89 28 91 100 Intake and Output 05/27/20 05/28/20 19:00 07:00 Intake Total 500 ml 450 ml Output Total 200 ml Balance 300 ml 450 ml Intake Oral 500 ml 450 ml Output Urine Total 200 ml # Voids 2 2 Objective deferred due to COVID Microbiology Date/Time Source Procedure Growth Status 05/26/20 17:45 Sputum Gram Stain - Final Resulted 05/26/20 17:45 Sputum Sputum Culture Pending Resulted Laboratory Tests 05/27/20 15:39: Arterial Blood pH 7.449, Arterial Blood Partial Pressure CO2 46.6H, Arterial Blood Partial Pressure O2 52.2L, Arterial Blood HCO3 31.6H, Arterial Blood Oxygen Saturation 88.0*L, Arterial Blood Base Excess 6.6H, Jose Test Positive 05/27/20 21:27: POC Whole Blood Glucose 143H 05/28/20 02:42: White Blood Count 18.5H, Red Blood Count 4.90, Hemoglobin 13.7L, Hematocrit 41.6L, Mean Corpuscular Volume 85, Mean Corpuscular Hemoglobin 27.9, Mean Corpuscular Hemoglobin Concent 32.9, Red Cell Distribution Width 11.8, Platelet Count 173, Mean Platelet Volume 6.9, Neutrophils (%) (Auto) , Lymphocytes (%) (Auto) , Monocytes (%) (Auto) , Eosinophils (%) (Auto) , Basophils (%) (Auto) , Differential Total Cells Counted 100, Neutrophils % (Manual) 94H, Lymphocytes % (Manual) 3L, Monocytes % (Manual) 3, Eosinophils % (Manual) 0, Basophils % (Manual) 0, Band Neutrophils 0, Platelet Estimate Adequate, Platelet Morphology Normal, Red Blood Cell Morphology Normal, Sodium Level 140, Potassium Level 3.1L , Chloride Level 102, Carbon Dioxide Level 35H, Anion Gap 3L, Blood Urea Nitrogen 24H, Creatinine 0.7, Estimat Glomerular Filtration Rate > 60, Glucose Level 102, Calcium Level 8.0L, Total Bilirubin 0.6, Aspartate Amino Transf (A ST/SGOT) 23, Alanine Aminotransferase (ALT/SGPT) 16, Alkaline Phosphatase 100, Total Protein 5.4L, Albumin 1.8L, Globulin 3.6, Albumin/Globulin Ratio 0.5L 05/28/20 06:43: POC Whole Blood Glucose 109H Current Medications Medications (Trade) Dose Ordered Sig/Baldo Route PRN Reason Start Time Stop Time Status Last Admin Dose Admin Acetaminophen (Tylenol) 650 mg EVERY 4 HOURS PRN ORAL fever/MINAYA 05/16/20 03:15 06/15/20 03:14 05/24/20 22:08 Acetaminophen (Tylenol) 650 mg Q4H PRN ORAL Mild Pain (Pain Scale 1-3) 05/16/20 12:15 06/15/20 12:14 05/26/20 08:59 Acetaminophen (Tylenol) 650 mg Q4H PRN ORAL fever 05/16/20 12:15 06/15/20 12:14 Albuterol Sulfate (Proventil MDI) 2 puff Q4H PRN INH Shortness of Breath 05/16/20 14:00 08/14/20 13:59 05/19/20 01:01 Amlodipine Besylate (Norvasc) 5 mg DAILY ORAL 05/16/20 09:00 06/15/20 08:59 05/28/20 09:23 Clonidine HCl (Catapres Tab) 0.1 mg Q4H PRN ORAL For High Blood Pressure 05/16/20 14:45 08/14/20 14:44 05/27/20 03:40 Dextrose (Dextrose 50%) 25 ml Q30M PRN IV Hypoglycemia 05/16/20 12:15 08/14/20 12:14 Dextrose (Dextrose 50%) 50 ml Q30M PRN IV Hypoglycemia 05/16/20 12:15 08/14/20 12:14 Enoxaparin Sodium (Lovenox) 40 mg BID SUBQ 05/16/20 10:00 08/14/20 09:59 05/28/20 08:44 Famotidine (Pepcid I.v.) 20 mg DAILY IVP 05/17/20 09:00 06/16/20 08:59 05/28/20 08:42 Insulin Aspart (NovoLOG) BEFORE MEALS AND HS SUBQ 05/16/20 16:30 08/14/20 16:29 05/27/20 21:00 Insulin Detemir (Levemir) 26 units BEDTIME SUBQ 05/26/20 21:00 08/16/20 20:59 05/27/20 21:00 Insulin Detemir (Levemir) 28 units DAILY SUBQ 05/27/20 09:00 08/16/20 08:59 05/28/20 08:44 Methylprednisolone Sodium Succinate (Solu-MEDROL) 40 mg DAILY IVP 05/28/20 09:00 08/26/20 08:59 05/28/20 08:42 Nitroglycerin (Ntg) 0.4 mg Q5M PRN SL Prn Chest Pain 05/28/20 08:45 06/27/20 08:44 05/28/20 09:29 Ondansetron HCl (Zofran) 4 mg Q6H PRN IVP Nausea & Vomiting 05/21/20 12:30 06/20/20 12:29 05/27/20 03:40 Assessment/Plan Assessment/Plan Impression: Pneumonia due to COVID-19 virus Hypoxic Respiratory Failure Hypertension Diabetes Septic shock Pulmonary infiltrates Plan: - no new changes -O2 at 100% and on BIPAP -albuterol PRN -Monitor labs -DVT prophylaxis; negative venous US -escalate care as needed to ICU if needed -remains at risk for deterioration and intubation and may need ICU; borderline oxygen saturations at present - repeat CXR and ABG as able impression, plan, and exam edited and reviewed in detail care discussed with Rahul Dunn MD May 28, 2020 10:33
--- NOTE | 2020-05-28 10:51 | Infectious Diseases Prog Note ---
Assessment/Plan Assessment/Plan A 1. COVID19 pneumonia 2. diabetes mellitus 3. hypertension 4. Hypoxemia 5. Leukocytosis P 1. Finished remdesivir course 2. continue Solumedrol tapering 3. continue isolation Subjective ROS Limited/Unobtainable: Yes Constitutional: Denies: fever Cardiovascular: Reports: chest pain Allergies: Coded Allergies: No Known Allergies (Unverified , 05/15/20) Objective Last 24 Hour Vital Signs Date Time Temp Pulse Resp B/P (MAP) Pulse Ox O2 Delivery O2 Flow Rate FiO2 05/28/20 09:29 140/75 05/28/20 09:23 145/74 05/28/20 09:23 100 145/74 05/28/20 08:00 100 05/28/20 08:00 Bi-pap 05/28/20 08:00 97.9 100 28 145/74 (97) 90 05/28/20 07:43 90 05/28/20 04:00 97.9 89 28 140/74 (96) 95 05/28/20 04:00 83 05/28/20 04:00 100 05/28/20 04:00 Bi-pap 05/28/20 03:34 85 27 100 100 05/28/20 03:30 88 21 91 100 05/28/20 00:00 95 05/28/20 00:00 100 05/28/20 00:00 Bi-pap 05/28/20 00:00 96.6 89 28 147/70 (95) 92 05/27/20 20:16 83 05/27/20 20:00 Bi-pap 05/27/20 20:00 100 05/27/20 20:00 97.3 97 26 146/77 (100) 97 05/27/20 19:30 82 26 95 100 05/27/20 16:00 100 05/27/20 16:00 88 05/27/20 16:00 97.5 94 26 138/79 (98) 91 05/27/20 16:00 Bi-pap 05/27/20 14:45 90 24 92 100 05/27/20 12:00 Bi-pap 05/27/20 12:00 100 05/27/20 12:00 97.5 89 26 133/85 (101) 91 05/27/20 11:38 89 05/27/20 11:20 89 28 91 100 Height (Feet): 5 Height (Inches): 9.00 Weight (Pounds): 220 HEENT: mucous membranes moist Respiratory/Chest: other - on BIPAP, WFn5=184% Cardiovascular: tachycardia Abdomen: soft, non tender Extremities: other - legs edema Neurologic/Psychiatric: other - sleeping Microbiology Date/Time Source Procedure Growth Status 05/26/20 17:45 Sputum Gram Stain - Final Resulted 05/26/20 17:45 Sputum Sputum Culture Pending Resulted Laboratory Tests Test 05/27/20 15:39 05/27/20 21:27 05/28/20 02:42 05/28/20 06:43 Arterial Blood pH 7.449 (7.350-7.450) Arterial Blood Partial Pressure CO2 46.6 mmHg (35.0-45.0) H Arterial Blood Partial Pressure O2 52.2 mmHg (75.0-100.0) L Arterial Blood HCO3 31.6 mmol/L (22.0-26.0) H Arterial Blood Oxygen Saturation 88.0 % (95-100) *L Arterial Blood Base Excess 6.6 (-2-2) H Jose Test Positive POC Whole Blood Glucose 143 MG/DL (74-106) H 109 MG/DL (74-106) H White Blood Count 18.5 K/UL (4.8-10.8) H Red Blood Count 4.90 M/UL (4.70-6.10) Hemoglobin 13.7 G/DL (14.2-18.0) L Hematocrit 41.6 % (42.0-52.0) L Mean Corpuscular Volume 85 FL (80-99) Mean Corpuscular Hemoglobin 27.9 PG (27.0-31.0) Mean Corpuscular Hemoglobin Concent 32.9 G/DL (32.0-36.0) Red Cell Distribution Width 11.8 % (11.6-14.8) Platelet Count 173 K/UL (150-450) Mean Platelet Volume 6.9 FL (6.5-10.1) Neutrophils (%) (Auto) % (45.0-75.0) Lymphocytes (%) (Auto) % (20.0-45.0) Monocytes (%) (Auto) % (1.0-10.0) Eosinophils (%) (Auto) % (0.0-3.0) Basophils (%) (Auto) % (0.0-2.0) Differential Total Cells Counted 100 Neutrophils % (Manual) 94 % (45-75) H Lymphocytes % (Manual) 3 % (20-45) L Monocytes % (Manual) 3 % (1-10) Eosinophils % (Manual) 0 % (0-3) Basophils % (Manual) 0 % (0-2) Band Neutrophils 0 % (0-8) Platelet Estimate Adequate Platelet Morphology Normal Red Blood Cell Morphology Normal Sodium Level 140 MMOL/L (136-145) Potassium Level 3.1 MMOL/L (3.5-5.1) L Chloride Level 102 MMOL/L (98-107) Carbon Dioxide Level 35 MMOL/L (21-32) H Anion Gap 3 mmol/L (5-15) L Blood Urea Nitrogen 24 mg/dL (7-18) H Creatinine 0.7 MG/DL (0.55-1.30) Estimat Glomerular Filtration Rate > 60 mL/min (>60) Glucose Level 102 MG/DL (74-106) Calcium Level 8.0 MG/DL (8.5-10.1) L Total Bilirubin 0.6 MG/DL (0.2-1.0) Aspartate Amino Transf (AST/SGOT) 23 U/L (15-37) Alanine Aminotransferase (ALT/SGPT) 16 U/L (12-78) Alkaline Phosphatase 100 U/L (46-116) Total Protein 5.4 G/DL (6.4-8.2) L Albumin 1.8 G/DL (3.4-5.0) L Globulin 3.6 g/dL Albumin/Globulin Ratio 0.5 (1.0-2.7) L Current Medications Medications (Trade) Dose Ordered Sig/Baldo Route PRN Reason Start Time Stop Time Status Last Admin Dose Admin Acetaminophen (Tylenol) 650 mg EVERY 4 HOURS PRN ORAL fever/MINAYA 05/16/20 03:15 06/15/20 03:14 05/24/20 22:08 Acetaminophen (Tylenol) 650 mg Q4H PRN ORAL Mild Pain (Pain Scale 1-3) 05/16/20 12:15 06/15/20 12:14 05/26/20 08:59 Acetaminophen (Tylenol) 650 mg Q4H PRN ORAL fever 05/16/20 12:15 06/15/20 12:14 Albuterol Sulfate (Proventil MDI) 2 puff Q4H PRN INH Shortness of Breath 05/16/20 14:00 08/14/20 13:59 05/19/20 01:01 Amlodipine Besylate (Norvasc) 5 mg DAILY ORAL 05/16/20 09:00 06/15/20 08:59 05/28/20 09:23 Clonidine HCl (Catapres Tab) 0.1 mg Q4H PRN ORAL For High Blood Pressure 05/16/20 14:45 08/14/20 14:44 05/27/20 03:40 Dextrose (Dextrose 50%) 25 ml Q30M PRN IV Hypoglycemia 05/16/20 12:15 08/14/20 12:14 Dextrose (Dextrose 50%) 50 ml Q30M PRN IV Hypoglycemia 05/16/20 12:15 08/14/20 12:14 Enoxaparin Sodium (Lovenox) 40 mg BID SUBQ 05/16/20 10:00 08/14/20 09:59 05/28/20 08:44 Famotidine (Pepcid I.v.) 20 mg DAILY IVP 05/17/20 09:00 06/16/20 08:59 05/28/20 08:42 Furosemide (Lasix) 40 mg ONCE IV 05/28/20 10:45 05/28/20 11:30 Insulin Aspart (NovoLOG) BEFORE MEALS AND HS SUBQ 05/16/20 16:30 08/14/20 16:29 05/27/20 21:00 Insulin Detemir (Levemir) 26 units BEDTIME SUBQ 05/26/20 21:00 08/16/20 20:59 05/27/20 21:00 Insulin Detemir (Levemir) 28 units DAILY SUBQ 05/27/20 09:00 08/16/20 08:59 05/28/20 08:44 Methylprednisolone Sodium Succinate (Solu-MEDROL) 40 mg DAILY IVP 05/28/20 09:00 08/26/20 08:59 05/28/20 08:42 Nitroglycerin (Ntg) 0.4 mg Q5M PRN SL Prn Chest Pain 05/28/20 08:45 06/27/20 08:44 05/28/20 09:29 Ondansetron HCl (Zofran) 4 mg Q6H PRN IVP Nausea & Vomiting 05/21/20 12:30 06/20/20 12:29 05/27/20 03:40 Jamie Sullivan MD May 28, 2020 10:50
--- NOTE | 2020-05-28 11:30 | NUR ---
NURSE NOTES: Dr Cool visited pt and is aware about ECG and CP and Nitro SL, no new order received. will continue to monitor. Addendum: 05/28/20 at 1135 by Kang Moses RN and also Dr Cool is aware about spo2 between 85-90% and if take off mask for oral care spo2 decreases to 50%, nno.
--- NOTE | 2020-05-28 14:58 | NUR ---
[facility] SI: Respiratory Failure, COVID PNA T-97.3, HR 99, RR 25, BP 139/62, O2 sat 88% Bi-pap FiO2 100% WBC 18.5, K+ 3.1, BUN 24, Anion Gap 3, cxray-increasing bilateral infiltrates 05-27-20 IS: Solu-medrol IV QD Levemir SQ QD Pepcid IV QD Lovenox SQ BID Norvasc PO QD Step Down Status
--- NOTE | 2020-05-28 15:01 | NUR ---
NURSE NOTES: ABG result sent to Dr Robles, waiting to call back. will continue to close monitoring.
--- NOTE | 2020-05-28 15:15 | NUR ---
NURSE NOTES: Dr Robles called back and ordered to transfer pt to icu and intubate pt, noted and carried out, ED MD and RT are aware.
--- NOTE | 2020-05-28 15:48 | NUR ---
NURSE NOTES: Report given to JADA Mathews, waiting for ED MD to intubate pt, HR 99 SPO2 84%. Addendum: 05/28/20 at 1616 by Kang Moses RN Dr Cool is aware about intubation.
--- NOTE | 2020-05-28 15:50 | NUR ---
NURSE NOTES:RECEIVED REPORT FROM [employer]AY [employer] C[employer]. PT IS ICU STATUS . DR WALTON ORDER TO TRANSFER THE PT ICU AND HE CALL ANGELINA WADE TO INTUBATE THE PT . DR JIMENEZ ORDER TO REPEAT ABG,S STAT. ABG,STILL ABNORMAL BUT THE ED DR JIMENEZ ORDER BREATHING TX,S X3 STAT.BREATHING TX,S GIVEN BY RT. WILL CONT TO MONITOR.
--- NOTE | 2020-05-28 16:00 | NUR ---
NURSE NOTES:FANY ELIAS ZINC CHLORIDE OPERATOR MADE AWARE AND NOTIFIED REGARDING DR WALTON ORDER TO TRANSFER THE PT TO ICU AND WILL BE INTUBATED BY ED DR LENZ. BAN ELIAS STED " NO BED AVAILABLE AT THIS TIME." PLACED A TELEPHONE CALL TO DR WALTON AND MADE HIM AWARE AND NOTIFIED REGARDING NO BED AVAILABLE IN ICU AT THIS TIME AND WE WILL CONT MONITORING THE PT IN [place]. WILL CONT TO MONITOR.
[2020-05-28] MEDS: Albuterol/Ipratropium 3ml neb HHN SCH ×3 (16:48→16:50)
--- NOTE | 2020-05-28 17:20 | NUR ---
NURSE NOTES: ANGELINA WADE CAME TO SEE THE PT AND EXPLAINED REGARDING INTUBATION. PT REFUSED TO GET INTUBATED AT THIS TIME. PT STATING " I FEEL BETTER ". PT AWAKE AND ALERT AND ABLE TO VERBALIZED HIS NEEDS AT THIS TIME ACCURATELY. WILL CONT TO MONITOR.
--- NOTE | 2020-05-28 17:41 | Consultation ---
History of Present Illness General Chief Complaint: Dyspnea/Respdistress Present Illness HPI I was asked to see this patient who is admitted with COVID-19 and hypoxia. Patient is on BiPAP. Patient's physician Dr. Segal was concerned that the patient was hypoxic on his blood gas. Although pH was normal. Patient is reportedly receiving IV steroids. Patient was given some duo nebs. When I went to the room patient was satting in the mid to high 80s and low 90s. He is awake alert and conversive. He is in no acute respiratory distress he states that he feels fine and is not concerned about his breathing. Due to the current recommendations for treatment of hypoxia in COVID-19 patients I do not believe this patient needs to be intubated at this time as he is in no respiratory distress and awake and alert. We will continue to monitor the patient's respiratory status. Bedside nurse and respiratory therapist were both in agreement with the current treatment plan. Allergies: Coded Allergies: No Known Allergies (Unverified , 05/15/20) Medication History Scheduled Amlodipine Besylate* (Amlodipine Besylate*), 5 MG ORAL DAILY, (Reported) Carvedilol* (Carvedilol*), 3.125 MG ORAL EVERY 12 HOURS, (Reported) Glipizide* (Glipizide*), 5 MG ORAL BIDAC, (Reported) Omeprazole (Omeprazole), 40 MG ORAL DAILY, (Reported) Tamsulosin HCl (Flomax), 0.4 MG ORAL DAILY, (Reported) Valsartan/Hydrochlorothiazide 160-12.5MG (Diovan Hct 160-12.5 Mg Tab), 1 TAB ORAL DAILY, (Reported) Miscellaneous Medications Metformin Hcl* (Metformin Hcl*), Unknown Dose ORAL, (Reported) Patient History Healthcare decision maker Resuscitation status Advanced Directive on File Physical Exam Last 24 Hour Vital Signs Date Time Temp Pulse Resp B/P (MAP) Pulse Ox O2 Delivery O2 Flow Rate FiO2 05/28/20 16:45 119 38 70 Bi-Pap 100 05/28/20 16:00 105 05/28/20 15:45 120 38 77 100 05/28/20 12:00 97.3 99 25 139/62 (87) 88 05/28/20 12:00 100 05/28/20 12:00 Bi-pap 05/28/20 11:35 95 05/28/20 11:35 105 29 91 100 05/28/20 09:29 140/75 05/28/20 09:23 145/74 05/28/20 09:23 100 145/74 05/28/20 08:00 100 05/28/20 08:00 Bi-pap 05/28/20 08:00 97.9 100 28 145/74 (97) 90 05/28/20 07:43 90 05/28/20 07:38 100 27 90 100 05/28/20 04:00 97.9 89 28 140/74 (96) 95 05/28/20 04:00 83 05/28/20 04:00 100 05/28/20 04:00 Bi-pap 05/28/20 03:34 85 27 100 100 05/28/20 03:30 88 21 91 100 05/28/20 00:00 95 05/28/20 00:00 100 05/28/20 00:00 Bi-pap 05/28/20 00:00 96.6 89 28 147/70 (95) 92 05/27/20 20:16 83 05/27/20 20:00 Bi-pap 05/27/20 20:00 100 05/27/20 20:00 97.3 97 26 146/77 (100) 97 05/27/20 19:30 82 26 95 100 Intake and Output 05/27/20 05/28/20 19:00 07:00 Intake Total 500 ml 450 ml Output Total 200 ml Balance 300 ml 450 ml Intake Oral 500 ml 450 ml Output Urine Total 200 ml # Voids 2 2 Laboratory Tests Test 05/27/20 21:27 05/28/20 02:42 05/28/20 06:43 05/28/20 11:21 POC Whole Blood Glucose 143 MG/DL (74-106) H 109 MG/DL (74-106) H Pending White Blood Count 18.5 K/UL (4.8-10.8) H Red Blood Count 4.90 M/UL (4.70-6.10) Hemoglobin 13.7 G/DL (14.2-18.0) L Hematocrit 41.6 % (42.0-52.0) L Mean Corpuscular Volume 85 FL (80-99) Mean Corpuscular Hemoglobin 27.9 PG (27.0-31.0) Mean Corpuscular Hemoglobin Concent 32.9 G/DL (32.0-36.0) Red Cell Distribution Width 11.8 % (11.6-14.8) Platelet Count 173 K/UL (150-450) Mean Platelet Volume 6.9 FL (6.5-10.1) Neutrophils (%) (Auto) % (45.0-75.0) Lymphocytes (%) (Auto) % (20.0-45.0) Monocytes (%) (Auto) % (1.0-10.0) Eosinophils (%) (Auto) % (0.0-3.0) Basophils (%) (Auto) % (0.0-2.0) Differential Total Cells Counted 100 Neutrophils % (Manual) 94 % (45-75) H Lymphocytes % (Manual) 3 % (20-45) L Monocytes % (Manual) 3 % (1-10) Eosinophils % (Manual) 0 % (0-3) Basophils % (Manual) 0 % (0-2) Band Neutrophils 0 % (0-8) Platelet Estimate Adequate Platelet Morphology Normal Red Blood Cell Morphology Normal Sodium Level 140 MMOL/L (136-145) Potassium Level 3.1 MMOL/L (3.5-5.1) L Chloride Level 102 MMOL/L (98-107) Carbon Dioxide Level 35 MMOL/L (21-32) H Anion Gap 3 mmol/L (5-15) L Blood Urea Nitrogen 24 mg/dL (7-18) H Creatinine 0.7 MG/DL (0.55-1.30) Estimat Glomerular Filtration Rate > 60 mL/min (>60) Glucose Level 102 MG/DL (74-106) Calcium Level 8.0 MG/DL (8.5-10.1) L Total Bilirubin 0.6 MG/DL (0.2-1.0) Aspartate Amino Transf (AST/SGOT) 23 U/L (15-37) Alanine Aminotransferase (ALT/SGPT) 16 U/L (12-78) Alkaline Phosphatase 100 U/L (46-116) Total Protein 5.4 G/DL (6.4-8.2) L Albumin 1.8 G/DL (3.4-5.0) L Globulin 3.6 g/dL Albumin/Globulin Ratio 0.5 (1.0-2.7) L Test 05/28/20 14:50 05/28/20 16:00 Arterial Blood pH 7.475 (7.350-7.450) 7.493 (7.350-7.450) Arterial Blood Partial Pressure CO2 46.5 mmHg (35.0-45.0) H 44.1 mmHg (35.0-45.0) Arterial Blood Partial Pressure O2 35.1 mmHg (75.0-100.0) 38.9 mmHg (75.0-100.0) Arterial Blood HCO3 33.5 mmol/L (22.0-26.0) H 33.1 mmol/L (22.0-26.0) H Arterial Blood Oxygen Saturation 70.6 % (95-100) *L 77.1 % (95-100) *L Arterial Blood Base Excess 8.6 (-2-2) H 8.7 (-2-2) H Jose Test Positive Positive Height (Feet): 5 Height (Inches): 9.00 Weight (Pounds): 220 Medications Current Medications Medications (Trade) Dose Ordered Sig/Baldo Route PRN Reason Start Time Stop Time Status Last Admin Dose Admin Acetaminophen (Tylenol) 650 mg EVERY 4 HOURS PRN ORAL fever/MINAYA 05/16/20 03:15 06/15/20 03:14 05/24/20 22:08 Acetaminophen (Tylenol) 650 mg Q4H PRN ORAL Mild Pain (Pain Scale 1-3) 05/16/20 12:15 06/15/20 12:14 05/26/20 08:59 Acetaminophen (Tylenol) 650 mg Q4H PRN ORAL fever 05/16/20 12:15 06/15/20 12:14 Albuterol Sulfate (Proventil MDI) 2 puff Q4H PRN INH Shortness of Breath 05/16/20 14:00 08/14/20 13:59 05/19/20 01:01 Amlodipine Besylate (Norvasc) 5 mg DAILY ORAL 05/16/20 09:00 06/15/20 08:59 05/28/20 09:23 Clonidine HCl (Catapres Tab) 0.1 mg Q4H PRN ORAL For High Blood Pressure 05/16/20 14:45 08/14/20 14:44 05/27/20 03:40 Dextrose (Dextrose 50%) 25 ml Q30M PRN IV Hypoglycemia 05/16/20 12:15 08/14/20 12:14 Dextrose (Dextrose 50%) 50 ml Q30M PRN IV Hypoglycemia 05/16/20 12:15 08/14/20 12:14 Enoxaparin Sodium (Lovenox) 40 mg BID SUBQ 05/16/20 10:00 08/14/20 09:59 05/28/20 08:44 Famotidine (Pepcid I.v.) 20 mg DAILY IVP 05/17/20 09:00 06/16/20 08:59 05/28/20 08:42 Insulin Aspart (NovoLOG) BEFORE MEALS AND HS SUBQ 05/16/20 16:30 08/14/20 16:29 05/27/20 21:00 Insulin Detemir (Levemir) 26 units BEDTIME SUBQ 05/26/20 21:00 08/16/20 20:59 05/27/20 21:00 Insulin Detemir (Levemir) 28 units DAILY SUBQ 05/27/20 09:00 08/16/20 08:59 05/28/20 08:44 Methylprednisolone Sodium Succinate (Solu-MEDROL) 40 mg DAILY IVP 05/28/20 09:00 08/26/20 08:59 05/28/20 08:42 Nitroglycerin (Ntg) 0.4 mg Q5M PRN SL Prn Chest Pain 05/28/20 08:45 06/27/20 08:44 05/28/20 09:29 Ondansetron HCl (Zofran) 4 mg Q6H PRN IVP Nausea & Vomiting 05/21/20 12:30 06/20/20 12:29 05/27/20 03:40 Yarelis Ortiz M.D. May 28, 2020 17:41
--- NOTE | 2020-05-28 17:50 | NUR ---
NURSE NOTES: PLACED A TELEPHONE CALL TO PT DAO AND MADE HER AWARE AND NOTIFIED REGARDING HER BREATHING STATUS IS GETTING WORSE AND HE ALMOST GOT INTUBATED BUT AFTER HE HAD A BREATHING TX,S HIS RESPIRATORY STATUS IMPROVED AND HE WAS ABLE TO SAID THAT HE FEEL BETTER AND REFUSED TO GET INTUBATED ALSO PT PEDRO LUIS COLLIER WAS INFORMED REGARDING PT CONDITIONS. WILL CONT TO MONITOR.
--- NOTE | 2020-05-28 18:05 | Surgery Progress Note ---
Surgery Progress Note Subjective Additional Comments ill appearing on suppor t Objective Last 24 Hour Vital Signs Date Time Temp Pulse Resp B/P (MAP) Pulse Ox O2 Delivery O2 Flow Rate FiO2 05/28/20 16:45 119 38 70 Bi-Pap 100 05/28/20 16:00 105 05/28/20 15:45 120 38 77 100 05/28/20 12:00 97.3 99 25 139/62 (87) 88 05/28/20 12:00 100 05/28/20 12:00 Bi-pap 05/28/20 11:35 95 05/28/20 11:35 105 29 91 100 05/28/20 09:29 140/75 05/28/20 09:23 145/74 05/28/20 09:23 100 145/74 05/28/20 08:00 100 05/28/20 08:00 Bi-pap 05/28/20 08:00 97.9 100 28 145/74 (97) 90 05/28/20 07:43 90 05/28/20 07:38 100 27 90 100 05/28/20 04:00 97.9 89 28 140/74 (96) 95 05/28/20 04:00 83 05/28/20 04:00 100 05/28/20 04:00 Bi-pap 05/28/20 03:34 85 27 100 100 05/28/20 03:30 88 21 91 100 05/28/20 00:00 95 05/28/20 00:00 100 05/28/20 00:00 Bi-pap 05/28/20 00:00 96.6 89 28 147/70 (95) 92 05/27/20 20:16 83 05/27/20 20:00 Bi-pap 05/27/20 20:00 100 05/27/20 20:00 97.3 97 26 146/77 (100) 97 05/27/20 19:30 82 26 95 100 I&O Intake and Output 05/27/20 05/28/20 19:00 07:00 Intake Total 500 ml 450 ml Output Total 200 ml Balance 300 ml 450 ml Intake Oral 500 ml 450 ml Output Urine Total 200 ml # Voids 2 2 Cardiovascular: RSR Respiratory: decreased breath sounds, other Abdomen: non-tender, present bowel sounds, other Extremities: no edema, no tenderness, no cyanosis Laboratory Tests Test 05/27/20 21:27 1/21/21 02:42 05/28/20 06:43 05/28/20 11:21 POC Whole Blood Glucose 143 MG/DL (74-106) H 109 MG/DL (74-106) H Pending White Blood Count 18.5 K/UL (4.8-10.8) H Red Blood Count 4.90 M/UL (4.70-6.10) Hemoglobin 13.7 G/DL (14.2-18.0) L Hematocrit 41.6 % (42.0-52.0) L Mean Corpuscular Volume 85 FL (80-99) Mean Corpuscular Hemoglobin 27.9 PG (27.0-31.0) Mean Corpuscular Hemoglobin Concent 32.9 G/DL (32.0-36.0) Red Cell Distribution Width 11.8 % (11.6-14.8) Platelet Count 173 K/UL (150-450) Mean Platelet Volume 6.9 FL (6.5-10.1) Neutrophils (%) (Auto) % (45.0-75.0) Lymphocytes (%) (Auto) % (20.0-45.0) Monocytes (%) (Auto) % (1.0-10.0) Eosinophils (%) (Auto) % (0.0-3.0) Basophils (%) (Auto) % (0.0-2.0) Differential Total Cells Counted 100 Neutrophils % (Manual) 94 % (45-75) H Lymphocytes % (Manual) 3 % (20-45) L Monocytes % (Manual) 3 % (1-10) Eosinophils % (Manual) 0 % (0-3) Basophils % (Manual) 0 % (0-2) Band Neutrophils 0 % (0-8) Platelet Estimate Adequate Platelet Morphology Normal Red Blood Cell Morphology Normal Sodium Level 140 MMOL/L (136-145) Potassium Level 3.1 MMOL/L (3.5-5.1) L Chloride Level 102 MMOL/L (98-107) Carbon Dioxide Level 35 MMOL/L (21-32) H Anion Gap 3 mmol/L (5-15) L Blood Urea Nitrogen 24 mg/dL (7-18) H Creatinine 0.7 MG/DL (0.55-1.30) Estimat Glomerular Filtration Rate > 60 mL/min (>60) Glucose Level 102 MG/DL (74-106) Calcium Level 8.0 MG/DL (8.5-10.1) L Total Bilirubin 0.6 MG/DL (0.2-1.0) Aspartate Amino Transf (AST/SGOT) 23 U/L (15-37) Alanine Aminotransferase (ALT/SGPT) 16 U/L (12-78) Alkaline Phosphatase 100 U/L (46-116) Total Protein 5.4 G/DL (6.4-8.2) L Albumin 1.8 G/DL (3.4-5.0) L Globulin 3.6 g/dL Albumin/Globulin Ratio 0.5 (1.0-2.7) L Test 05/28/20 14:50 05/28/20 16:00 Arterial Blood pH 7.475 (7.350-7.450) 7.493 (7.350-7.450) Arterial Blood Partial Pressure CO2 46.5 mmHg (35.0-45.0) H 44.1 mmHg (35.0-45.0) Arterial Blood Partial Pressure O2 35.1 mmHg (75.0-100.0) 38.9 mmHg (75.0-100.0) Arterial Blood HCO3 33.5 mmol/L (22.0-26.0) H 33.1 mmol/L (22.0-26.0) H Arterial Blood Oxygen Saturation 70.6 % (95-100) *L 77.1 % (95-100) *L Arterial Blood Base Excess 8.6 (-2-2) H 8.7 (-2-2) H Jose Test Positive Positive Plan Problems: (1) Septic shock Assessment & Plan: 80-year-old male Covid positive respiratory deficiency presented to [facility] for evaluation shortness of breath admitted care and manage identified to have leukocytosis lactic acidosis and shock. Resuscitation initiated. Full examination performed no acute infectious process noted inflammatory process likely related to respiratory. Continue with IV fluids. Hold on central line insertion. Labs noted imaging reviewed. Patient otherwise now stable under appropriate care plan. Continue with medications and antibiotics as ordered. Continue with IV fluid resuscitation. Trend labs. Will follow with recommendations. Thank you for let me participate patient's care on support not able to wean may need intubation may need trach? Multifocal airspace consolidations, consistent with severe multifocal infiltrate. Findings and increased when compared to May 16, 2020. Follow-up chest radiograph recommended. Small left effusion is suspected. No pneumothorax. Stable cardiomegaly. Calcified aorta. (2) Dyspnea (3) Respiratory distress (4) Pneumonia due to COVID-19 virus Assessment & Plan: ++ as per pulm and ID Gianni Guajardo May 28, 2020 18:04
--- NOTE | 2020-05-28 19:10 | NUR ---
NURSE NOTES: pt report received form RADHA Mack RN. pt condition remains unchanged. pt is alert and oriented times 4, able to respond to simple commands. pt is on BIPAP sating 85% O2. doctors are aware, pt is aware, refuses ICU transfer. pt is on secured entrance monitor showing ST, 110 HR, no further cardiac distress. pt bed is low, locked, armed, call light within reach, bed rails up times 3. will follow plan of care.
--- NOTE | 2020-05-28 19:35 | NUR ---
HAND-OFF: Report given to .ELOISA ELIAS.
--- NOTE | 2020-05-28 21:34 | NUR ---
NURSE NOTES: pts 9 PM meds passed. pts blood sugar noted to be 194. insulin held, pt is on BIPAP.
--- NOTE | 2020-05-28 23:30 | NUR ---
NURSE NOTES: with RT in room. changed pts BIPAP face mask.
[2020-05-29] VITALS (12 sets, daily range): BP systolic 123–182; BP diastolic 61–104
--- NOTE | 2020-05-29 01:09 | Cardiology Progress Note ---
Subjective DATE OF SERVICE: May 28, 2020 Increasingly hypoxic and tachycardic - and being considered for intubation and mechanical ventilation. ABG (05/27) 7.45/46/52 CXR (05/27) worsening bilateral infiltrates and eff'ns Insulin continues to be adjusted for high glucose Objective Last 24 Hour Vital Signs Date Time Temp Pulse Resp B/P (MAP) Pulse Ox O2 Delivery O2 Flow Rate FiO2 05/29/20 00:00 100 05/29/20 00:00 97.3 71 26 142/81 (101) 85 05/29/20 00:00 89 05/29/20 00:00 Bi-pap 05/28/20 23:46 97 24 91 100 05/28/20 20:00 100 05/28/20 20:00 112 05/28/20 20:00 Bi-pap 05/28/20 20:00 97.9 98 25 134/85 (101) 90 05/28/20 19:20 80 27 93 100 05/28/20 18:00 97.7 106 25 151/73 (99) 90 05/28/20 17:00 110 27 149/71 (97) 86 05/28/20 16:45 119 38 70 Bi-Pap 100 05/28/20 16:00 105 05/28/20 16:00 100 05/28/20 16:00 96.8 95 28 158/82 (107) 84 05/28/20 16:00 Bi-pap 05/28/20 15:45 120 38 77 100 05/28/20 12:00 97.3 99 25 139/62 (87) 88 05/28/20 12:00 100 05/28/20 12:00 Bi-pap 05/28/20 11:35 95 05/28/20 11:35 105 29 91 100 05/28/20 09:29 140/75 05/28/20 09:23 145/74 05/28/20 09:23 100 145/74 05/28/20 08:00 100 05/28/20 08:00 Bi-pap 05/28/20 08:00 97.9 100 28 145/74 (97) 90 05/28/20 07:43 90 05/28/20 07:38 100 27 90 100 05/28/20 04:00 97.9 89 28 140/74 (96) 95 05/28/20 04:00 83 1/21/21 04:00 100 05/28/20 04:00 Bi-pap 05/28/20 03:34 85 27 100 100 05/28/20 03:30 88 21 91 100 ROS: unchanged from 05/16/20 RHYTHM: NSR LUNGS: bilat. rhonchi and rales CARDIAC: normal rate, regular rhythm, normal S1 and S2 ABDOMEN: normal bowel sounds, non tender, soft, other - obese EXTREMITIES: normal range of motion, no calf tenderness, No edema Laboratory Tests Test 05/28/20 02:42 05/28/20 06:43 05/28/20 11:21 05/28/20 14:50 White Blood Count 18.5 K/UL (4.8-10.8) H Red Blood Count 4.90 M/UL (4.70-6.10) Hemoglobin 13.7 G/DL (14.2-18.0) L Hematocrit 41.6 % (42.0-52.0) L Mean Corpuscular Volume 85 FL (80-99) Mean Corpuscular Hemoglobin 27.9 PG (27.0-31.0) Mean Corpuscular Hemoglobin Concent 32.9 G/DL (32.0-36.0) Red Cell Distribution Width 11.8 % (11.6-14.8) Platelet Count 173 K/UL (150-450) Mean Platelet Volume 6.9 FL (6.5-10.1) Neutrophils (%) (Auto) % (45.0-75.0) Lymphocytes (%) (Auto) % (20.0-45.0) Monocytes (%) (Auto) % (1.0-10.0) Eosinophils (%) (Auto) % (0.0-3.0) Basophils (%) (Auto) % (0.0-2.0) Differential Total Cells Counted 100 Neutrophils % (Manual) 94 % (45-75) H Lymphocytes % (Manual) 3 % (20-45) L Monocytes % (Manual) 3 % (1-10) Eosinophils % (Manual) 0 % (0-3) Basophils % (Manual) 0 % (0-2) Band Neutrophils 0 % (0-8) Platelet Estimate Adequate Platelet Morphology Normal Red Blood Cell Morphology Normal Sodium Level 140 MMOL/L (136-145) Potassium Level 3.1 MMOL/L (3.5-5.1) L Chloride Level 102 MMOL/L (98-107) Carbon Dioxide Level 35 MMOL/L (21-32) H Anion Gap 3 mmol/L (5-15) L Blood Urea Nitrogen 24 mg/dL (7-18) H Creatinine 0.7 MG/DL (0.55-1.30) Estimat Glomerular Filtration Rate > 60 mL/min (>60) Glucose Level 102 MG/DL (74-106) Calcium Level 8.0 MG/DL (8.5-10.1) L Total Bilirubin 0.6 MG/DL (0.2-1.0) Aspartate Amino Transf (AST/SGOT) 23 U/L (15-37) Alanine Aminotransferase (ALT/SGPT) 16 U/L (12-78) Alkaline Phosphatase 100 U/L (46-116) Total Protein 5.4 G/DL (6.4-8.2) L Albumin 1.8 G/DL (3.4-5.0) L Globulin 3.6 g/dL Albumin/Globulin Ratio 0.5 (1.0-2.7) L POC Whole Blood Glucose 109 MG/DL (74-106) H Pending Arterial Blood pH 7.475 (7.350-7.450) Arterial Blood Partial Pressure CO2 46.5 mmHg (35.0-45.0) H Arterial Blood Partial Pressure O2 35.1 mmHg (75.0-100.0) Arterial Blood HCO3 33.5 mmol/L (22.0-26.0) H Arterial Blood Oxygen Saturation 70.6 % (95-100) *L Arterial Blood Base Excess 8.6 (-2-2) H Jose Test Positive Test 05/28/20 16:00 Arterial Blood pH 7.493 (7.350-7.450) Arterial Blood Partial Pressure CO2 44.1 mmHg (35.0-45.0) Arterial Blood Partial Pressure O2 38.9 mmHg (75.0-100.0) Arterial Blood HCO3 33.1 mmol/L (22.0-26.0) H Arterial Blood Oxygen Saturation 77.1 % (95-100) *L Arterial Blood Base Excess 8.7 (-2-2) H Jose Test Positive Microbiology Date/Time Source Procedure Growth Status 05/26/20 17:45 Sputum Gram Stain - Final Resulted 05/26/20 17:45 Sputum Sputum Culture Pending Resulted Assessment/Plan Assessment/Plan Covid 19 PNA Hypoxia Respiratroy failure Steroid exacerbated diabetes mellitus Hypertension Ac diast CHF component with pleural effn's O2 May need Vent support soon Lovenox anticoag IV steroids with taper Anti-viral rx completed. Long acting insulin advanced, with cont'd sliding scale cov'g Diuresis based on clinical parameters Tomas Cool MD May 29, 2020 01:09
--- NOTE | 2020-05-29 01:41 | NUR ---
NURSE NOTES: pt resting in bed watching TV. pt still sating 87% O2.
--- NOTE | 2020-05-29 03:26 | NUR ---
NURSE NOTES: pt cleaned and repositioned. BIPAP on. pt sating 87% O2.
[2020-05-29 05:23] LABS: HEMATOCRIT 41.3 % (42.0-52.0); HEMOGLOBIN 13.5 G/DL (14.2-18.0); MEAN CORPUSCULAR VOLUME 85 FL (80-99); PLATELET COUNT 184 K/UL (150-450); RED BLOOD COUNT 4.84 M/UL (4.70-6.10); RED CELL DISTRIBUTION WIDTH 11.9 % (11.6-14.8)
--- NOTE | 2020-05-29 05:30 | NUR ---
NURSE NOTES: fed pt orange juice with RT luke in room. BIPAP positioned properly.
[2020-05-29] MEDS: NovoLOG Insulin Flexpen SUBQ SCH ×4 (05:48→19:54)
[2020-05-29 06:06] LABS: ALANINE AMINOTRANSFERASE 16 U/L (12-78); ALBUMIN 1.7 G/DL (3.4-5.0); ALBUMIN/GLOBULIN RATIO 0.5 (1.0-2.7); ALKALINE PHOSPHATASE 86 U/L (46-116); ANION GAP 4 mmol/L (5-15); ASPARTATE AMINO TRANSFERASE 23 U/L (15-37); BILIRUBIN,TOTAL 0.4 MG/DL (0.2-1.0); BLOOD UREA NITROGEN 29 mg/dL (7-18); CALCIUM 8.5 MG/DL (8.5-10.1); CARBON DIOXIDE 35 MMOL/L (21-32); CHLORIDE 103 MMOL/L (98-107); CREATININE 0.7 MG/DL (0.55-1.30); POTASSIUM 3.4 MMOL/L (3.5-5.1); SODIUM 142 MMOL/L (136-145)
--- NOTE | 2020-05-29 07:17 | NUR ---
NURSE HAND-OFF REPORT: Important Events on Shift:[monitor O2 sat.] Patient Status: [monitor O2 sat] Diet: [NPO/ due to Bipap] Pending Orders: [NA] Pending Results/Labs:[NA] Pending MD notification:[NA] Latest Vital Signs: Temperature 97.3 , Pulse 82 , B/P 132 /75 , Respiratory Rate 27 , O2 SAT 86 , Non-Rebreather, O2 Flow Rate 15.0 . Vital Sign Comment: [monitor O2] EKG Rhythm: SR, BBB Rhythm change?: N Notified?: N -Dr. Travon MEJIA Response: Latest Gregg Fall Score: 45 Fall Risk: High Risk Safety Measures: Call light Within Reach, Bed Alarm Zone 2, Side Rails Side Rails x2, Bed position Low and Locked. Fall Precautions: Yellow Socks Yellow Gown Door Sign Patient Fall Education Report given to [Corina Glass RN].
--- NOTE | 2020-05-29 07:20 | NUR ---
NURSE NOTES: Pt is awake, resting on high membreno position. On continous BiPap 20/12 100% FiO2 with O2 saturation 87-90%. VSS. With condom catheter draining froylan-colored urine. Skin tear in the nose is noted. Left hand G22 peripheral IV is intact and patent. Bed is locked and in lowest position, bed alarm on, call light is with the pt. Fall precautions in place. Pt said to have refused intubation yesterday. Will have pt sign POLST today. Recent labs, medication and MD orders reviewed. Will continue to monitor pt. Will continue with the plan of care.
--- NOTE | 2020-05-29 08:30 | NUR ---
NURSE NOTES: Bed bath given, linens and gown changed. Pt is repositioned. Oral care done. Pt cannot tolerate off BiPap. Condom catheter is replaced. Will continue to closely monitor pt.
--- NOTE | 2020-05-29 08:37 | Pulmonology Progress Note ---
Subjective ROS Limited/Unobtainable: Yes Constitutional: Denies: fever Allergies: Coded Allergies: No Known Allergies (Unverified , 05/15/20) All Systems: reviewed and negative except above Subjective care noted in bed on BIPAP on 100% not improved refusing intubation Objective Last 24 Hour Vital Signs Date Time Temp Pulse Resp B/P (MAP) Pulse Ox O2 Delivery O2 Flow Rate FiO2 05/29/20 07:48 101 25 86 100 05/29/20 04:00 97.3 82 27 132/75 (94) 86 05/29/20 04:00 Bi-pap 05/29/20 04:00 100 05/29/20 03:37 93 05/29/20 00:00 100 05/29/20 00:00 97.3 71 26 142/81 (101) 85 05/29/20 00:00 89 05/29/20 00:00 Bi-pap 05/28/20 23:46 97 24 91 100 05/28/20 20:00 100 05/28/20 20:00 112 05/28/20 20:00 Bi-pap 05/28/20 20:00 97.9 98 25 134/85 (101) 90 05/28/20 19:20 80 27 93 100 05/28/20 18:00 97.7 106 25 151/73 (99) 90 05/28/20 17:00 110 27 149/71 (97) 86 05/28/20 16:45 119 38 70 Bi-Pap 100 05/28/20 16:00 105 05/28/20 16:00 100 05/28/20 16:00 96.8 95 28 158/82 (107) 84 05/28/20 16:00 Bi-pap 05/28/20 15:45 120 38 77 100 05/28/20 12:00 97.3 99 25 139/62 (87) 88 05/28/20 12:00 100 05/28/20 12:00 Bi-pap 05/28/20 11:35 95 05/28/20 11:35 105 29 91 100 05/28/20 09:29 140/75 05/28/20 09:23 145/74 05/28/20 09:23 100 145/74 Intake and Output 05/28/20 05/29/20 19:00 07:00 Output Total 400 ml Balance -400 ml Output Urine Total 400 ml # Voids 3 Objective deferred due to COVID Microbiology Date/Time Source Procedure Growth Status 05/26/20 17:45 Sputum Gram Stain - Final Complete 05/26/20 17:45 Sputum Culture - Final Tiffani Albicans Usual Respiratory Mónica Complete Laboratory Tests 05/28/20 11:21: POC Whole Blood Glucose [Pending] 05/28/20 14:50: Arterial Blood pH 7.475H, Arterial Blood Partial Pressure CO2 46.5H, Arterial Blood Partial Pressure O2 35.1*L, Arterial Blood HCO3 33.5H, Arterial Blood Oxygen Saturation 70.6*L, Arterial Blood Base Excess 8.6H, Jose Test Positive 05/28/20 16:00: Arterial Blood pH 7.493H, Arterial Blood Partial Pressure CO2 44.1, Arterial Blood Partial Pressure O2 38.9*L, Arterial Blood HCO3 33.1H, Arterial Blood Oxygen Saturation 77.1*L, Arterial Blood Base Excess 8.7H, Jose Test Positive 05/29/20 02:55: White Blood Count 18.0H, Red Blood Count 4.84, Hemoglobin 13.5L, Hematocrit 41.3L, Mean Corpuscular Volume 85, Mean Corpuscular Hemoglobin 27.9, Mean Corpuscular Hemoglobin Concent 32.7, Red Cell Distribution Width 11.9, Platelet Count 184, Mean Platelet Volume 6.9, Neutrophils (%) (Auto) , Lymphocytes (%) (Auto) , Monocytes (%) (Auto) , Eosinophils (%) (Auto) , Basophils (%) (Auto) , Differential Total Cells Counted 100, Neutrophils % (Manual) 95H, Lymphocytes % (Manual) 2L, Monocytes % (Manual) 3, Eosinophils % (Manual) 0, Basophils % (Manual) 0, Band Neutrophils 0, Platelet Estimate Adequate, Platelet Morphology Normal, Red Blood Cell Morphology Normal, Sodium Level 142, Potassium Level 3.4L , Chloride Level 103, Carbon Dioxide Level 35H, Anion Gap 4L, Blood Urea Nitrogen 29H, Creatinine 0.7, Estimat Glomerular Filtration Rate > 60, Glucose Level 161H, Calcium Level 8.5, Magnesium Level 2.0, Total Bilirubin 0.4, Aspartate Amino Transf (AST/SGOT) 23, Alanine Aminotransferase (ALT/SGPT) 16, Alkaline Phosphatase 86, Pro-B-Type Natriuretic Peptide 851H, Total Protein 5.2L , Albumin 1.7L, Globulin 3.5, Albumin/Globulin Ratio 0.5L Current Medications Medications (Trade) Dose Ordered Sig/Baldo Route PRN Reason Start Time Stop Time Status Last Admin Dose Admin Acetaminophen (Tylenol) 650 mg EVERY 4 HOURS PRN ORAL fever/MINAYA 05/16/20 03:15 06/15/20 03:14 05/24/20 22:08 Acetaminophen (Tylenol) 650 mg Q4H PRN ORAL Mild Pain (Pain Scale 1-3) 05/16/20 12:15 06/15/20 12:14 05/26/20 08:59 Acetaminophen (Tylenol) 650 mg Q4H PRN ORAL fever 05/16/20 12:15 06/15/20 12:14 Albuterol Sulfate (Proventil MDI) 2 puff Q4H PRN INH Shortness of Breath 05/16/20 14:00 08/14/20 13:59 05/19/20 01:01 Amlodipine Besylate (Norvasc) 5 mg DAILY ORAL 05/16/20 09:00 06/15/20 08:59 05/28/20 09:23 Clonidine HCl (Catapres Tab) 0.1 mg Q4H PRN ORAL For High Blood Pressure 05/16/20 14:45 08/14/20 14:44 05/27/20 03:40 Dextrose (Dextrose 50%) 25 ml Q30M PRN IV Hypoglycemia 05/16/20 12:15 08/14/20 12:14 Dextrose (Dextrose 50%) 50 ml Q30M PRN IV Hypoglycemia 05/16/20 12:15 08/14/20 12:14 Enoxaparin Sodium (Lovenox) 40 mg BID SUBQ 05/16/20 10:00 08/14/20 09:59 05/28/20 18:35 Famotidine (Pepcid I.v.) 20 mg DAILY IVP 05/17/20 09:00 06/16/20 08:59 05/28/20 08:42 Insulin Aspart (NovoLOG) BEFORE MEALS AND HS SUBQ 05/16/20 16:30 08/14/20 16:29 05/27/20 21:00 Insulin Detemir (Levemir) 26 units BEDTIME SUBQ 05/26/20 21:00 08/16/20 20:59 05/27/20 21:00 Insulin Detemir (Levemir) 28 units DAILY SUBQ 05/27/20 09:00 08/16/20 08:59 05/28/20 08:44 Methylprednisolone Sodium Succinate (Solu-MEDROL) 40 mg DAILY IVP 05/28/20 09:00 08/26/20 08:59 05/28/20 08:42 Nitroglycerin (Ntg) 0.4 mg Q5M PRN SL Prn Chest Pain 05/28/20 08:45 06/27/20 08:44 05/28/20 09:29 Ondansetron HCl (Zofran) 4 mg Q6H PRN IVP Nausea & Vomiting 05/21/20 12:30 06/20/20 12:29 05/27/20 03:40 Assessment/Plan Assessment/Plan Impression: Pneumonia due to COVID-19 virus Hypoxic Respiratory Failure Hypertension Diabetes Septic shock Pulmonary infiltrates Plan: - no new changes -O2 at 100% and on BIPAP -albuterol PRN -Monitor labs -DVT prophylaxis; negative venous US -refusing intubation -need to confirm code status impression, plan, and exam edited and reviewed in detail care discussed with Rahul Dunn MD May 29, 2020 08:37
[2020-05-29] MEDS: Solu-MEDROL 40mg Inj IVP SCH (08:43)
[2020-05-29] MEDS: Enoxaparin 40mg Inj SUBQ SCH ×2 (08:52→17:19)
[2020-05-29] MEDS: Levemir Flexpen SUBQ SCH ×2 (08:57→19:53)
--- NOTE | 2020-05-29 09:30 | NUR ---
NURSE NOTES: Initial assessment done. Morning medications administered per order. O2 saturation 88-91%. VSS. Will continue to closely monitor pt.
--- NOTE | 2020-05-29 09:40 | NUR ---
NURSE NOTES: Contacted Dr. Mensah about pt not eating, and not having any IV fluids. Dr. Mensah ordered PICC line placement. Will continue to monitor pt.
[2020-05-29] MEDS ORDERED: Heparin1,000 units/500ml Premix(Conc:2 units/ml) IV PRN (10:00)
[2020-05-29] MEDS ORDERED: Lidocaine 1% Plain 30 ml INJ PRN (10:00)
--- NOTE | 2020-05-29 10:00 | NUR ---
NURSE NOTES: Contacted family: Niecy Hollis (daughter), and Brittanie Pritchett () about the pt's condition and might need intubation and PICC line insertion. Family consented.
--- NOTE | 2020-05-29 10:20 | NUR ---
NURSE NOTES: Dr Guajardo talked to the pt and explained to him that he needs to be intubated, and his need to have PICC line inserted. Pt agreed and consented to intubation and the PICC line. Will continue with the plan of care.
--- NOTE | 2020-05-29 10:31 | NUR ---
RD ASSESSMENT & RECOMMENDATIONS SEE CARE ACTIVITY FOR COMPLETE ASSESSMENT DAILY ESTIMATED NEEDS: Needs based on Pulmonary, DM/ 80kg abw 25-30 (critical care 22-28) kcals/kg 0770-4746 (3563-7986) total kcals 1-1.5 (1.2-2) g protein/kg 80-120 (96-160) g total protein 25-30 mL/kg 2932-0871 total fluid mLs NUTRITION DIAGNOSIS: Swallowing difficulty R/T respiratory status as evidenced by pt on mech soft chopped texture diet, now on BIPAP. CURRENT DIET:CCHO MED, LOW NA/ mech soft chopped PO DIET RECOMMENDATIONS: Liberalized Regular diet w/ current poor po intake (texture per RECORD MAKER) ENTERAL NUTRITION RECOMMENDATIONS: IF INTUBATED: rec Glucerna 1.5 @50ml/hr x24 hrs to provide 1200ml, 1800 kcal, 99g pro, 911ml free h2O -> if intubated, rec non oral feeds to meet est needs, - Obtain GI access, initiate Glucerna 1.5 @20ml/hr for 6 hrs, advance as tolerated 10ml/hr q4-6 hrs to goal. - Flush per MD/ HOB over 30 degrees ADDITIONAL RECOMMENDATIONS: * Calibrated bedscale wt * TF recs as above if intubated * Monitor PO tolerance while on BIPAP (on BIPAP since 05/19) -> Glucerna TID added at this time to maximize kcal/prot intake during limited time while off BIPAP * Monitor BGs closely for hypoglycemia w/ reduced Po intake, need to adjust insulin
--- NOTE | 2020-05-29 10:37 | Surgery Progress Note ---
Surgery Progress Note Subjective Additional Comments worse bipap on and sat in the 80s discussed with patient at bedside using court interpreter he understands and wants to live plan intubation Objective Last 24 Hour Vital Signs Date Time Temp Pulse Resp B/P (MAP) Pulse Ox O2 Delivery O2 Flow Rate FiO2 05/29/20 08:47 93 155/83 05/29/20 08:00 Bi-pap 05/29/20 07:48 101 25 86 100 05/29/20 04:00 97.3 82 27 132/75 (94) 86 05/29/20 04:00 Bi-pap 05/29/20 04:00 100 05/29/20 03:37 93 05/29/20 00:00 100 05/29/20 00:00 97.3 71 26 142/81 (101) 85 05/29/20 00:00 89 05/29/20 00:00 Bi-pap 05/28/20 23:46 97 24 91 100 05/28/20 20:00 100 05/28/20 20:00 112 05/28/20 20:00 Bi-pap 05/28/20 20:00 97.9 98 25 134/85 (101) 90 05/28/20 19:20 80 27 93 100 05/28/20 18:00 97.7 106 25 151/73 (99) 90 05/28/20 17:00 110 27 149/71 (97) 86 05/28/20 16:45 119 38 70 Bi-Pap 100 05/28/20 16:00 105 05/28/20 16:00 100 05/28/20 16:00 96.8 95 28 158/82 (107) 84 05/28/20 16:00 Bi-pap 05/28/20 15:45 120 38 77 100 05/28/20 12:00 97.3 99 25 139/62 (87) 88 05/28/20 12:00 100 05/28/20 12:00 Bi-pap 05/28/20 11:35 95 05/28/20 11:35 105 29 91 100 I&O Intake and Output 05/28/20 05/29/20 19:00 07:00 Output Total 400 ml Balance -400 ml Output Urine Total 400 ml # Voids 3 Cardiovascular: RSR Respiratory: decreased breath sounds, other Abdomen: soft, flat, non-tender, present bowel sounds, non-distended Extremities: edema, no tenderness, no cyanosis Laboratory Tests Test 05/28/20 11:21 05/28/20 14:50 05/28/20 16:00 05/29/20 02:55 POC Whole Blood Glucose Pending Arterial Blood pH 7.475 (7.350-7.450) 7.493 (7.350-7.450) Arterial Blood Partial Pressure CO2 46.5 mmHg (35.0-45.0) H 44.1 mmHg (35.0-45.0) Arterial Blood Partial Pressure O2 35.1 mmHg (75.0-100.0) 38.9 mmHg (75.0-100.0) Arterial Blood HCO3 33.5 mmol/L (22.0-26.0) H 33.1 mmol/L (22.0-26.0) H Arterial Blood Oxygen Saturation 70.6 % (95-100) *L 77.1 % (95-100) *L Arterial Blood Base Excess 8.6 (-2-2) H 8.7 (-2-2) H Jose Test Positive Positive White Blood Count 18.0 K/UL (4.8-10.8) H Red Blood Count 4.84 M/UL (4.70-6.10) Hemoglobin 13.5 G/DL (14.2-18.0) L Hematocrit 41.3 % (42.0-52.0) L Mean Corpuscular Volume 85 FL (80-99) Mean Corpuscular Hemoglobin 27.9 PG (27.0-31.0) Mean Corpuscular Hemoglobin Concent 32.7 G/DL (32.0-36.0) Red Cell Distribution Width 11.9 % (11.6-14.8) Platelet Count 184 K/UL (150-450) Mean Platelet Volume 6.9 FL (6.5-10.1) Neutrophils (%) (Auto) % (45.0-75.0) Lymphocytes (%) (Auto) % (20.0-45.0) Monocytes (%) (Auto) % (1.0-10.0) Eosinophils (%) (Auto) % (0.0-3.0) Basophils (%) (Auto) % (0.0-2.0) Differential Total Cells Counted 100 Neutrophils % (Manual) 95 % (45-75) H Lymphocytes % (Manual) 2 % (20-45) L Monocytes % (Manual) 3 % (1-10) Eosinophils % (Manual) 0 % (0-3) Basophils % (Manual) 0 % (0-2) Band Neutrophils 0 % (0-8) Platelet Estimate Adequate Platelet Morphology Normal Red Blood Cell Morphology Normal Sodium Level 142 MMOL/L (136-145) Potassium Level 3.4 MMOL/L (3.5-5.1) L Chloride Level 103 MMOL/L (98-107) Carbon Dioxide Level 35 MMOL/L (21-32) H Anion Gap 4 mmol/L (5-15) L Blood Urea Nitrogen 29 mg/dL (7-18) H Creatinine 0.7 MG/DL (0.55-1.30) Estimat Glomerular Filtration Rate > 60 mL/min (>60) Glucose Level 161 MG/DL (74-106) H Calcium Level 8.5 MG/DL (8.5-10.1) Magnesium Level 2.0 MG/DL (1.8-2.4) Total Bilirubin 0.4 MG/DL (0.2-1.0) Aspartate Amino Transf (AST/SGOT) 23 U/L (15-37) Alanine Aminotransferase (ALT/SGPT) 16 U/L (12-78) Alkaline Phosphatase 86 U/L (46-116) Pro-B-Type Natriuretic Peptide 851 pg/mL (0-125) H Total Protein 5.2 G/DL (6.4-8.2) L Albumin 1.7 G/DL (3.4-5.0) L Globulin 3.5 g/dL Albumin/Globulin Ratio 0.5 (1.0-2.7) L Test 05/29/20 08:55 POC Whole Blood Glucose 222 MG/DL (74-106) H Plan Problems: (1) Septic shock Assessment & Plan: 80-year-old male Covid positive respiratory deficiency presented to [facility] for evaluation shortness of breath admitted care and manage identified to have leukocytosis lactic acidosis and shock. Resuscitation initiated. Full examination performed no acute infectious process noted inflammatory process likely related to respiratory. Continue with IV fluids. Hold on central line insertion. Labs noted imaging reviewed. Patient otherwise now stable under appropriate care plan. Continue with medications and antibiotics as ordered. Continue with IV fluid resuscitation. Trend labs. Will follow with recommendations. Thank you for let me participate patient's care on support not able to wean may need intubation may need trach? Multifocal airspace consolidations, consistent with severe multifocal infiltrate. Findings and increased when compared to May 16, 2020. Follow-up chest radiograph recommended. Small left effusion is suspected. No pneumothorax. Stable cardiomegaly. Calcified aorta. intubate icu needs support wants to live (2) Dyspnea (3) Respiratory distress (4) Pneumonia due to COVID-19 virus Assessment & Plan: ++ as per pulm and ID Gianni Guajardo May 29, 2020 10:37
--- NOTE | 2020-05-29 12:00 | NUR ---
NURSE NOTES: Pt is on high membreno position. Tolerating BiPap with O2 saturation 98-100%. BP was 180/90 prn Catapres given. Pt denies pain. Will continue to closely monitor pt.
--- NOTE | 2020-05-29 12:10 | Infectious Diseases Prog Note ---
Assessment/Plan Assessment/Plan antibiotics : none A 1. covid 19 pneumonia on 100 FiO2 with 90 % saturation 2. diabetes mellitus 3. hypertension P 1. continue solumedrol 2. continue isolation Subjective ROS Limited/Unobtainable: Yes Allergies: Coded Allergies: No Known Allergies (Unverified , 05/15/20) Objective Last 24 Hour Vital Signs Date Time Temp Pulse Resp B/P (MAP) Pulse Ox O2 Delivery O2 Flow Rate FiO2 05/29/20 11:42 188/80 05/29/20 08:47 93 155/83 05/29/20 08:00 Bi-pap 05/29/20 08:00 98.7 98 24 151/75 (100) 90 05/29/20 08:00 100 05/29/20 08:00 98 05/29/20 07:48 101 25 86 100 05/29/20 04:00 97.3 82 27 132/75 (94) 86 05/29/20 04:00 Bi-pap 05/29/20 04:00 100 05/29/20 03:37 93 05/29/20 00:00 100 05/29/20 00:00 97.3 71 26 142/81 (101) 85 05/29/20 00:00 89 05/29/20 00:00 Bi-pap 05/28/20 23:46 97 24 91 100 05/28/20 20:00 100 05/28/20 20:00 112 05/28/20 20:00 Bi-pap 05/28/20 20:00 97.9 98 25 134/85 (101) 90 05/28/20 19:20 80 27 93 100 05/28/20 18:00 97.7 106 25 151/73 (99) 90 05/28/20 17:00 110 27 149/71 (97) 86 05/28/20 16:45 119 38 70 Bi-Pap 100 05/28/20 16:00 105 05/28/20 16:00 100 05/28/20 16:00 96.8 95 28 158/82 (107) 84 05/28/20 16:00 Bi-pap 05/28/20 15:45 120 38 77 100 Height (Feet): 5 Height (Inches): 9.00 Weight (Pounds): 220 Microbiology Date/Time Source Procedure Growth Status 05/26/20 17:45 Sputum Gram Stain - Final Complete 05/26/20 17:45 Sputum Culture - Final Tiffani Albicans Usual Respiratory Mónica Complete Laboratory Tests Test 05/28/20 14:50 05/28/20 16:00 05/29/20 02:55 05/29/20 08:55 Arterial Blood pH 7.475 (7.350-7.450) 7.493 (7.350-7.450) Arterial Blood Partial Pressure CO2 46.5 mmHg (35.0-45.0) H 44.1 mmHg (35.0-45.0) Arterial Blood Partial Pressure O2 35.1 mmHg (75.0-100.0) 38.9 mmHg (75.0-100.0) Arterial Blood HCO3 33.5 mmol/L (22.0-26.0) H 33.1 mmol/L (22.0-26.0) H Arterial Blood Oxygen Saturation 70.6 % (95-100) *L 77.1 % (95-100) *L Arterial Blood Base Excess 8.6 (-2-2) H 8.7 (-2-2) H Jose Test Positive Positive White Blood Count 18.0 K/UL (4.8-10.8) H Red Blood Count 4.84 M/UL (4.70-6.10) Hemoglobin 13.5 G/DL (14.2-18.0) L Hematocrit 41.3 % (42.0-52.0) L Mean Corpuscular Volume 85 FL (80-99) Mean Corpuscular Hemoglobin 27.9 PG (27.0-31.0) Mean Corpuscular Hemoglobin Concent 32.7 G/DL (32.0-36.0) Red Cell Distribution Width 11.9 % (11.6-14.8) Platelet Count 184 K/UL (150-450) Mean Platelet Volume 6.9 FL (6.5-10.1) Neutrophils (%) (Auto) % (45.0-75.0) Lymphocytes (%) (Auto) % (20.0-45.0) Monocytes (%) (Auto) % (1.0-10.0) Eosinophils (%) (Auto) % (0.0-3.0) Basophils (%) (Auto) % (0.0-2.0) Differential Total Cells Counted 100 Neutrophils % (Manual) 95 % (45-75) H Lymphocytes % (Manual) 2 % (20-45) L Monocytes % (Manual) 3 % (1-10) Eosinophils % (Manual) 0 % (0-3) Basophils % (Manual) 0 % (0-2) Band Neutrophils 0 % (0-8) Platelet Estimate Adequate Platelet Morphology Normal Red Blood Cell Morphology Normal Sodium Level 142 MMOL/L (136-145) Potassium Level 3.4 MMOL/L (3.5-5.1) L Chloride Level 103 MMOL/L (98-107) Carbon Dioxide Level 35 MMOL/L (21-32) H Anion Gap 4 mmol/L (5-15) L Blood Urea Nitrogen 29 mg/dL (7-18) H Creatinine 0.7 MG/DL (0.55-1.30) Estimat Glomerular Filtration Rate > 60 mL/min (>60) Glucose Level 161 MG/DL (74-106) H Calcium Level 8.5 MG/DL (8.5-10.1) Magnesium Level 2.0 MG/DL (1.8-2.4) Total Bilirubin 0.4 MG/DL (0.2-1.0) Aspartate Amino Transf (AST/SGOT) 23 U/L (15-37) Alanine Aminotransferase (ALT/SGPT) 16 U/L (12-78) Alkaline Phosphatase 86 U/L (46-116) Pro-B-Type Natriuretic Peptide 851 pg/mL (0-125) H Total Protein 5.2 G/DL (6.4-8.2) L Albumin 1.7 G/DL (3.4-5.0) L Globulin 3.5 g/dL Albumin/Globulin Ratio 0.5 (1.0-2.7) L POC Whole Blood Glucose 222 MG/DL (74-106) H Current Medications Medications (Trade) Dose Ordered Sig/Baldo Route PRN Reason Start Time Stop Time Status Last Admin Dose Admin Acetaminophen (Tylenol) 650 mg EVERY 4 HOURS PRN ORAL fever/MINAYA 05/16/20 03:15 06/15/20 03:14 05/24/20 22:08 Acetaminophen (Tylenol) 650 mg Q4H PRN ORAL Mild Pain (Pain Scale 1-3) 05/16/20 12:15 06/15/20 12:14 05/26/20 08:59 Acetaminophen (Tylenol) 650 mg Q4H PRN ORAL fever 05/16/20 12:15 06/15/20 12:14 Albuterol Sulfate (Proventil MDI) 2 puff Q4H PRN INH Shortness of Breath 05/16/20 14:00 08/14/20 13:59 05/19/20 01:01 Amlodipine Besylate (Norvasc) 5 mg DAILY ORAL 05/16/20 09:00 06/15/20 08:59 05/29/20 08:47 Chlorhexidine Gluconate (Kelsi-Hex 2%) 1 applic DAILY@2000 TOPIC 05/29/20 20:00 08/27/20 19:59 Clonidine HCl (Catapres Tab) 0.1 mg Q4H PRN ORAL For High Blood Pressure 05/16/20 14:45 08/14/20 14:44 05/29/20 11:42 Dextrose (Dextrose 50%) 25 ml Q30M PRN IV Hypoglycemia 05/16/20 12:15 08/14/20 12:14 Dextrose (Dextrose 50%) 50 ml Q30M PRN IV Hypoglycemia 05/16/20 12:15 08/14/20 12:14 Enoxaparin Sodium (Lovenox) 40 mg BID SUBQ 05/16/20 10:00 08/14/20 09:59 05/29/20 08:52 Famotidine (Pepcid I.v.) 20 mg DAILY IVP 05/17/20 09:00 06/16/20 08:59 05/29/20 08:39 Heparin Sodium/ Sodium Chloride (Heparin 1000 units/500ml Premix) 1,000 unit ONCE PRN IV picc line placement 05/29/20 10:00 05/31/20 09:59 Insulin Aspart (NovoLOG) BEFORE MEALS AND HS SUBQ 05/16/20 16:30 08/14/20 16:29 05/29/20 11:53 Insulin Detemir (Levemir) 26 units BEDTIME SUBQ 05/26/20 21:00 08/16/20 20:59 05/27/20 21:00 Insulin Detemir (Levemir) 28 units DAILY SUBQ 05/27/20 09:00 08/16/20 08:59 05/29/20 08:57 Lidocaine HCl (Xylocaine 1% 30ml) 30 ml ONCE PRN INJ picc line placement 05/29/20 10:00 05/31/20 09:59 Methylprednisolone Sodium Succinate (Solu-MEDROL) 40 mg DAILY IVP 05/28/20 09:00 08/26/20 08:59 05/29/20 08:43 Nitroglycerin (Ntg) 0.4 mg Q5M PRN SL Prn Chest Pain 05/28/20 08:45 06/27/20 08:44 05/28/20 09:29 Ondansetron HCl (Zofran) 4 mg Q6H PRN IVP Nausea & Vomiting 05/21/20 12:30 06/20/20 12:29 05/27/20 03:40 Ayaz Buckner MD May 29, 2020 12:10
--- NOTE | 2020-05-29 14:46 | NUR ---
NURSE NOTES: PICC line insertion done. Pt tolerated well. VSS remain stable. O2 saturation remain in the 90%. Will continue to monitor pt.
--- NOTE | 2020-05-29 15:00 | NUR ---
CASE MANAGEMENT:REVIEW 05/29/20 SI: COVID PNEUMONIA. RESPIRATORY FAILURE 98.5 102 28 182/75 SATS 100% ON 100% FIO2 VIA BIPAP WBC+18.0 CO2+35 BUN+29 IS: IV SOLUMEDROL 40MG QD IV PEPCID QD LEVEMIR SQ QHS AND QD IV PEPCID QD SS INSULIN AC+HS LOVENOX SQ BID NORVASC PO QD : TELEMETRY STATUS DCP: FROM HOME PLAN: COMPLETED REMDESIVIR MONITOR OXYGEN NEEDS AND ADJUST ACCORDINGLY TAPER STEROIDS
--- NOTE | 2020-05-29 15:11 | NUR ---
RADIOLOGY NOTE: LEFT UPPER EXTREMITY PICC LINE PLACEMENT BY DR. HOFFMAN AT 1445 HRS. FA
--- NOTE | 2020-05-29 15:55 | Pre-Procedure Note/Attestation ---
Pre-Procedure Note/Attestation Complete Prior to Procedure Planned Procedure: not applicable Procedure Narrative: picc line placement Indications for Procedure Pre-Operative Diagnosis: need iv access Attestation informed consent obtained prior to picc line placement Amauri Velasquez M.D. May 29, 2020 15:55
--- NOTE | 2020-05-29 16:02 | Diagnostic Imaging Report ---
Indications: Needs long-term IV access Technique: Procedure performed at bedside. Procedural timeout performed. Ultrasound confirms patent compressible left basilic vein. Total sterile technique, including sterile probe cover and sterile gel, sterile gloves, hand hygiene, hat, mask,, sterile gown, large sterile drape, and preparation with 2% chlorhexidine utilized. Local anesthesia with 1% lidocaine. Under real-time ultrasound guidance, puncture the basilic vein using 21-gauge needle, passage 0.018 guidewire, exchange for 4.5 Argentine peel-away sheath. 4French dual-lumen power PICC cut to 40 cm. It was inserted through the peel-away sheath. Peel-away sheath and guidewire removed. Catheter fixed to the skin. Both catheter ports aspirated and flushed. Patient tolerated procedure well, without immediate complication. Followup chest x-ray obtained, documents catheter tip position at the upper SVC Extensive bilateral infiltrates are again seen, similar to the prior exam. There is no pneumothorax. Heart size and osseous structures are stable. IMPRESSION: Successful bedside placement of 4 Argentine double-lumen PICC under sonographic guidance, as described above. PICC line cleared for use.
--- NOTE | 2020-05-29 19:00 | NUR ---
NURSE NOTES: Report received from JADA Arriaga. Upon assessment pt is A/Ox4. Responsive to verbal and tactile stimuli. PERRLA. Saturating 96% on BiPAP settings of 20/12, 100% fiO2. New KATELIN PICC patent and intact. Bowel sounds auscultated in RLQ are active. Per patient, 0/10 pain. Bed kept in lowest and locked position. Side rails upx3. Bed alarm on. Call light within reach. Will continue to monitor.
--- NOTE | 2020-05-29 19:30 | NUR ---
NURSE NOTES: Left message for MD in regards to starting TPN and coverage for K+ of 3.4. BSG 135. Asymptomatic with no distress noted. Will monitor.
[2020-05-29] MEDS: Dyna-Hex 2% Top Sol 2oz TOPIC SCH (19:56)
[2020-05-29] MEDS ORDERED: NS 275ml ONE (20:35)
--- NOTE | 2020-05-29 22:09 | Cardiology Progress Note ---
Subjective DATE OF SERVICE: May 29, 2020 Increasingly hypoxic and tachycardic - and being considered for intubation and mechanical ventilation; transferred to ICU as such. ABG (05/28) 7.49/44/39 CXR (05/27) worsening bilateral infiltrates and eff'ns Insulin continues to be adjusted for high glucose Objective Last 24 Hour Vital Signs Date Time Temp Pulse Resp B/P (MAP) Pulse Ox O2 Delivery O2 Flow Rate FiO2 05/29/20 21:00 89 28 139/68 (91) 97 05/29/20 20:00 100 05/29/20 20:00 97.9 93 29 146/65 (92) 97 05/29/20 20:00 Bi-pap 05/29/20 19:10 108 20 98 100 05/29/20 16:00 104 05/29/20 16:00 91 25 135/63 (87) 99 05/29/20 16:00 100 05/29/20 16:00 Bi-pap 05/29/20 15:47 95 24 99 Bi-Pap 100 05/29/20 15:46 99 24 95 100 05/29/20 15:00 99 29 135/63 (87) 97 05/29/20 14:00 98 29 172/88 (116) 97 05/29/20 13:00 102 28 182/75 (110) 100 05/29/20 12:00 Bi-pap 05/29/20 12:00 93 05/29/20 12:00 98.5 93 29 146/65 (92) 97 05/29/20 12:00 100 05/29/20 11:56 98 30 96 100 05/29/20 11:42 188/80 05/29/20 08:47 93 155/83 05/29/20 08:00 Bi-pap 05/29/20 08:00 98.7 98 24 151/75 (100) 90 05/29/20 08:00 100 05/29/20 08:00 98 05/29/20 07:48 101 25 86 100 05/29/20 04:00 97.3 82 27 132/75 (94) 86 05/29/20 04:00 Bi-pap 05/29/20 04:00 100 05/29/20 03:37 93 05/29/20 00:00 100 05/29/20 00:00 97.3 71 26 142/81 (101) 85 05/29/20 00:00 89 05/29/20 00:00 Bi-pap 05/28/20 23:46 97 24 91 100 ROS: unchanged from 05/16/20 RHYTHM: NSR LUNGS: bilat. rhonchi and rales CARDIAC: normal rate, regular rhythm, normal S1 and S2 ABDOMEN: normal bowel sounds, non tender, soft, other - obese EXTREMITIES: normal range of motion, no calf tenderness, No edema Laboratory Tests Test 05/29/20 02:55 05/29/20 08:55 White Blood Count 18.0 K/UL (4.8-10.8) H Red Blood Count 4.84 M/UL (4.70-6.10) Hemoglobin 13.5 G/DL (14.2-18.0) L Hematocrit 41.3 % (42.0-52.0) L Mean Corpuscular Volume 85 FL (80-99) Mean Corpuscular Hemoglobin 27.9 PG (27.0-31.0) Mean Corpuscular Hemoglobin Concent 32.7 G/DL (32.0-36.0) Red Cell Distribution Width 11.9 % (11.6-14.8) Platelet Count 184 K/UL (150-450) Mean Platelet Volume 6.9 FL (6.5-10.1) Neutrophils (%) (Auto) % (45.0-75.0) Lymphocytes (%) (Auto) % (20.0-45.0) Monocytes (%) (Auto) % (1.0-10.0) Eosinophils (%) (Auto) % (0.0-3.0) Basophils (%) (Auto) % (0.0-2.0) Differential Total Cells Counted 100 Neutrophils % (Manual) 95 % (45-75) H Lymphocytes % (Manual) 2 % (20-45) L Monocytes % (Manual) 3 % (1-10) Eosinophils % (Manual) 0 % (0-3) Basophils % (Manual) 0 % (0-2) Band Neutrophils 0 % (0-8) Platelet Estimate Adequate Platelet Morphology Normal Red Blood Cell Morphology Normal Sodium Level 142 MMOL/L (136-145) Potassium Level 3.4 MMOL/L (3.5-5.1) L Chloride Level 103 MMOL/L (98-107) Carbon Dioxide Level 35 MMOL/L (21-32) H Anion Gap 4 mmol/L (5-15) L Blood Urea Nitrogen 29 mg/dL (7-18) H Creatinine 0.7 MG/DL (0.55-1.30) Estimat Glomerular Filtration Rate > 60 mL/min (>60) Glucose Level 161 MG/DL (74-106) H Calcium Level 8.5 MG/DL (8.5-10.1) Magnesium Level 2.0 MG/DL (1.8-2.4) Total Bilirubin 0.4 MG/DL (0.2-1.0) Aspartate Amino Transf (AST/SGOT) 23 U/L (15-37) Alanine Aminotransferase (ALT/SGPT) 16 U/L (12-78) Alkaline Phosphatase 86 U/L (46-116) Pro-B-Type Natriuretic Peptide 851 pg/mL (0-125) H Total Protein 5.2 G/DL (6.4-8.2) L Albumin 1.7 G/DL (3.4-5.0) L Globulin 3.5 g/dL Albumin/Globulin Ratio 0.5 (1.0-2.7) L POC Whole Blood Glucose 222 MG/DL (74-106) H Assessment/Plan Assessment/Plan Covid 19 PNA Hypoxia Respiratroy failure Steroid exacerbated diabetes mellitus Hypertension Ac diast CHF component with pleural effn's Hypokalemia O2 May need Vent support soon - maintain bipap for now. Lovenox anticoag IV steroids with taper Anti-viral rx completed. Long acting insulin advanced, with cont'd sliding scale cov'g Diuresis based on clinical parameters = ordered today with potassium suppl Tomas Cool MD May 29, 2020 22:09
--- NOTE | 2020-05-29 23:20 | NUR ---
NURSE NOTES: Attempt to wean patient with RT at bedside. Pt quickly desaturates to 75%. Will monitor.
[2020-05-30] VITALS (22 sets, daily range): BP systolic 121–171; BP diastolic 52–92
--- NOTE | 2020-05-30 02:22 | NUR ---
NURSE NOTES: Bed bath and oral care provided. Urinal pouch changed to condom cath; draining well to gravity. Pt. continues to ask for water. Educated pt about condition and physician orders. No distress noted. Saturating 98%.
[2020-05-30] MEDS: NovoLOG Insulin Flexpen SUBQ SCH ×4 (05:34→21:00)
--- NOTE | 2020-05-30 06:07 | NUR ---
NURSE NOTES: BSG 157. Covered with insulin per sliding scale. Educated patient to remain semi/high fowlers but patient insists on wanting to lay flat for comfort. Pt noncompliant with plan of care and will desaturate to 79%. Discontinued left IV gauge #22 due to leaking and infiltration. Will monitor.
[2020-05-30 06:19] LABS: HEMATOCRIT 41.5 % (42.0-52.0); HEMOGLOBIN 13.3 G/DL (14.2-18.0); MEAN CORPUSCULAR VOLUME 86 FL (80-99); PLATELET COUNT 201 K/UL (150-450); RED BLOOD COUNT 4.85 M/UL (4.70-6.10); RED CELL DISTRIBUTION WIDTH 12.1 % (11.6-14.8); WHITE BLOOD COUNT 20.7 K/UL (4.8-10.8)
[2020-05-30 06:39] LABS: ALANINE AMINOTRANSFERASE 17 U/L (12-78); ALBUMIN 1.8 G/DL (3.4-5.0); ALBUMIN/GLOBULIN RATIO 0.5 (1.0-2.7); ALKALINE PHOSPHATASE 95 U/L (46-116); ANION GAP 5 mmol/L (5-15); ASPARTATE AMINO TRANSFERASE 22 U/L (15-37); BILIRUBIN,TOTAL 0.8 MG/DL (0.2-1.0); BLOOD UREA NITROGEN 31 mg/dL (7-18); CALCIUM 8.6 MG/DL (8.5-10.1); CARBON DIOXIDE 37 MMOL/L (21-32); CHLORIDE 102 MMOL/L (98-107); CREATININE 0.8 MG/DL (0.55-1.30); POTASSIUM 3.5 MMOL/L (3.5-5.1); SODIUM 144 MMOL/L (136-145)
--- NOTE | 2020-05-30 07:30 | Infectious Diseases Prog Note ---
Assessment/Plan Assessment/Plan A 1. COVID19 pneumonia 2. diabetes mellitus 3. hypertension 4. Hypoxemia 5. Leukocytosis P 1. Finished remdesivir course 2. continue Solumedrol tapering 3. continue isolation Subjective ROS Limited/Unobtainable: Yes Allergies: Coded Allergies: No Known Allergies (Unverified , 05/15/20) Objective Last 24 Hour Vital Signs Date Time Temp Pulse Resp B/P (MAP) Pulse Ox O2 Delivery O2 Flow Rate FiO2 05/30/20 06:00 96 27 139/72 (94) 97 05/30/20 05:00 90 25 151/60 (90) 99 05/30/20 04:05 108 38 91 100 05/30/20 04:00 Bi-pap 05/30/20 04:00 100 05/30/20 04:00 98.1 88 24 143/69 (93) 91 05/30/20 04:00 97 05/30/20 03:00 82 24 129/76 (93) 85 05/30/20 02:00 91 27 121/86 (98) 97 05/30/20 01:00 90 29 128/56 (80) 97 05/30/20 00:00 100 05/30/20 00:00 Bi-pap 05/30/20 00:00 95 05/30/20 00:00 97.8 95 30 122/62 (82) 95 05/29/20 23:09 95 32 93 100 05/29/20 23:00 91 28 123/104 (110) 97 05/29/20 22:00 92 28 139/61 (87) 98 05/29/20 21:00 89 28 139/68 (91) 97 05/29/20 20:00 100 05/29/20 20:00 91 05/29/20 20:00 97.9 93 29 146/65 (92) 97 05/29/20 20:00 Bi-pap 05/29/20 19:10 108 20 98 100 05/29/20 16:00 104 05/29/20 16:00 91 25 135/63 (87) 99 05/29/20 16:00 100 05/29/20 16:00 Bi-pap 05/29/20 15:47 95 24 99 Bi-Pap 100 05/29/20 15:46 99 24 95 100 05/29/20 15:00 99 29 135/63 (87) 97 05/29/20 14:00 98 29 172/88 (116) 97 05/29/20 13:00 102 28 182/75 (110) 100 05/29/20 12:00 Bi-pap 05/29/20 12:00 93 05/29/20 12:00 98.5 93 29 146/65 (92) 97 05/29/20 12:00 100 05/29/20 11:56 98 30 96 100 05/29/20 11:42 188/80 05/29/20 08:47 93 155/83 05/29/20 08:00 Bi-pap 05/29/20 08:00 98.7 98 24 151/75 (100) 90 05/29/20 08:00 100 05/29/20 08:00 98 05/29/20 07:48 101 25 86 100 Height (Feet): 5 Height (Inches): 9.00 Weight (Pounds): 220 HEENT: mucous membranes moist Respiratory/Chest: other - on BIPAP, NKH0=605% Cardiovascular: normal rate, other - Left arm PICC line Abdomen: soft, non tender Extremities: no edema Neurologic/Psychiatric: alert, responsive Laboratory Tests Test 05/29/20 08:55 05/30/20 05:00 POC Whole Blood Glucose 222 MG/DL (74-106) H White Blood Count 20.7 K/UL (4.8-10.8) H Red Blood Count 4.85 M/UL (4.70-6.10) Hemoglobin 13.3 G/DL (14.2-18.0) L Hematocrit 41.5 % (42.0-52.0) L Mean Corpuscular Volume 86 FL (80-99) Mean Corpuscular Hemoglobin 27.3 PG (27.0-31.0) Mean Corpuscular Hemoglobin Concent 32.0 G/DL (32.0-36.0) Red Cell Distribution Width 12.1 % (11.6-14.8) Platelet Count 201 K/UL (150-450) Mean Platelet Volume 6.7 FL (6.5-10.1) Neutrophils (%) (Auto) % (45.0-75.0) Lymphocytes (%) (Auto) % (20.0-45.0) Monocytes (%) (Auto) % (1.0-10.0) Eosinophils (%) (Auto) % (0.0-3.0) Basophils (%) (Auto) % (0.0-2.0) Neutrophils % (Manual) Pending Lymphocytes % (Manual) Pending Platelet Estimate Pending Platelet Morphology Pending Sodium Level 144 MMOL/L (136-145) Potassium Level 3.5 MMOL/L (3.5-5.1) Chloride Level 102 MMOL/L (98-107) Carbon Dioxide Level 37 MMOL/L (21-32) H Anion Gap 5 mmol/L (5-15) Blood Urea Nitrogen 31 mg/dL (7-18) H Creatinine 0.8 MG/DL (0.55-1.30) Estimat Glomerular Filtration Rate > 60 mL/min (>60) Glucose Level 152 MG/DL (74-106) H Calcium Level 8.6 MG/DL (8.5-10.1) Total Bilirubin 0.8 MG/DL (0.2-1.0) Aspartate Amino Transf (AST/SGOT) 22 U/L (15-37) Alanine Aminotransferase (ALT/SGPT) 17 U/L (12-78) Alkaline Phosphatase 95 U/L (46-116) Total Protein 5.3 G/DL (6.4-8.2) L Albumin 1.8 G/DL (3.4-5.0) L Globulin 3.5 g/dL Albumin/Globulin Ratio 0.5 (1.0-2.7) L Current Medications Medications (Trade) Dose Ordered Sig/Baldo Route PRN Reason Start Time Stop Time Status Last Admin Dose Admin Acetaminophen (Tylenol) 650 mg EVERY 4 HOURS PRN ORAL fever/MINAYA 05/16/20 03:15 06/15/20 03:14 05/24/20 22:08 Acetaminophen (Tylenol) 650 mg Q4H PRN ORAL Mild Pain (Pain Scale 1-3) 05/16/20 12:15 06/15/20 12:14 05/26/20 08:59 Acetaminophen (Tylenol) 650 mg Q4H PRN ORAL fever 05/16/20 12:15 06/15/20 12:14 Albuterol Sulfate (Proventil MDI) 2 puff Q4H PRN INH Shortness of Breath 05/16/20 14:00 08/14/20 13:59 05/19/20 01:01 Amlodipine Besylate (Norvasc) 5 mg DAILY ORAL 05/16/20 09:00 06/15/20 08:59 05/29/20 08:47 Chlorhexidine Gluconate (Kelsi-Hex 2%) 1 applic DAILY@2000 TOPIC 05/29/20 20:00 08/27/20 19:59 05/29/20 19:56 Clonidine HCl (Catapres Tab) 0.1 mg Q4H PRN ORAL For High Blood Pressure 05/16/20 14:45 08/14/20 14:44 05/29/20 11:42 Dextrose (Dextrose 50%) 25 ml Q30M PRN IV Hypoglycemia 05/16/20 12:15 08/14/20 12:14 Dextrose (Dextrose 50%) 50 ml Q30M PRN IV Hypoglycemia 05/16/20 12:15 08/14/20 12:14 Enoxaparin Sodium (Lovenox) 40 mg BID SUBQ 05/16/20 10:00 08/14/20 09:59 05/29/20 17:19 Famotidine (Pepcid I.v.) 20 mg DAILY IVP 05/17/20 09:00 06/16/20 08:59 05/29/20 08:39 Heparin Sodium/ Sodium Chloride (Heparin 1000 units/500ml Premix) 1,000 unit ONCE PRN IV picc line placement 05/29/20 10:00 05/31/20 09:59 Insulin Aspart (NovoLOG) BEFORE MEALS AND HS SUBQ 05/16/20 16:30 08/14/20 16:29 05/30/20 05:34 Insulin Detemir (Levemir) 26 units BEDTIME SUBQ 05/26/20 21:00 08/16/20 20:59 05/29/20 19:53 Insulin Detemir (Levemir) 28 units DAILY SUBQ 05/27/20 09:00 08/16/20 08:59 05/29/20 08:57 Lidocaine HCl (Xylocaine 1% 30ml) 30 ml ONCE PRN INJ picc line placement 05/29/20 10:00 05/31/20 09:59 Methylprednisolone Sodium Succinate (Solu-MEDROL) 40 mg DAILY IVP 05/28/20 09:00 08/26/20 08:59 05/29/20 08:43 Nitroglycerin (Ntg) 0.4 mg Q5M PRN SL Prn Chest Pain 05/28/20 08:45 06/27/20 08:44 05/28/20 09:29 Ondansetron HCl (Zofran) 4 mg Q6H PRN IVP Nausea & Vomiting 05/21/20 12:30 06/20/20 12:29 05/27/20 03:40 Jamie Sullivan MD May 30, 2020 07:30
--- NOTE | 2020-05-30 08:00 | NUR ---
NURSE NOTES: Received report from Elaine ELIAS.
--- NOTE | 2020-05-30 08:50 | NUR ---
CASE MANAGEMENT:REVIEW 05/30/20 SI: COVID PNEUMONIA. RESPIRATORY FAILURE 98.5 102 28 182/75 SATS 58% ON 100% FIO2 VIA BIPAP WBC+18.0 CO2+35 BUN+29 IS: IV SOLUMEDROL 40MG QD IV PEPCID QD LEVEMIR SQ QHS AND QD IV PEPCID QD SS INSULIN AC+HS LOVENOX SQ BID NORVASC PO QD : TELEMETRY STATUS DCP: FROM HOME PLAN: COMPLETED REMDESIVIR MONITOR OXYGEN NEEDS AND ADJUST ACCORDINGLY TAPERING STEROIDS Addendum: 05/30/20 at 0854 by VISHAL PARMAR LVN LVN INCORRECT REVIEW ABOVE....ERROR
--- NOTE | 2020-05-30 08:52 | NUR ---
CASE MANAGEMENT:REVIEW 05/30/20 SI: COVID PNEUMONIA. RESPIRATORY FAILURE 98.1 102 23 131/72 SATS 96% ON 100% FIO2 VIA BIPAP WBC+20.7 CO2+37 BUN+31 IS: IV SOLUMEDROL 40MG QD IV PEPCID QD LEVEMIR SQ QHS AND QD IV PEPCID QD SS INSULIN AC+HS LOVENOX SQ BID NORVASC PO QD : NOW ICU STATUS DCP: FROM HOME PLAN: COMPLETED REMDESIVIR MONITOR OXYGEN NEEDS AND ADJUST ACCORDINGLY TAPERING STEROIDS
[2020-05-30] MEDS: Solu-MEDROL 40mg Inj IVP SCH (09:28)
--- NOTE | 2020-05-30 09:30 | NUR ---
NURSE NOTES: Pt indicating to penis, domínguez insertion site and stating "dolor". Attempted to deflate buble in order to push the cathater in but folw was only in the tip mo0st part of penis. Inserted new domínguez. Small amount of bright red blood noted upon insertion of new domínguez.
[2020-05-30] MEDS: Enoxaparin 40mg Inj SUBQ SCH ×3 (09:32→18:12)
--- NOTE | 2020-05-30 09:40 | NUR ---
NURSE NOTES: Pt. in bed, sleeping but arousable to voice. No sign of distress at present. On cont. Bipap 20/12, Fi O2 at 100%. No grimacing noted. PICC line in placed at left upper arm with 3 lumen. F/C in placed patent/intact draining yellow colored urine. Bed in low position, locked. Call light within reach. Will cont. to monitor.
--- NOTE | 2020-05-30 09:46 | NUR ---
NURSE NOTES: Pt. pulled out F/C and now RN re-inserting new one. Hand over report given to Yojana ELIAS.
--- NOTE | 2020-05-30 10:14 | Diagnostic Imaging Report ---
EXAM: XR Chest, 1 View CLINICAL HISTORY: F/U TECHNIQUE: Frontal view of the chest. COMPARISON: Chest radiograph May 27, 2020. FINDINGS/IMPRESSION: Patchy bilateral airspace consolidations, preferentially involving the right hilar region consistent with multifocal infiltrate. Small bilateral pleural effusions, left greater than right. Overall, there is improved aeration of the right lung field, consistent with improving infiltrates. Follow-up chest radiograph recommended. Otherwise, stable exam.
[2020-05-30] MEDS: Levemir Flexpen SUBQ SCH ×2 (10:19→21:00)
--- NOTE | 2020-05-30 10:19 | NUR ---
NURSE NOTES: Re Morning levemir, please note half dose (14 units) given as pt is NPO
--- NOTE | 2020-05-30 10:30 | NUR ---
RADIOLOGY DEPT., CHEST X-RAY DONE.-P.DYE
--- NOTE | 2020-05-30 15:41 | Pulmonolgy Critical Care Note ---
Critical Care - Asmt/Plan Assessment/Plan: Pulmonary CCM Progress Note Subjective ROS Limited/Unobtainable: Yes Constitutional: Denies: fever Allergies: Coded Allergies: No Known Allergies (Unverified , 05/15/20) All Systems: reviewed and negative except above Subjective care noted in bed on BIPAP on 100% Objective Vital Signs noted Objective deferred due to COVID Laboratory Tests noted Assessment/Plan Impression: Pneumonia due to COVID-19 virus Hypoxic Respiratory Failure Hypertension Diabetes Septic shock Pulmonary infiltrates Plan: - no new changes -O2 at 100% and on BIPAP -albuterol PRN -Monitor labs -DVT prophylaxis; negative venous US -refusing intubation full code impression, plan, and exam edited and reviewed in detail care discussed with qa intern - Objective Last 24 Hour Vital Signs Date Time Temp Pulse Resp B/P (MAP) Pulse Ox O2 Delivery O2 Flow Rate FiO2 05/30/20 12:00 97 05/30/20 12:00 100 05/30/20 11:35 108 32 91 100 05/30/20 09:29 104 148/76 05/30/20 08:00 97 23 131/72 (91) 96 05/30/20 08:00 Bi-pap 05/30/20 08:00 100 05/30/20 07:50 102 30 97 100 05/30/20 07:38 100 05/30/20 06:00 96 27 139/72 (94) 97 05/30/20 05:00 90 25 151/60 (90) 99 05/30/20 04:05 108 38 91 100 05/30/20 04:00 Bi-pap 05/30/20 04:00 100 05/30/20 04:00 98.1 88 24 143/69 (93) 91 05/30/20 04:00 97 05/30/20 03:00 82 24 129/76 (93) 85 05/30/20 02:00 91 27 121/86 (98) 97 05/30/20 01:00 90 29 128/56 (80) 97 05/30/20 00:00 100 05/30/20 00:00 Bi-pap 05/30/20 00:00 95 05/30/20 00:00 97.8 95 30 122/62 (82) 95 05/29/20 23:09 95 32 93 100 05/29/20 23:00 91 28 123/104 (110) 97 05/29/20 22:00 92 28 139/61 (87) 98 05/29/20 21:00 89 28 139/68 (91) 97 05/29/20 20:00 100 05/29/20 20:00 91 05/29/20 20:00 97.9 93 29 146/65 (92) 97 05/29/20 20:00 Bi-pap 05/29/20 19:10 108 20 98 100 05/29/20 16:00 104 05/29/20 16:00 91 25 135/63 (87) 99 05/29/20 16:00 100 05/29/20 16:00 Bi-pap 05/29/20 15:47 95 24 99 Bi-Pap 100 05/29/20 15:46 99 24 95 100 Accucheck: 123 Critical Care - Subjective ROS Limited/Unobtainable: No Condition: critical IV Access: PICC FI02: 100 Sputum Amount: None I&O: Intake and Output 05/29/20 05/30/20 19:00 07:00 Intake Total 75 ml 100 ml Balance 75 ml 100 ml Intake Oral 75 ml 100 ml # Voids 3 3 Tomas Ye MD May 30, 2020 15:41
--- NOTE | 2020-05-30 17:09 | Surgery Progress Note ---
Surgery Progress Note Subjective Additional Comments awake states to stay on bipap as long as possible but if need okay to intubate desaturation on bipap Objective Last 24 Hour Vital Signs Date Time Temp Pulse Resp B/P (MAP) Pulse Ox O2 Delivery O2 Flow Rate FiO2 05/30/20 15:28 108 34 92 100 05/30/20 12:00 97 05/30/20 12:00 100 05/30/20 11:35 108 32 91 100 05/30/20 09:29 104 148/76 05/30/20 08:00 97 23 131/72 (91) 96 05/30/20 08:00 Bi-pap 05/30/20 08:00 100 05/30/20 07:50 102 30 97 100 05/30/20 07:38 100 05/30/20 06:00 96 27 139/72 (94) 97 05/30/20 05:00 90 25 151/60 (90) 99 05/30/20 04:05 108 38 91 100 05/30/20 04:00 Bi-pap 05/30/20 04:00 100 05/30/20 04:00 98.1 88 24 143/69 (93) 91 05/30/20 04:00 97 05/30/20 03:00 82 24 129/76 (93) 85 05/30/20 02:00 91 27 121/86 (98) 97 05/30/20 01:00 90 29 128/56 (80) 97 05/30/20 00:00 100 05/30/20 00:00 Bi-pap 05/30/20 00:00 95 05/30/20 00:00 97.8 95 30 122/62 (82) 95 05/29/20 23:09 95 32 93 100 05/29/20 23:00 91 28 123/104 (110) 97 05/29/20 22:00 92 28 139/61 (87) 98 05/29/20 21:00 89 28 139/68 (91) 97 05/29/20 20:00 100 05/29/20 20:00 91 05/29/20 20:00 97.9 93 29 146/65 (92) 97 05/29/20 20:00 Bi-pap 05/29/20 19:10 108 20 98 100 I&O Intake and Output 05/29/20 05/30/20 19:00 07:00 Intake Total 75 ml 100 ml Balance 75 ml 100 ml Intake Oral 75 ml 100 ml # Voids 3 3 Cardiovascular: RSR Respiratory: decreased breath sounds Abdomen: soft, non-tender, present bowel sounds Extremities: no edema, no tenderness, no cyanosis Laboratory Tests Test 05/30/20 05:00 05/30/20 08:00 White Blood Count 20.7 K/UL (4.8-10.8) H Red Blood Count 4.85 M/UL (4.70-6.10) Hemoglobin 13.3 G/DL (14.2-18.0) L Hematocrit 41.5 % (42.0-52.0) L Mean Corpuscular Volume 86 FL (80-99) Mean Corpuscular Hemoglobin 27.3 PG (27.0-31.0) Mean Corpuscular Hemoglobin Concent 32.0 G/DL (32.0-36.0) Red Cell Distribution Width 12.1 % (11.6-14.8) Platelet Count 201 K/UL (150-450) Mean Platelet Volume 6.7 FL (6.5-10.1) Neutrophils (%) (Auto) % (45.0-75.0) Lymphocytes (%) (Auto) % (20.0-45.0) Monocytes (%) (Auto) % (1.0-10.0) Eosinophils (%) (Auto) % (0.0-3.0) Basophils (%) (Auto) % (0.0-2.0) Differential Total Cells Counted 100 Neutrophils % (Manual) 97 % (45-75) H Lymphocytes % (Manual) 2 % (20-45) L Monocytes % (Manual) 1 % (1-10) Eosinophils % (Manual) 0 % (0-3) Basophils % (Manual) 0 % (0-2) Band Neutrophils 0 % (0-8) Platelet Estimate Adequate Platelet Morphology Normal Red Blood Cell Morphology Normal Sodium Level 144 MMOL/L (136-145) Potassium Level 3.5 MMOL/L (3.5-5.1) Chloride Level 102 MMOL/L (98-107) Carbon Dioxide Level 37 MMOL/L (21-32) H Anion Gap 5 mmol/L (5-15) Blood Urea Nitrogen 31 mg/dL (7-18) H Creatinine 0.8 MG/DL (0.55-1.30) Estimat Glomerular Filtration Rate > 60 mL/min (>60) Glucose Level 152 MG/DL (74-106) H Calcium Level 8.6 MG/DL (8.5-10.1) Total Bilirubin 0.8 MG/DL (0.2-1.0) Aspartate Amino Transf (AST/SGOT) 22 U/L (15-37) Alanine Aminotransferase (ALT/SGPT) 17 U/L (12-78) Alkaline Phosphatase 95 U/L (46-116) Total Protein 5.3 G/DL (6.4-8.2) L Albumin 1.8 G/DL (3.4-5.0) L Globulin 3.5 g/dL Albumin/Globulin Ratio 0.5 (1.0-2.7) L Arterial Blood pH 7.516 (7.350-7.450) Arterial Blood Partial Pressure CO2 42.4 mmHg (35.0-45.0) Arterial Blood Partial Pressure O2 52.6 mmHg (75.0-100.0) L Arterial Blood HCO3 33.5 mmol/L (22.0-26.0) H Arterial Blood Oxygen Saturation 89.0 % (95-100) *L Arterial Blood Base Excess 9.6 (-2-2) *H Jose Test Positive Plan Problems: (1) Septic shock Assessment & Plan: 80-year-old male Covid positive respiratory deficiency presented to [facility] for evaluation shortness of breath admitted care and manage identified to have leukocytosis lactic acidosis and shock. Resuscitation initiated. Full examination performed no acute infectious process noted inflammatory process likely related to respiratory. Continue with IV fluids. Hold on central line insertion. Labs noted imaging reviewed. Patient otherwise now stable under appropriate care plan. Continue with medications and antibiotics as ordered. Continue with IV fluid resuscitation. Trend labs. Will follow with recommendations. Thank you for let me participate patient's care on support not able to wean may need intubation may need trach? Multifocal airspace consolidations, consistent with severe multifocal infiltrate. Findings and increased when compared to May 16, 2020. Follow-up chest radiograph recommended. Small left effusion is suspected. No pneumothorax. Stable cardiomegaly. Calcified aorta. intubate icu needs support wants to live (2) Dyspnea (3) Respiratory distress (4) Pneumonia due to COVID-19 virus Assessment & Plan: ++ as per pulm and Gianni Pal May 30, 2020 17:09
--- NOTE | 2020-05-30 19:30 | NUR ---
NURSE HAND-OFF REPORT: Latest Vital Signs: Temperature 98.1 , Pulse 86 , B/P 125 /66 , Respiratory Rate 19 , O2 SAT 100 , Non-Rebreather, O2 Flow Rate 15.0 . Vital Sign Comment: Stable EKG Rhythm: Sinus Rhythm Rhythm change?: N Notified?: N -Dr. Travon MEJIA Response: Latest Gregg Fall Score: 45 Fall Risk: High Risk Safety Measures: Call light Within Reach, Bed Alarm Zone 1, Side Rails Side Rails x3, Bed position Low and Locked. Fall Precautions: Yellow Socks Yellow Gown Door Sign Patient Fall Education Report given to Fermin ELIAS. Plan of care endorsed.
--- NOTE | 2020-05-30 19:41 | NUR ---
NURSE NOTES: Pt. in bed, sleeping but arousable to voice. No sign of distress at present. On cont. Bipap 20/12, Fi O2 at 100%. SpO2 is 96%, blood pressures within normal ranges. No grimacing noted. PICC line in placed at left upper arm. F/C in placed patent/intact draining dark froylan colored urine. Bed in low position, locked. Call light within reach. Will cont. to monitor.
[2020-05-30] MEDS: Dyna-Hex 2% Top Sol 2oz TOPIC SCH (20:00)
--- NOTE | 2020-05-30 20:30 | NUR ---
NURSE NOTES: Glucose noted to be 165, insulin coverage given, patient asleep at this time, opens eyes and follows command upon stimuli. Patient remains on continuos BIPAP 20/12 100% and saturating 90-95%. Blood pressures have remain stable. Afebrile with temp of 98.3F. NSR on the monitor, will continue to monitor.
--- NOTE | 2020-05-30 22:08 | NUR ---
NURSE NOTES: Repositioned and oral care given. All due meds given. Patient remains stable at this point, patient is noted to be lethargic but able to follow commands. SpO2 is at 98%. HR is 88 NSR
--- NOTE | 2020-05-30 23:13 | Cardiology Progress Note ---
Subjective DATE OF SERVICE: May 30, 2020 Increasingly hypoxic - and still wanting to avoid intubation and mechanical ventilation. ABG (05/30) 7.52/42/53 CXR (05/27) worsening bilateral infiltrates and eff'ns Insulin continues to be adjusted for high glucose Objective Last 24 Hour Vital Signs Date Time Temp Pulse Resp B/P (MAP) Pulse Ox O2 Delivery O2 Flow Rate FiO2 05/30/20 21:00 98 05/30/20 20:00 100 05/30/20 20:00 Bi-pap 05/30/20 20:00 99.0 86 23 149/52 (84) 98 05/30/20 19:00 89 22 137/66 (89) 100 05/30/20 18:00 86 19 125/66 (85) 100 05/30/20 17:00 94 31 153/66 (95) 100 05/30/20 16:00 Bi-pap 05/30/20 16:00 96 05/30/20 16:00 100 05/30/20 16:00 91 28 138/64 (88) 100 05/30/20 15:28 108 34 92 100 05/30/20 14:00 92 23 169/92 (117) 100 05/30/20 13:00 98 32 160/77 (104) 100 05/30/20 12:00 Bi-pap 05/30/20 12:00 97 05/30/20 12:00 100 05/30/20 12:00 93 26 135/71 (92) 84 05/30/20 12:00 100 05/30/20 11:35 108 32 91 100 05/30/20 11:00 92 25 143/74 (97) 90 05/30/20 10:00 97 32 139/68 (91) 05/30/20 09:29 104 148/76 05/30/20 09:00 107 30 148/76 (100) 05/30/20 08:00 97 23 131/72 (91) 96 05/30/20 08:00 Bi-pap 05/30/20 08:00 100 05/30/20 07:50 102 30 97 100 05/30/20 07:38 100 05/30/20 06:00 96 27 139/72 (94) 97 05/30/20 05:00 90 25 151/60 (90) 99 05/30/20 04:05 108 38 91 100 05/30/20 04:00 Bi-pap 05/30/20 04:00 100 05/30/20 04:00 98.1 88 24 143/69 (93) 91 05/30/20 04:00 97 05/30/20 03:00 82 24 129/76 (93) 85 05/30/20 02:00 91 27 121/86 (98) 97 05/30/20 01:00 90 29 128/56 (80) 97 05/30/20 00:00 100 05/30/20 00:00 Bi-pap 05/30/20 00:00 95 05/30/20 00:00 97.8 95 30 122/62 (82) 95 ROS: unchanged from 05/16/20 RHYTHM: NSR LUNGS: bilat. rhonchi and rales CARDIAC: normal rate, regular rhythm, normal S1 and S2 ABDOMEN: normal bowel sounds, non tender, soft, other - obese EXTREMITIES: normal range of motion, no calf tenderness, No edema Laboratory Tests Test 05/30/20 05:00 05/30/20 08:00 White Blood Count 20.7 K/UL (4.8-10.8) H Red Blood Count 4.85 M/UL (4.70-6.10) Hemoglobin 13.3 G/DL (14.2-18.0) L Hematocrit 41.5 % (42.0-52.0) L Mean Corpuscular Volume 86 FL (80-99) Mean Corpuscular Hemoglobin 27.3 PG (27.0-31.0) Mean Corpuscular Hemoglobin Concent 32.0 G/DL (32.0-36.0) Red Cell Distribution Width 12.1 % (11.6-14.8) Platelet Count 201 K/UL (150-450) Mean Platelet Volume 6.7 FL (6.5-10.1) Neutrophils (%) (Auto) % (45.0-75.0) Lymphocytes (%) (Auto) % (20.0-45.0) Monocytes (%) (Auto) % (1.0-10.0) Eosinophils (%) (Auto) % (0.0-3.0) Basophils (%) (Auto) % (0.0-2.0) Differential Total Cells Counted 100 Neutrophils % (Manual) 97 % (45-75) H Lymphocytes % (Manual) 2 % (20-45) L Monocytes % (Manual) 1 % (1-10) Eosinophils % (Manual) 0 % (0-3) Basophils % (Manual) 0 % (0-2) Band Neutrophils 0 % (0-8) Platelet Estimate Adequate Platelet Morphology Normal Red Blood Cell Morphology Normal Sodium Level 144 MMOL/L (136-145) Potassium Level 3.5 MMOL/L (3.5-5.1) Chloride Level 102 MMOL/L (98-107) Carbon Dioxide Level 37 MMOL/L (21-32) H Anion Gap 5 mmol/L (5-15) Blood Urea Nitrogen 31 mg/dL (7-18) H Creatinine 0.8 MG/DL (0.55-1.30) Estimat Glomerular Filtration Rate > 60 mL/min (>60) Glucose Level 152 MG/DL (74-106) H Calcium Level 8.6 MG/DL (8.5-10.1) Total Bilirubin 0.8 MG/DL (0.2-1.0) Aspartate Amino Transf (AST/SGOT) 22 U/L (15-37) Alanine Aminotransferase (ALT/SGPT) 17 U/L (12-78) Alkaline Phosphatase 95 U/L (46-116) Total Protein 5.3 G/DL (6.4-8.2) L Albumin 1.8 G/DL (3.4-5.0) L Globulin 3.5 g/dL Albumin/Globulin Ratio 0.5 (1.0-2.7) L Arterial Blood pH 7.516 (7.350-7.450) Arterial Blood Partial Pressure CO2 42.4 mmHg (35.0-45.0) Arterial Blood Partial Pressure O2 52.6 mmHg (75.0-100.0) L Arterial Blood HCO3 33.5 mmol/L (22.0-26.0) H Arterial Blood Oxygen Saturation 89.0 % (95-100) *L Arterial Blood Base Excess 9.6 (-2-2) *H Jose Test Positive Assessment/Plan Assessment/Plan Covid 19 PNA Hypoxia Respiratroy failure Steroid exacerbated diabetes mellitus Hypertension Ac diast CHF component with pleural effn's Hypokalemia O2 May need Vent support soon - maintain bipap for now. Lovenox anticoag IV steroids with taper Anti-viral rx completed. Long acting insulin advanced, with cont'd sliding scale cov'g Diuresis based on clinical parameters = ordered today with potassium suppl Tomas Cool MD May 30, 2020 23:13
[2020-05-31] VITALS (17 sets, daily range): BP systolic 53–174; BP diastolic 16–113
--- NOTE | 2020-05-31 00:20 | NUR ---
NURSE NOTES: Patient assessed with non-rebreather mask for a trial to see how he would tolerate; patient did not tolerate and needed to go back on bipap within the 5 minute trial. Patient would desaturate into the 70s on the non-rebreather mask. Saturations after BIPAP placed went back up to the 90s. Patients temperature is 99.4F (ax) HR 83 NSR and stable BP's. patient breathing rate 24-28/min. Oral care given. Will continue to monitor
--- NOTE | 2020-05-31 02:10 | NUR ---
NURSE NOTES: Patient repositioned and oral care provided. Patient remains on BIPAP and tolerating well at this time, patient is still lethargic but remains alert to place and purpose. Patient can follow conversation but would have to catch his breath if speaking for long periods. Educated patients of overall care and possible future intubation, patient is aware of being intubated if his breathing gets worse, as patient did state, " I can still manage at this time" in [place] and would defer from being intubated if possible. Patient tolerating bipap with saturations in the lower 90s, currently 92%. RR is 24 and HR at 88 NSR. Low grade fever noted of 99.5F. Call light is within reach. Safety measures in place, will continue to monitor
--- NOTE | 2020-05-31 04:00 | NUR ---
NURSE NOTES: Pt. in bed, sleeping but arousable to voice. RR 24-30 and on cont. Bipap 20/12, Fi O2 at 100%, SPo2 now is 91%. No grimacing noted. PICC line in placed at left upper arm remains patent and intact. F/C in placed patent/intact draining dark froylan colored urine. Bed in low position, locked. Call light within reach. Labs drawn. Will continue to monitor.
--- NOTE | 2020-05-31 06:00 | NUR ---
NURSE NOTES: Patients glucose noted to be 103, no insulin needed at this time. Patient remains on BIPAP with slightly short of breath at times. Position changes seem to help relieve his shortness of breath. SpO2 88-96% RR 24-30 afebrile
[2020-05-31] MEDS: NovoLOG Insulin Flexpen SUBQ SCH ×3 (06:30→16:30)
--- NOTE | 2020-05-31 07:00 | NUR ---
NURSE NOTES: Pt received from JADA Christensen. Pt is awake, AAO x 3, able to follow simple commands, bilat pupils equal and round 3mm with brisk rxn to light. Pt is in SR to pvc monitor with 2+ radial and dorsalis pedis pulses. 1+ pitting edema noted to BLE. cap refill less than 3 sec. Pt is on BIPAP 20/12 FiO2 100% with spO2 92%. lung zhang noted diminished upon auscultation. Pt is NPO. Abdomen is round and soft w/ active bowel sounds to all quadrants. F/C noted draining yellow urine. Skin is intact. Pt has a KATELIN PICC with dry and intact dressing running NS TKO at 5 cc/hr. Bed in lowest position, alarm on, side rails up x 2, call light within reach. Will continue to monitor.
--- NOTE | 2020-05-31 07:20 | NUR ---
RESPIRATORY NOTE: PT received on BIPAP with current settings: 26/04 RR:14 @ 100% FIO2. Alarms are on and audible. Wound on bridge of nose. Vanda ELIAS. aware. No s/s of respiratory distress noted at this time. Will continue to monitor.
--- NOTE | 2020-05-31 07:30 | NUR ---
NURSE NOTES: Pt seen by Dr Mensah.
[2020-05-31 08:00] LABS: HEMATOCRIT 43.2 % (42.0-52.0); HEMOGLOBIN 14.1 G/DL (14.2-18.0); MEAN CORPUSCULAR VOLUME 86 FL (80-99); PLATELET COUNT 255 K/UL (150-450); RED BLOOD COUNT 5.01 M/UL (4.70-6.10); RED CELL DISTRIBUTION WIDTH 12.4 % (11.6-14.8)
--- NOTE | 2020-05-31 08:00 | NUR ---
NURSE NOTES: Pt repositioned. PO care provided. Afebrile. Potassium of 3.[address] Mensah. Order received for potassium replacement. Addendum: 05/31/20 at 1138 by Vanda Rodríguez RN Late entry: serum glucose drawn at 0400 noted 55 - finger stick performed (now 95 without additional interventions). Pt is asymptomatic and responsive.
[2020-05-31 08:11] LABS: WHITE BLOOD COUNT 22.5 K/UL (4.8-10.8)
--- NOTE | 2020-05-31 08:30 | NUR ---
NURSE NOTES: Dr Sean Sullivan notified of WBC 22.5.
[2020-05-31 08:45] LABS: ALANINE AMINOTRANSFERASE 15 U/L (12-78); ALBUMIN/GLOBULIN RATIO 0.5 (1.0-2.7); ALKALINE PHOSPHATASE 104 U/L (46-116); ANION GAP 9 mmol/L (5-15); ASPARTATE AMINO TRANSFERASE 23 U/L (15-37); BILIRUBIN,TOTAL 0.5 MG/DL (0.2-1.0); BLOOD UREA NITROGEN 35 mg/dL (7-18); CALCIUM 8.7 MG/DL (8.5-10.1); CARBON DIOXIDE 35 MMOL/L (21-32); CHLORIDE 103 MMOL/L (98-107); CREATININE 0.8 MG/DL (0.55-1.30); POTASSIUM 3.3 MMOL/L (3.5-5.1); SODIUM 147 MMOL/L (136-145)
[2020-05-31] MEDS: Solu-MEDROL 40mg Inj IVP SCH (08:51)
[2020-05-31] MEDS: Levemir Flexpen SUBQ SCH (08:52)
[2020-05-31] MEDS: Enoxaparin 40mg Inj SUBQ SCH (08:53)
--- NOTE | 2020-05-31 10:00 | NUR ---
NURSE NOTES: Pt self-repositioned. No distress noted at this time.
--- NOTE | 2020-05-31 11:00 | NUR ---
NURSE NOTES: Pt seen by Dr Guajardo.
--- NOTE | 2020-05-31 11:12 | Surgery Progress Note ---
Surgery Progress Note Subjective Additional Comments bipap ill appearing labs noted desaturation stable Objective Last 24 Hour Vital Signs Date Time Temp Pulse Resp B/P (MAP) Pulse Ox O2 Delivery O2 Flow Rate FiO2 05/31/20 10:00 100 26 131/51 (77) 86 05/31/20 09:00 105 29 121/65 (83) 95 05/31/20 08:51 106 134/56 05/31/20 08:00 100 05/31/20 08:00 97.7 98 20 134/56 (82) 100 05/31/20 08:00 97 05/31/20 04:00 100 05/31/20 04:00 98.4 106 28 174/101 (125) 92 05/31/20 04:00 101 05/31/20 04:00 Bi-pap 05/31/20 03:30 98 33 92 100 05/31/20 03:00 89 25 154/59 (90) 96 05/31/20 02:00 88 29 153/74 (100) 91 05/31/20 01:00 83 25 139/66 (90) 91 05/31/20 00:00 100 05/31/20 00:00 99.4 88 27 167/78 (107) 92 05/31/20 00:00 83 05/31/20 00:00 Bi-pap 05/30/20 23:30 90 30 95 100 05/30/20 23:00 88 28 158/77 (104) 95 05/30/20 22:00 90 27 171/72 (105) 94 05/30/20 21:00 86 24 146/78 (100) 100 05/30/20 21:00 98 05/30/20 20:00 100 05/30/20 20:00 Bi-pap 05/30/20 20:00 99.0 86 23 149/52 (84) 98 05/30/20 19:30 84 41 100 100 05/30/20 19:00 89 22 137/66 (89) 100 05/30/20 18:00 86 19 125/66 (85) 100 05/30/20 17:00 94 31 153/66 (95) 100 05/30/20 16:00 Bi-pap 05/30/20 16:00 96 05/30/20 16:00 100 05/30/20 16:00 91 28 138/64 (88) 100 05/30/20 15:28 108 34 92 100 05/30/20 14:00 92 23 169/92 (117) 100 05/30/20 13:00 98 32 160/77 (104) 100 05/30/20 12:00 Bi-pap 05/30/20 12:00 97 05/30/20 12:00 100 05/30/20 12:00 93 26 135/71 (92) 84 05/30/20 12:00 100 05/30/20 11:35 108 32 91 100 I&O Intake and Output 05/30/20 05/31/20 19:00 07:00 Intake Total 100 ml Output Total 220 ml 325 ml Balance -220 ml -225 ml Intake Oral 100 ml Output Urine Total 220 ml 325 ml Cardiovascular: RSR Respiratory: decreased breath sounds, other Abdomen: non-tender, present bowel sounds Extremities: no edema, no tenderness, no cyanosis Laboratory Tests Test 05/31/20 06:00 05/31/20 09:16 White Blood Count 22.5 K/UL (4.8-10.8) *H Red Blood Count 5.01 M/UL (4.70-6.10) Hemoglobin 14.1 G/DL (14.2-18.0) L Hematocrit 43.2 % (42.0-52.0) Mean Corpuscular Volume 86 FL (80-99) Mean Corpuscular Hemoglobin 28.1 PG (27.0-31.0) Mean Corpuscular Hemoglobin Concent 32.5 G/DL (32.0-36.0) Red Cell Distribution Width 12.4 % (11.6-14.8) Platelet Count 255 K/UL (150-450) Mean Platelet Volume 6.4 FL (6.5-10.1) L Neutrophils (%) (Auto) % (45.0-75.0) Lymphocytes (%) (Auto) % (20.0-45.0) Monocytes (%) (Auto) % (1.0-10.0) Eosinophils (%) (Auto) % (0.0-3.0) Basophils (%) (Auto) % (0.0-2.0) Differential Total Cells Counted 100 Neutrophils % (Manual) 93 % (45-75) H Lymphocytes % (Manual) 2 % (20-45) L Monocytes % (Manual) 5 % (1-10) Eosinophils % (Manual) 0 % (0-3) Basophils % (Manual) 0 % (0-2) Band Neutrophils 0 % (0-8) Platelet Estimate Adequate Platelet Morphology Normal Red Blood Cell Morphology Normal Sodium Level 147 MMOL/L (136-145) H Potassium Level 3.3 MMOL/L (3.5-5.1) L Chloride Level 103 MMOL/L (98-107) Carbon Dioxide Level 35 MMOL/L (21-32) H Anion Gap 9 mmol/L (5-15) Blood Urea Nitrogen 35 mg/dL (7-18) H Creatinine 0.8 MG/DL (0.55-1.30) Estimat Glomerular Filtration Rate > 60 mL/min (>60) Glucose Level 55 MG/DL (74-106) L Calcium Level 8.7 MG/DL (8.5-10.1) Total Bilirubin 0.5 MG/DL (0.2-1.0) Aspartate Amino Transf (AST/SGOT) 23 U/L (15-37) Alanine Aminotransferase (ALT/SGPT) 15 U/L (12-78) Alkaline Phosphatase 104 U/L (46-116) Total Protein 5.9 G/DL (6.4-8.2) L Albumin 2.0 G/DL (3.4-5.0) L Globulin 3.9 g/dL Albumin/Globulin Ratio 0.5 (1.0-2.7) L Arterial Blood pH 7.469 (7.350-7.450) Arterial Blood Partial Pressure CO2 43.3 mmHg (35.0-45.0) Arterial Blood Partial Pressure O2 61.8 mmHg (75.0-100.0) L Arterial Blood HCO3 30.7 mmol/L (22.0-26.0) H Arterial Blood Oxygen Saturation 91.5 % (95-100) L Arterial Blood Base Excess 6.3 (-2-2) H Jose Test Positive Plan Problems: (1) Septic shock Assessment & Plan: 80-year-old male Covid positive respiratory deficiency presented to [facility] for evaluation shortness of breath admitted care and manage identified to have leukocytosis lactic acidosis and shock. Res uscitation initiated. Full examination performed no acute infectious process noted inflammatory process likely related to respiratory. Continue with IV fluids. Hold on central line insertion. Labs noted imaging reviewed. Patient otherwise now stable under appropriate care plan. Continue with medications and antibiotics as ordered. Continue with IV fluid resuscitation. Trend labs. Will follow with recommendations. Thank you for let me participate patient's care on support not able to wean may need intubation may need trach? Multifocal airspace consolidations, consistent with severe multifocal infiltrate. Findings and increased when compared to May 16, 2020. Follow-up chest radiograph recommended. Small left effusion is suspected. No pneumothorax. Stable cardiomegaly. Calcified aorta. intubate icu needs support wants to live (2) Dyspnea (3) Respiratory distress (4) Pneumonia due to COVID-19 virus Assessment & Plan: ++ as per pulm and Gianni Pal May 31, 2020 11:11
--- NOTE | 2020-05-31 12:00 | NUR ---
NURSE NOTES: Pt repositioned. Afebrile. No distress noted.
--- NOTE | 2020-05-31 14:00 | NUR ---
NURSE NOTES: Pt assisted with repositioning. No distress noted.
--- NOTE | 2020-05-31 16:00 | NUR ---
CODE BLUE: Pt found with bradycardia evolving into asystole. CPR initiated promptly. ACLS protocol followed. Pt orally intubated per Dr Dorman at 1612 (7.5 ETT 24 cm at the lip). Pt also seen by Dr Ye at 1615 when ROSC was achieved- order for dopamine gtt received - gtt started promptly at max rate for SBP in the 50s. See Code sheet which remains on paper.
--- NOTE | 2020-05-31 16:00 | NUR ---
RESPIRATORY NOTE: CODE CALLED. MANUAL VENTILATION PROVIDED AND COMPRESSIONS INITIATED. PT INTUBATED AT 1612 WITH 7.5 ETT AT 24CM LIPLINE. ROSC ACHIEVED BUT PT CODED AGAIN AT 1627. PT AT 1642.
--- NOTE | 2020-05-31 16:11 | Cardiology Progress Note ---
Subjective DATE OF SERVICE: May 31, 2020 Increasingly hypoxic - and still wanting to avoid intubation and mechanical ventilation. He will accept vent if needed to survive. ABG (05/31) 7.47/43/62 CXR (05/30) unchanged from 05/30 Objective Last 24 Hour Vital Signs Date Time Temp Pulse Resp B/P (MAP) Pulse Ox O2 Delivery O2 Flow Rate FiO2 05/31/20 14:00 107 35 147/113 (124) 05/31/20 13:00 108 29 140/61 (87) 98 05/31/20 12:00 100 05/31/20 12:00 100 05/31/20 12:00 Bi-pap 05/31/20 12:00 98.4 98 27 135/59 (84) 85 05/31/20 11:00 103 26 142/54 (83) 93 05/31/20 10:00 100 26 131/51 (77) 86 05/31/20 09:00 105 29 121/65 (83) 95 05/31/20 08:51 106 134/56 05/31/20 08:00 Bi-pap 05/31/20 08:00 100 05/31/20 08:00 97.7 98 20 134/56 (82) 100 05/31/20 08:00 97 05/31/20 07:00 95 23 128/56 (80) 90 05/31/20 04:00 100 05/31/20 04:00 98.4 106 28 174/101 (125) 92 05/31/20 04:00 101 05/31/20 04:00 Bi-pap 05/31/20 03:30 98 33 92 100 05/31/20 03:00 89 25 154/59 (90) 96 05/31/20 02:00 88 29 153/74 (100) 91 05/31/20 01:00 83 25 139/66 (90) 91 05/31/20 00:00 100 05/31/20 00:00 99.4 88 27 167/78 (107) 92 05/31/20 00:00 83 05/31/20 00:00 Bi-pap 05/30/20 23:30 90 30 95 100 05/30/20 23:00 88 28 158/77 (104) 95 05/30/20 22:00 90 27 171/72 (105) 94 05/30/20 21:00 86 24 146/78 (100) 100 05/30/20 21:00 98 05/30/20 20:00 100 05/30/20 20:00 Bi-pap 05/30/20 20:00 99.0 86 23 149/52 (84) 98 05/30/20 19:30 84 41 100 100 05/30/20 19:00 89 22 137/66 (89) 100 05/30/20 18:00 86 19 125/66 (85) 100 05/30/20 17:00 94 31 153/66 (95) 100 ROS: unchanged from 05/16/20 RHYTHM: NSR LUNGS: bilat. rhonchi and rales CARDIAC: normal rate, regular rhythm, normal S1 and S2 ABDOMEN: normal bowel sounds, non tender, soft, other - obese EXTREMITIES: normal range of motion, no calf tenderness, No edema Laboratory Tests Test 05/31/20 06:00 05/31/20 09:16 White Blood Count 22.5 K/UL (4.8-10.8) *H Red Blood Count 5.01 M/UL (4.70-6.10) Hemoglobin 14.1 G/DL (14.2-18.0) L Hematocrit 43.2 % (42.0-52.0) Mean Corpuscular Volume 86 FL (80-99) Mean Corpuscular Hemoglobin 28.1 PG (27.0-31.0) Mean Corpuscular Hemoglobin Concent 32.5 G/DL (32.0-36.0) Red Cell Distribution Width 12.4 % (11.6-14.8) Platelet Count 255 K/UL (150-450) Mean Platelet Volume 6.4 FL (6.5-10.1) L Neutrophils (%) (Auto) % (45.0-75.0) Lymphocytes (%) (Auto) % (20.0-45.0) Monocytes (%) (Auto) % (1.0-10.0) Eosinophils (%) (Auto) % (0.0-3.0) Basophils (%) (Auto) % (0.0-2.0) Differential Total Cells Counted 100 Neutrophils % (Manual) 93 % (45-75) H Lymphocytes % (Manual) 2 % (20-45) L Monocytes % (Manual) 5 % (1-10) Eosinophils % (Manual) 0 % (0-3) Basophils % (Manual) 0 % (0-2) Band Neutrophils 0 % (0-8) Platelet Estimate Adequate Platelet Morphology Normal Red Blood Cell Morphology Normal Sodium Level 147 MMOL/L (136-145) H Potassium Level 3.3 MMOL/L (3.5-5.1) L Chloride Level 103 MMOL/L (98-107) Carbon Dioxide Level 35 MMOL/L (21-32) H Anion Gap 9 mmol/L (5-15) Blood Urea Nitrogen 35 mg/dL (7-18) H Creatinine 0.8 MG/DL (0.55-1.30) Estimat Glomerular Filtration Rate > 60 mL/min (>60) Glucose Level 55 MG/DL (74-106) L Calcium Level 8.7 MG/DL (8.5-10.1) Total Bilirubin 0.5 MG/DL (0.2-1.0) Aspartate Amino Transf (AST/SGOT) 23 U/L (15-37) Alanine Aminotransferase (ALT/SGPT) 15 U/L (12-78) Alkaline Phosphatase 104 U/L (46-116) Total Protein 5.9 G/DL (6.4-8.2) L Albumin 2.0 G/DL (3.4-5.0) L Globulin 3.9 g/dL Albumin/Globulin Ratio 0.5 (1.0-2.7) L Arterial Blood pH 7.469 (7.350-7.450) Arterial Blood Partial Pressure CO2 43.3 mmHg (35.0-45.0) Arterial Blood Partial Pressure O2 61.8 mmHg (75.0-100.0) L Arterial Blood HCO3 30.7 mmol/L (22.0-26.0) H Arterial Blood Oxygen Saturation 91.5 % (95-100) L Arterial Blood Base Excess 6.3 (-2-2) H Jose Test Positive Assessment/Plan Assessment/Plan Covid 19 PNA Hypoxia Respiratroy failure Steroid exacerbated diabetes mellitus Hypertension Ac diast CHF component with pleural effn's Hypokalemia Dehydration/hypernatremia O2 May need Vent support soon - maintain bipap for now. Lovenox anticoag IV steroids with taper Anti-viral rx completed. Long acting insulin advanced, with cont'd sliding scale cov'g Free water replacement by IV route Tomas Cool MD May 31, 2020 16:10
--- NOTE | 2020-05-31 16:16 | NUR ---
NURSE NOTES: Pt hooked to ventilator on the following settings per Dr Ye: AC 22 TV 500 FiO2 100% Peep 5.
--- NOTE | 2020-05-31 16:27 | NUR ---
CODE BLUE: Pt again found with bradycardia evolving into PEA and asystole. Unable to achieve ROSC despite multiple rounds of CPR utilizing ACLS protocol. Pt at 1642. Family and Dr Cool notified. See Code sheet which remains on paper.
--- NOTE | 2020-05-31 16:27 | NUR ---
RESPIRATORY NOTE: CODE WAS CALLEDAT THIS TIME. COMPRESSIONS AND MANUAL VENTILATION PROVIDED. PT WAS INTUBATED SUCCESFULLY AT 1612 BUT RESUSITATION WAS UNSUCCESSFULL. SEE NURSING NOTES.
[2020-05-31] MEDS ORDERED: DOPamine 400mg/250ml 250 ML IV SCH (16:30)
[2020-05-31] MEDS ORDERED: Atropine Inj 1mg/10ml Syr ONE (16:41)
[2020-05-31] MEDS ORDERED: Sodium Bicarbonate 8.4% 50ml Inj ONE (16:41)
[2020-05-31] MEDS ORDERED: D5 1/2NS w/KCl 20mEq 1,000 ML IV SCH (16:45)
--- NOTE | 2020-05-31 17:05 | NUR ---
NURSE NOTES: artillery or naval gunfire observer and one legacy notified.
--- NOTE | 2020-05-31 17:30 | Emergency Room Report ---
History of Present Illness General Chief Complaint: Dyspnea/Respdistress Source: Patient, Medical Record, PMD Present Illness Allergies: Coded Allergies: No Known Allergies (Unverified , 05/15/20) COVID-19 Screening Contact w/high risk pt: No Experienced COVID-19 symptoms?: Yes COVID-19 Testing performed WEED CONTROLLER: No COVID-19 Screening: Positive COVID-19 Nursing Documentation-PMH Past Medical History: No History, Except For Hx Cardiac Problems: Yes Hx Hypertension: Yes Hx Diabetes: Yes Hx Cancer: No Hx Gastrointestinal Problems: No Hx Neurological Problems: No Physical Exam Vital Signs Date Time Temp Pulse Resp B/P (MAP) Pulse Ox O2 Delivery O2 Flow Rate FiO2 05/27/20 07:15 96 27 92 100 05/27/20 08:00 97.8 157/85 (109) 05/27/20 08:00 Bi-pap Procedures CPR/Code Blue CPR/Code Blue Narrative I was initially contacted to evaluate patient after cardiac arrest. Patient had initial bradycardia and desaturation. He was undergoing [id number] and CPR on my arrival. See first code sheet for medications. Patient was intubated for airway protection without medications. Patient subsequently had return of spontaneous circulation. At the time of return spontaneously circulation patient had adequate blood pressure and heart rate. I was subsequently called after patient had recurrent cardiac arrest. Patient was given multiple medications as per code sheet. Patient was pronounced at 1642. Medical Decision Making Diagnostic Impression: Primary Impression: Respiratory distress Additional Impressions: Pneumonia due to COVID-19 virus Septic shock Dyspnea Last Vital Signs Date Time Temp Pulse Resp B/P (MAP) Pulse Ox O2 Delivery O2 Flow Rate FiO2 05/31/20 16:30 112 64 100/72 (81) 93 05/31/20 16:00 Bi-pap 05/31/20 16:00 100 05/31/20 16:00 98.6 Disposition: ADMITTED INPATIENT Condition: Stable Referrals: NOT CHOSEN IPA/,REFERRING (PCP) Gregorio Dorman MD May 31, 2020 17:30
--- NOTE | 2020-05-31 18:30 | NUR ---
NURSE NOTES: Post mortem care completed.
--- NOTE | 2020-05-31 19:14 | NUR ---
NURSE NOTES: Report given to JADA Christensen. Body pending transfer to [facility] once family arrives. Endorsed belongings present at bedside and meds left at pharmacy.
--- NOTE | 2020-06-03 15:16 | Discharge Summary ---
Discharge Summary Discharge Summary _ Date of admission: 05/16/2020 Date of expiration: 05/31/2020 History of Present Illness and Brief Hospital Course Mr. Smith was an 80-year-old male with a history of diabetes mellitus, and hypertension, who presented to the ED for evaluation of shortness of breath. Patient tested positive for COVID-19 4 days prior to his presentation. Patient complained of cough, congestion, and worsening shortness of breath over a few days. He was hypoxic on arrival and was placed on nonrebreather with subsequent resolution of his hypoxia. He tested positive for COVID-19 via rapid gene assay in ER. His chest x-ray revealed diffuse infiltrates in all lung zhang worse in the right lung. Right-sided pleural effusion was also demonstrated. EKG was notable for right bundle branch block without signs of ischemia. Patient received azithromycin, ceftriaxone, Decadron, and Lovenox in the ER and was admitted to the hospital for further management. For his COVID-19 pneumonia, he initially received supplemental oxygen via nonrebreather mask. Patient was started on remdesivir on top of dexamethasone. His broad-spectrum antibiotics were soon discontinued. Dexamethasone was later switched to Solu-Medrol. Given worsening hypoxia, the supplemental oxygen was switched to BiPAP. He became increasingly hypoxic but refused to be intubated unless absolutely necessary for survival. On 05/31/2020 patient was found to be in bradycardia evolving into asystole. CPR was initiated promptly. Patient was orally intubated at 1612. ROSC was achieved and patient was started on dopamine drip given hypotension. However, patient coded again at 1621 and was unable to be resuscitated this time. Patient unfort unately at 1642. Consultants: Cardiology Dr. Cool Infectious disease Dr. Sullivan Pulmonology Dr. Robles Surgery Dr. Guajardo Final diagnoses COVID-19 pneumonia Hypoxemic respiratory failure Steroid-induced diabetes mellitus Hypertension Acute diastolic CHF Hypokalemia Dehydration/hypernatremia Leukocytosis Septic shock I have been assigned to dictate discharge summary for this account. I was not involved in the patient's management Kris Tse Jun 03, 2020 15:16
== END 2020-05-31 16:42 | disposition expired | DRG 871 ==
LOC: EDBD 23:28 → EMR 23:59 → EDBEDREQ 05-16 02:43 → 2E 05-16 04:42 → 2W 05-20 09:14 → ICU 05-29 10:43
PROC: XW033E5 Introduction of Remdesivir Anti-infective into Peripheral Vein, Percutaneous Approach, New Technology Group 5 (ICD-10-PCS; 2020-05-16)
PROC: 5A09557 Assistance with Respiratory Ventilation, Greater than 96 Consecutive Hours, Continuous Positive Airway Pressure (ICD-10-PCS; principal; 2020-05-19)
PROC: 02HV33Z Insertion of Infusion Device into Superior Vena Cava, Percutaneous Approach (ICD-10-PCS; 2020-05-29)
PROC: 5A12012 Performance of Cardiac Output, Single, Manual (ICD-10-PCS; 2020-05-31)
PROC: 0BH17EZ Insertion of Endotracheal Airway into Trachea, Via Natural or Artificial Opening (ICD-10-PCS; 2020-05-31)
DX: A41.89 Other specified sepsis (principal); U07.1 COVID-19; J12.82 Pneumonia due to coronavirus disease 2019; R65.21 Severe sepsis with septic shock; I50.31 Acute diastolic (congestive) heart failure; J96.91 Respiratory failure, unspecified with hypoxia; E87.1 Hypo-osmolality and hyponatremia; E44.0 Moderate protein-calorie malnutrition; E83.42 Hypomagnesemia; I11.0 Hypertensive heart disease with heart failure; E87.8 Other disorders of electrolyte and fluid balance, not elsewhere classified; E11.65 Type 2 diabetes mellitus with hyperglycemia; Z79.84 Long term (current) use of oral hypoglycemic drugs; T38.0X5A Adverse effect of glucocorticoids and synthetic analogues, initial encounter; I45.10 Unspecified right bundle-branch block; E87.6 Hypokalemia; E86.0 Dehydration
CPT/HCPCS: 36415; 36569; 71045; 76937; 80053; 81003; 82248; 82550; 82553; 82728; 82803; 82962; 83036; 83605; 83615; 83690; 83735; 83880; 84484; 85007; 85025; 85379; 85610; 85730; 86140; 87040; 87070; 87086; 87205; 92950; 93005; 93306; 93970; 94640; 94660; 96361; 96365; 96367; 96375; 99291; J0171; J1815; J2405; J3490; J7030; J7620; J8499; S5561; U0002